=== PATIENT | female | born 1950 | race Caucasian/White ===

== ENCOUNTER → 2017-10-17 14:02 | Outpatient (CLI) | payer MEDICARE, BC, SELFPAY ==
[2017-10-17 15:58] LABS: Hemoglobin A1c 5.4 % (4.2-6.3)
[2017-10-17 16:35] LABS: ALB/GLOB Ratio 1.1 RATIO (0.9-2.4); AST(SGOT) 19 U/L (15-37); Alanine Aminotransfer ALT/SGPT 47 U/L (13-56); Alkaline Phosphatase 82 U/L (45-117); Anion Gap 12 (5-15); BUN 14 mg/dL (7-18); BUN/Creat Ratio 18.3 RATIO (10-20); Calcium,Total 9.2 mg/dL (8.5-10.1); Chloride 105 mmol/L (98-107); Cholesterol 211 mg/dL (200); Creatinine, Serum 0.76 mg/dL (0.55-1.02); EST Glomerular Filtration Rate 80 mL/min (>60); Est Glom Filt Rate - Afr Amer 97 mL/min (>60); Globulin 3.5 g/dL (2.2-4.2); Glucose 158 mg/dL (74-106); High Density Lipoprotein 39 mg/dL; Potassium 3.7 mmol/L (3.5-5.1); Protein, Total 7.5 g/dL (6.4-8.2); Sodium Level 141 mmol/L (136-145); Triglycerides 357 mg/dL; Very Low Density Lipoprotein 71 mg/dL (5-40)
[2017-10-17 17:33] LABS: Microalbumin,Random Urine 11.8 mg/L (NO RANGE EST.); Microalbumin:Creatinine Ratio 12.7 mg/g CRE (<30 mg/g CRE)
[2017-10-17 18:00] LABS: Hematocrit 38.7 % (37-47); Mean Corpuscular Volume 93.9 fL (81-99); Red Blood Count 4.12 M/mm3 (4.2-5.4); White Blood Count 6.9 K/mm3 (4.4-11.0)
[2017-10-17 18:01] LABS: Mean Corp Hgb Conc 36.2 g/gl (32-36); Mean Platelet Vol. 10.3 fl (6.2-12.0); POSITIVE COUNT YES; POSITIVE DIFFERENTIAL NO; POSITIVE MORPHOLOGY NO; Platelet Count 223 K/mm3 (150-450); RBC Distribution Width CV 13.1 % (11.6-14.6); RBC Distribution Width SD 44.5 fl (35.1-43.9)
[2017-10-17 18:02] LABS: Absolute Lymphocyte Count 2.43 X10^3/ul (0.83-4.51); Absolute Neutrophil Count 3.7 X10^3/uL (2.0-7.7); Basophil% 0.4 % (0-1); Differential Indicated SCAN CRITERIA MET; Eosinophil# 0.13 X10^3/uL; Eosinophils% 1.9 % (0-5); Lymphocyte # 2.43 X10^3/ul (4.0); Lymphocyte % 35.2 % (19-41); Monocyte# 0.59 X10^3/uL; Monocyte% 8.6 % (0-10); Neutrophil # 3.69 X10^3/uL (2.7-7.7); Neutrophil % 53.5 % (47-70)
[2017-10-17 18:03] LABS: Basophil# 0.03 X10^3/uL
[2017-10-17 18:17] LABS: Anisocytosis RARE; Macrocytosis RARE; Platelet Estimate ADEQUATE (ADEQ); Platelet Morphology LARGE
[2017-10-19 09:55] LABS: LDL, Direct 120295 139 mg/dL (0-99)
[2017-10-19 15:57] LABS: Hep C Antibodies <0.1 s/co ratio (0.0-0.9)
== END ==
PROVIDERS: Family Provider Family Medicine; PCP Family Medicine; Visit Provider Family Medicine
DX: I10 Essential (primary) hypertension (principal); E78.5 Hyperlipidemia, unspecified; R73.9 Hyperglycemia, unspecified; R53.83 Other fatigue
CPT/HCPCS: 36415; 80053; 80061; 82043; 82570; 83036; 83721; 85025; 86803

== ENCOUNTER → 2017-12-30 13:38 | Outpatient (CLI) | payer MEDICARE, BC, SELFPAY ==
--- NOTE | 2017-12-30 13:42 | RAD_ITS ---
STUDY: X-RAY - CERVICAL SPINE REASON FOR EXAM: Female, 67 years old. Neck pain x6 months TECHNIQUE: 5 view(s) of the cervical spine were obtained. COMPARISON: None FINDINGS: Normal anterior atlantoaxial articulation. Normal odontoid process. Normal cervical lordosis. Normal vertebral bodies and endplates. Mild disc space narrowing There is multi-level osseous foraminal stenosis. The soft tissue structures are unremarkable. RAD/Cerv Spine 4 or 5 Views IMPRESSION: Multilevel degenerative changes, no demonstrated fracture or aggressive osseous lesion Electronically Signed: Thony Felton MD at 14:22 EDT , Service support ,
== END ==
PROVIDERS: Family Provider Family Medicine; PCP Family Medicine; Visit Provider Anesthesiology
DX: M54.2 Cervicalgia (principal)
CPT/HCPCS: 72050

== ENCOUNTER → 2018-06-03 12:01 | Outpatient (CLI) | payer MEDICARE, BC, SELFPAY ==
--- NOTE | 2018-06-03 12:03 | BI_ITS ---
MAMMOGRAPHY - BILATERAL SCREENING REASON FOR EXAM: Female, 67 years old. Routine annual screening examination. PERTINENT HISTORY: Non-contributory. TECHNIQUE: Digital bilateral breast suha (3D mammographic acquisition) in the CC and MLO projections. 2-D mediolateral oblique (MLO) and craniocaudad (CC) views of both breasts were obtained. CAD: Full Field Digital Mammography with Computer Added Detection was performed. COMPARISON: Comparison is made with prior study dated May 21, 2017 and April 30, 2016. FINDINGS: Breast Composition: There are scattered areas of fibroglandular density. There are no dominant masses or suspicious calcifications. No other significant abnormalities are identified. There has been no significant change since the prior study. BI/SCREENING MAMM (CAD), BILAT IMPRESSION: Stable bilateral screening mammogram. Yearly follow-up mammogram recommended. (A) ASSESSMENT CATEGORY: BIRADS Category 1: Negative. A letter regarding these results will be sent to the patient by the facility within 30 days. Approximately 10% of breast cancers are not detected by mammography. A normal mammogram should not delay biopsy of a clinically suspicious abnormality. [id number] Electronically Signed: Josr Phillips MD at 14:13 EDT Tel [phone], Service support ,
== END ==
PROVIDERS: Family Provider Family Medicine; PCP Family Medicine; Referring Provider Nurse Practitioner Women's Health; Visit Provider Nurse Practitioner Women's Health
DX: Z12.31 Encounter for screening mammogram for malignant neoplasm of breast (principal)
CPT/HCPCS: 77063; 77067

== ENCOUNTER 2018-08-11 10:52 | Day surgery (SDC) | payer MEDICARE, BC, SELFPAY ==
[2018-04-30 13:26] VITALS: BMI 29.1
[2018-08-06 15:29] VITALS: BP 152/68; PULSE 84; RESP 16; TEMP 36.9; O2SAT 96; BMI 27.6
--- NOTE | 2018-08-06 15:41 | SDCEKG_ITS ---
Test Reason : Blood Pressure : / mmHG Vent. Rate : 076 BPM Atrial Rate : 076 BPM P-R Int : 188 ms QRS Dur : 082 ms QT Int : 376 ms P-R-T Axes : 059 041 038 degrees QTc Int : 423 ms Normal sinus rhythm Low voltage QRS Septal infarct , age undetermined Abnormal ECG Confirmed by ENRIKE GONZALES, EVANS ([id number]), editor news MILI CLARK ([id number]) on 08/08/2018 2:47:51 PM Referred By: Hilton Paula Confirmed By:EVANS CALVERT MD
[2018-08-06 16:25] LABS: ALB/GLOB Ratio 1.1 RATIO (0.9-2.4); AST(SGOT) 30 U/L (15-37); Alanine Aminotransfer ALT/SGPT 56 U/L (13-56); Albumin, Serum 3.9 g/dL (3.2-5.0); Alkaline Phosphatase 86 U/L (45-117); Anion Gap 11 (5-15); BUN 15 mg/dL (7-18); BUN/Creat Ratio 19.6 RATIO (10-20); Chloride 104 mmol/L (98-107); Creatinine, Serum 0.76 mg/dL (0.55-1.02); EST Glomerular Filtration Rate 80 mL/min (>60); Est Glom Filt Rate - Afr Amer 97 mL/min (>60); Estimated Creatinine Clearance 54.32 ml/min; Globulin 3.5 g/dL (2.2-4.2); Glucose 167 mg/dL (74-106); Potassium 3.8 mmol/L (3.5-5.1); Protein, Total 7.4 g/dL (6.4-8.2); Sodium Level 139 mmol/L (136-145)
--- NOTE | 2018-08-06 16:30 | RAD_ITS ---
STUDY: X-RAY CHEST REASON FOR EXAM: Female, 67 years old. Preop TECHNIQUE: PA and lateral COMPARISON: May 30, 2014 FINDINGS: The lungs are clear and expanded. Tiny calcified granulomata in the right lung. There is no demonstrated pleural abnormality. Normal size heart. Normal mediastinum and anthony. Normal visualized pulmonary arteries. Normal visualized aortic arch and descending thoracic aorta. Dorsal spine demonstrates spondylosis. Normal visualized ribs, clavicles, and shoulders. There is no demonstrated abnormality of the visualized soft tissue structures of the upper abdomen. No significant change since prior exam RAD/Chest PA and Lateral IMPRESSION: Old granulomatous disease. No acute cardiopulmonary pathology Electronically Signed: Hansel Green MD at 17:09 EST , Service support ,
[2018-08-06 16:54] LABS: Hematocrit 39.5 % (37-47); Mean Corpuscular Volume 91.4 fL (81-99); Mean Platelet Vol. 10.3 fl (6.2-12.0); Platelet Count 260 K/mm3 (150-450); RBC Distribution Width CV 12.8 % (11.6-14.6); Red Blood Count 4.32 M/mm3 (4.2-5.4); White Blood Count 7.1 K/mm3 (4.4-11.0)
[2018-08-06 16:59] LABS: Mean Corp Hgb Conc 35.4 g/gl (32-36); Mean Corpuscular Hgb 32.4 pg (27.0-32.0)
[2018-08-06 17:00] LABS: Scan Indicated on CBC? Y/N NO
[2018-08-06 17:14] LABS: Hemoglobin A1c 5.9 % (4.2-6.3)
[2018-08-06 17:23] LABS: International Normalized Ratio 1.2; Prothrombin Time (Protime)PT. 14.8 SECONDS (11.7-14.9)
[2018-08-06 17:24] LABS: Partial Thromboplast Time 29.7 Seconds (24.1-36.2)
--- NOTE | 2018-08-10 20:25 | PCM.HP.BLA ---
History and Physical Date of Admission: 08/11/18 Surgical History and Physical Mariela Dozier, a 67 year old female 2 0 0 0 2, presents for Vaginal Hysterectomy and AP Repair on August 11, 2018 at 7:30. -- Prolapse Symptoms -- Rectocele which began 2008. Mariela claims it started gradually and has been present worsened in last 6 weeks. It occurs all the time. It is located in the rectum/vaginia. Mariela characterizes the quality rubbing, pressure. Severity is moderate and very concerned; Associated signs and symptoms are Referral Dr. Marroquin; has been using intravaginal estrogen for 3-4 years; hx of heart attack with stents placed 4 years ago. Additional comments are: Had Anterior Repair a few years ago for cystocele but it failed shortly after. MEDICATIONS HISTORY: Current medications prescribed by our practice are: 1. Estrace 0.01% (0.1 mg/gram) vaginal cream, apply 1 inch ribbon to vaginal area three times weekly Patient is also takin. Chromium Picolinate KLB6 10-0.4 mg tablet, pt takes 500mcg daily 2. Miralax 17 gram Powder in Packet, PRN 3. potassium 99 mg tablet, 1 PO QD 4. Fish Oil 1,000 mg capsule 5. red yeast rice 600 mg tablet 6. Aspir-81 81 mg tablet,delayed release, 1 daily 7. Vitamin D3 1,000 unit capsule, 1 daily 8. Eye Vitamin and Minerals 7,160 unit-113 mg-100 unit tablet 9. Probiotic 15 billion cell sprinkle capsule 10. carvedilol 6.25 mg tablet, One pill by mouth twice a day ALLERGIES: Iodine, Nausea, headache, dizzy, Iodine and Headache Infections - Chicken pox Illnesses - pre-diabetic, borderline HTN Accidents - no injuries of consequence Hospitalizations - see surgery [place], 05/30/14; Review of Systems: GENERAL - Denies fever, or chills SKIN - Denies skin changes EYES - Denies visual changes EARS - Denies difficulty hearing NOSE - Denies nasal congestion or bleeding MOUTH - Denies sore throat or difficulty swallowing NECK - Denies pain or swelling RESPIRATORY - Denies shortness of breath or wheezing CARDIOVASCULAR - Denies palpitations or chest pain GASTROINTESTINAL - Denies nausea, vomiting, diarrhea, constipation GENITOURINARY - Denies dysuria, frequency of urination, incontinence of urine MUSCULOSKELETAL - Denies joint or muscle pain NEUROLOGICAL - Denies localized numbness or weakness PSYCHIATRIC - Denies depression or anxiety ENDOCRINE - Denies heat or cold intolerance, weight loss or gain HEMATO-IMMUNOLOGIC - Denies excesive bleeding with cuts SOCIAL HISTORY: Alcohol Use - drinks occasionally Smoking - denies smoking Diet - low in sweets Lifestyle - high stress lifestyle, injury and attempted suicide Exercise - active Seat Belt Use - always Employer - Retired Illicit Drug Use - denies use of street drugs Sexual Activity - Spouse-Sig Other Name - Levi Spouse-Sig Other Occupation - retired Children Name(s) - Sorin Russ() Control - Vasectomy and postmenopausal FAMILY HISTORY: Mother: Heart Disease. Father: COPD, DM II and . MENSTRUAL HISTORY: LMP Known?- Postmenopausal, Age Onset Menarche - 15 PAST PREGNANCIES: Total Pregnancies - 2; Full Term Pregnancies - 2; Premature - 0; Abortions, Induced - 0; Abortions, Spontaneous - 0; Ectopics - 0; Multiple Births - 0; Living Children - 2 SURGICAL HISTORY: 1. Stent placement 05/16 ; - 2. Appendectomy ; - 3. R arm Bypass 03/2012 ; - work injury 4. R hand tumor removed and ; - 5. Bladder repair 10/2011 ; - 6. Tumor from L hand removed ; - PHYSICAL EXAM BP- 130/72 Sitting, Left arm, large cuff Temp- 97.8 Taken Orally Height- 66 inch CONSTITUTIONAL - NAD, well nourished, and well developed SKIN - No rash, lesions, or ulcers HEENT - Normocephalic, PERRLA, EOMI NECK - No nodes, no nuchal rigidity and thyroid normal size and texture LYMPH NODES - Palpation of lymph nodes in neck and groins within normal limits LUNGS - CTA x2 without wheezes, crackles or rales CARDIAC - Regular rate and rhythm without rubs, murmurs, or gallops ABDOMEN - Without hepatosplenomegaly, distention, masses, rebound, or guarding; normal bowel sounds; no hernias EXTREMITIES - No edema or calf tenderness NEUROLOGICAL - Cranial nerves II-XII grossly intact PSYCHIATRIC - A and O to time, place, person, mood and affect External Genitial Vagina - atrophic Urethra/Urethral Meatus - non-tender Bladder - non-tender Vagina - vaginal ha are pink and moist without loss of rugae and no evidence of atropy and cystocele to introitus; rectocele to within 2 cm of introitus Cervix - without cervical motion tenderness and has normal size and features without evident lesions and cercix protruded to introitus with bearing down Uterus - multiparous size 6 cm & wt 75-125 g Adnexa - no tenderness and no masses ASSESSMENT/PLAN: 1. Uterovaginal Prolapse, Incomplete Very symptomatic and denies BRENNA problem. Discussed options for treatment and pt declines pessary use. Desires proceeding with Vag Hyst and AP Repair. Discussed RBAs and all questions answered. Has cardio clearance. Continued intravaginal estrogen.
[2018-08-11] VITALS (9 sets, daily range): BP systolic 144–163; BP diastolic 66–79; PULSE 67–90; RESP 15–18; TEMP 36.4–36.6; O2SAT 93–98; BMI 27.6
--- NOTE | 2018-08-11 | HYST_PTH ---
PATIENT: USMAN NICKERSON [place] [facility] [place][id number] AGE/SX: 67/F ROOM: RE08/11/[address]: Dr. Hilton Paula MD : [id number] BED: DIS: 08/12/2018 SPEC #: [id number] RECD: 08/12/18 13:15 STATUS: ROME DAVID #: [id number] AMY: 08/11/18 00:[address]: Hilton Paula DEPT: SURGICAL PATHOLOGY RECD BY: Kris Castillo ENTERED: 08/12/18 13:15 SP TYPE: HYSTERECT OTHR DR: Dr. Gideon Turcios DO Tissues: Uterus, NOS Procedures: Surgery Specimen Level II Surgery Specimen Level V HEADER OPERATION: Vaginal hysterectomy, anterior and posterior repair PRE-OP DIAGNOSIS: Uterovaginal prolapse TISSUE SUBMITTED: Uterus, cervix, vaginal mucosa MICROSCOPIC DIAGNOSIS Uterus, hysterectomy: Cervix - nabothian cysts and mild chronic inflammation. Endometrium - cyst atrophy. Myometrium - adenomyosis. Vaginal tissue, anterior and posterior repair: Mild chronic inflammation. No evidence of dysplasia. AM:hi 08/13/18 MICROSCOPIC DESCRIPTION Slides are reviewed. GROSS DESCRIPTION Received in fixative is one container labeled with the patient's name and designated uterus, cervix and vaginal mucosa. The specimen consists of a hysterectomy specimen consisting of uterus with cervix and detached pieces of mucosal tissue. The uterus with cervix weighs 50 gm and measures 8.5 x 4.5 x 3 cm. The serosal surface is gooden, glistening. The ectocervical mucosa is unremarkable. The external os is pinpoint. The endocervical canal measures 3 cm in length and the endocervical mucosa is gooden, glistening and unremarkable. The triangular endometrial cavity measures 4 cm in length and up to 1 cm in width. The endometrium is gooden, glistening without any mass lesion and measures <0.1 cm in thickness. Sections of the uterine wall reveal two small nodular masses measuring 0.2 to 0.3 cm in thickness. The uterine wall measures up to 1.5 cm in thickness. Also present in the container are five detached pieces of mucosal tissue measuring in aggregate 7 x 5 x 0.5 cm. No mucosal lesion is identified. Instrumentation montoya are noted. [place] Gauger sections are submitted in seven cassettes as follows: 1 - anterior cervix, 2 - posterior cervix, 3 & 4 - anterior uterine wall, 5 & 6 - posterior uterine wall. Cassettes 4 and 6 contain the nodular masses. 7 - mucosal tissue. / SJ:hi 08/12/18 TC: 5 CPT: 43933, 88824
[2018-08-11 13:15] LABS: Bedside Glucose 181 mg/dL (70-110)
--- NOTE | 2018-08-11 14:56 | OP.PCM_ITS ---
Report of Operation Date of Procedure: 08/11/18 Pre-Operative Diagnosis: Incomplete Uterovaginal Prolapse, Cystocele, Rectocele Post-Operative Diagnosis: Incomplete Uterovaginal Prolapse, Cystocele, Rectocele Surgery/Procedure Performed:: Vaginal Hysterectomy and Anterior Posterior Repair Description of Surgical Findings:: 6 cm uterus with cervix prolapsing to the introitus. Large rectocele and cystocele. decision support manager: Tip Godinez Type of Anesthesia:: General Anesthesiologist: Antonia Jenkins Specimen's removed: Uterus and vaginal mucosa Drains: Miranda to straight drain Estimated Blood Loss (mL): 100 cc Fluids Replaced: Crystalloid Description of Procedure: Surgeon: Hilton Paula MD, FACOG Indications: This is a 67-year-old patient who is been having problems with prolapse symptoms. Conservative measures have not been helpful. Given this the patient desires that we proceed the above procedure. She has been counseled regarding the risk and indications of this procedure including the possibility of bleeding, infection, and injury to surrounding structures such as bowel bladder. All questions were answered. Procedure: Patient was taken to the operating room where after induction of general anesthesia she was placed in the dorsal lithotomy position and prepped and draped in the usual sterile fashion. A Miranda catheter was placed. Anterior cervix was grasped with a tenaculum and anterior cervix circumscribed with cautery on a setting of 35 W coagulation. Anterior vaginal mucosa was undermined and anterior peritoneum was easily entered. The posterior aspect of the cervix was circumscribed with a knife and posterior peritoneum easily entered. Progressive bites were taken on either side of the uterine cervix and each pedicle ligated with 0 Vicryl suture. Superior pedicles were ligated ?2 with 0 Vicryl suture and sidewall pedicles were examined and oversewn where necessary with [id number] 0 Vicryl suture to achieve hemostasis. Posterior vaginal cuff was oversewn with running locked 0 Vicryl suture. Hemostasis was noted and peritoneum was closed in a pursestring fashion incorporating superior pedicles into the stitch. Anterior vaginal mucosa was undermined and divided and then imbricated toward the midline with interrupted 0 Vicryl sutures. Vaginal mucosa was trimmed and then closed with interrupted 2-0 chromic suture. Vaginal cuff was then closed front to back with interrupted [id number] 0 Vicryl suture. Hemostasis was noted. Attention was turned toward the posterior repair portion of the procedure. Remnants of the hymenal ring were grasped with Allises and a V-shaped incision was made in the perineum. Rectovaginal mucosa was then undermined divided and then imbricated toward the midline with interrupted 0 Vicryl suture. Vaginal mucosa was trimmed and then closed with running locked 2-0 chromic suture. Remnants of the bulbocavernosus muscles were identified and brought toward the midline with a single lawznh-[id number] 0 Vicryl suture and perineum was closed in the usual fashion with running and subcuticular, and ruwagf-ji-[id number] 2-0 chromic suture. Hemostasis was noted. Miranda catheter was opened and clear yellow urine was noted. Vagina was packed with iodoform tape. Patient tolerated the procedure well was taken to recovery room in satisfactory condition; sponge instrument and needle counts were all reportedly correct. Estimated blood loss for the case was less than 100 cc. Cefotan 2 g IV was given prior to beginning the operative procedure. There were no apparent complications of the surgery. Grafts/Implants Used: None - Complications None - Admit VTE Documentation VTE Present on Admission: Yes VTE Mechan Device Prophylaxis: SCD's VTE Pharm Prophylaxis ordered?: Yes
--- NOTE | 2018-08-11 16:44 | DCINST_ITS ---
Discharge Diet: No Restrictions Discharge Activity: Return to Normal Activity, May Not Drive - while taking narcotic pain medications., May Shower May resume sexual activity in: 6-8 weeks Call your doctor if your incision/area has: Continuous Slow Oozing, Sudden Increased Bleeding, Increased Pain/ Swelling, Increased Redness, Foul Smelling Discharge Call your doctor if you observe: Fever of 101 or Higher, Inability to urinate, Inability to have a bowel movement, Using more than one pad per hour Allergies/Adverse Reactions: Allergies Iodinated Contrast- Oral and IV Dye [Iodinated Contrast Media - IV Dye] Allergy (Verified 08/06/18 15:00) Other morphine Allergy (Verified 08/06/18 15:00) SEVER HEADACHE lisinopril Adverse Reaction (Verified 08/11/18 11:32) Other rosuvastatin [From Crestor] Adverse Reaction (Verified 08/11/18 11:32) Other LEGS HURT Medications to take at Discharge RX: Cranberry Conc/Ascorbic Acid [Cranberry 12,600 mg Softgel] 4,200 mg PO MOREL 05/27/14 RX: L.acidoph/B.long/L.plant/B.lac [Probiotic Acidophilus Beads] 1 ea PO DAILY 05/27/14 RX: [place]-3/Dha/Epa/Fish Oil [Fish Oil Dr 500 mg Softgel] 1,000 mg PO DAILY 05/27/14 RX: Potassium Gluconate 99 mg PO DAILY 05/27/14 Red Rice Yeast With [place] 600 ml PO BID 05/27/14 aspirin 81 mg tablet,delayed release 81 mg PO DAILY 04/30/18 carvedilol 6.25 mg tablet 6.25 mg PO BID 04/30/18 chromium picolinate 400 mcg tablet 500 mcg PO BID tab 04/30/18 hemp oil 0.5 ml PO BID 04/30/18 Ascorbic Acid [Vitamin C] 1,000 mg PO DAILY 08/06/18 Loratadine [Claritin] 10 mg PO PRN PRN 08/06/18 Lutein [Natural Lutein] 20 mg PO DAILY 08/06/18 Polyethylene Glycol 3350 [Clearlax] 17 gm PO DAILY 08/06/18 RX: Biotin 7,500 mcg PO MOTUWETHFR 08/06/18 RX: Estradiol See Rx Instructions VAGINAL SUWEFR 08/06/18 Docusate Sodium [Colace] 100 mg PO BID PRN PRN #60 cap 08/11/18 traMADol [Ultram (G)] 50 mg PO Q6H PRN PRN 7 Days #20 tab 08/11/18 The following prescriptions were given: traMADol [Ultram (G)] 50 mg PO Q6H PRN PRN 7 Days #20 tab PRN Reason: Mod-Severe Pain (-06/11) Docusate Sodium [Colace] 100 mg PO BID PRN PRN #60 cap PRN Reason: Constipation Primary Care Physician: Gideon Turcios DO [Primary Care Provider] - Test Results: Test results from this visit will be discussed in further detail at your follow- up appointment, if applicable. Please Follow Up With: Hilton Paula MD When: 2-3 weeks
[2018-08-11 17:19] LABS: Bedside Glucose 188 mg/dL (70-110)
[2018-08-11] MEDS: HYDROmorphone 1 MG/ML Syringe IV (18:41)
[2018-08-11] MEDS: Enoxaparin 30 MG/0.3 ML Syringe SC (18:41)
[2018-08-11] MEDS: Carvedilol 6.25 MG Tablet PO (22:22)
[2018-08-11] MEDS: Acetaminophen 500 MG Tablet 1000 MG PO (22:22)
[2018-08-11] MEDS: Ketorolac 30 MG/ML Syringe IV (23:13)
[2018-08-12] MEDS: Lactated Ringers 1,000 ML 125 ML IV (00:47)
[2018-08-12 05:00] VITALS: BP 143/66; PULSE 97; RESP 16; TEMP 36.4; O2SAT 97
[2018-08-12] MEDS: Ketorolac 30 MG/ML Syringe IV (05:04)
[2018-08-12 06:05] LABS: EST Glomerular Filtration Rate 47 mL/min (>60); Est Glom Filt Rate - Afr Amer 57 mL/min (>60); Estimated Creatinine Clearance 45.26 ml/min
[2018-08-12 06:23] LABS: Hematocrit 33.9 % (37-47); Mean Corpuscular Volume 92.4 fL (81-99); Mean Platelet Vol. 9.8 fl (6.2-12.0); Platelet Count 266 K/mm3 (150-450); RBC Distribution Width CV 13.1 % (11.6-14.6); Red Blood Count 3.67 M/mm3 (4.2-5.4)
[2018-08-12 06:45] LABS: Hemoglobin 12.6 g/dl (12.0-15.0); Mean Corp Hgb Conc 36.4 g/gl (32-36); Mean Corpuscular Hgb 33.5 pg (27.0-32.0); Scan Indicated on CBC? Y/N NO
[2018-08-12 06:51] VITALS: O2SAT 94
[2018-08-12 08:00] VITALS: BP 151/69; PULSE 89; RESP 16; TEMP 36.9; O2SAT 98
[2018-08-12] MEDS: Carvedilol 6.25 MG Tablet PO (08:15)
[2018-08-12] MEDS: traMADol 50 MG Tablet PO ×2 (08:15→14:03)
--- NOTE | 2018-08-12 09:00 | PCM.PN.OB ---
Subjective: Patient without complaints. Tolerating diet well. Positive flatus. Minimal vaginal bleeding. Miranda out but no voiding on her own yet. - Physical Exam Vital Signs Temp Pulse Resp BP Pulse Ox 98.4 F 89 16 151/69 H 98 08/12/18 08:00 08/12/18 08:00 08/12/18 08:00 08/12/18 08:00 08/12/18 08:00 Oxygen Flow Rate (L/min) 2 Oxygen Delivery Method Room Air Weight: 182 lb 1.629 oz Body Mass Index (BMI) 27.6 Finger Stick Blood Glucose 188 Intake and Output for Last 24 Hours 08/10/18 08/11/18 08/12/18 23:59 23:59 23:59 Intake Total 3600 / 3600 1120 / 1120 Output Total 440 / 440 425 / 425 Balance 3160 / 3160 695 / 695 Laboratory Tests Past 24 Hrs 08/12/18 08/12/18 05:30 05:30 WBC 14.0 H RBC 3.67 L Hgb 12.6 Hct 33.9 L MCV 92.4 MCH 33.5 H MCHC 36.4 H RDW 13.1 RDW Differential 44.0 H Plt Count 266 MPV 9.8 Creatinine 1.20 H Estim Creat Clear Calc 45.26 Est GFR (MDRD) Af Amer 57 L Est GFR (MDRD) Non-Af 47 L POC Glucose 08/11/18 08/11/18 17:13 11:23 POC Glucose 188 H 181 H Vaginal pack out and minimal vaginal bleeding. Creatinine marginally elevated so will stop NSAIDs. No CVA tenderness noted. Medical Necessity - Tobacco Use Smoking Status: Never smoker Tobacco Use: Non-smoker Assessment/Plan Doing well postoperative day #1 status post vaginal hysterectomy and anterior posterior repair. Will release to home later today when able to void on her own.
--- NOTE | 2018-08-12 13:28 | NURSING ---
substance abuse added under plan of care, not intended for this pt. unable to remove d/t documentating on it
[2018-08-12 14:00] VITALS: BP 151/56; PULSE 80; RESP 16; TEMP 36.6; O2SAT 99
== END 2018-08-12 14:45 | disposition home or self-care (01) ==
LOC: SDC 10:54 → AC 10:57 → MS2 10:59
PROVIDERS: Anesthesiology; Family Provider Family Medicine; PCP Family Medicine; Referring Provider Obstetrics & Gynecology; Visit Provider Obstetrics & Gynecology
PROC: (CPT 58260; principal; 2018-08-11 13:00)
DX: N81.2 Incomplete uterovaginal prolapse (principal); N80.0 Endometriosis of uterus; N88.8 Other specified noninflammatory disorders of cervix uteri; N72 Inflammatory disease of cervix uteri; I10 Essential (primary) hypertension; E78.00 Pure hypercholesterolemia, unspecified; R73.03 Prediabetes; I25.2 Old myocardial infarction; Z78.0 Asymptomatic menopausal state; Z79.82 Long term (current) use of aspirin; Z79.899 Other long term (current) drug therapy; Z95.5 Presence of coronary angioplasty implant and graft
CPT/HCPCS: 00940; 57260; 58260; 36415; 71046; 80053; 82565; 82962; 83036; 85027; 85610; 85730; 86850; 86870; 86900; 88302; 88307; 93005; J7120; J2405

== ENCOUNTER → 2018-09-12 14:46 | Outpatient (CLI) | payer MEDICARE, BC, SELFPAY ==
[2018-09-12 17:14] LABS: BUN 13 mg/dL (7-18); Creatinine, Serum 0.64 mg/dL (0.55-1.02); EST Glomerular Filtration Rate 98 mL/min (>60); Est Glom Filt Rate - Afr Amer 119 mL/min (>60)
== END ==
PROVIDERS: Family Provider Family Medicine; PCP Family Medicine; Visit Provider Family Medicine
DX: R79.89 Other specified abnormal findings of blood chemistry (principal)
CPT/HCPCS: 36415; 82565; 84520

== ENCOUNTER → 2018-12-18 07:35 | Outpatient (CLI) | payer MEDICARE, BC, SELFPAY ==
[2018-08-11 18:46] VITALS: BMI 27.6
[2018-12-18 09:28] LABS: Erythrocyte Sedimentation Rate 1 mm/hr (0-30)
[2018-12-18 09:58] LABS: Hemoglobin A1c 6.3 % (4.2-6.3)
[2018-12-18 10:31] LABS: Rheumatoid Factor < 10.0 IU/mL (<15); Thyroid Stim Hormone (TSH) 2.63 uIU/mL (0.358-3.74)
[2018-12-18 10:54] LABS: Vitamin B12 435 pg/mL (211-911)
[2018-12-19 14:07] LABS: RNP Ab 0.3 AI (0.0-0.9); Smith Ab <0.2 AI (0.0-0.9)
[2018-12-19 16:07] LABS: PROEL- A/G Ratio 1.2 (0.7-1.7); PROEL- Albumin 3.7 g/dL (2.9-4.4); PROEL- Alpha-1 Globulin 0.2 g/dL (0.0-0.4); PROEL- Alpha-2 Globulin 0.7 g/dL (0.4-1.0); PROEL- Beta Globulin 1.2 g/dL (0.7-1.3); PROEL- Globulin, Total 3.1 g/dL (2.2-3.9); PROEL- TOTAL PROTEIN 6.8 g/dL (6.0-8.5)
[2018-12-22 12:03] LABS: Hep C Antibodies <0.1 s/co ratio (0.0-0.9)
[2018-12-22 12:08] LABS: ANTINUCLEAR ANTIBODIES DIRECT Negative (Negative)
== END ==
PROVIDERS: Family Provider Family Medicine; PCP Family Medicine; Referring Provider Psychiatry & Neurology Neurology; Visit Provider Psychiatry & Neurology Neurology
DX: R20.2 Paresthesia of skin (principal); G62.9 Polyneuropathy, unspecified; R73.9 Hyperglycemia, unspecified
CPT/HCPCS: 36415; 82607; 82746; 83036; 84165; 84443; 85652; 86038; 86235; 86431; 86803

== ENCOUNTER 2018-12-26 13:30 | Outpatient (RCR) | payer OTHER, SELFPAY ==
--- NOTE | 2019-04-21 13:00 | DS.PCM_ITS ---
Massage Therapy Discharge Summary: Discharge Date: 04/21/2019 Mariela was seen for massotherapy for the past 6 years due to a workmans comp injury to the right shoulder neck area. She was treated with massage therapy consisting of deep pressure soft tissue techniques, myofascial release and trigger point compression to her cervical and should on the right side only. Mariela reported that she would have great results when coming weekly but would not get more appointments right away so she would back track. At this time this patient is being discharged from our care at [facility] due to no longer having workmans comp covering appointments.
== END 2018-12-26 17:00 | disposition home or self-care (01) ==
LOC: MASS 13:30
PROVIDERS: Family Provider Family Medicine; PCP Family Medicine
DX: S16.1XXD Strain of muscle, fascia and tendon at neck level, subsequent encounter (principal); S46.819D Strain of other muscles, fascia and tendons at shoulder and upper arm level, unspecified arm, subsequent encounter
CPT/HCPCS: 97124

== ENCOUNTER → 2019-06-08 13:07 | Outpatient (CLI) | payer MEDICARE, BC, SELFPAY ==
--- NOTE | 2019-06-08 13:10 | BI_ITS ---
MAMMOGRAPHY - BILATERAL SCREENING 3-D TOMOSYNTHESIS REASON FOR EXAM: Female, 68 years old. Breast survey exam PERTINENT HISTORY: No significant family history. BILATERAL DIGITAL MAMMOGRAM WITH TOMOSYNTHESIS: Mediolateraloblique and craniocaudal views demonstrate no evidence of dominant parenchymal masses. No cluster of microcalcifications or architectural distortion is seen. No evidence of skin thickening is identified There has been no significant change since 06/03/2018. Breast Density: The breast tissue is heterogeneously dense, which may obscure small masses. CAD was used to assist in final assessment. IMPRESSION: NORMAL MAMMOGRAM BILATERALLY. FINAL ASSESSMENT: BIRAD 1 (NEGATIVE) YEARLY MAMMOGRAM RECOMMENDED Approximately 10% of breast cancers are not detected by mammography. A normal mammogram should not delay biopsy of a clinically suspicious abnormality. Electronically Signed: Hilton Macdonald, at 17:27 EDT Tel , Service support , BI/SCREEN MAMM (CAD) W/SOL HARVEY
== END ==
PROVIDERS: Family Provider Family Medicine; PCP Family Medicine; Referring Provider Obstetrics & Gynecology; Visit Provider Obstetrics & Gynecology
DX: Z12.31 Encounter for screening mammogram for malignant neoplasm of breast (principal)
CPT/HCPCS: 77063; 77067

== ENCOUNTER → 2020-01-29 09:53 | Outpatient (CLI) | payer MEDICARE, BC, SELFPAY ==
[2018-08-11 18:46] VITALS: BMI 27.6
[2020-01-29 12:45] LABS: Absolute Lymphocyte Count 2.45 X10^3/uL (0.83-4.51); Absolute Neutrophil Count 3.6 X10^3/uL (2.0-7.7); Basophil# 0.06 X10^3/uL; Basophil% 0.9 % (0-1); Eosinophil# 0.07 X10^3/uL; Hematocrit 40.9 % (37-47); Hemoglobin 14.9 g/dL (12.0-15.0); Lymphocyte # 2.45 X10^3/ul (4.0); Lymphocyte % 36.1 % (19-41); Mean Corp Hgb Conc 36.4 g/dL (32-36); Mean Corpuscular Hgb 33.7 pg (27.0-32.0); Mean Corpuscular Volume 92.5 fL (81-99); Mean Platelet Vol. 10.6 fl (6.2-12.0); Monocyte# 0.56 X10^3/uL; Monocyte% 8.2 % (0-10); NRBC Flagged by Analyzer 0 % (0-5); Neutrophil # 3.61 X10^3/uL (2.7-7.7); Neutrophil % 53.2 % (47-70); Platelet Count 258 K/mm3 (150-450); RBC Distribution Width CV 12.4 % (11.6-14.6); RBC Distribution Width SD 41.9 fl (35.1-43.9); Red Blood Count 4.42 M/mm3 (4.2-5.4); White Blood Count 6.8 K/mm3 (4.4-11.0)
[2020-01-29 13:18] LABS: ALB/GLOB Ratio 1.2 RATIO (0.9-2.4); AST(SGOT) 30 U/L (15-37); Alanine Aminotransfer ALT/SGPT 58 U/L (13-56); Albumin, Serum 4.1 g/dL (3.2-5.0); Alkaline Phosphatase 90 U/L (45-117); Anion Gap 8 (5-15); BUN 16 mg/dL (7-18); Calcium,Total 9.2 mg/dL (8.5-10.1); Chloride 104 mmol/L (98-107); Cholesterol 212 mg/dL (200); EST Glomerular Filtration Rate 75 mL/min (>60); Est Glom Filt Rate - Afr Amer 91 mL/min (>60); Globulin 3.5 g/dL (2.2-4.2); Glucose 226 mg/dL (74-106); High Density Lipoprotein 37 mg/dL; Potassium 4.1 mmol/L (3.5-5.1); Protein, Total 7.6 g/dL (6.4-8.2); Sodium Level 137 mmol/L (136-145); Triglycerides 350 mg/dL; Very Low Density Lipoprotein 70 mg/dL (5-40)
[2020-01-29 13:20] LABS: Hemoglobin A1c 6.5 % (3.8-5.6)
[2020-01-29 13:34] LABS: Microalbumin,Random Urine 24.5 mg/L (NO RANGE EST.); Microalbumin:Creatinine Ratio 23.3 mg/g CRE (<30 mg/g CRE)
== END ==
PROVIDERS: Family Provider Family Medicine; PCP Family Medicine; Visit Provider Family Medicine
DX: I25.10 Atherosclerotic heart disease of native coronary artery without angina pectoris (principal); I10 Essential (primary) hypertension; E78.5 Hyperlipidemia, unspecified; R73.03 Prediabetes; Z51.81 Encounter for therapeutic drug level monitoring
CPT/HCPCS: 36415; 80053; 80061; 82043; 82570; 83036; 85025

== ENCOUNTER → 2020-06-23 15:03 | Outpatient (CLI) | payer MEDICARE, BC, SELFPAY ==
--- NOTE | 2020-06-23 15:06 | BI_ITS ---
MAMMOGRAPHY - BILATERAL SCREENING REASON FOR EXAM: Female, 69 years old. Routine annual screening examination. PERTINENT HISTORY: Non-contributory. TECHNIQUE: Digital bilateral breast sol (3D mammographic acquisition) in the CC and MLO projections. 2-D mediolateral oblique (MLO) and craniocaudad (CC) views of both breasts were obtained. CAD: Full Field Digital Mammography with Computer Added Detection was performed. COMPARISON: Comparison is made with prior examination dated 06/08/2019 and 06/03/2008. FINDINGS: Breast Composition: There are scattered areas of fibroglandular density. There are no dominant masses or suspicious calcifications. No other significant abnormalities are identified. There has been no significant change since the prior study. BI/SCREEN MAMM (CAD) W/SOL BILAT IMPRESSION: Stable bilateral screening mammogram. Yearly follow-up mammogram recommended. (A) ASSESSMENT CATEGORY: BIRADS Category 1: Negative. A letter regarding these results will be sent to the patient by the facility within 30 days. Approximately 10% of breast cancers are not detected by mammography. A normal mammogram should not delay biopsy of a clinically suspicious abnormality. [id number] Electronically Signed: Josr Phillips, at 8:08 EDT , Service support ,
== END ==
PROVIDERS: PCP Family Medicine; Referring Provider Obstetrics & Gynecology; Visit Provider Obstetrics & Gynecology
DX: Z12.31 Encounter for screening mammogram for malignant neoplasm of breast (principal)
CPT/HCPCS: 77063; 77067

== ENCOUNTER 2020-06-25 00:17 | Inpatient (IN) | payer MEDICARE, BC, SELFPAY ==
[2020-06-25] VITALS (15 sets, daily range): BP systolic 128–171; BP diastolic 51–116; PULSE 71–92; RESP 14–18; TEMP 36.6–37; O2SAT 95–98; BMI 28.2; BMI 27.6; BMI 27.7
--- NOTE | 2020-06-25 00:20 | ED.RN ---
CALLED FOR EKG PER RN REQUEST, PULLED OLD EKGS FOR
--- NOTE | 2020-06-25 00:58 | RAD_ITS ---
STUDY: X-RAY CHEST REASON FOR EXAM: Female, 69 years old. CP TECHNIQUE: Single AP portable view of the chest. COMPARISON: 08/06/2018. FINDINGS: There are no confluent pulmonary infiltrates. There is no demonstrated pleural abnormality. Normal size heart. Normal mediastinum and anthony. Normal visualized aortic arch and descending thoracic aorta. There are no demonstrated acute fractures or destructive bone lesions. There is no demonstrated abnormality of the visualized soft tissue structures of the upper abdomen. RAD/Chest 1 View (Portable) IMPRESSION: No evidence for acute cardiopulmonary pathology. Electronically Signed: Samson Bain MD at 1:55 EDT , Service support ,
--- NOTE | 2020-06-25 00:58 | EKG12_ITS ---
Test Reason : CP Blood Pressure : / mmHG Vent. Rate : 092 BPM Atrial Rate : 092 BPM P-R Int : 178 ms QRS Dur : 068 ms QT Int : 364 ms P-R-T Axes : 046 047 035 degrees QTc Int : 450 ms Normal sinus rhythm Normal ECG Confirmed by HOLLI GONZALES, ALLYSSA ([id number]), magazine editor GABRIELA IBARRA ([id number]) on 06/27/2020 11:40:58 AM Referred By: BB Confirmed By:ALLYSSA DE LA GARZA MD
--- NOTE | 2020-06-25 01:22 | ED.DCSUM_ITS ---
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 Not Worsened By: Breathing, Coughing Relieved By: Antacids, NTG, NSAIDS - ASA given by EMS Associated Symptoms: Dyspnea, Lightheadedness. Negative for: Nausea, Vomiting, Diaphoresis, Cough, Fever, Palpitations Narrative: Patient had been feeling malaised all day today, then had chest discomfort that started around 2 hours prior to arrival, it went up to her right shoulder and she thought she needed to burp. As a result she took some [place] because she usually requires that in order to burp, which she did and then she burped, and then she started feeling better but the discomfort did not resolve. It started recurring to the point of being severe and short of breath. She did not feel well. She was concerned because she got a stent placed in her heart 6 years ago, they told her she had another 60% blockage that was not able to be stented at the time, and this discomfort felt similar to the time when she needed a stent placed. Prior Similar Symptoms: Yes, With Prior [place] - Past Medical History (1) CAD (coronary artery disease) Status: Chronic (2) Hyperlipidemia Status: Chronic (3) Hypertension Status: Chronic Past Medical History - Allergies and Home Meds Allergies/Adverse Reactions: Allergies Iodinated Contrast Media [Iodinated Contrast Media - IV Dye] Allergy (Verified 06/25/20 00:26) Other lisinopril Adverse Reaction (Verified 06/25/20 00:26) Other morphine Adverse Reaction (Verified 06/25/20 00:26) SEVER HEADACHE rosuvastatin [From Crestor] Adverse Reaction (Verified 06/25/20 00:26) Other LEGS HURT Primary Care Physician: Gideon Turcios DO [Primary Care Provider] - Doctors: ana maria - cardiology Smoking Status: Former smoker - Family History Paternal Family History: Reports: - - cad Review of Systems General: Reports: Malaise. Denies: Chills, Fever, Sweats Eyes: Denies: Visual changes - bilaterally, Diplopia ENT: Denies: Rhinorrhea, Sore throat Cardiovascular: Reports: Chest pain. Denies: Palpitations Respiratory: Reports: Dyspnea. Denies: Cough, Sputum, Dyspnea on exertion, Orthopnea Gastrointestinal: Denies: Abdominal pain, Nausea, Vomiting, Diarrhea, Melena, Hematochezia Genitourinary: Denies: Dysuria, Hematuria, Frequency Musculoskeletal: Denies: Back pain, Swelling, Extremity Pain Skin: Denies: Rash, Wounds Neurological: Denies: Headache, Weakness, Numbness Physical Exam Vital Signs/Narrative: Vital Signs Temp Pulse Resp BP Pulse Ox 06/25/20 01:15 98 06/25/20 00:18 98.6 F 92 15 150/116 H 96 Inital Vital Signs reviewed: Yes General: Well nourished, Well developed, No Acute Distress Head: Normocephalic, Atraumatic Eyes: Perrl, EOMI ENT: Moist mucous membranes, No rhinorrhea Neck: Supple, Nontender, No lymphadenopathy Cardiovascular: Regular rate, Regular rhythm, No murmurs. Negative for: Tachycardia Respiratory: No distress, CTA bilaterally, Chest nontender Abdomen: Soft, Nontender, Nondistended, Normal bowel sounds Back: Nontender, Normal Inspection Extremities: Nontender, Edema - Trace pretibial bilateral lower extremity, symmetric. Negative for: Calf Tenderness Skin: Normal color, No rash, No Trauma Neurological: Alert, Oriented x3, Cranial nerves II-XII grossly intact, Normal Strength, Normal Sensation Psychological: Normal affect, Normal Mood Diagnostic/Tx/Re-eval Impressions Chest X-Ray 06/25/20 00:58 IMPRESSION: No evidence for acute cardiopulmonary pathology. Electronically Signed: Samson Bain MD at 1:55 EDT , Service support , 06/25/20 00:58 Chest 1 View (Portable) [RAD] Stat Laboratory Results 06/25/20 06/25/20 06/25/20 00:03 00:03 00:03 WBC 7.7 RBC 3.76 L Hgb 13.2 Hct 35.2 L MCV 93.6 MCH 35.1 H MCHC 37.5 H RDW Std Deviation 43.4 RDW Coeff of Annel 12.7 Plt Count 239 MPV 10.7 Immature Gran % (Auto) 0.400 Neut % (Auto) 51.7 Lymph % (Auto) 37.8 [place] % (Auto) 8.5 Eos % (Auto) 1.2 Baso % (Auto) 0.4 Absolute Neuts (auto) 4.0 Absolute Lymphs (auto) 2.92 Nucleated RBC % 0 APTT 28.1 Sodium 142 Potassium 3.8 Chloride 108 H Carbon Dioxide 22.0 Anion Gap 12 BUN 21 H Creatinine 0.92 Estim Creat Clear Calc 57.40 Est GFR (MDRD) Af Amer 77 Est GFR (MDRD) Non-Af 64 BUN/Creatinine Ratio 22.8 H Glucose 239 H Calcium 8.6 Troponin I < 0.015 - Rhythm Strip Rhythm Strip: Sinus Rhythm Rate: 92 Ectopy: None - EKG Initial EKG Interpretation: Sinus Rhythm, No Acute Injury Pattern Prior: Unchanged Treatment: Aspirin - 325 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 She had no recurrence of her chest discomfort. Her enzymes returned negative and her EKG is normal, however it was performed when her pain was almost completely gone, and about 2-3 hours after the onset of pain. This does not completely rule out acute coronary syndrome, and given her history I recommend admission for further evaluation. She is amenable to that, as is hospitalist. ED Disposition - Plan for ED Patient: Disposition: Acute Care Hospital [facility] Diagnosis: Chest pain, CAD (coronary artery disease) Referrals: Gideon Turcios DO [Primary Care Provider] -
[2020-06-25] MEDS: Nitroglycerin Oint 1 INCH PACKET TRANSDERM. (01:26)
[2020-06-25 01:30] LABS: Absolute Lymphocyte Count 2.92 X10^3/uL (0.83-4.51); Basophil# 0.03 X10^3/uL; Basophil% 0.4 % (0-1); Eosinophil# 0.09 X10^3/uL; Eosinophils% 1.2 % (0-5); Hematocrit 35.2 % (37-47); Hemoglobin 13.2 g/dL (12.0-15.0); Lymphocyte # 2.92 X10^3/ul (4.0); Lymphocyte % 37.8 % (19-41); Mean Corp Hgb Conc 37.5 g/dL (32-36); Mean Corpuscular Hgb 35.1 pg (27.0-32.0); Mean Corpuscular Volume 93.6 fL (81-99); Mean Platelet Vol. 10.7 fl (6.2-12.0); Monocyte# 0.66 X10^3/uL; Monocyte% 8.5 % (0-10); NRBC Flagged by Analyzer 0 % (0-5); Neutrophil # 3.99 X10^3/uL (2.7-7.7); Neutrophil % 51.7 % (47-70); Platelet Count 239 K/mm3 (150-450); RBC Distribution Width CV 12.7 % (11.6-14.6); RBC Distribution Width SD 43.4 fl (35.1-43.9); Red Blood Count 3.76 M/mm3 (4.2-5.4); White Blood Count 7.7 K/mm3 (4.4-11.0)
[2020-06-25 01:39] LABS: Partial Thromboplast Time 28.1 Seconds (24.1-36.2)
[2020-06-25] MEDS: 0.9% Normal Saline 1,000 ML 150 ML IV (01:45)
[2020-06-25 02:36] LABS: Anion Gap 12 (5-15); BUN 21 mg/dL (7-18); BUN/Creat Ratio 22.8 RATIO (10-20); Calcium,Total 8.6 mg/dL (8.5-10.1); Chloride 108 mmol/L (98-107); Creatinine, Serum 0.92 mg/dL (0.55-1.02); EST Glomerular Filtration Rate 64 mL/min (>60); Est Glom Filt Rate - Afr Amer 77 mL/min (>60); Glucose 239 mg/dL (74-106); Potassium 3.8 mmol/L (3.5-5.1); Sodium Level 142 mmol/L (136-145)
--- NOTE | 2020-06-25 03:35 | PCM.HP.STD ---
Problem List (1) Prediabetes Status: Chronic (2) CAD (coronary artery disease) Status: Chronic Comment: Status post PCI (3) Chest pain Status: Acute (4) Hypertension Status: Chronic (5) Hyperlipidemia Status: Chronic History of Present Illness Date of Admission: 06/25/20 Chief Complaint: Chest pain. The patient is a 69 year old F with past medical history as mentioned above presented to the emergency room because of chest pain. Her symptoms started last night around 10:30 PM, started when she was sitting, described as pressure-like pain, mild, 4-5 out of 10 in severity, extends to the right side of her chest and around the right side of her neck, radiated to the both forearms, associated with mild shortness of breath, relieved with aspirin and nitroglycerin and without aggravating or relieving factors. She denied diaphoresis, nausea or vomiting. Currently, she is chest pain-free. She mentioned that 6 years ago, she had kind of similar pain, was admitted to our hospital here and she had stress test and 2D echocardiogram and they were unremarkable and she was discharged home. 2 days later, she had STEMI for which she came to our hospital here and she was transferred to [facility] for PCI. At [facility], her conservation of resources commissioner at that time when she had the STEMI, he told her that she had one occluded visit which was stented and another visit with around 60% stenosis and no interventions performed for that artery. In the emergency department, blood pressure was slight elevated but improved, other vital signs were stable. Routine blood work was unremarkable. Chest x-ray showed no acute findings. EKG revealed normal sinus rhythm, normal MO interval, normal QRS, no acute ischemic changes. Troponin was negative. She is being admitted for chest pain for evaluation. Past Medical History Past Medical History (Chronic Problems): Chronic Problems (Last Updated 06/25/20 @ 03:[address] Javier Drake MD) Hyperlipidemia (Chronic) Hypertension (Chronic) CAD (coronary artery disease) (Chronic) Status post PCI Prediabetes (Chronic) Medical History: Medical History (Last Updated 06/25/20 @ 03:[address] 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 Neuropathy G62.9 Diabetes E11.9 Hyperlipidemia E78.5 Hypertension I10 Allergies Iodinated Contrast Media [Iodinated Contrast Media - IV Dye] Allergy (Verified 06/25/20 00:26) Other lisinopril Adverse Reaction (Verified 06/25/20 00:26) Other morphine Adverse Reaction (Verified 06/25/20 00:26) SEVER HEADACHE rosuvastatin [From Crestor] Adverse Reaction (Verified 06/25/20 00:26) Other LEGS HURT Home Medications: Ambulatory Orders Medication Instructions Recorded Cranberry Conc/Ascorbic Acid 4,200 mg PO MOREL 05/27/14 [Cranberry 12,600 mg Softgel] L.acidoph/B.long/L.plant/B.lac 1 ea PO DAILY 05/27/14 [Probiotic Acidophilus Beads] [place]-3/Dha/Epa/Fish Oil [Fish Oil 1,000 mg PO DAILY 05/27/14 Dr 500 mg Softgel] Potassium Gluconate 99 mg PO DAILY 05/27/14 Red Rice Yeast With [place] 600 ml PO BID 05/27/14 aspirin 81 mg tablet,delayed 81 mg PO DAILY 04/30/18 release carvedilol 6.25 mg tablet 6.25 mg PO BID 04/30/18 Estradiol See Rx Instructions VAGINAL SUWEFR 08/06/18 Loratadine [Claritin] 10 mg PO PRN PRN 08/06/18 Lutein [Natural Lutein] 20 mg PO DAILY 08/06/18 Polyethylene Glycol 3350 [Clearlax] 17 gm PO DAILY 08/06/18 Docusate Sodium [Colace] 100 mg PO BID PRN PRN #60 cap 08/11/18 Surgical History: Surgical History (Last Updated 06/25/20 @ 03:[address] 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 Denies: Chest Tightness, Edema, Heaviness, Light Headedness, Orthopnea, Paroxysmal Noc. Dyspnea, Syncope Respiratory: Reports: Shortness of Breath. Denies: Cough, Hemoptysis, Pleuritic Pain, Sputum production, Wheezing Gastrointestinal: Denies: Abdominal Pain, Constipation, Diarrhea, Nausea, Vomiting Genitourinary: Denies: Dysuria, Frequency, Hematuria Musculoskeletal: Denies: Arm Pain, Back Pain, Foot Pain Skin: Denies: Dryness, Rash Neurological: Denies: Balance problems, Double vision, Change in Speech, Slurred speech, Confusion, Headaches, Incoordination Psychiatric: Denies: Anxiety, Depression Endocrine: Denies: Change in Body Habitus, Polydipsia, Polyuria VTE Information - Inpt Only VTE Present on Admission: No VTE Mechan Device Prophylaxis: None VTE Pharm Prophylaxis ordered?: Yes Patient Problems: Active and Suspected Problems (Last Updated 06/25/20 @ 03:[address] Javier Drake MD) Chest pain (Acute) - Physical Exam Vitals/I&O's: Vital Signs Temp Pulse Resp BP Pulse Ox 97.8 F 78 14 128/59 H 97 06/25/20 03:20 06/25/20 03:20 06/25/20 03:20 06/25/20 03:20 06/25/20 03:20 Oxygen Delivery Method Room Air Weight: 185 lb 13.595 oz Body Mass Index (BMI) 28.2 Finger Stick Blood Glucose 188 General: Alert, Oriented x3, Cooperative, No apparent distress HEENT: Atraumatic, PERRLA, EOMI, Normocephalic Oral: Moist Mucosa, No Gingival or Mucosal Lesions/ Ulcerations Neck: Supple, No JVD, Negative Carotid Bruits, Trachea Midline, Thyroid Normal Size and Texture Lungs: Clear to auscultation, No rhonchi, No wheeze, No rales Cardiovascular: Regular rate, Regular Rhythm, Normal S1, Normal S2, PMI Normal Abdomen: Bowel Sounds Present, Soft, Non Tender, Non-Distended, No Hepato-splenomegaly Extremities: No clubbing, No cyanosis, No edema Skin: No rashes, No breakdown Lymphatic: No Cervical, Supraclavicular, or Inguinal Adenopathy Neurological: Cranial nerves II-XII grossly intact, Motor Exam 5/5 strength throughout Psych/Mental Status: Normal Affect, Appropriate, Alert and oriented to time, place, person, mood and affect Laboratory Results 06/25/20 00:03: WBC 7.7, RBC 3.76 L, Hgb 13.2, Hct 35.2 L, MCV 93.6, MCH 35.1 H, MCHC 37.5 H, RDW Std Deviation 43.4, RDW Coeff of Annel 12.7, Plt Count 239, MPV 10.7, Immature Gran % (Auto) 0.400, Neut % (Auto) 51.7, Lymph % (Auto) 37.8, [place] % (Auto) 8.5, Eos % (Auto) 1.2, Baso % (Auto) 0.4, Absolute Neuts (auto) 4.0, Absolute Lymphs (auto) 2.92, Nucleated RBC % 0 06/25/20 00:03: APTT 28.1 06/25/20 00:03: Sodium 142, Potassium 3.8, Chloride 108 H, Carbon Dioxide 22.0, Anion Gap 12, BUN 21 H, Creatinine 0.92, Estim Creat Clear Calc 57.40, Est GFR (MDRD) Af Amer 77, Est GFR (MDRD) Non-Af 64, BUN/Creatinine Ratio 22.8 H, Glucose 239 H, Calcium 8.6, Troponin I < 0.015 Clinical Impression(s) from Imaging Studies Chest X-Ray 06/25/20 00:58 IMPRESSION: No evidence for acute cardiopulmonary pathology. Electronically Signed: Samson Bain MD at 1:55 EDT , Service support , Current Medications Sodium Chloride () 1,000 mls @ 150 mls/hr IV .Q6H40M [facility] Last Admin: 06/25/20 01:45 Dose: 150 mls/hr Documented by: Assessment/Plan All Active Problems (Last Updated 06/25/20 @ 03:[address] Javier Drake MD) Chest pain (Acute) This is a 69 years old female patient presented to the emergency room because of chest pain and she is being admitted for evaluation. #1 chest pain: Seems to be atypical. EKG and troponin were unremarkable. Chest x-ray showed no acute findings. Patient stated that this pain is similar to her chest pain when she had STEMI 6 years ago. Upon review of her chart, patient was admitted on May 27, 2014 for chest pain, had 2D echocardiogram and nuclear stress test and both they were unremarkable and she was discharged home. 2 days later, she came back to the emergency department because of chest pain, found to have acute STEMI and she was transferred to [facility]. According to the patient, she was informed that she had blocked coronary artery which was stented and she had another artery with 60% stenosis. Plan: Admit to PCU for observation, cardiac monitoring, serial cardiac enzymes, repeat EKG tomorrow morning, nitroglycerin as needed for pain, Zofran as needed, Tylenol as needed, nuclear stress test this morning if cardiac enzymes are negative, cardiology consult. #2 CAD status post PCI: EKG and troponin were unremarkable as above, plan as above, continue aspirin and Coreg. Patient is allergic to statins. #3 hypertension: Blood pressure improved, continue Coreg. #4 prediabetes: Admission blood sugar was 239. Hemoglobin A1c was 6.5% on Jan, 2020. Plan: Accu-Cheks, insulin sliding scale. #5 hyperlipidemia: She is allergic to statins. #6 DVT prophylaxis: Subcu Lovenox. This note was generated with [employer] dictation software. It may contain incorrect words, spelling, and punctuation that were not noted in checking the note before signing. OBSV E&M: 07225 Initial observation care L3
--- NOTE | 2020-06-25 04:26 | EKG12_ITS ---
Test Reason : Blood Pressure : / mmHG Vent. Rate : 072 BPM Atrial Rate : 072 BPM P-R Int : 196 ms QRS Dur : 078 ms QT Int : 416 ms P-R-T Axes : 057 037 025 degrees QTc Int : 455 ms Normal sinus rhythm Septal infarct , age undetermined Abnormal ECG When compared with ECG of 27-JUN-2020 05:29, MANUAL COMPARISON REQUIRED, DATA IS UNCONFIRMED Confirmed by ENRIKE GONZALES, EVANS ([id number]), material expeditor GABRIELA IBARRA ([id number]) on 06/28/2020 10:49:35 AM Referred By: ADELITA Confirmed By:EVANS CALVERT MD
[2020-06-25] MEDS: Aspirin E.C. 81 MG Tablet PO (06:33)
[2020-06-25 06:41] LABS: Bedside Glucose 149 mg/dL (70-110)
--- NOTE | 2020-06-25 07:34 | PCM.PN.HOSP ---
Patient Problems: Active and Suspected Problems (Last Updated 06/25/20 @ 03:[address] Javier Drake MD) Chest pain (Acute) Reason for Visit: Chest pain unstable angina Objective: Patient was admitted with chest pain last night. Initially she had chest pain which got resolved on its own. After that, she had again chest pain which radiated to the right side and right sternal region, 01/05/2010 intensity, felt numbness and tingling and pain in both hand associated with mild shortness of breath. She felt relieving chest pain after baby aspirin nitroglycerin given by EMS. In the morning, she does not have chest pain, shortness of breath and feels back to her baseline. Physical exam General: Alert, Oriented x3, Cooperative HEENT: Atraumatic, PERRLA, EOMI, Normocephalic Oral: No Gingival or Mucosal Lesions/ Ulcerations Neck: Supple, No JVD, Negative Carotid Bruits Lungs: Air entry diminished in bilateral lung bases. No crepitation/rhonchi Cardiovascular: Regular rate, Regular Rhythm, Normal S1, Normal S2, ejection systolic murmur over left second ICS with radiation to carotid Abdomen: Bowel Sounds Present, Soft, Non Tender, Non-Distended : No renal angle tenderness. No suprapubic tenderness. Extremities: No edema, Capillary Refill Less than 3 Seconds Skin: No rashes, No breakdown Musculoskeletal: No Tenderness to Palpation of Joints or Extremities Neurological: Cranial nerves II-XII grossly intact, Deep Tendon Reflexes 2+/4 and Symmetrical, Neuro grossly intact Psych/Mental Status: Normal Affect, Appropriate. Vitals/I&O's: Vital Signs Temp Pulse Resp BP Pulse Ox 97.8 F 87 18 164/57 H 95 06/25/20 04:32 06/25/20 06:40 06/25/20 04:32 06/25/20 04:32 06/25/20 07:03 Oxygen Delivery Method Room Air Weight: 182 lb 1.629 oz Body Mass Index (BMI) 27.6 Finger Stick Blood Glucose 188 Intake and Output for Last 24 Hours 06/23/20 06/24/20 06/25/20 23:59 23:59 23:59 Intake Total 840 / 840 Balance 840 / 840 Laboratory Results 06/25/20 00:03: WBC 7.7, RBC 3.76 L, Hgb 13.2, Hct 35.2 L, MCV 93.6, MCH 35.1 H, MCHC 37.5 H, RDW Std Deviation 43.4, RDW Coeff of Annel 12.7, Plt Count 239, MPV 10.7, Immature Gran % (Auto) 0.400, Neut % (Auto) 51.7, Lymph % (Auto) 37.8, [place] % (Auto) 8.5, Eos % (Auto) 1.2, Baso % (Auto) 0.4, Absolute Neuts (auto) 4.0, Absolute Lymphs (auto) 2.92, Nucleated RBC % 0 06/25/20 00:03: APTT 28.1 06/25/20 00:03: Sodium 142, Potassium 3.8, Chloride 108 H, Carbon Dioxide 22.0, Anion Gap 12, BUN 21 H, Creatinine 0.92, Estim Creat Clear Calc 57.40, Est GFR (MDRD) Af Amer 77, Est GFR (MDRD) Non-Af 64, BUN/Creatinine Ratio 22.8 H, Glucose 239 H, Calcium 8.6, Troponin I < 0.015 06/25/20 04:55: Troponin I 0.028 06/25/20 06:31: POC Glucose 149 H Current Medications Acetaminophen (Acetaminophen 325 Mg Tablet) 650 mg PO Q6H PRN PRN PRN Reason: Pain Score 1-10/Temp > 100.7 F Aspirin (Aspirin E.C. 81 Mg Tablet) 81 mg PO DAILY [facility] Last Admin: 06/25/20 06:33 Dose: 81 mg Documented by: Carvedilol (Carvedilol 6.25 Mg Tablet) 6.25 mg PO BID [facility] Docusate Sodium (Docusate Sodium 100 Mg Capsule) 100 mg PO BID PRN PRN PRN Reason: Constipation Enoxaparin Sodium (Enoxaparin 40 Mg/0.4 Ml Syringe) 40 mg SC DAILY [facility] Sodium Chloride () 250 mls @ 15 mls/hr IV .[id number] PRN PRN Reason: Saline Flush Sodium Chloride () 250 mls @ 15 mls/hr IV .[id number] PRN PRN Reason: Additional IVPB Infusion Insulin Human Lispro (Insulin Lispro 100 Unit/Ml Insuln.Pen) 0 unit SC [facility]; Protocol Last Admin: 06/25/20 06:33 Dose: Not Given Documented by: Loratadine (Loratadine 10 Mg Tablet) 10 mg PO DAILY PRN PRN PRN Reason: ALLERGIES Nitroglycerin (Nitroglycerin (Inpatient Use) 0.4 Mg Tab.Subl) 0.4 mg SUBLINGUAL Q5M PRN PRN Reason: CHEST PAIN Ondansetron HCl (Ondansetron 4 Mg/2 Ml Vial) 4 mg IV Q8H PRN PRN PRN Reason: NAUSEA/VOMITING Sodium Chloride (0.9% Saline Lock 10 Ml Syringe) 10 - 40 ml IV UD PRN PRN Reason: SALINE FLUSH STROKE Vital Signs/Narrative: Vital Signs Temp Pulse Resp BP Pulse Ox 06/25/20 07:03 95 06/25/20 06:40 87 06/25/20 04:32 97.8 F 76 18 164/57 H 97 06/25/20 04:27 71 Medical Necessity - Tobacco Use Smoking Status: Never smoker Tobacco Use: Non-smoker Assessment/Plan All Active Problems (Last Updated 06/25/20 @ 03:[address] Javier Drake MD) Chest pain (Acute) This is a 69 years old female patient presented to the emergency room because of chest pain suggestive of unstable angina is being admitted in PCU on cardiac technician. #1 chest pain: Seems to be atypical. EKG and troponin were unremarkable. Twelve-lead EKG was normal sinus rhythm 69 with no significant changes on repeat EKGs. Her EKG in [address] elevation in T wave depression in V1 and V2 and AVR when she had DC most likely STEMI and had PCI done in [facility]. Chest x-ray showed no acute findings. Patient was seen by surveyor oil well directional and discussed with him. Had 2D echo as mentioned below with preserved EF and segmental wall abnormality. Nuclear stress test was done and reported a stress-induced ischemia. Plan for cardiac cath on Saturday. D echo suggestive of mild valvular heart disease Segmental dysfunction with preserved ejection fraction (see wall motion). The estimated ejection fraction is 60 %. The left atrium is mildly enlarged. Mild (1+) mitral valve insufficiency. Mild tricuspid valve insufficiency. Aortic sclerosis, no stenosis. Mild (1+) pulmonic valve insufficiency. Right ventricular systolic pressure estimated to be 33 mmHg. Diastolic function is indeterminate. #2 CAD status post PCI: continue aspirin and Coreg. Patient is allergic to statins. Fasting profile tomorrow a.m. #3 hypertension: Blood pressure improved, continue Coreg. #4 prediabetes: Admission blood sugar was 239. Hemoglobin A1c was 6.5% on Jan, 2020. Repeat A1c tomorrow a.m. Glucose is controlled. #5 hyperlipidemia: She is allergic to statins. #6 DVT prophylaxis: Subcu Lovenox. Inpatient E&M: 04101 Subs Hosp L2
--- NOTE | 2020-06-25 09:40 | ECHOCS_ITS ---
Reason For Study: CAD Procedure This was a 2D Doppler, Color Flow transthoracic echocardiogram. The study was technically difficult. Contrast injection was performed. Exam performed portable in patient room. Left Ventricle Normal LV size. Segmental dysfunction with preserved ejection fraction (see wall motion). The estimated ejection fraction is 60 %. Diastolic function is indeterminate. Infero-Basal: Hypokinetic. Mid-Lateral : Hypokinetic. Mid-Posterior: Hypokinetic. Mid-Inferior: Hypokinetic. Lateral [place] : Hypokinetic. Right Ventricle Normal RV size. Normal systolic function. Atria The left atrium is mildly enlarged. Normal right atrium. No doppler evidence for ASD. Mitral Valve There is no mitral annular calcification. Normal mitral valve. Mild (1+) mitral valve insufficiency. Tricuspid Valve Normal tricuspid valve. Mild tricuspid valve insufficiency. Right ventricular systolic pressure estimated to be 33 mmHg. Aortic Valve Trisinus/trileaflet aortic valve. Mild diffuse aortic valve thickening. Mild diffuse aortic valve calcification. Aortic sclerosis, no stenosis. Pulmonic Valve The pulmonic valve is not well visualized. Mild (1+) pulmonic valve insufficiency. Great Vessels Normal sized aortic root. Pericardium/Pleural No pericardial effusion. Medication Diluted definity 2.5ml given slow IV push to enhance endocardial definition. MMode/2D Measurements & Calculations LVIDd: 3.9 cm IVSd: 1.0 cm LVOT diam: 2.0 cm LVIDs: 2.6 cm LVPWd: 1.1 cm RVDd: 3.5 cm FS: 33.2 % LVOT area: 3.0 cm2 Ao root diam: 3.6 cm LAV(MOD-bp): 58.6 ml LA A4 area: 19.0 cm2 LAV(MOD-bp) Indexed: 29.8 ml/m2 LAV(MOD-sp2): 56.9 ml LAV(MOD-sp4): 55.8 ml LA dimension(2D): 4.2 cm RA A4 area: 15.4 cm2 Time Measurements MV dec time: 0.15 sec Doppler Measurements & Calculations MV E max edgar: 133.3 cm/sec Lat Peak E' Edgar: 8.9 cm/sec Med Peak E' Edgar: 7.2 cm/sec MV A max edgar: 125.7 cm/sec E/E' lat: 15.0 E/E' med: 18.4 MV E/A: 1.1 MV V2 max: 126.8 cm/sec LV V1 max: 183.8 cm/sec PA V2 max: 122.0 cm/sec MV max P.4 mmHg LV V1 max P.5 mmHg MV V2 mean: 84.3 cm/sec MV mean P.1 mmHg MV V2 VTI: 33.7 cm PI end-d edgar: 101.1 cm/sec TR max edgar: 274.9 cm/sec TR max P.2 mmHg Interpretation Summary The study was technically difficult. Contrast injection was performed. Segmental dysfunction with preserved ejection fraction (see wall motion). The estimated ejection fraction is 60 %. The left atrium is mildly enlarged. Mild (1+) mitral valve insufficiency. Mild tricuspid valve insufficiency. Aortic sclerosis, no stenosis. Mild (1+) pulmonic valve insufficiency. Right ventricular systolic pressure estimated to be 33 mmHg. Diastolic function is indeterminate. Ordering Physician: Lisandro Baptiste MD Referring Physician: MICHELE CHENG Performed By: Shalini Marin, VIDAL, RVT
--- NOTE | 2020-06-25 10:05 | PCM.CONS.C ---
Problem List (1) Chest pain Status: Acute (2) CAD (coronary artery disease) Status: Chronic Comment: Status post PCI (3) S/P PTCA (percutaneous transluminal coronary angioplasty) Status: Chronic (4) Hyperlipidemia Status: Chronic (5) Hypertension Status: Chronic Reason for Consult Date of Consultation: 06/25/20 History of Present Illness: The patient is a 69 year old female with a history of hyperlipidemia, hypertension, CAD, status post acute coronary syndrome, status post PCI (details unknown) who is referred for evaluation of chest discomfort. The patient states approximately 6 years ago after undergoing a noninvasive evaluation she was noted approximately 2 days later to have recurrent symptoms. She was evaluated and subsequently transferred to [facility] where she was diagnosed with CAD based on cardiac catheterization and required PCI. She states she has been following with [facility] cardiology since that time. She does not recall undergoing additional cardiovascular testing. She notes recently she has had symptoms that she thought was related to her underlying gastroesophageal reflux related issues which usually improve with [place] . However she states she has had other symptoms which have not improved and at the same time she has had bilateral forearm paresthesias and right shoulder discomfort. She states some of these findings, including the right shoulder discomfort, remind her of her symptoms prior to her acute coronary syndrome. Thus she elected to present to the hospital for further evaluation. She has denied orthopnea or PND or peripheral pitting edema. There is been no near syncope or syncope. In the hospital she has had troponin I levels which have been technically negative. Her ECG demonstrated sinus rhythm. Her previous [facility] medical records are unavailable for review. [] Past Medical History Allergies/Adverse Reactions: Allergies Iodinated Contrast Media [Iodinated Contrast Media - IV Dye] Allergy (Verified 06/25/20 00:26) Other lisinopril Adverse Reaction (Verified 06/25/20 00:26) Other morphine Adverse Reaction (Verified 06/25/20 00:26) SEVER HEADACHE rosuvastatin [From Crestor] Adverse Reaction (Verified 06/25/20 00:26) Other LEGS HURT Home Medications: Ambulatory Orders Medication Instructions Recorded Cranberry Conc/Ascorbic Acid 4,200 mg PO MOREL 05/27/14 [Cranberry 12,600 mg Softgel] L.acidoph/B.long/L.plant/B.lac 1 ea PO DAILY 05/27/14 [Probiotic Acidophilus Beads] [place]-3/Dha/Epa/Fish Oil [Fish Oil 1,000 mg PO DAILY 05/27/14 Dr 500 mg Softgel] Potassium Gluconate 99 mg PO DAILY 05/27/14 Red Rice Yeast With [place] 600 ml PO BID 05/27/14 aspirin 81 mg tablet,delayed 81 mg PO DAILY 04/30/18 release carvedilol 6.25 mg tablet 6.25 mg PO BID 04/30/18 Estradiol See Rx Instructions VAGINAL SUWEFR 08/06/18 Loratadine [Claritin] 10 mg PO PRN PRN 08/06/18 Lutein [Natural Lutein] 20 mg PO DAILY 08/06/18 Polyethylene Glycol 3350 [Clearlax] 17 gm PO DAILY 08/06/18 Past Medical History (Chronic Problems): Chronic Problems (Last Updated 06/25/20 @ 03:[address] Javier Drake MD) Hyperlipidemia (Chronic) Hypertension (Chronic) CAD (coronary artery disease) (Chronic) Status post PCI Prediabetes (Chronic) S/P PTCA (percutaneous transluminal coronary angioplasty) (Chronic) Surgical History: - Psychiatric History: No pertinent psych hx PRIMARY SUBSTANCE ABUSE COUNSELOR History: No pertinent PRIMARY SUBSTANCE ABUSE COUNSELOR history - *Family History Maternal History Items: No pertinent history Paternal History Items: No pertinent history, - Lives: Spouse/ Significant Other Smoking Status: Never smoker Tobacco Use: Non-smoker Alcohol: Rare Drugs: None Review of Systems - Review of Systems General: Denies: Fever, Night Sweats, Fatigue Cardiovascular: Reports: Chest Discomfort at Rest. Denies: Chest Discomfort, Shortness of Breath, Orthopnea, PND, Peripheral Edema, Palpitations, Lightheadedness, Dizziness, Near Syncope, Syncope Respiratory: Denies: Cough, Sputum Production, Hemoptysis Gastrointestinal: Denies: Hematemesis, Hematochezia, Melena Genitourinary: Denies: Dysuria, Hematuria Skin: Denies: Rash Subjectve: This is a 69-year old white female appears to be resting comfortably at the moment in no acute distress. Objective: Vital Signs Temp Pulse Resp BP Pulse Ox 97.9 F 72 18 146/72 H 97 06/25/20 08:30 06/25/20 08:30 06/25/20 08:30 06/25/20 08:30 06/25/20 08:30 Oxygen Delivery Method Room Air Weight: 182 lb 1.629 oz Body Mass Index (BMI) 27.6 Finger Stick Blood Glucose 188 Intake and Output for Last 24 Hours 06/23/20 06/24/20 06/25/20 23:59 23:59 23:59 Intake Total 840 / 840 Balance 840 / 840 General: Awake, Alert, Oriented x 3, Cooperative, No Acute Distress HEENT: Atraumatic, Normocephalic, PERRL, EOMI, Sclera Non Icteric Neck: Supple, Good ROM, No JVD Lungs: Clear to auscultation Cardiovascular: Regular Rhythm, Normal S1, Normal S2 Murmur Murmur: Grade 2/6, Soft, Mid Systolic, LLSB, LVOT Vascular: No Carotid Bruits Abdomen: Bowel Sounds Present, Soft, Non Tender Extremities: No edema Neurological: No Focal Motor or Sensory Deficit Psych/Mental Status: Appropriate 06/25/20 00:03: WBC 7.7, RBC 3.76 L, Hgb 13.2, Hct 35.2 L, MCV 93.6, MCH 35.1 H, MCHC 37.5 H, Plt Count 239, MPV 10.7, Immature Gran % (Auto) 0.400, Neut % (Auto) 51.7, Lymph % (Auto) 37.8, [place] % (Auto) 8.5, Eos % (Auto) 1.2, Baso % (Auto) 0.4, Absolute Neuts (auto) 4.0, Nucleated RBC % 0 06/25/20 00:03: APTT 28.1 06/25/20 00:03: Sodium 142, Potassium 3.8, Chloride 108 H, Carbon Dioxide 22.0, Anion Gap 12, BUN 21 H, Creatinine 0.92, Est GFR (MDRD) Af Amer 77, Est GFR (MDRD) Non-Af 64, BUN/Creatinine Ratio 22.8 H, Glucose 239 H, Calcium 8.6, Troponin I < 0.015 06/25/20 04:55: Troponin I 0.028 06/25/20 07:10: Troponin I 0.029 Rhythm: Sinus rhythm EKG: Sinus rhythm ECHO: 07/19/2014 Interpretation Summary The estimated ejection fraction is 65 %. Stage 1 diastolic dysfunction. Right ventricular systolic pressure estimated to be 31 mmHg. Moderate focal aortic valve thickening (non-coronary cusp.) Compared to echo report dated 05/28/2014, no appreciable changes noted. 06/25/2020 Interpretation Summary The study was technically difficult. Contrast injection was performed. Segmental dysfunction with preserved ejection fraction (see wall motion). The estimated ejection fraction is 60 %. The left atrium is mildly enlarged. Mild (1+) mitral valve insufficiency. Mild tricuspid valve insufficiency. Aortic sclerosis, no stenosis. Mild (1+) pulmonic valve insufficiency. Right ventricular systolic pressure estimated to be 33 mmHg. Diastolic function is indeterminate. Stress Test: 05/28/2014 Pharmacologic stress nuclear imaging study: Reported as probably normal Stress Test Report Date: 06-25-2020 Procedure: Pharmacologic stress nuclear imaging study Indications: Chest pain; CAD; PCI Consent: Per the patient Procedure: The patient underwent pharmacologic (Regadenoson) evaluation with a peak heart rate of 107 beats per minute (71%predicted maximal heart rate) and a peak blood pressure of 168/92 mmHg. The baseline ECG demonstrated normal sinus rhythm. The peak pharmacologic ECG demonstrated no obvious ECG changes. There were no cardiac dysrhythmias pretest, during pharmacologic infusion, or recovery. There was chest burning pretest, during pharmacologic infusion, and recovery. The examination was discontinued secondary to completion of protocol. Impression: 1. Pharmacologic (Regadenoson) evaluation 2. Peak pharmacologic ECG with with no obvious ECG changes. 3. There were no cardiac dysrhythmias pretest, during pharmacologic infusion, or recovery. 4. Nuclear images pending Myocardial perfusion imaging study: Technique: The patient was injected with 12.0 millicuries of technetium 99m Cardiolite and subsequently rest SPECT Cardiolite nuclear imaging was obtained in the horizontal long, vertical long, and short axis views. The patient underwent pharmacologic (Regadenoson) evaluation with a peak heart rate of 107 beats per minute (71% percent predicted maximal heart rate) and a peak blood pressure of 168/92 mmHg. The patient was injected with 36.0 millicuries of technetium 99m Cardiolite and subsequently stress SPECT Cardiolite nuclear imaging was obtained in the horizontal long, vertical long, and short axis views. A gated Cardiolite study at peak stress was obtained. Interpretation: Rest and stress SPECT Cardiolite nuclear imaging status post realignment, normalization, and attenuation correction demonstrate at rest the appearance of relative uniform tracer uptake and status post stress the appearance of a small area of subtle diminished tracer uptake in the mid anterior segments. There is end systolic thickening and brightening. The gated Cardiolite study demonstrates myocardial thickening and inward wall motion. The reported LVEF is 72%. Note: The preattenuation correction images suggest at rest the appearance of relative uniform tracer uptake status post stress the appearance of diminished myocardial perfusion/tracer uptake in portions of the mid to distal inferior segments as well as following stress a small area of subtle diminished tracer uptake in the mid anterior segments. Impression: 1. Rest and stress SPECT current nuclear imaging preattenuation correction demonstrates the appearance of diminished myocardial perfusion/tracer uptake in portions of the mid to distal inferior segments and a small area of subtle diminished tracer uptake in the mid anterior segments status post stress raising concern of stress-induced myocardial ischemia. However, status post attenuation correction these findings do not appear to be present, with respect to the mid to distal inferior findings, however, there does appear to be a small area of subtle diminished tracer uptake in the mid anterior segments following stress again raising concern of the possibility of stress-induced myocardial ischemia 2. The gated Cardiolite study reports an LVEF of 72%. CXR: Luminary evaluation: No acute cardiopulmonary disease process appreciated Assessment/Plan 1. Chest pain The patient experienced chest pain. She states that she has some symptoms that are similar to what she had prior to her previous acute coronary syndrome. She has other symptoms that are somewhat different. However she is concerned based upon her previous experience as to whether or not she is having progression of her underlying CAD. Her cardiac enzymes have been technically indeterminate. Her ECG has demonstrated no acute ECG changes. An echocardiogram is pending at this time to further evaluate her cardiac murmur. She has undergone a pharmacologic stress nuclear imaging study. Stress images are as noted. At the present time there is concerned about the patient's symptoms being somewhat mixed and her objective findings. Also would be reasonable to continue to monitor the patient, continue medical management as deemed appropriate, and consider further evaluation in the cardiac catheterization laboratory. In the interim will be reasonable to obtain her previous cardiovascular records for continuity of care. 2. CAD status post PCI The patient has a history of CAD/PCI. At the present time the details are unknown. However she has had concerning symptoms and findings as noted above. Thus it is reasonable to continue to follow the patient, continue medical management, and consider reevaluation in the cardiac catheterization laboratory. 3. Hyperlipidemia The patient will continue risk factor evaluation care. 4. Hypertension The patient's blood pressure should be followed with adjustment of her medications as needed. This note was generated using a voice recognition system and there may be incorrect words, spelling or punctuation that were not noted when reviewing the office note prior to saving.
[2020-06-25] MEDS: Carvedilol 6.25 MG Tablet PO (10:15)
--- NOTE | 2020-06-25 10:31 | STRESSREP_ITS ---
Stress Test Report Date: 06-25-2020 Procedure: Pharmacologic stress nuclear imaging study Indications: Chest pain; CAD; PCI Consent: Per the patient Procedure: The patient underwent pharmacologic (Regadenoson) evaluation with a peak heart rate of 107 beats per minute (71%predicted maximal heart rate) and a peak blood pressure of 168/92 mmHg. The baseline ECG demonstrated normal sinus rhythm. The peak pharmacologic ECG demonstrated no obvious ECG changes. There were no cardiac dysrhythmias pretest, during pharmacologic infusion, or recovery. There was chest burning pretest, during pharmacologic infusion, and recovery. The examination was discontinued secondary to completion of protocol. Impression: 1. Pharmacologic (Regadenoson) evaluation 2. Peak pharmacologic ECG with with no obvious ECG changes. 3. There were no cardiac dysrhythmias pretest, during pharmacologic infusion, or recovery. 4. Nuclear images pending Myocardial perfusion imaging study: Technique: The patient was injected with 12.0 millicuries of technetium 99m Cardiolite and subsequently rest SPECT Cardiolite nuclear imaging was obtained in the horizontal long, vertical long, and short axis views. The patient underwent pharmacologic (Regadenoson) evaluation with a peak heart rate of 107 beats per minute (71% percent predicted maximal heart rate) and a peak blood pressure of 168/92 mmHg. The patient was injected with 36.0 millicuries of technetium 99m Cardiolite and subsequently stress SPECT Cardiolite nuclear imaging was obtained in the horizontal long, vertical long, and short axis views. A gated Cardiolite study at peak stress was obtained. Interpretation: Rest and stress SPECT Cardiolite nuclear imaging status post realignment, normalization, and attenuation correction demonstrate at rest the appearance of relative uniform tracer uptake and status post stress the appearance of a small area of subtle diminished tracer uptake in the mid anterior segments. There is end systolic thickening and brightening. The gated Cardiolite study demonstrates myocardial thickening and inward wall motion. The reported LVEF is 72%. Note: The preattenuation correction images suggest at rest the appearance of relative uniform tracer uptake status post stress the appearance of diminished myocardial perfusion/tracer uptake in portions of the mid to distal inferior segments as well as following stress a small area of subtle diminished tracer uptake in the mid anterior segments. Impression: 1. Rest and stress SPECT current nuclear imaging preattenuation correction demonstrates the appearance of diminished myocardial perfusion/tracer uptake in portions of the mid to distal inferior segments and a small area of subtle diminished tracer uptake in the mid anterior segments status post stress raising concern of stress-induced myocardial ischemia. However, status post attenuation correction these findings do not appear to be present, with respect to the mid to distal inferior findings, however, there does appear to be a small area of subtle diminished tracer uptake in the mid anterior segments following stress again raising concern of the possibility of stress-induced myocardial ischemia 2. The gated Cardiolite study reports an LVEF of 72%. This note was generated with [employer] software. It may contain incorrect words, spelling, and punctuation that were not noted in checking the note before signing.
[2020-06-25 11:10] LABS: Bedside Glucose 221 mg/dL (70-110)
[2020-06-25] MEDS: Clopidogrel Bisulfate 300 MG Tablet PO (13:53)
[2020-06-25 17:15] LABS: Bedside Glucose 137 mg/dL (70-110)
[2020-06-25] MEDS: Carvedilol 12.5 MG Tablet PO (22:17)
[2020-06-25 22:41] LABS: Bedside Glucose 188 mg/dL (70-110)
[2020-06-26] VITALS (8 sets, daily range): BP systolic 137–151; BP diastolic 64–67; PULSE 69–81; RESP 18; TEMP 36.5–37; O2SAT 95–98
[2020-06-26 07:42] LABS: Cholesterol 243 mg/dL (200); High Density Lipoprotein 41 mg/dL; Magnesium 1.9 mg/dL (1.6-2.6); Triglycerides 361 mg/dL; Very Low Density Lipoprotein 72 mg/dL (5-40)
[2020-06-26 08:50] LABS: Bedside Glucose 108 mg/dL (70-110)
[2020-06-26] MEDS: Carvedilol 12.5 MG Tablet PO ×2 (09:14→21:48)
[2020-06-26] MEDS: Enoxaparin 40 MG/0.4 ML Syringe SC (09:14)
[2020-06-26] MEDS: Clopidogrel Bisulfate 75 MG Tablet PO (09:14)
[2020-06-26] MEDS: Aspirin E.C. 81 MG Tablet PO (09:14)
[2020-06-26 09:36] LABS: Hemoglobin A1c 6.7 % (3.8-5.6)
--- NOTE | 2020-06-26 10:09 | PN.CARD_ITS ---
Subjectve: The patient is awake and alert. She denies ongoing chest discomfort at this time/chest burning at this time. Objective: Vital Signs Temp Pulse Resp BP Pulse Ox 98.0 F 81 18 137/67 H 96 06/26/20 09:10 06/26/20 09:10 06/26/20 09:10 06/26/20 09:10 06/26/20 09:10 Oxygen Delivery Method Room Air Weight: 182 lb 1.629 oz Body Mass Index (BMI) 27.6 Finger Stick Blood Glucose 188 Intake and Output for Last 24 Hours 06/24/20 06/25/20 06/26/20 23:59 23:59 23:59 Intake Total 1040 / 1040 Balance 1040 / 1040 General: Awake, Alert, Oriented x 3, Cooperative, No Acute Distress HEENT: Atraumatic, Normocephalic, PERRL, EOMI, Sclera Non Icteric Neck: Supple, Good ROM, No JVD Lungs: Clear to auscultation Cardiovascular: Regular Rhythm, Normal S1, Normal S2 Abdomen: Bowel Sounds Present, Soft Extremities: No edema Neurological: No Focal Motor or Sensory Deficit Psych/Mental Status: Appropriate 06/26/20 06:30: Magnesium 1.9, Triglycerides 361 H, Cholesterol 243 H, LDL C holesterol 130, VLDL Cholesterol 72 H, HDL Cholesterol 41 06/26/20 06:30: Hemoglobin A1c 6.7 H Rhythm: Sinus rhythm EKG: This rhythm; septal FL of indeterminate age cannot be excluded Echocardiogram: Interpretation Summary The study was technically difficult. Contrast injection was performed. Segmental dysfunction with preserved ejection fraction (see wall motion). The estimated ejection fraction is 60 %. The left atrium is mildly enlarged. Mild (1+) mitral valve insufficiency. Mild tricuspid valve insufficiency. Aortic sclerosis, no stenosis. Mild (1+) pulmonic valve insufficiency. Right ventricular systolic pressure estimated to be 33 mmHg. Diastolic function is indeterminate. Medical Necessity - Tobacco Use Smoking Status: Never smoker Tobacco Use: Non-smoker Assessment/Plan 1. Chest pain/angina pectoris The patient experienced chest pain. She states that she has some symptoms that are similar to what she had prior to her previous acute coronary syndrome. She has other symptoms that are somewhat different. However she is concerned based upon her previous experience as to whether or not she is having progression of her underlying CAD. Her cardiac enzymes have been technically indeterminate. Her ECG has demonstrated no acute ECG changes. She has undergone a pharmacologic stress nuclear imaging study. At the present time there is concerned about the patient's symptoms being somewhat mixed and her objective findings. Also would be reasonable to continue to monitor the patient, continue medical management as deemed appropriate, and consider further evaluation in the cardiac catheterization laboratory. Cardiac catheterization procedure with respect to risk and benefits were discussed with the patient. She was agreeable to this approach. In the interim will be reasonable to obtain her previous cardiovascular records for continuity of care. 2. CAD status post PCI The patient has a history of CAD/PCI. At the present time the details are unknown. However she has had concerning symptoms and findings as noted above. Thus it is reasonable to continue to follow the patient, continue medical management, and consider reevaluation in the cardiac catheterization laboratory. 3. Hyperlipidemia The patient will continue risk factor evaluation care. 4. Hypertension The patient's blood pressure should be followed with adjustment of her medications as needed. This note was generated using a voice recognition system and there may be incorrect words, spelling or punctuation that were not noted when reviewing the office note prior to saving. Procedure Criteria Procedure Type: Elective COVID Risk Discussion: The surgeon/proceduralist and patient have discussed in detail the risk of exposure to and/or potential harm posed by the COVID-19 virus with having a surgery/procedure at this time versus the risk of delaying the surgery/procedure. It is not possible to know either the risk of delaying the surgery or procedure or chance of getting an infection with perfect accuracy, but a joint decision was made between the patient and the surgeon/proceduralist to proceed at this time with the scheduled surgery/procedure as indicated on the consent form.
[2020-06-26 11:21] LABS: Bedside Glucose 233 mg/dL (70-110)
--- NOTE | 2020-06-26 14:27 | PCM.PN.HOSP ---
Patient Problems: Active and Suspected Problems (Last Updated 06/25/20 @ 03:[address] Javier Drake MD) Chest pain (Acute) Reason for Visit: Follow-up for unstable angina. Objective: Heart rate and blood pressure normal. No tachypnea or hypoxia. Physical exam General: Alert, Oriented x3, Cooperative HEENT: Atraumatic, PERRLA, EOMI, Normocephalic Oral: No Gingival or Mucosal Lesions/ Ulcerations Neck: Supple, No JVD, Negative Carotid Bruits Lungs: Air entry diminished in bilateral lung bases. No crepitation/rhonchi Cardiovascular: Regular rate, Regular Rhythm, Normal S1, Normal S2, ejection systolic murmur over left second ICS with radiation to carotid Abdomen: Bowel Sounds Present, Soft, Non Tender, Non-Distended : No renal angle tenderness. No suprapubic tenderness. Extremities: No edema, Capillary Refill Less than 3 Seconds Skin: No rashes, No breakdown Musculoskeletal: No Tenderness to Palpation of Joints or Extremities Neurological: Cranial nerves II-XII grossly intact, Deep Tendon Reflexes 2+/4 and Symmetrical, Neuro grossly intact Psych/Mental Status: Normal Affect, Appropriate. Vitals/I&O's: Vital Signs Temp Pulse Resp BP Pulse Ox 98.0 F 81 18 137/67 H 96 06/26/20 09:10 06/26/20 09:10 06/26/20 09:10 06/26/20 09:10 06/26/20 09:10 Oxygen Delivery Method Room Air Weight: 182 lb 1.629 oz Body Mass Index (BMI) 27.6 Finger Stick Blood Glucose 188 Intake and Output for Last 24 Hours 06/24/20 06/25/20 06/26/20 23:59 23:59 23:59 Intake Total 1040 / 1040 400 / 400 Balance 1040 / 1040 400 / 400 Laboratory Results 06/25/20 17:01: POC Glucose 137 H 06/25/20 21:55: POC Glucose 188 H 06/26/20 06:30: Magnesium 1.9, Triglycerides 361 H, Cholesterol 243 H, LDL Cholesterol 130, VLDL Cholesterol 72 H, HDL Cholesterol 41 06/26/20 06:30: Hemoglobin A1c 6.7 H 06/26/20 07:07: POC Glucose 108 06/26/20 11:11: POC Glucose 233 H Current Medications Acetaminophen (Acetaminophen 325 Mg Tablet) 650 mg PO Q6H PRN PRN PRN Reason: Pain Score 1-10/Temp > 100.7 F Aspirin (Aspirin E.C. 81 Mg Tablet) 81 mg PO DAILY [facility] Last Admin: 06/26/20 09:14 Dose: 81 mg Documented by: Carvedilol (Carvedilol 12.5 Mg Tablet) 12.5 mg PO BID [facility] Last Admin: 06/26/20 09:14 Dose: 12.5 mg Documented by: Clopidogrel Bisulfate (Clopidogrel Bisulfate 75 Mg Tablet) 75 mg PO DAILY [facility] Last Admin: 06/26/20 09:14 Dose: 75 mg Documented by: Diphenhydramine HCl (Diphenhydramine 25 Mg Capsule) 50 mg PO BID@0800,2200 [facility] Stop: 06/27/20 08:01 Docusate Sodium (Docusate Sodium 100 Mg Capsule) 100 mg PO BID PRN PRN PRN Reason: Constipation Enoxaparin Sodium (Enoxaparin 40 Mg/0.4 Ml Syringe) 40 mg SC DAILY [facility] Last Admin: 06/26/20 09:14 Dose: 40 mg Documented by: Famotidine (Famotidine 20 Mg Tablet) 20 mg PO BID@0800,2200 [facility] Stop: 06/27/20 08:01 Sodium Chloride () 250 mls @ 15 mls/hr IV .[id number] PRN PRN Reason: Saline Flush Sodium Chloride () 250 mls @ 15 mls/hr IV .[id number] PRN PRN Reason: Additional IVPB Infusion Sodium Chloride () 1,000 mls @ 0 mls/hr IV .Q0M [facility] Insulin Human Lispro (Insulin Lispro 100 Unit/Ml Insuln.Pen) 0 unit SC ACHS [facility]; Protocol Last Admin: 06/26/20 11:19 Dose: Not Given Documented by: Loratadine (Loratadine 10 Mg Tablet) 10 mg PO DAILY PRN PRN PRN Reason: ALLERGIES Methylprednisolone (Methylprednisolone 125 Mg/2 Ml Vial) 125 mg IV X1 ONE Stop: 06/27/20 08:01 Nitroglycerin (Nitroglycerin (Inpatient Use) 0.4 Mg Tab.Subl) 0.4 mg SUBLINGUAL Q5M PRN PRN Reason: CHEST PAIN Ondansetron HCl (Ondansetron 4 Mg/2 Ml Vial) 4 mg IV Q8H PRN PRN PRN Reason: NAUSEA/VOMITING Prednisone (Prednisone 20 Mg Tablet) 60 mg PO BID@0800,2200 [facility] Stop: 06/27/20 08:01 Sodium Chloride (0.9% Saline Lock 10 Ml Syringe) 10 - 40 ml IV UD PRN PRN Reason: SALINE FLUSH Medical Necessity - Tobacco Use Smoking Status: Never smoker Tobacco Use: Non-smoker Assessment/Plan All Active Problems (Last Updated 06/25/20 @ 03:[address] Javier Drake MD) Chest pain (Acute) This is a 69 years old female patient presented to the emergency room because of chest pain suggestive of unstable angina is being admitted in PCU on media monitor. #1 chest pain: Seems to be atypical. EKG and troponin were unremarkable. Twelve-lead EKG was normal sinus rhythm 69 with no significant changes on repeat EKGs. Her EKG in [address] elevation in T wave depression in V1 and V2 and AVR when she had NE most likely STEMI and had PCI done in [facility]. Chest x-ray showed no acute findings. Patient was seen by slasher operator and discussed with him. Had 2D echo as mentioned below with preserved EF and segmental wall abnormality. Nuclear stress test was done and reported a stress-induced ischemia. Plan for cardiac cath on Saturday. D echo suggestive of mild valvular heart disease Segmental dysfunction with preserved ejection fraction (see wall motion). The estimated ejection fraction is 60 %. The left atrium is mildly enlarged. Mild (1+) mitral valve insufficiency. Mild tricuspid valve insufficiency. Aortic sclerosis, no stenosis. Mild (1+) pulmonic valve insufficiency. Right ventricular systolic pressure estimated to be 33 mmHg. Diastolic function is indeterminate. 06/26: Patient is on double antiplatelet agent. Continue with present therapy. #2 CAD status post PCI: continue aspirin and Coreg. #3 hypertension: Blood pressure improved, continue Coreg. #4 prediabetes: Admission blood sugar was 239. Hemoglobin A1c was 6.5% on Jan, 2020. Repeat A1c tomorrow a.m. Glucose is controlled. #5 hyperlipidemia: She is allergic to statins. Patient is allergic to statins. Fasting profile triglyceride 361, total cholesterol 243, LDL 130. We will try TriCor low-dose 48 daily and if she tolerates will increase to 145 p.o. daily. #6 DVT prophylaxis: Subcu Lovenox. Inpatient E&M: 92620 Subs Hosp L2
[2020-06-26 16:51] LABS: Bedside Glucose 165 mg/dL (70-110)
[2020-06-26] MEDS: DiphenhydrAMINE 25 MG Capsule 50 MG PO (21:48)
[2020-06-26] MEDS: 0.9% Saline Lock 10 ML Syringe IV (21:48)
[2020-06-26] MEDS: predniSONE 20 MG Tablet 60 MG PO (21:48)
[2020-06-26] MEDS: Famotidine 20 MG Tablet PO (21:48)
[2020-06-26 22:00] LABS: Bedside Glucose 166 mg/dL (70-110)
[2020-06-27] VITALS (21 sets, daily range): BP systolic 135–186; BP diastolic 53–78; PULSE 67–109; RESP 14–20; TEMP 35.7–36.7; O2SAT 93–98
--- NOTE | 2020-06-27 05:00 | EKG12_ITS ---
Test Reason : AM EKG Blood Pressure : / mmHG Vent. Rate : 074 BPM Atrial Rate : 074 BPM P-R Int : 192 ms QRS Dur : 076 ms QT Int : 398 ms P-R-T Axes : 054 026 015 degrees QTc Int : 441 ms Normal sinus rhythm Septal infarct , age undetermined Abnormal ECG When compared with ECG of 25-JUN-2020 05:04, MANUAL COMPARISON REQUIRED, DATA IS UNCONFIRMED Confirmed by ENRIKE GONZALES, EVANS ([id number]), editor dictionary GABRIELA IBARRA ([id number]) on 06/28/2020 10:49:49 AM Referred By: KATE Confirmed By:EVANS CALVERT MD
[2020-06-27] MEDS: Clopidogrel Bisulfate 75 MG Tablet PO (05:03)
[2020-06-27] MEDS: Carvedilol 12.5 MG Tablet PO ×2 (05:03→21:46)
[2020-06-27] MEDS: Aspirin E.C. 81 MG Tablet PO (05:04)
[2020-06-27] MEDS: 0.9% Saline Lock 10 ML Syringe IV (06:06)
[2020-06-27] MEDS: 0.9% Normal Saline 1,000 ML 15 ML IV (06:07)
[2020-06-27 06:35] LABS: Bedside Glucose 275 mg/dL (70-110)
[2020-06-27] MEDS: predniSONE 20 MG Tablet 60 MG PO (06:54)
[2020-06-27] MEDS: Famotidine 20 MG Tablet PO (06:54)
[2020-06-27] MEDS: MethylPREDNISolone 125 MG/2 ML Vial IV (09:56)
--- NOTE | 2020-06-27 10:00 | EKG12_ITS ---
Test Reason : AM EKG Blood Pressure : / mmHG Vent. Rate : 069 BPM Atrial Rate : 069 BPM P-R Int : 190 ms QRS Dur : 082 ms QT Int : 396 ms P-R-T Axes : 028 032 019 degrees QTc Int : 424 ms Normal sinus rhythm Low voltage QRS Septal infarct (cited on or before 30-MAY-2014) Abnormal ECG When compared with ECG of 06-AUG-2018 15:38, No significant change was found Confirmed by ENRIKE GONZALES, EVANS ([id number]), research editor GABRIELA IBARRA ([id number]) on 06/28/2020 10:54:56 AM Referred By: DR LOVE Confirmed By:EVANS CALVERT MD
--- NOTE | 2020-06-27 10:28 | CL.D_ITS ---
Patient Name: USMAN NICKERSON Study Date: 06/27/2020 Performing: Lisandro Baptiste MD Ht: 68.11 inches 173 cm : 1950 Wt: 182.98 lbs 83 kg Age: 69 Gender: female BSA: 1.97 PROCEDURE(S) PERFORMED [id number]/LV [id number] W OR WO PTCA, SINGLE CORONARY ARTERY CLINICAL PROFILE AND INDICATIONS Indications: Worsening Angina, Suspected CAD Heart Failure: None Stress/Imaging Date: 06/25/2020Stress Test with SPECT MPI: Positive Angina Classification Anginal Classification w/in 2 Weeks: CCS III CAD Presentations: Unstable angina. CONCLUSIONS Elevated Left Ventricular End Diastolic Pressure Segmented LV systolic dysfunction- Mild LVEF: by LV gram 65 % [place] Multivessel CAD RECOMMENDATIONS Risk factor modification Medical therapy Referred for immediate PCI DESCRIPTION OF PROCEDURE The patient arrived to the procedure lab. The risks and benefits of the procedure as well as a full d escription of our services here and current unavailability of surgical backup were fully explained to the patient and/or their significant other prior to the catheterization. The Timeout was completed, verifying the correct patient and procedure. The patient's procedural site was prepped and draped in the usual fashion. Local anesthetic was given subcutaneously to right groin region with Lidocaine 2%. Using a modified Seldinger technique, arterial access was obtained via the right femoral artery, a 4 Fr sheath was inserted Left Coronary Artery selective angiography was performed in multiple views us ing a 4 Fr. JL5 catheter. Right Coronary Artery selective angiography was then performed in multiple views using a 4 Fr. 3DRC catheter. Left Ventriculography was performed in AMARO projection using a 4 Fr . Pigtail catheter. LV to AO pullback pressures were then recorded.Contrast was injected through the sheath and the Right Iliac and Femoral artery were assessed for possible closure device.T he arterial sheath was pulled and a Perclose closure device was deployed for hemostasis CORONARY ANGIOGRAPHY DOMINANCE: Right Dominant LEFT HEART ASSESSMENT Left Ventricular Ejection Fraction: by LV Gram 65 % Inferior Basal Hypokinesis Elevated Left Ventricular End Diastolic Pressure LVEDP: 24 mmHg LEFT MAIN: Angiographically normal LEFT ANTERIOR DESCENDING ARTERY: PROX LAD: Mild luminal irregularities, Previously placed stent has an instent eccentric: 10 - 25 % re stenosis DIAGONAL 1: Proximal - Mild luminal irregularities CIRCUMFLEX ARTERY: Mild luminal irregularities OM 1: Proximal - eccentric: 25 % Stenosis RIGHT CORONARY ARTERY: Mild luminal irregularities MID RCA: 90 % Stenosis AORTIC ROOT: Angiographically normal COMPLICATIONS No Complications PROCEDURE MEDICATIONS Oxygen: 2 L/min via nasal cannula Heparin 6000 unit(s) IV 06/27/2020 08:45:28 Solu-medrol 125 mg IV 06/27/2020 07:15:53 SUMMARY OF HEMODYNAMIC DATA Time AIR REST ECG 07:16:21 AO 187/85 (130) SA 07:49:20 LV 201/-16, 24 07:59:22 LV 202/7, 45 08:00:03 LV 195/-6, 32 08:00:09 LVp 197/-9, 31 08:00:13 AOp 192/76 (127) 08:00:18 AO 218/86 (143) 08:58:39 Signed By Lisandro Baptiste MD On 06/27/2020 10:27:32 AM Lisandro Baptiste MD
--- NOTE | 2020-06-27 10:28 | PN.CARD_ITS ---
Subjectve: The patient is now status post a diagnostic cardiac catheterization with findings of an RCA mid high-grade lesion. She underwent RCA PTCA/stent. She appears to be resting comfortably at this time. Objective: Vital Signs Temp Pulse Resp BP Pulse Ox 98 F 75 15 168/63 H 96 06/27/20 10:16 06/27/20 10:16 06/27/20 10:16 06/27/20 10:16 06/27/20 10:16 Oxygen Delivery Method Room Air Weight: 182 lb 1.629 oz Body Mass Index (BMI) 27.6 Finger Stick Blood Glucose 188 Intake and Output for Last 24 Hours 06/25/20 06/26/20 06/27/20 23:59 23:59 23:59 Intake Total 1040 / 1040 800 / 1140 390 / 390 Balance 1040 / 1040 800 / 1140 390 / 390 General: Awake, Alert, Oriented x 3, Cooperative, No Acute Distress HEENT: Atraumatic, Normocephalic, PERRL, EOMI, Sclera Non Icteric Neck: Supple, Good ROM, No JVD Lungs: Clear to auscultation Cardiovascular: Regular Rhythm, Normal S1, Normal S2 Vascular: Normal Femoral Pulses Abdomen: Bowel Sounds Present, Soft Extremities: No edema Neurological: No Focal Motor or Sensory Deficit Psych/Mental Status: Appropriate Rhythm: This rhythm Cardiac Cath: CONCLUSIONS Elevated Left Ventricular End Diastolic Pressure Segmented LV systolic dysfunction- Mild LVEF: by LV gram 65 % [place] Multivessel CAD RECOMMENDATIONS Risk factor modification Medical therapy Referred for immediate PCI DESCRIPTION OF PROCEDURE The patient arrived to the procedure lab. The risks and benefits of the procedure as well as a full description of our services here and current unavailability of surgical backup were fully explained to the patient and/or their significant other prior to the catheterization. The Timeout was completed, verifying the correct patient and procedure. The patient's procedural site was prepped and draped in the usual fashion. Local anesthetic was given subcutaneously to right groin region with Lidocaine 2%. Using a modified Seldinger technique, arterial access was obtained via the right femoral artery, a 4Fr sheath was inserted Left Coronary Artery selective angiography was performed in multiple views using a 4 Fr. JL5 catheter. Right Coronary Artery selective angiography was then performed in multiple views using a 4 Fr. 3DRC catheter. Left Ventriculography was performed in AMARO projection using a 4 Fr. Pigtail catheter. LV to AO pullback pressures were then recorded.Contrast was injected through the sheath and the Right Iliac and Femoral artery were assessed for possible closure device.The arterial sheath was pulled and a Perclose closure device was deployed for hemostasis CORONARY ANGIOGRAPHY DOMINANCE: Right Dominant LEFT HEART ASSESSMENT Left Ventricular Ejection Fraction: by LV Gram 65 % Inferior Basal Hypokinesis Elevated Left Ventricular End Diastolic Pressure LVEDP: 24 mmHg LEFT MAIN: Angiographically normal LEFT ANTERIOR DESCENDING ARTERY: PROX LAD: Mild luminal irregularities, Previously placed stent has an instent eccentric: 10 - 25 % restenosis DIAGONAL 1: Proximal - Mild luminal irregularities CIRCUMFLEX ARTERY: Mild luminal irregularities OM 1: Proximal - eccentric: 25 % Stenosis RIGHT CORONARY ARTERY: Mild luminal irregularities MID RCA: 90 % Stenosis AORTIC ROOT: Angiographically normal Medical Necessity - Tobacco Use Smoking Status: Never smoker Tobacco Use: Non-smoker Assessment/Plan 1. Chest pain/angina pectoris The patient experienced chest pain. She states that she has some symptoms that are similar to what she had prior to her previous acute coronary syndrome. She has other symptoms that are somewhat different. Her cardiac enzymes have been technically indeterminate. Her ECG has demonstrated no acute ECG changes. She has undergone a pharmacologic stress nuclear imaging study. She has now undergone further evaluation with diagnostic cardiac catheterization. She was found to have RCA mid high-grade lesion which required subsequent PCI. 2. CAD status post PCI The patient has a history of CAD/PCI. At the present time the details are unknown. However she has had concerning symptoms and findings as noted above. Again she has undergone diagnostic cardiac catheterization. She was found to have an RCA mid high-grade lesion that required PCI. She will continue medical therapy. 3. Hyperlipidemia The patient will continue risk factor evaluation care. He states she has been intolerant to statins. 4. Hypertension The patient's blood pressure should be followed with adjustment of her medications as needed. This note was generated using a voice recognition system and there may be incorrect words, spelling or punctuation that were not noted when reviewing the office note prior to saving.
[2020-06-27] MEDS: amLODIPine 5 MG Tablet PO (11:17)
[2020-06-27 11:30] LABS: Bedside Glucose 249 mg/dL (70-110)
--- NOTE | 2020-06-27 11:45 | CASEMGMT ---
CHERELLE ROSARIO assessment: Face to Face with patient for initial transition planning/care coordination assessment. CHERELLE ROSARIO introduced self and role at [facility], pt voices understanding and consents to assessment at this time. Pt is lying in bed in no distress at this time. Pt is A/Ox4 at this time and answers all questions appropriately at this tme. Care providers, pharmacy, and demographics verified at this time. Presentation: Pt c/o chest pain, c/o left arm pain and into back-pt states hx of heart problems Admitting dx: Chest pain PCP: Tam Specialists: Pt states was seeing a senior category manager elsewhere but plans to f/u with [facility] from now on. Preferred Pharmacy: [facility] Insurance: [facility] A/B, [place] Prescription Benefit: Yes Living Will/HPOA: Pt states has LW/HPOA and is aware that they are not on file at [facility] at this time. Pt states her , Tip Dozier, is HPOA. LNOK: iTp Dozier, Living Arrangements: Pt states lives with in 1 story home with basement and states no concerns at home at this time. Pt states is independent with ADL's. Transportation: Pt states drives self and states no transportation concerns at this time. DME/HHC: Pt states has a glucometer and bp cuff at home and states no need for any further DME at this time. Pt states no hx of HHC or SNF in the past. Pt states no concerns with going home at time of discharge. Pt states is retired. Pt states does not smoke cigarettes but does occasionally drink ETOH. Pt states no further concerns/needs at this time. CM to follow for any further discharge planning/needs. Advised pt to ask for CM if any further questions/concerns/needs arise, voices understanding. Pt Goal: Home Plan[place] CHERELLE ROSARIO
[2020-06-27] MEDS: Insulin Lispro 100 UNIT/ML INSULN.PEN SC ×3 (11:51→21:47)
--- NOTE | 2020-06-27 14:46 | CRPHASE1_ITS ---
Patient Communication Former Patient:: Phase I PHII Cardiac Rehab Discussed with Patient:: Yes Guide to Cardiac Rehab Given to Patient:: Yes Cardiac Rehab Facility Choice List Given to Patient:: Yes Choice Program [facility] CR PHII:: Communication Given to CR Choice Program Other:: Communication Given to CR Physical Therapy Aides Teacher:: Lorraine Nunez Phase II Cardiac Rehab:: Yes Sessions:: 36 sessions - 3 days/wk, 12 weeks Risk Factors/Lifestyle Smoking Status: Never smoker Second-Hand Smoke:: No Hx Hypertension: Yes Hx Diabetes Mellitus Type 1: No Hx Diabetes Mellitus Type 2: Yes Hx Metabolic Disorders: No Hx Dyslipidemia: Yes Hx Obesity: No Post-Menopausal: Yes Stress: Long-standing ETOH: No Caffeine: No Substance Abuse: No Risk Factor for Sedentary Lifestyle: Moderate Risk Past Cardiac Illness: Coronary Artery Disease, Previous PCI w/Stent Laboratory Values: Cardiac Rehab Phase I Labs Hemoglobin A1c 6.7 % (3.8-5.6) H 06/26/20 06:30 Triglycerides 361 mg/dL (-199) H 06/26/20 06:30 Cholesterol 243 mg/dL (200) H 06/26/20 06:30 LDL Cholesterol 130 mg/dL (0-130) 06/26/20 06:30 HDL Cholesterol 41 mg/dL (40-) 06/26/20 06:30 Phase I Education Given On:: [place], Nutrition, Antiplatelet medication Issues Affecting Care:: None Knowledge of Condition:: Yes Cardiac Rehabilitation Info Cardiac Rehabilitation Program Information: Cardiac Rehabilitation is important for patients like you who are recovering from a heart problem. Cardiac rehabilitation programs are recognized as integral to the continued care of the patient with coronary heart disease. The cardiac rehabilitation program is designed to optimize a patient's physical, psychological, and social functioning. Health neonatal intensive care unit nurse work in cardiac rehabilitation programs and assist you with getting the treatments you need to get stronger and healthier - like exercise, healthy eating habits, and medications. Cardiac rehabilitation has been show to help people with heart problems live longer and have better life enjoyment than people who do not go to cardiac rehabilitation. Please contact the Cardiac Rehabilitation Program at [facility] at in two weeks if you have not heard from them.
--- NOTE | 2020-06-27 14:48 | CRPH1.INSTRU ---
General Education CAD and cardiac anatomy and function:: Patient communicates acknowledgment Explanation of diagnoses and procedures:: Patient communicates acknowledgment Sign/Symptoms of [place]:: Patient communicates acknowledgment Antiplatelet therapy: Patient communicates acknowledgment Proper use of NTG-SL: Patient communicates acknowledgment Emergency procedures and activation of EMS: Patient communicates acknowledgment Compliance of all prescribed medications: Patient communicates acknowledgment Dyslipidemia Patient Dyslipidemia Risk Factors Are:: Total Cholesterol, Triglycerides, HDL, LDL Recommendations Include:: Lipid profile provided, Therapeutic Lifestyle Change dietary guidelines Dyslipidemia Response Code:: Patient communicates acknowledgment Overweight/Obesity Patient Overweight/Obesity Risk Factors Are:: BMI Normal [24-29 & > 65 years old] Recommendations Include:: Weight loss of 5-10%, Reduced calorie diet, Exercise 5-7 times/week Overweight/Obesity:: Patient communicates acknowledgment Hypertension Patient Hypertension Risk Factors Are:: No documented hx of HTN Recommendations Include:: Maintain BP <130/85, DASH dietary guidelines, Decrease/maintain normal body weight, Moderation of ETOH Hypertension:: Patient communicates acknowledgment Diabetes Patient Diabetes Risk Factors Are:: Elevated blood sugars Recommendations Include:: Maintain fasting blood sugars 70-110 md/dL, Maintain HgbA1c of 6% or less, Monitor blood sugar as prescribed, Diabetic dietary guidelines, Decrease/maintain body weight Diabetes:: Patient communicates acknowledgment Sedentary Patient Sedentary Risk Factors Are:: Lack of regular exercise Recommendations Include:: Aerobic exercise 5-7 times/week for 20-30 minutes continuously, Benefits of regular exercise, Discussed home walking program, Monitored Outpatient Cardiac Rehab Sedentary Response Code:: Patient communicates acknowledgment Stress Patient Stress Risk Factors Are:: Patient denies stress as a risk factor Recommendations Include:: Stress management techniques Stress Response Code:: Patient communicates acknowledgment
--- NOTE | 2020-06-27 16:19 | PN_ITS ---
Patient Problems: Active and Suspected Problems (Last Updated 06/25/20 @ 03:[address] Javier Drake MD) Chest pain (Acute) Reason for Visit: chest pain Subjective: Feels better. Vitals/I&O's: Vital Signs Temp Pulse Resp BP Pulse Ox 36.2 C L 91 18 140/56 H 95 06/27/20 15:30 06/27/20 15:30 06/27/20 15:30 06/27/20 15:30 06/27/20 15:30 Oxygen Delivery Method Room Air Weight: 82.6 kg Body Mass Index (BMI) 27.6 Finger Stick Blood Glucose 188 Intake and Output for Last 24 Hours 06/25/20 06/26/20 06/27/20 23:59 23:59 23:59 Intake Total 1040 / 1040 800 / 1140 510 / 510 Output Total 500 / 500 Balance 1040 / 1040 800 / 1140 General: Alert, No apparent distress HEENT: Atraumatic, Normocephalic Oral: Moist Mucosa, No Gingival or Mucosal Lesions/ Ulcerations Neck: No Nodes, Thyroid Normal Size and Texture Lungs: Clear to auscultation, Normal air movement, No rhonchi, No wheeze, No ral es Cardiovascular: Regular rate, Regular Rhythm, Normal S1, Normal S2 Abdomen: Bowel Sounds Present, Soft, Non Tender, Non-Distended, No Hepato-spleno megaly Extremities: No edema, No Calf Tenderness Laboratory Results 06/26/20 16:38: POC Glucose 165 H 06/26/20 21:47: POC Glucose 166 H 06/27/20 06:08: POC Glucose 275 H 06/27/20 11:22: POC Glucose 249 H Current Medications Acetaminophen (Acetaminophen 325 Mg Tablet) 650 mg PO Q6H PRN PRN PRN Reason: Pain Score 1-10/Temp > 100.7 F Aspirin (Aspirin E.C. 81 Mg Tablet) 81 mg PO DAILY [facility] Last Admin: 06/27/20 05:04 Dose: 81 mg Documented by: Atropine Sulfate (Atropine Sulfate 1 Mg/10 Ml Syringe) 0.5 mg IV UD PRN PRN Reason: HR <50 bpm Carvedilol (Carvedilol 12.5 Mg Tablet) 12.5 mg PO BID [facility] Last Admin: 06/27/20 05:03 Dose: 12.5 mg Documented by: Clopidogrel Bisulfate (Clopidogrel Bisulfate 75 Mg Tablet) 75 mg PO DAILY [facility] Last Admin: 06/27/20 05:03 Dose: 75 mg Documented by: Docusate Sodium (Docusate Sodium 100 Mg Capsule) 100 mg PO BID PRN PRN PRN Reason: Constipation Enoxaparin Sodium (Enoxaparin 40 Mg/0.4 Ml Syringe) 40 mg SC DAILY [facility] Last Admin: 06/27/20 05:56 Dose: Not Given Documented by: Heparin Sodium (Beef Lung) (Heparin Lock 500 Unit/5 Ml In 10 Ml Syringe) 500 unit IV UD PRN PRN Reason: HEPARIN FLUSH Sodium Chloride () 250 mls @ 15 mls/hr IV .[id number] PRN PRN Reason: Saline Flush Sodium Chloride () 250 mls @ 15 mls/hr IV .[id number] PRN PRN Reason: Additional IVPB Infusion Sodium Chloride () 1,000 mls @ 0 mls/hr IV .Q0M [facility] Last Infusion: 06/27/20 06:07 Dose: 0 mls/hr Documented by: Insulin Human Lispro (Insulin Lispro 100 Unit/Ml Insuln.Pen) 0 unit SC ACHS [facility]; Protocol Last Admin: 06/27/20 11:51 Dose: 3 units Documented by: Labetalol HCl (Labetalol (Prefilled) 20 Mg/4 Ml) 5 mg IV X1 PRN PRN Reason: SBP >160 when pulling sheath Stop: 06/29/20 09:50 Loratadine (Loratadine 10 Mg Tablet) 10 mg PO DAILY PRN PRN PRN Reason: ALLERGIES Nitroglycerin (Nitroglycerin (Inpatient Use) 0.4 Mg Tab.Subl) 0.4 mg SUBLINGUAL Q5M PRN PRN Reason: CHEST PAIN Ondansetron HCl (Ondansetron 4 Mg/2 Ml Vial) 4 mg IV Q8H PRN PRN PRN Reason: NAUSEA/VOMITING Sodium Chloride (0.9% Saline Lock 10 Ml Syringe) 10 - 40 ml IV UD PRN PRN Reason: SALINE FLUSH Last Admin: 06/27/20 06:06 Dose: 10 ml Documented by: Sodium Chloride (0.9% Normal Saline 500 Ml Iv.Soln.) 500 ml IV BOLUS PRN PRN Reason: VASO-VAGAL PROTOCOL STROKE Vital Signs/Narrative: Vital Signs Temp Pulse Resp BP Pulse Ox 06/27/20 15:30 36.2 C L 91 18 140/56 H 95 06/27/20 13:25 78 14 143/55 H 95 06/27/20 12:30 36.6 C 76 15 143/56 H 94 Medical Necessity - Tobacco Use Smoking Status: Never smoker Tobacco Use: Non-smoker Assessment/Plan All Active Problems (Last Updated 06/25/20 @ 03:[address] Javier Drake MD) Chest pain (Acute) 1. Chest pain: * abnormal stress test * PCI to RCA * ASA, clopidogrel, carvedilol * allergy to statins 2. DM2 * a1c 6.7 * uncontrolled * on SSI * monitor for now 3. VTE prophylaxis: LMWH Inpatient E&M: 43289 Subs Hosp L2
[2020-06-27 21:50] LABS: Bedside Glucose 311 mg/dL (70-110)
[2020-06-28 02:58] VITALS: PULSE 101
[2020-06-28 03:40] VITALS: BP 126/55; PULSE 90; RESP 17; TEMP 36.6; O2SAT 97
--- NOTE | 2020-06-28 05:55 | EKG12_ITS ---
Test Reason : AM EKG Blood Pressure : / mmHG Vent. Rate : 085 BPM Atrial Rate : 085 BPM P-R Int : 182 ms QRS Dur : 088 ms QT Int : 392 ms P-R-T Axes : 068 036 032 degrees QTc Int : 466 ms Normal sinus rhythm Septal infarct , age undetermined Abnormal ECG When compared with ECG of 27-JUN-2020 10:28, MANUAL COMPARISON REQUIRED, DATA IS UNCONFIRMED Confirmed by ENRIKE GONZALES, EVANS ([id number]), city editor GABRIELA IBARRA ([id number]) on 06/29/2020 1:59:17 PM Referred By: ROBERTO Confirmed By:EVANS CALVERT MD
[2020-06-28] MEDS: Insulin Lispro 100 UNIT/ML INSULN.PEN SC (06:18)
[2020-06-28 06:19] LABS: Absolute Lymphocyte Count 2.63 X10^3/uL (0.83-4.51); Absolute Neutrophil Count 10.6 X10^3/uL (2.0-7.7); Basophil# 0.02 X10^3/uL; Basophil% 0.1 % (0-1); Hematocrit 38.7 % (37-47); Lymphocyte # 2.63 X10^3/ul (4.0); Lymphocyte % 17.9 % (19-41); Mean Corp Hgb Conc 36.2 g/dL (32-36); Mean Corpuscular Volume 93.9 fL (81-99); Mean Platelet Vol. 10.4 fl (6.2-12.0); Monocyte% 8.8 % (0-10); NRBC Flagged by Analyzer 0 % (0-5); Neutrophil # 10.61 X10^3/uL (2.7-7.7); Neutrophil % 72.3 % (47-70); Platelet Count 312 K/mm3 (150-450); RBC Distribution Width CV 12.7 % (11.6-14.6); RBC Distribution Width SD 43.3 fl (35.1-43.9); Red Blood Count 4.12 M/mm3 (4.2-5.4); White Blood Count 14.7 K/mm3 (4.4-11.0)
[2020-06-28 06:51] LABS: ALB/GLOB Ratio 1.1 RATIO (0.9-2.4); AST(SGOT) 19 U/L (15-37); Alanine Aminotransfer ALT/SGPT 39 U/L (13-56); Albumin, Serum 3.9 g/dL (3.2-5.0); Alkaline Phosphatase 84 U/L (45-117); Anion Gap 9 (5-15); BUN 25 mg/dL (7-18); BUN/Creat Ratio 25.6 RATIO (10-20); Calcium,Total 9.2 mg/dL (8.5-10.1); Chloride 101 mmol/L (98-107); Creatinine, Serum 0.98 mg/dL (0.55-1.02); EST Glomerular Filtration Rate 60 mL/min (>60); Est Glom Filt Rate - Afr Amer 72 mL/min (>60); Estimated Creatinine Clearance 53.88 ml/min; Globulin 3.7 g/dL (2.2-4.2); Glucose 208 mg/dL (74-106); Potassium 3.9 mmol/L (3.5-5.1); Protein, Total 7.6 g/dL (6.4-8.2); Sodium Level 136 mmol/L (136-145)
[2020-06-28 06:55] LABS: Bedside Glucose 212 mg/dL (70-110)
[2020-06-28 07:15] VITALS: PULSE 75
[2020-06-28 07:40] VITALS: O2SAT 93
--- NOTE | 2020-06-28 09:32 | PCM.DC ---
- Discharge Diagnoses Current Active Problems: Current Active and Chronic Problems (Last Updated 06/25/20 @ 03:[address] Javier Drake MD) Hyperlipidemia (Chronic) Hypertension (Chronic) CAD (coronary artery disease) (Chronic) Status post PCI Chest pain (Acute) Prediabetes (Chronic) S/P PTCA (percutaneous transluminal coronary angioplasty) (Chronic) You will use the following diet at home:: Cardiac Your food should be the consistency of: Regular Call your doctor if you observe: Shortness of breath, Chest pain Allergies/Adverse Reactions: Allergies Iodinated Contrast Media [Iodinated Contrast Media - IV Dye] Allergy (Verified 06/25/20 00:26) Other lisinopril Adverse Reaction (Verified 06/25/20 00:26) Other morphine Adverse Reaction (Verified 06/25/20 00:26) SEVER HEADACHE rosuvastatin [From Crestor] Adverse Reaction (Verified 06/25/20 00:26) Other LEGS HURT Medications to take at Discharge L.acidoph/B.long/L.plant/B.lac [Probiotic Acidophilus Beads] 1 ea PO DAILY 05/27/14 [place]-3/Dha/Epa/Fish Oil [Fish Oil Dr 500 mg Softgel] 1,000 mg PO DAILY 05/27/14 aspirin 81 mg tablet,delayed release 81 mg PO DAILY 04/30/18 Loratadine [Claritin] 10 mg PO PRN PRN 08/06/18 Lutein [Natural Lutein] 20 mg PO DAILY 08/06/18 Polyethylene Glycol 3350 [Clearlax] 17 gm PO DAILY 08/06/18 Amlodipine [Norvasc] 2.5 mg PO DAILY #30 tab 06/28/20 Carvedilol [Coreg (Beta Natalia)] 12.5 mg PO BID #60 tab 06/28/20 Clopidogrel Bisulfate [Plavix] 75 mg PO DAILY #30 tab 06/28/20 The following prescriptions were given: Carvedilol [Coreg (Beta Natalia)] 12.5 mg PO BID #60 tab Transmission Status: Pending to [facility] Amlodipine [Norvasc] 2.5 mg PO DAILY #30 tab Transmission Status: Pending to [facility] Clopidogrel Bisulfate [Plavix] 75 mg PO DAILY #30 tab Transmission Status: Pending to [facility] Primary Care Physician: Gideon Turcios DO [Primary Care Provider] - Within 2 Weeks Test Results: Test results from this visit will be discussed in further detail at your follow-up appointment, if applicable. Proposed Discharge Date: 06/28/20
--- NOTE | 2020-06-28 09:34 | DS.PCM_ITS ---
Discharge Date and Diagnosis - Problem List Patient Problems: Active and Suspected Problems (Last Updated 06/25/20 @ 03:[address] Javier Drake MD) Chest pain (Acute) Date of Admission: 06/25/20 Date of Discharge: 06/28/20 - Primary Discharge Diagnosis Acute Problems: Active Problems (Last Updated 06/25/20 @ 03:[address] Javier Drake MD) Chest pain (Acute) - Secondary Discharge Diagnosis Chronic Problems: Chronic Problems (Last Updated 06/25/20 @ 03:[address] Javier Drake MD) Hyperlipidemia (Chronic) Hypertension (Chronic) CAD (coronary artery disease) (Chronic) Status post PCI Prediabetes (Chronic) S/P PTCA (percutaneous transluminal coronary angioplasty) (Chronic) Hospital Course and Treatment Imaging Results: Clinical Impression(s) from Imaging Studies Chest X-Ray 06/25/20 00:58 IMPRESSION: No evidence for acute cardiopulmonary pathology. Electronically Signed: Samson Bain MD at 1:55 EDT , Service support , [facility], cardiology Operations: None Procedures: Cardiac catheterization - RCA stent LEFT HEART ASSESSMENT Left Ventricular Ejection Fraction: by LV Gram 65 % Inferior Basal Hypokinesis Elevated Left Ventricular End Diastolic Pressure LVEDP: 24 mmHg LEFT MAIN: Angiographically normal LEFT ANTERIOR DESCENDING ARTERY: PROX LAD: Mild luminal irregularities, Previ Summary of Care Provided: The patient is a 69 year old F presents with chest pain. She underwent a stress test that was abnormal. She underwent a left heart catheterization on the and was noted to have an RCA stenosis. Patient had PCI. Patient to continue with aspirin, clopidogrel and carvedilol. Patient has a noted allergy to statins so those were not initiated. Patient also has an allergy to lisinopril so that was not initiated as well. Patient has done well overnight. Patient will be discharged home in stable condition. [] Patient Problems: Active and Suspected Problems (Last Updated 06/25/20 @ 03:[address] Javier Drake MD) Chest pain (Acute) - Physical Exam Vitals/I&O's: Vital Signs Temp Pulse Resp BP Pulse Ox 36.6 C 90 17 126/55 H 93 06/28/20 03:40 06/28/20 03:40 06/28/20 03:40 06/28/20 03:40 06/28/20 07:40 Oxygen Delivery Method Room Air Weight: 82.6 kg Body Mass Index (BMI) 27.6 Finger Stick Blood Glucose 188 Intake and Output for Last 24 Hours 06/26/20 06/27/20 06/28/20 23:59 23:59 23:59 Intake Total 800 / 1140 1460 / 1460 250 / 250 Output Total 500 / 500 Balance 800 / 1140 960 / 960 250 / 250 General: Alert, Cooperative, No apparent distress HEENT: Atraumatic, Normocephalic Oral: Moist Mucosa, No Gingival or Mucosal Lesions/ Ulcerations Lungs: Clear to auscultation, Normal air movement, No rhonchi, No wheeze Cardiovascular: Regular rate, Regular Rhythm, Normal S1, Normal S2 Abdomen: Bowel Sounds Present, Soft, Non Tender, Non-Distended Laboratory Results 06/27/20 11:22: POC Glucose 249 H 06/27/20 21:45: POC Glucose 311 H 06/28/20 05:30: WBC 14.7 H, RBC 4.12 L, Hgb 14.0, Hct 38.7, MCV 93.9, MCH 34.0 H , MCHC 36.2 H, RDW Std Deviation 43.3, RDW Coeff of Annel 12.7, Plt Count 312, MPV 10.4, Immature Gran % (Auto) 0.900, Neut % (Auto) 72.3 H, Lymph % (Auto) 17.9 L , Hanson % (Auto) 8.8, Eos % (Auto) 0.0, Baso % (Auto) 0.1, Absolute Neuts (auto) 10.6 H, Absolute Lymphs (auto) 2.63, Nucleated RBC % 0 06/28/20 05:30: Sodium 136, Potassium 3.9, Chloride 101, Carbon Dioxide 26.0, Anion Gap 9, BUN 25 H, Creatinine 0.98, Estim Creat Clear Calc 53.88, Est GFR (MDRD) Af Amer 72, Est GFR (MDRD) Non-Af 60, BUN/Creatinine Ratio 25.6 H, Glucose 208 H, Calcium 9.2, Total Bilirubin 0.80, AST 19, ALT 39, Alkaline Phosphatase 84, Total Protein 7.6, Albumin 3.9, Globulin 3.7, Albumin/Globulin Ratio 1.1 06/28/20 06:16: POC Glucose 212 H Current Medications Acetaminophen (Acetaminophen 325 Mg Tablet) 650 mg PO Q6H PRN PRN PRN Reason: Pain Score 1-10/Temp > 100.7 F Amlodipine Besylate (Amlodipine 2.5 Mg Tablet) 2.5 mg PO DAILY [facility] Aspirin (Aspirin E.C. 81 Mg Tablet) 81 mg PO DAILY [facility] Last Admin: 06/27/20 05:04 Dose: 81 mg Documented by: Atropine Sulfate (Atropine Sulfate 1 Mg/10 Ml Syringe) 0.5 mg IV UD PRN PRN Reason: HR <50 bpm Carvedilol (Carvedilol 12.5 Mg Tablet) 12.5 mg PO BID [facility] Last Admin: 06/27/20 21:46 Dose: 12.5 mg Documented by: Clopidogrel Bisulfate (Clopidogrel Bisulfate 75 Mg Tablet) 75 mg PO DAILY [facility] Last Admin: 06/27/20 05:03 Dose: 75 mg Documented by: Docusate Sodium (Docusate Sodium 100 Mg Capsule) 100 mg PO BID PRN PRN PRN Reason: Constipation Enoxaparin Sodium (Enoxaparin 40 Mg/0.4 Ml Syringe) 40 mg SC DAILY [facility] Last Admin: 06/27/20 05:56 Dose: Not Given Documented by: Heparin Sodium (Beef Lung) (Heparin Lock 500 Unit/5 Ml In 10 Ml Syringe) 500 unit IV UD PRN PRN Reason: HEPARIN FLUSH Sodium Chloride () 250 mls @ 15 mls/hr IV .[id number] PRN PRN Reason: Saline Flush Sodium Chloride () 250 mls @ 15 mls/hr IV .[id number] PRN PRN Reason: Additional IVPB Infusion Sodium Chloride () 1,000 mls @ 0 mls/hr IV .Q0M [facility] Last Infusion: 06/27/20 06:07 Dose: 0 mls/hr Documented by: Insulin Human Lispro (Insulin Lispro 100 Unit/Ml Insuln.Pen) 0 unit SC [facility]; Protocol Last Admin: 06/28/20 06:18 Dose: 2 units Documented by: Labetalol HCl (Labetalol (Prefilled) 20 Mg/4 Ml) 5 mg IV X1 PRN PRN Reason: SBP >160 when pulling sheath Stop: 06/29/20 09:50 Loratadine (Loratadine 10 Mg Tablet) 10 mg PO DAILY PRN PRN PRN Reason: ALLERGIES Nitroglycerin (Nitroglycerin (Inpatient Use) 0.4 Mg Tab.Subl) 0.4 mg SUBLINGUAL Q5M PRN PRN Reason: CHEST PAIN Ondansetron HCl (Ondansetron 4 Mg/2 Ml Vial) 4 mg IV Q8H PRN PRN PRN Reason: NAUSEA/VOMITING Sodium Chloride (0.9% Saline Lock 10 Ml Syringe) 10 - 40 ml IV UD PRN PRN Reason: SALINE FLUSH Last Admin: 06/27/20 06:06 Dose: 10 ml Documented by: Sodium Chloride (0.9% Normal Saline 500 Ml Iv.Soln.) 500 ml IV BOLUS PRN PRN Reason: VASO-VAGAL PROTOCOL Discharge Diet: Low fat/ Low Cholesterol Call your doctor if you observe: Shortness of breath, Chest pain Home Medications: Medications to take at Discharge L.acidoph/B.long/L.plant/B.lac [Probiotic Acidophilus Beads] 1 ea PO DAILY 05/27/14 [place]-3/Dha/Epa/Fish Oil [Fish Oil Dr 500 mg Softgel] 1,000 mg PO DAILY 05/27/14 aspirin 81 mg tablet,delayed release 81 mg PO DAILY 04/30/18 Loratadine [Claritin] 10 mg PO PRN PRN 08/06/18 Lutein [Natural Lutein] 20 mg PO DAILY 08/06/18 Polyethylene Glycol 3350 [Clearlax] 17 gm PO DAILY 08/06/18 Amlodipine [Norvasc] 2.5 mg PO DAILY #30 tab 06/28/20 Carvedilol [Coreg (Beta Natalia)] 12.5 mg PO BID #60 tab 06/28/20 Clopidogrel Bisulfate [Plavix] 75 mg PO DAILY #30 tab 06/28/20 Following Prescriptions Were Given to Patient: Carvedilol [Coreg (Beta Natalia)] 12.5 mg PO BID #60 tab Transmission Status: Pending to [facility] Amlodipine [Norvasc] 2.5 mg PO DAILY #30 tab Transmission Status: Pending to [facility] Clopidogrel Bisulfate [Plavix] 75 mg PO DAILY #30 tab Transmission Status: Pending to [facility] Primary Care Physician: Gideon Turcios DO [Primary Care Provider] - Within 2 Weeks Disposition: Home Minutes spent on discharge:: 32 Patient Condition:: Good Medical Necessity - Tobacco Use Smoking Status: Never smoker Tobacco Use: Non-smoker Meaningful Use Info Meaningful Use Diagnoses (Choose all that apply): None applicable Inpatient E&M: 91493 Disch Hosp
--- NOTE | 2020-06-28 10:00 | EKG12_ITS ---
Test Reason : Blood Pressure : / mmHG Vent. Rate : 077 BPM Atrial Rate : 077 BPM P-R Int : 180 ms QRS Dur : 078 ms QT Int : 390 ms P-R-T Axes : 035 035 015 degrees QTc Int : 441 ms Normal sinus rhythm Septal infarct , age undetermined Abnormal ECG When compared with ECG of 28-JUN-2020 04:20, MANUAL COMPARISON REQUIRED, DATA IS UNCONFIRMED Confirmed by LIGIA GONZALES, ALEXANDRA ([id number]), editor managing newspaper GABRIELA IBARRA ([id number]) on 07/01/2020 9:44:35 A M Referred By: ROBERTO Confirmed By:STEPHANIE STRONG MD
[2020-06-28 10:39] VITALS: BP 138/63; PULSE 75; RESP 15; TEMP 36.8; O2SAT 97
[2020-06-28] MEDS: Clopidogrel Bisulfate 75 MG Tablet PO (10:43)
[2020-06-28] MEDS: Carvedilol 12.5 MG Tablet PO (10:43)
[2020-06-28] MEDS: Aspirin E.C. 81 MG Tablet PO (10:43)
[2020-06-28] MEDS: amLODIPine 2.5 MG Tablet PO (10:46)
--- NOTE | 2020-06-28 13:38 | PN.CARD_ITS ---
Subjectve: The patient has been up and active and ambulating. She denies any ongoing chest discomfort. Objective: Vital Signs Temp Pulse Resp BP Pulse Ox 98.2 F 75 15 138/63 H 97 06/28/20 10:39 06/28/20 10:39 06/28/20 10:39 06/28/20 10:39 06/28/20 10:39 Oxygen Delivery Method Room Air Weight: 182 lb 1.629 oz Body Mass Index (BMI) 27.6 Finger Stick Blood Glucose 188 Intake and Output for Last 24 Hours 06/26/20 06/27/20 06/28/20 23:59 23:59 23:59 Intake Total 800 / 1140 1460 / 1460 250 / 250 Output Total 500 / 500 Balance 800 / 1140 960 / 960 250 / 250 General: Awake, Alert, Oriented x 3, Cooperative, No Acute Distress HEENT: Atraumatic, Normocephalic, PERRL, EOMI, Sclera Non Icteric Neck: Supple, Good ROM, No JVD Lungs: Clear to auscultation Cardiovascular: Regular Rhythm, Normal S1, Normal S2 Vascular: Normal Radial Pulses Abdomen: Bowel Sounds Present, Soft Extremities: No edema Neurological: No Focal Motor or Sensory Deficit Psych/Mental Status: Appropriate 06/28/20 05:30: WBC 14.7 H, RBC 4.12 L, Hgb 14.0, Hct 38.7, MCV 93.9, MCH 34.0 H , MCHC 36.2 H, Plt Count 312, MPV 10.4, Immature Gran % (Auto) 0.900, Neut % (Auto) 72.3 H, Lymph % (Auto) 17.9 L, [place] % (Auto) 8.8, Eos % (Auto) 0.0, Baso % (Auto) 0.1, Absolute Neuts (auto) 10.6 H, Nucleated RBC % 0 06/28/20 05:30: Sodium 136, Potassium 3.9, Chloride 101, Carbon Dioxide 26.0, Anion Gap 9, BUN 25 H, Creatinine 0.98, Est GFR (MDRD) Af Amer 72, Est GFR (MDRD) Non-Af 60, BUN/Creatinine Ratio 25.6 H, Glucose 208 H, Calcium 9.2, Total Bilirubin 0.80 Rhythm: Sinus rhythm EKG: Sinus rhythm; no acute ECG changes ECHO: Interpretation Summary The study was technically difficult. Contrast injection was performed. Segmental dysfunction with preserved ejection fraction (see wall motion). The estimated ejection fraction is 60 %. The left atrium is mildly enlarged. Mild (1+) mitral valve insufficiency. Mild tricuspid valve insufficiency. Aortic sclerosis, no stenosis. Mild (1+) pulmonic valve insufficiency. Right ventricular systolic pressure estimated to be 33 mmHg. Diastolic function is indeterminate. Stress Test: Stress Test Report Date: 06-25-2020 Procedure: Pharmacologic stress nuclear imaging study Indications: Chest pain; CAD; PCI Consent: Per the patient Procedure: The patient underwent pharmacologic (Regadenoson) evaluation with a peak heart rate of 107 beats per minute (71%predicted maximal heart rate) and a peak blood pressure of 168/92 mmHg. The baseline ECG demonstrated normal sinus rhythm. The peak pharmacologic ECG demonstrated no obvious ECG changes. There were no cardiac dysrhythmias pretest, during pharmacologic infusion, or recovery. There was chest burning pretest, during pharmacologic infusion, and recovery. The examination was discontinued secondary to completion of protocol. Impression: 1. Pharmacologic (Regadenoson) evaluation 2. Peak pharmacologic ECG with with no obvious ECG changes. 3. There were no cardiac dysrhythmias pretest, during pharmacologic infusion, or recovery. 4. Nuclear images pending Myocardial perfusion imaging study: Technique: The patient was injected with 12.0 millicuries of technetium 99m Cardiolite and subsequently rest SPECT Cardiolite nuclear imaging was obtained in the horizontal long, vertical long, and short axis views. The patient underwent pharmacologic (Regadenoson) evaluation with a peak heart rate of 107 beats per minute (71% percent predicted maximal heart rate) and a peak blood pressure of 168/92 mmHg. The patient was injected with 36.0 millicuries of technetium 99m Cardiolite and subsequently stress SPECT Cardiolite nuclear imaging was obtained in the horizontal long, vertical long, and short axis views. A gated Cardiolite study at peak stress was obtained. Interpretation: Rest and stress SPECT Cardiolite nuclear imaging status post realignment, normalization, and attenuation correction demonstrate at rest the appearance of relative uniform tracer uptake and status post stress the appearance of a small area of subtle diminished tracer uptake in the mid anterior segments. There is end systolic thickening and brightening. The gated Cardiolite study demonstrates myocardial thickening and inward wall motion. The reported LVEF is 72%. Note: The preattenuation correction images suggest at rest the appearance of relative uniform tracer uptake status post stress the appearance of diminished myocardial perfusion/tracer uptake in portions of the mid to distal inferior segments as well as following stress a small area of subtle diminished tracer uptake in the mid anterior segments. Impression: 1. Rest and stress SPECT current nuclear imaging preattenuation correction demonstrates the appearance of diminished myocardial perfusion/tracer uptake in portions of the mid to distal inferior segments and a small area of subtle diminished tracer uptake in the mid anterior segments status post stress raising concern of stress-induced myocardial ischemia. However, status post attenuation correction these findings do not appear to be present, with respect to the mid to distal inferior findings, however, there does appear to be a small area of subtle diminished tracer uptake in the mid anterior segments following stress again raising concern of the possibility of stress-induced myocardial ischemia 2. The gated Cardiolite study reports an LVEF of 72%. Cardiac Cath: CONCLUSIONS Elevated Left Ventricular End Diastolic Pressure Segmented LV systolic dysfunction- Mild LVEF: by LV gram 65 % [place] Multivessel CAD RECOMMENDATIONS Risk factor modification Medical therapy Referred for immediate PCI DESCRIPTION OF PROCEDURE The patient arrived to the procedure lab. The risks and benefits of the procedure as well as a full description of our services here and current unavailability of surgical backup were fully explained to the patient and/or their significant other prior to the catheterization. The Timeout was completed, verifying the correct patient and procedure. The patient's procedural site was prepped and draped in the usual fashion. Local anesthetic was given subcutaneously to right groin region with Lidocaine 2%. Using a modified Seldinger technique, arterial access was obtained via the right femoral artery, a 4Fr sheath was inserted Left Coronary Artery selective angiography was performed in multiple views using a 4 Fr. JL5 catheter. Right Coronary Artery selective angiography was then performed in multiple views using a 4 Fr. 3DRC c atheter. Left Ventriculography was performed in AMARO projection using a 4 Fr. Pigtail catheter. LV to AO pullback pressures were then recorded.Contrast was injected through the sheath and the Right Iliac and Femoral artery were assessed for possible closure device.The arterial sheath was pulled and a Perclose closure device was deployed for hemostasis CORONARY ANGIOGRAPHY DOMINANCE: Right Dominant LEFT HEART ASSESSMENT Left Ventricular Ejection Fraction: by LV Gram 65 % Inferior Basal Hypokinesis Elevated Left Ventricular End Diastolic Pressure LVEDP: 24 mmHg LEFT MAIN: Angiographically normal LEFT ANTERIOR DESCENDING ARTERY: PROX LAD: Mild luminal irregularities, Previously placed stent has an instent eccentric: 10 - 25 % restenosis DIAGONAL 1: Proximal - Mild luminal irregularities CIRCUMFLEX ARTERY: Mild luminal irregularities OM 1: Proximal - eccentric: 25 % Stenosis RIGHT CORONARY ARTERY: Mild luminal irregularities MID RCA: 90 % Stenosis AORTIC ROOT: Angiographically normal Medical Necessity - Tobacco Use Smoking Status: Never smoker Tobacco Use: Non-smoker Assessment/Plan 1. Chest pain/angina pectoris The patient experienced chest pain. She states that she has some symptoms that are similar to what she had prior to her previous acute coronary syndrome. She has other symptoms that are somewhat different. Her cardiac enzymes have been technically indeterminate. Her ECG has demonstrated no acute ECG changes. She has undergone a pharmacologic stress nuclear imaging study. She has now undergone further evaluation with diagnostic cardiac catheterization. She was found to have RCA mid high-grade lesion which required subsequent PCI. She is continuing medical management at this time. 2. CAD status post PCI The patient has a history of CAD/PCI. At the present time the details are unknown. However she has had concerning symptoms and findings as noted above. Again she has undergone diagnostic cardiac catheterization. She was found to have an RCA mid high-grade lesion that required PCI. She will continue medical therapy. She will continue with outpatient follow-up. She has been offered cardiac rehabilitation but she states she may not be able to participate based upon her need to care for her ill . 3. Hyperlipidemia The patient will continue risk factor evaluation care. He states she has been intolerant to statins. 4. Hypertension The patient's blood pressure should be followed with adjustment of her medications as needed. This note was generated using a voice recognition system and there may be incorrect words, spelling or punctuation that were not noted when reviewing the office note prior to saving.
--- NOTE | 2020-06-30 11:36 | CL.I_ITS ---
Patient Name: USMAN NICKERSON Study Date: 06/27/2020 Performing: Dinesh Nunez MD Ht: 68 inches 173 cm : 1950 Wt: 183.2 lbs 83 kg Age: 69 Gender: female BSA: 1.97 PROCEDURE(S) PERFORMED [id number] W OR WO PTCA, SINGLE CORONARY ARTERY CLINICAL PROFILE AND CO-MORBIDITIES Indications: Worsening Angina, Suspected CAD Heart Failure: None Stress/Imaging Date: 06/25/2020 Stress Test with SPECT MPI: Positive Angina Classification Anginal Classification w/in 2 Weeks: CCS III CAD Presentations: Unstable angina. CONCLUSIONS Successful PCI with JOSÉ LUIS to the mRCA RECOMMENDATIONS ASA Indefinitely, DAPT for 1 year DESCRIPTION OF PROCEDURE The patient arrived to the procedure lab. The risks and benefits of the procedure as well as a full d escription of our services here and current unavailability of surgical backup were fully explained to the patient and/or their significant other prior to the catheterization. The Timeout was completed, verifying the correct patient and procedure. The patient's procedural site was prepped and draped in the usual fashion. Local anesthetic was given subcutaneously to right groin region with Lidocaine 2% Using a modified Seldinger technique,arterial access was obtained via the right femoral artery, a 4Fr sheath was inserted Left Coronary Artery selective angiography was performed in multiple views using a 4 Fr. JL5 catheter. Right Coronary Artery selective angiography was then performed in multiple vie ws using a 4 Fr. 3DRC catheter. Left Ventriculography was performed in AMARO projection using a 4 Fr. P igtail catheter. LV to AO pullback pressures were then recorded.The images were reviewed and options discussed. A decision was then made to proceed with an Intervention, IVUS or other adjunc t procedure. Arterial sheath was exchanged for a 6 Fr Sheath. JR 4.0 Guide catheter was inserted and engaged i nto the RCA. BMW Guide wire was advanced to the RCA. Angiogram performed pre balloon dilatation. 2.5 x 12 Emerge Balloon catheter was advanced across lesion in the right coronary, mid. PTCA balloon infl ated at 8 atms for 14 secs. PTCA balloon inflated at 8 atms for 10 secs. 3.5 x 38 Synergy Drug Elutin g stent was advanced across the lesion in the right coronary, mid. Angiogram performed post stent dep loyment. Contrast was injected through the sheath and the Right Iliac and Femoral artery were assesse d for possible closure device. The arterial sheath was pulled and a Perclose closure device was depl oyed for hemostasis INTERVENTION INFORMATION LESION SITE: RCA (Mid) Lesion Complexity: High/C, chronic total occlusion: No, lesion at bifurcation: No, thrombus present: No, lesion length: 30 mm, culprit lesion: Yes, Previously treated lesion: No Pre Stenosis: 95 % Pre intervention RYANN flow: 3 PROCEDURE: Drug Eluting Stent with pre dilatation. Post Stenosis: 0 % Post intervention RYANN flow: 3 Lesion Devices: Medtronic 6 Fr JR4.0 100cm Guide Catheter [place] .014 BMW [place] Straight 190cm Jesu Sci EMERGE MR 2.50x12 BALLOON COMPLICATIONS No Complications PROCEDURE MEDICATIONS Oxygen: 2 L/min via nasal cannula Heparin 6000 unit(s) IV 06/27/2020 08:45:28 Solu-medrol 125 mg IV 06/27/2020 07:15:53 SUMMARY OF HEMODYNAMIC DATA Time AIR REST ECG 07:16:21 AO 187/85 (130) SA 07:49:20 LV 201/-16, 24 07:59:22 LV 202/7, 45 08:00:03 LV 195/-6, 32 08:00:09 LVp 197/-9, 31 08:00:13 AOp 192/76 (127) 08:00:18 AO 218/86 (143) 08:58:39 Signed By Dinesh Nunez MD On 06/30/2020 11:35:24 AM Dinesh Nunez MD
--- NOTE | 2020-06-30 13:21 | CASEMGMT ---
Addendum entered by Rosina Cespedes 06/30/20 14:57: Call back from pt at this time and pt states she has been 'tired but good' since discharge. Pt states she did f/u with her PCP today. Pt does c/o of headache but states was just placed on Carvedilol and amlodipine. She states PCP is aware and that her BP was 122/70 at the office. Pt states she is awaiting a call from cardiology office for f/u appt and will discuss with them if headache does not go away. Pt voices no further questions/concerns/needs at this time. Melia VILLARREAL CM Original Note: CHERELLE ROSARIO Discharge F/U Phone Call LACE: 11 Strata: 3 Discharge date: 06/28/2020 Call date: 06/30/2020 Call time: 1321 Attempted to reach pt without success at this time, message left for pt to call this CHERELLE ROSARIO back if/when able. Melia VILLARREAL CM Admission dx: Chest Pain
== END 2020-06-28 13:10 | disposition home or self-care (01) | DRG 247 ==
LOC: ED 03:18 → PCU 03:35
PROVIDERS: Internal Medicine; Internal Medicine Cardiovascular Disease; Admitting Provider Hospitalist; Emergency Provider Emergency Medicine; PCP Family Medicine
DX: I25.110 Atherosclerotic heart disease of native coronary artery with unstable angina pectoris (principal); I10 Essential (primary) hypertension; I25.2 Old myocardial infarction; E11.65 Type 2 diabetes mellitus with hyperglycemia; E78.5 Hyperlipidemia, unspecified; Z98.61 Coronary angioplasty status; Z88.8 Allergy status to other drugs, medicaments and biological substances; Z79.82 Long term (current) use of aspirin; Z79.02 Long term (current) use of antithrombotics/antiplatelets; Z79.899 Other long term (current) drug therapy
CPT/HCPCS: 36415; 71045; 77063; 77067; 78452; 80048; 80053; 80061; 82962; 83036; 83735; 84484; 85025; 85730; 92928; 93005; 93017; 93306; 93458; 99285; A9500; J7030; Q9957; A4216; C1760; C1769; C1894; C8929; C9600; J2785; Q9967

== ENCOUNTER → 2020-07-27 09:11 | Outpatient (CLI) | payer MEDICARE, BC, SELFPAY ==
[2018-08-11 18:46] VITALS: BMI 27.6
[2020-06-25 04:28] VITALS: BMI 27.6
[2020-07-27 12:50] LABS: ALB/GLOB Ratio 1.3 RATIO (0.9-2.4); AST(SGOT) 21 U/L (15-37); Alanine Aminotransfer ALT/SGPT 51 U/L (13-56); Albumin, Serum 4.3 g/dL (3.2-5.0); Alkaline Phosphatase 90 U/L (45-117); Anion Gap 8 (5-15); BUN 17 mg/dL (7-18); Calcium,Total 9.2 mg/dL (8.5-10.1); Chloride 103 mmol/L (98-107); EST Glomerular Filtration Rate 66 mL/min (>60); Est Glom Filt Rate - Afr Amer 80 mL/min (>60); Globulin 3.4 g/dL (2.2-4.2); Glucose 193 mg/dL (74-106); Potassium 4.2 mmol/L (3.5-5.1); Protein, Total 7.7 g/dL (6.4-8.2); Sodium Level 137 mmol/L (136-145)
[2020-07-27 14:40] LABS: Hemoglobin A1c 6.1 % (3.8-5.6)
== END ==
PROVIDERS: PCP Family Medicine; Visit Provider Family Medicine
DX: I10 Essential (primary) hypertension (principal); E11.9 Type 2 diabetes mellitus without complications
CPT/HCPCS: 36415; 80053; 83036

== ENCOUNTER 2021-02-19 01:44 | Inpatient (IN) | payer MEDICARE, BC, SELFPAY ==
[2020-11-11 12:53] VITALS: BMI 26.9
[2021-02-19] VITALS (15 sets, daily range): BP systolic 132–178; BP diastolic 60–94; PULSE 74–91; RESP 14–18; TEMP 36.2–36.9; O2SAT 97–99; BMI 28.3; BMI 26.0
--- NOTE | 2021-02-19 01:50 | ED.RN ---
CALLED FOR EKG PER RN REQUEST, PULLED OLD EKGS FOR
--- NOTE | 2021-02-19 01:58 | EKG12_ITS ---
Test Reason : CHEST PAIN Blood Pressure : / mmHG Vent. Rate : 074 BPM Atrial Rate : 074 BPM P-R Int : 182 ms QRS Dur : 088 ms QT Int : 386 ms P-R-T Axes : 036 044 043 degrees QTc Int : 428 ms Normal sinus rhythm Septal infarct , age undetermined Abnormal ECG Confirmed by LIGIA GONZALES, ALEXANDRA ([id number]), social media editor GABRIELA IBARRA ([id number]) on 02/20/2021 10:48:05 A M Referred By: HAYLIE Confirmed By:STEHPANIE STRONG MD
--- NOTE | 2021-02-19 01:58 | RAD_ITS ---
STUDY: X-RAY CHEST REASON FOR EXAM: Female, 70 years old. chest pain TECHNIQUE: Single AP portable view of the chest. COMPARISON: 06/25/2020. FINDINGS: The lungs are clear and expanded. There is no demonstrated pleural abnormality. Normal size heart. Normal mediastinum and anthony. Normal visualized pulmonary arteries. Normal visualized aortic arch and descending thoracic aorta. Normal visualized thoracic spine. Normal visualized ribs, clavicles, and shoulders. There is no demonstrated abnormality of the visualized soft tissue structures of the upper abdomen. RAD/Chest 1 View (Portable) IMPRESSION: Normal x-ray examination of the chest. Electronically Signed: Sherri Fox MD at 2:35 EDT , Service support ,
--- NOTE | 2021-02-19 02:00 | ED.VIS.CHEST ---
HPI History of Present Illness Chief Complaint: Chest Pain Narrative Narrative: 70-year-old female presenting with chest pain. She describes it as pressure and radiating to her left arm and her right back and into her jaw. She states this lasted until EMS arrived and gave her nitroglycerin and aspirin. She currently states she has a 1 out of 10 chest pain. She thought she was having indigestion prior to this and was taking Tums and [place]. She states she was a little bit short of breath when this was happening. 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 Diabetes Essential hypertension Hyperlipidemia Hypertension Hypertension Neuropathy Prediabetes Presence of stent in coronary artery (~06/27/20) Home Medications L.acidoph-B.long-L.plant-B.lac 1 ea PO DAILY 05/27/14 [History Last Taken 06/24/20] omega 1-eil-for-fish oil 1,000 mg PO DAILY 05/27/14 [History Last Taken 06/24/20] aspirin 81 mg tablet,delayed release 81 mg PO DAILY 04/30/18 [History Last Taken 06/24/20] loratadine 10 mg PO PRN PRN 08/06/18 [History Last Taken 06/24/20] lutein 20 mg PO DAILY 08/06/18 [History Last Taken 06/24/20] polyethylene glycol 3350 17 gm PO DAILY 08/06/18 [History Last Taken 06/24/20] cholecalciferol (vitamin D3) 50 mcg (2,000 unit) capsule 50 mcg PO DAILY 08/03/20 [History Last Taken Unknown] carvedilol 12.5 mg tablet 12.5 mg PO BID #180 tab 10/11/20 [Rx Last Taken Unknown] clopidogrel 75 mg tablet 75 mg PO DAILY #90 tab 11/11/20 [Rx Last Taken Unknown] metformin 500 mg tablet 500 mg PO BID 11/11/20 [History Last Taken Unknown] potassium gluconate 600 mg (99 mg) tablet 600 mg PO DAILY 11/11/20 [History Last Taken Unknown] cranberry 4,200 mg PO QWEEK 02/19/21 [History Last Taken Unknown] estradiol [Estrace] 1 appful VAGINAL SUWEFR 02/19/21 [History Last Taken Unknown] phytosterol combination no.1 1,000 mg PO DAILY 02/19/21 [History Last Taken Unknown] red yeast rice 600 mg PO BID 02/19/21 [History Last Taken Unknown] vitamin B complex 1 cap PO DAILY 02/19/21 [History Last Taken Unknown] vitamin E 400 unit PO MOWEFR 02/19/21 [History Last Taken Unknown] zinc 50 mg PO TUTHSA 02/19/21 [History Last Taken Unknown] Allergy/AdvReac Type Severity Reaction Status Date / Time Iodinated Contrast Media Allergy Other Verified 11/11/20 12:52 [Iodinated Contrast Media - IV Dye] amlodipine AdvReac Headache, Verified 11/11/20 12:52 nausea, dizziness, fatigue, flushing, GERD lisinopril AdvReac fatigue, Verified 11/11/20 12:52 difficulty walking morphine AdvReac SEVER Verified 11/11/20 12:52 HEADACHE rosuvastatin [From Crestor] AdvReac Other Verified 11/11/20 12:52 Surgical History History of bladder suspension procedure History of heart artery stent Presence of coronary angioplasty implant and graft (~06/27/20) S/P appendectomy S/P bladder repair S/P PTCA (percutaneous transluminal coronary angioplasty) S/P tonsillectomy Social History Smoking Status: Never smoker ROS ROS ED Constitutional Constitutional ED: Denies chills, fever(s) or subjective Eyes Eyes: Denies none or change in vision ENT ENT ED: Denies ear pain or rhinorrhea Cardiovascular Cardiovascular: Reports chest pain and racing heartbeat Respiratory/Chest Respiratory/Chest: Reports dyspnea; Denies cough or sputum Gastrointestinal Gastrointestinal: Denies abdominal pain, nausea or vomiting Genitourinary Genitourinary ED: Denies dysuria, hematuria or urinary frequency Musculoskeletal Musculoskeletal: Denies arthralgias or myalgias Integumentary Denies abscess or rash Neurologic Neurologic: Denies headache(s), paresthesias or weakness EXAM Physical Exam Const Vital Signs: 02/19/21 01:45 02/19/21 01:48 02/19/21 02:08 Temperature 98.4 F Temperature Source Temporal Pulse Rate 87 Respiratory Rate 18 Respiratory Effort Normal Blood Pressure Blood Pressure Mean Pulse Ox 99 98 Oxygen Delivery Method Room Air Room Air 02/19/21 03:53 Temperature Temperature Source Pulse Rate 74 Respiratory Rate 16 Respiratory Effort Blood Pressure 148/63 H Blood Pressure Mean 91 Pulse Ox 98 Oxygen Delivery Method Room Air Positive well developed General Appearance ED: well developed and NAD HEENT normocephalic and atraumatic Eyes PERRL and EOMs intact bilaterally Neck no lymphadenopathy and supple Chest Wall inspection of chest normal and palpation of chest normal Resp normal respiratory effort Effort and Inspection: respiratory distress Cardio regular rate and regular rhythm GI normal to inspection, nondistended, normoactive bowel sounds Extremity normal to inspection Neuro oriented x3 Sensorium / Orientation: awake and alert Psych mental status grossly normal Mood & Affect: Negative for depressed Skin no rashes or lesions noted and no wounds Heart Score History: Highly Suspicious ECG: Normal Age: >/= 65 years Risk Factors: >/= 3 Risk Factors or History of CAD Troponin: </= Normal Limit Score: 6 MDM MDM MDM Narrative Medical decision making narrative: 70-year-old female presenting with chest pain which she states feels like pressure and is retrosternal radiating to the right side of her back, her left shoulder and down her left arm. This lasted several minutes and she stated she was a little short of breath when this occurred. On EMS arrival they gave her nitroglycerin and aspirin in her chest pain had subsided to a 1 when she arrived at the emergency room. EKG performed on arrival shows a sinus rhythm at 74 bpm without any acute changes from previous EKG June 282019 as interpreted by myself as interpreted by myself. This is around the time when she had her last cardiac stent. Heart Score is 6. Chest x-ray one-view portable interpreted by myself shows no acute process. The radiologist does agree. Troponin is negative. D-dimer is negative. Other lab work is unremarkable. Discussed with patient that she needed to be admitted given her story. She is completely pain-free at this time. Patient discussed with hospitalist and admitted in stable condition. Impression: 1. Chest pain Lab Data Attestation: I reviewed the patient's lab results. Labs: Laboratory Results - last 24 hr 02/19/21 02/19/21 02/19/21 02:07 02:07 03:22 WBC 7.8 RBC 3.73 L Hgb 12.9 Hct 34.5 L MCV 92.5 MCH 34.6 H MCHC 37.4 H RDW Std Deviation 44.0 H RDW Coeff of [place] 13.0 Plt Count 204 MPV 9.9 Immature Gran % (Auto) 0.600 Neut % (Auto) 51.7 Lymph % (Auto) 35.7 [place] % (Auto) 9.7 Eos % (Auto) 1.8 Baso % (Auto) 0.5 Absolute Neuts (auto) 4.0 Absolute Lymphs (auto) 2.77 Nucleated RBC % 0 D-Dimer Quant (PE/DVT) <= 0.27 Sodium 139 Potassium 3.7 Chloride 105 Carbon Dioxide 25.0 Anion Gap 9 BUN 15 Creatinine 0.69 Estim Creat Clear Calc 52.05 Est GFR (MDRD) Af Amer 108 Est GFR (MDRD) Non-Af 89 BUN/Creatinine Ratio 21.7 H Glucose 155 H Calcium 8.7 Troponin I < 0.015 Radiography Diagnostic Testing: Radiology Impression Chest X-Ray 02/19/21 01:58 IMPRESSION: Normal x-ray examination of the chest. Electronically Signed: Sherri Fox MD at 2:35 EDT , Service support , Discharge Plan Triage Chief Complaint: Chest Pain ED Provider: Mark Payton Dx/Rx/DC Orders Prescriptions: No Action aspirin [Adult Low Dose Aspirin] 81 mg tablet,delayed release (DR/EC) 81 mg PO DAILY RF: 0 cholecalciferol (vitamin D3) 50 mcg (2,000 unit) capsule 50 mcg PO DAILY RF: 0 potassium gluconate 600 mg (99 mg) tablet 600 mg (99 mg) tablet 600 mg PO DAILY RF: 0 metformin 500 mg tablet 500 mg PO BID RF: 0 clopidogrel 75 mg tablet 75 mg PO DAILY Qty: 90 RF: 3 omega 3-vwq-uzn-fish oil 500 MG capsule,delayed release(DR/EC) 1,000 mg PO DAILY RF: 0 L.acidoph-B.long-L.plant-B.lac 1 EACH capsule 1 ea PO DAILY RF: 0 polyethylene glycol 3350 17 GM powder in packet 17 gm PO DAILY RF: 0 loratadine 10 MG tablet 10 mg PO PRN PRN (Reason: Allergies) RF: 0 lutein 20 MG capsule 20 mg PO DAILY RF: 0 vitamin E 400 unit Tablet 400 unit PO MOWEFR RF: 0 estradiol [Estrace] 0.01 % (0.1 mg/gram) Cream 1 appful VAGINAL SUWEFR RF: 0 vitamin B complex Capsule 1 cap PO DAILY RF: 0 cranberry 1,000 mg Capsule 4,200 mg PO QWEEK RF: 0 zinc 50 mg Capsule 50 mg PO TUTHSA RF: 0 phytosterol combination no.1 500 mg Capsule 1,000 mg PO DAILY RF: 0 red yeast rice 600 mg Tablet 600 mg PO BID RF: 0 carvedilol 12.5 mg tablet 12.5 mg PO BID Qty: 180 RF: 3 Primary Care Provider: Gideon Turcios
[2021-02-19 02:12] LABS: Absolute Lymphocyte Count 2.77 X10^3/uL (0.83-4.51); Basophil# 0.04 X10^3/uL; Basophil% 0.5 % (0-1); Eosinophil# 0.14 X10^3/uL; Eosinophils% 1.8 % (0-5); Hematocrit 34.5 % (37-47); Hemoglobin 12.9 g/dL (12.0-15.0); Lymphocyte # 2.77 X10^3/ul (0.83-4.51); Lymphocyte % 35.7 % (19-41); Mean Corp Hgb Conc 37.4 g/dL (32-36); Mean Corpuscular Hgb 34.6 pg (27.0-32.0); Mean Corpuscular Volume 92.5 fL (81-99); Mean Platelet Vol. 9.9 fl (6.2-12.0); Monocyte# 0.75 X10^3/uL; Monocyte% 9.7 % (0-10); NRBC Flagged by Analyzer 0 % (0-5); Neutrophil % 51.7 % (47-70); Platelet Count 204 K/mm3 (150-450); Red Blood Count 3.73 M/mm3 (4.2-5.4); White Blood Count 7.8 K/mm3 (4.4-11.0)
[2021-02-19 02:30] LABS: Anion Gap 9 (5-15); BUN 15 mg/dL (7-18); BUN/Creat Ratio 21.7 RATIO (10-20); Calcium,Total 8.7 mg/dL (8.5-10.1); Chloride 105 mmol/L (98-107); Creatinine, Serum 0.69 mg/dL (0.55-1.02); EST Glomerular Filtration Rate 89 mL/min (>60); Est Glom Filt Rate - Afr Amer 108 mL/min (>60); Estimated Creatinine Clearance 52.05 ml/min; Glucose 155 mg/dL (74-106); Potassium 3.7 mmol/L (3.5-5.1); Sodium Level 139 mmol/L (136-145)
[2021-02-19 03:47] LABS: D-Dimer Quantitative (DVT/PE) <= 0.27 FEU/ug/m (0.27-0.49)
--- NOTE | 2021-02-19 04:33 | PCM.HP.STD ---
HPI - General HPI Narrative USMAN NICKERSON, is a 70 F who with a significant history of CAD status post stent in 2013;and another stent June 2020; prediabetes; and hypertension of who presents to emergency department with substernal chest pain that started about 2 hours before presentation. Initially she was burping. She took Vandana-[place] and Tagamet which did not help. She then felt some heaviness and then a different feelings that she described as just hurts. She denies any nausea and vomiting. She reports shortness of breath. She reported that her home blood pressure was 162/90. However when paramedics checked her blood pressure later her systolic blood pressure was 190. [facility]LY [facility] Medical History (Updated 02/19/21 @ 04:[address] 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 Diabetes Essential hypertension Hyperlipidemia Hypertension Hypertension Neuropathy Prediabetes Presence of stent in coronary artery (~06/27/20) Home Medications Grisel-Ryleeplant-B.lac 1 ea PO DAILY 05/27/14 [History Last Taken 06/24/20] omega 7-fxl-yjg-fish oil 1,000 mg PO DAILY 05/27/14 [History Last Taken 06/24/20] aspirin 81 mg tablet,delayed release 81 mg PO DAILY 04/30/18 [History Last Taken 06/24/20] loratadine 10 mg PO PRN PRN 08/06/18 [History Last Taken 06/24/20] lutein 20 mg PO DAILY 08/06/18 [History Last Taken 06/24/20] polyethylene glycol 3350 17 gm PO DAILY 08/06/18 [History Last Taken 06/24/20] cholecalciferol (vitamin D3) 50 mcg (2,000 unit) capsule 50 mcg PO DAILY 08/03/20 [History Last Taken Unknown] carvedilol 12.5 mg tablet 12.5 mg PO BID #180 tab 10/11/20 [Rx Last Taken Unknown] clopidogrel 75 mg tablet 75 mg PO DAILY #90 tab 11/11/20 [Rx Last Taken Unknown] metformin 500 mg tablet 500 mg PO BID 11/11/20 [History Last Taken Unknown] potassium gluconate 600 mg (99 mg) tablet 600 mg PO DAILY 11/11/20 [History Last Taken Unknown] cranberry 4,200 mg PO QWEEK 02/19/21 [History Last Taken Unknown] estradiol [Estrace] 1 appful VAGINAL SUWEFR 02/19/21 [History Last Taken Unknown] phytosterol combination no.1 1,000 mg PO DAILY 02/19/21 [History Last Taken Unknown] red yeast rice 600 mg PO BID 02/19/21 [History Last Taken Unknown] vitamin B complex 1 cap PO DAILY 02/19/21 [History Last Taken Unknown] vitamin E 400 unit PO MOWEFR 02/19/21 [History Last Taken Unknown] zinc 50 mg PO TUTHSA 02/19/21 [History Last Taken Unknown] Allergy/AdvReac Type Severity Reaction Status Date / Time Iodinated Contrast Media Allergy Other Verified 11/11/20 12:52 [Iodinated Contrast Media - IV Dye] amlodipine AdvReac Headache, Verified 11/11/20 12:52 nausea, dizziness, fatigue, flushing, GERD lisinopril AdvReac fatigue, Verified 11/11/20 12:52 difficulty walking morphine AdvReac SEVER Verified 11/11/20 12:52 HEADACHE rosuvastatin [From Crestor] AdvReac Other Verified 11/11/20 12:52 Family History (Updated 02/19/21 @ 04:[address] Maximo Chow MD) Other COPD (chronic obstructive pulmonary disease) Diabetes Embolism Hyperlipidemia Peripheral artery disease Surgical History History of bladder suspension procedure History of heart artery stent Presence of coronary angioplasty implant and graft (~06/27/20) S/P appendectomy S/P bladder repair S/P PTCA (percutaneous transluminal coronary angioplasty) S/P tonsillectomy Social History Smoking Status: Never smoker ROS ROS Narrative 12 point review of system is negative except as stated in HPI. Vital Signs Vital Signs Vital Signs: 02/19/21 01:45 02/19/21 01:48 02/19/21 02:08 Temperature 98.4 F Temperature Source Temporal Pulse Rate 87 Respiratory Rate 18 Respiratory Effort Normal Blood Pressure Blood Pressure Mean Pulse Ox 99 98 Oxygen Delivery Method Room Air Room Air 02/19/21 03:53 Temperature Temperature Source Pulse Rate 74 Respiratory Rate 16 Respiratory Effort Blood Pressure 148/63 H Blood Pressure Mean 91 Pulse Ox 98 Oxygen Delivery Method Room Air Weight Weight: 84.7 kg Body Mass Index (BMI) 28.3 Physical Exam Narrative Physical exam: General: Well-nourished, well-developed, no acute distress Head: Normocephalic, atraumatic, no tenderness Eyes: PERRLA, EOMI ENT, no trauma, moist mucous membranes, no rhinorrhea Neck: Nontender, full range of motion, no spinal tenderness, deformities, step-off CVS: Regular rate and rhythm Respiratory no acute distress, clear to auscultation bilaterally, chest wall nontender, no wheezing Abdomen: Soft, nontender, nondistended, normal bowel sounds, no masses : Deferred Back: Nontender, no CVA tenderness, no midline spinal tenderness, deformities, step-offs Extremities: Nontender full range of motion, no trauma Skin: Normal color, no trauma, abrasions Neuro: Alert, oriented, cranial nerves II through XII grossly intact. Results Lab / Micro Data Result Diagrams: 02/19/21 02:07 02/19/21 02:07 Labs: Laboratory Results - last 24 hr 02/19/21 02/19/21 02/19/21 02:07 02:07 03:22 WBC 7.8 RBC 3.73 L Hgb 12.9 Hct 34.5 L MCV 92.5 MCH 34.6 H MCHC 37.4 H RDW Std Deviation 44.0 H RDW Coeff of Annel 13.0 Plt Count 204 MPV 9.9 Immature Gran % (Auto) 0.600 Neut % (Auto) 51.7 Lymph % (Auto) 35.7 [place] % (Auto) 9.7 Eos % (Auto) 1.8 Baso % (Auto) 0.5 Absolute Neuts (auto) 4.0 Absolute Lymphs (auto) 2.77 Nucleated RBC % 0 D-Dimer Quant (PE/DVT) <= 0.27 Sodium 139 Potassium 3.7 Chloride 105 Carbon Dioxide 25.0 Anion Gap 9 BUN 15 Creatinine 0.69 Estim Creat Clear Calc 52.05 Est GFR (MDRD) Af Amer 108 Est GFR (MDRD) Non-Af 89 BUN/Creatinine Ratio 21.7 H Glucose 155 H Calcium 8.7 Troponin I < 0.015 Radiology Impression Chest X-Ray 02/19/21 01:58 IMPRESSION: Normal x-ray examination of the chest. Electronically Signed: Sherri Fox MD at 2:35 EDT , Service support , Assessment & Plan Assessment/Plan (1) Essential hypertension: (2) Presence of stent in coronary artery: (3) Chest pain: QUALIFIERS: Chest pain type: unspecified Qualified Code(s): R07.9 - Chest pain, unspecified PLAN: Chest pain Place on a monitored bed at PCU. Impression of chest x-ray by radiology: Normal x-ray examination of the chest Actual CXR image was independently visualized. No acute cardiopulmonary process was noted. Actual EKG tracing was independently visualized. EKG tracing showed Q waves in lead V1 to V3. EKG in June 2020 was reviewed. EKG at a time showed T wave inversion in leads V1 to V2. Old records reviewed showed the patient had drug-eluting stent placed in mid RCA in June 2020. ASA 81 mg p.o. daily continued. Plavix daily continued. SL NTG 0.4 mg prn as needed for chest pain ordered Morphine as needed for pain ordered We will check lipid panel. Statin: Intolerance to statin Initial troponin was negative Serial cardiac enzymes ordered Stat EKG as needed for chest pain Stress test if the cardiac enzymes are negative. Reports history of knee pain and unable to do treadmill stress test. Prediabetes Hold Metformin. We will get A1c. Accu-Chek with correction scale insulin ordered. Hypertension Blood pressure is not within goal Carvedilol continued. As needed hydralazine ordered. Trend blood pressure and adjust blood pressure medications. DVT prophylaxis Subcutaneous Lovenox ordered. Charges/Coding Visit Charges OBSV E&M: 41690 Initial observation care L3
--- NOTE | 2021-02-19 05:12 | ED.RN ---
Waiting on verificaton of the apresoline from pharm to give to patient as prn med
--- NOTE | 2021-02-19 05:35 | EKG12_ITS ---
Test Reason : AM EKG Blood Pressure : / mmHG Vent. Rate : 073 BPM Atrial Rate : 073 BPM P-R Int : 186 ms QRS Dur : 086 ms QT Int : 424 ms P-R-T Axes : 027 043 078 degrees QTc Int : 467 ms Normal sinus rhythm Low voltage QRS Septal infarct , age undetermined Abnormal ECG When compared with ECG of 19-FEB-2021 05:41, MANUAL COMPARISON REQUIRED, DATA IS UNCONFIRMED Confirmed by ENRIKE GONZALES, EVANS ([id number]), offline editor GABRIELA IBARRA ([id number]) on 02/21/2021 9:36:44 AM Referred By: JOCELYNE Confirmed By:EVANS CALVERT MD
[2021-02-19] MEDS: Clopidogrel Bisulfate 75 MG Tablet PO (09:20)
[2021-02-19] MEDS: Carvedilol 12.5 MG Tablet PO ×2 (09:21→22:09)
[2021-02-19] MEDS: Polyethylene Glycol 3350 17 GM PACKET PO (09:24)
[2021-02-19] MEDS: Potassium Chloride Oral Tablet 20 MEQ 40 MEQ PO (09:24)
--- NOTE | 2021-02-19 10:12 | PCM.PN.BLA ---
Progress Note Patient is a 70-year-old lady with history of coronary artery disease status post previous PCI with last 1 in June 2020 who presented with chest pain admitted to monitored bed serial cardiac enzymes ordered came back elevated consult subsequently placed cardiology Patient seen and examined her initial assessment including history and physical diagnostic data and management orders reviewed.
[2021-02-19 11:25] LABS: Bedside Glucose 248 mg/dL (70-110)
--- NOTE | 2021-02-19 12:25 | CON.PCM.CA_ITS ---
Assessment & Plan Assessment/Plan (1) Chest pain: QUALIFIERS: Chest pain type: unspecified Qualified Code(s): R07.9 - Chest pain, unspecified PLAN: Concerning for unstable angina/non-STEMI. Continue dual antiplatelet therapy. It will be reasonable to start the patient on weight- based heparin. We will proceed with coronary angiography tomorrow. (2) Atherosclerotic heart disease of [place] coronary artery without angina pectoris: QUALIFIERS: [place] vs. transplanted heart: [place] heart Qualified Code(s): I25.10 - Atherosclerotic heart disease of [place] coronary artery without angina pectoris (3) Presence of stent in coronary artery: HPI Consult Data Date of Consult: 02/19/21 HPI Narrative HPI Narrative: USMAN NICKERSON, is a 70 F with history of coronary artery disease status post previous PCI at [facility] in May 2014 with stenting to her proximal LAD and stenting at [facility] with a drug-eluting stent to mid RCA on 06/27/2020, hypertension, hyperlipidemia, and prediabetes coming to [facility] because of chest discomfort. Chest discomfort was pressure- like retrosternal with tingling in her left arm. Her troponin went up to 0.2. She does not have any chest pain at this time. Review of systems: All systems reviewed. All else is negative except that in the HPI. 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 Diabetes Diabetes Essential hypertension GERD (gastroesophageal reflux disease) Hyperlipidemia Hypertension Hypertension Myocardial infarct Neuropathy Prediabetes Presence of stent in coronary artery (~06/27/20) Home Medications LKassiacidoph-Oskar-Shantplant-B.lac 1 ea PO DAILY 05/27/14 [History Last Taken 02/18/21] omega 1-wtk-kzh-fish oil 1,000 mg PO DAILY 05/27/14 [History Last Taken 06/24/20] aspirin 81 mg tablet,delayed release 81 mg PO DAILY 04/30/18 [History Last Taken 02/18/21] loratadine 10 mg PO PRN PRN 08/06/18 [History Last Taken 06/24/20] lutein 20 mg PO DAILY 08/06/18 [History Last Taken 06/24/20] polyethylene glycol 3350 17 gm PO DAILY 08/06/18 [History Last Taken 06/24/20] cholecalciferol (vitamin D3) 50 mcg (2,000 unit) capsule 50 mcg PO DAILY 08/03/20 [History Last Taken 02/18/21] carvedilol 12.5 mg tablet 12.5 mg PO BID #180 tab 10/11/20 [Rx Last Taken 02/18/21] clopidogrel 75 mg tablet 75 mg PO DAILY #90 tab 11/11/20 [Rx Last Taken 02/18/21] metformin 500 mg tablet 500 mg PO BID 11/11/20 [History Last Taken Unknown] potassium gluconate 600 mg (99 mg) tablet 600 mg PO DAILY 11/11/20 [History Last Taken Unknown] cranberry 4,200 mg PO QWEEK 02/19/21 [History Last Taken Unknown] estradiol [Estrace] 1 appful VAGINAL SUWEFR 02/19/21 [History Last Taken 02/18/21] phytosterol combination no.1 1,000 mg PO DAILY 02/19/21 [History Last Taken Unknown] red yeast rice 600 mg PO BID 02/19/21 [History Last Taken Unknown] vitamin B complex 1 cap PO DAILY 02/19/21 [History Last Taken Unknown] vitamin E 400 unit PO MOWEFR 02/19/21 [History Last Taken Unknown] zinc 50 mg PO TUTHSA 02/19/21 [History Last Taken Unknown] Allergy/AdvReac Type Severity Reaction Status Date / Time Iodinated Contrast Media Allergy Other Verified 11/11/20 12:52 [Iodinated Contrast Media - IV Dye] amlodipine AdvReac Headache, Verified 11/11/20 12:52 nausea, dizziness, fatigue, flushing, GERD lisinopril AdvReac fatigue, Verified 11/11/20 12:52 difficulty walking morphine AdvReac SEVER Verified 11/11/20 12:52 HEADACHE rosuvastatin [From Crestor] AdvReac Other Verified 11/11/20 12:52 Family History Other COPD (chronic obstructive pulmonary disease) Diabetes Embolism Hyperlipidemia Peripheral artery disease Surgical History (Updated 02/19/21 @ 05:56 by Janneth Quiroz) History of appendectomy History of bladder suspension procedure History of heart artery stent Presence of coronary angioplasty implant and graft (~06/27/20) S/P appendectomy S/P bladder repair S/P PTCA (percutaneous transluminal coronary angioplasty) S/P tonsillectomy Social History (Updated 02/19/21 @ 05:57 by Janneth Quiroz) household members: spouse housing: house Smoking Status: Never smoker Physical Exam Const alert and oriented x3 Orientation / Consciousness: awake HEENT normocephalic Eyes no scleral icterus Neck supple Chest inspection of chest normal Resp normal respiratory effort Cardio regular rate Extremity no pedal edema Skin no rashes or lesions noted Neuro oriented x3 Psych mental status grossly normal Objective Data Vital Signs: Vital Signs Temp Pulse Resp BP Pulse Ox 98.2 F 75 18 178/67 H 98 02/19/21 05:30 02/19/21 07:30 02/19/21 05:30 02/19/21 05:30 02/19/21 05:50 Oxygen Delivery Method Room Air Weight: 171 lb 4.787 oz Body Mass Index (BMI) 26.0 Intake & Output: Intake and Output for Last 24 Hours 02/17/21 02/18/21 02/19/21 23:59 23:59 23:59 Intake Total 120 / 120 Balance 120 / 120 Lab / Micro Data Result Diagrams: 02/19/21 02:07 02/19/21 02:07 Labs: Laboratory Results - last 24 hr 02/19/21 02/19/21 02/19/21 02:07 02:07 03:22 WBC 7.8 RBC 3.73 L Hgb 12.9 Hct 34.5 L MCV 92.5 MCH 34.6 H MCHC 37.4 H RDW Std Deviation 44.0 H RDW Coeff of Annel 13.0 Plt Count 204 MPV 9.9 Immature Gran % (Auto) 0.600 Neut % (Auto) 51.7 Lymph % (Auto) 35.7 [place] % (Auto) 9.7 Eos % (Auto) 1.8 Baso % (Auto) 0.5 Absolute Neuts (auto) 4.0 Absolute Lymphs (auto) 2.77 Nucleated RBC % 0 D-Dimer Quant (PE/DVT) <= 0.27 Sodium 139 Potassium 3.7 Chloride 105 Carbon Dioxide 25.0 Anion Gap 9 BUN 15 Creatinine 0.69 Estim Creat Clear Calc 52.05 Est GFR (MDRD) Af Amer 108 Est GFR (MDRD) Non-Af 89 BUN/Creatinine Ratio 21.7 H Glucose 155 H Calcium 8.7 Troponin I < 0.015 POC Glucose 02/19/21 02/19/21 02/19/21 05:37 08:15 11:13 WBC RBC Hgb Hct MCV MCH MCHC RDW Std Deviation RDW Coeff of Annel Plt Count MPV Immature Gran % (Auto) Neut % (Auto) Lymph % (Auto) [place] % (Auto) Eos % (Auto) Baso % (Auto) Absolute Neuts (auto) Absolute Lymphs (auto) Nucleated RBC % D-Dimer Quant (PE/DVT) Sodium Potassium Chloride Carbon Dioxide Anion Gap BUN Creatinine Estim Creat Clear Calc Est GFR (MDRD) Af Amer Est GFR (MDRD) Non-Af BUN/Creatinine Ratio Glucose Calcium Troponin I 0.213 H 0.244 H POC Glucose 248 H Cardiology Labs/Tests 02/19/21 02:07: WBC 7.8, RBC 3.73 L, Hgb 12.9, Hct 34.5 L, MCV 92.5, MCH 34.6 H, MCHC 37.4 H, Plt Count 204, MPV 9.9, Immature Gran % (Auto) 0.600, Neut % (Auto) 51.7, Lymph % (Auto) 35.7, [place] % (Auto) 9.7, Eos % (Auto) 1.8, Baso % (Auto) 0.5, Absolute Neuts (auto) 4.0, Nucleated RBC % 0 02/19/21 02:07: Sodium 139, Potassium 3.7, Chloride 105, Carbon Dioxide 25.0, Anion Gap 9, BUN 15, Creatinine 0.69, Est GFR (MDRD) Af Amer 108, Est GFR (MDRD) Non-Af 89, BUN/Creatinine Ratio 21.7 H, Glucose 155 H, Calcium 8.7, Troponin I < 0.015 02/19/21 03:22: D-Dimer Quant (PE/DVT) <= 0.27 02/19/21 05:37: Troponin I 0.213 H 02/19/21 08:15: Troponin I 0.244 H Rhythm: EKG: ECHO: Stress Test: Cardiac Cath: PCI: CT Surgery: Holter monitor: EPS: PPM: CXR: Chest CT Scan: Radiography Diagnostic Testing: Radiology Impression Chest X-Ray 02/19/21 01:58 IMPRESSION: Normal x-ray examination of the chest. Electronically Signed: Sherri Fox MD at 2:35 EDT , Service support ,
[2021-02-19 14:30] LABS: International Normalized Ratio 1.1; Partial Thromboplast Time 28.1 Seconds (24.1-36.2); Prothrombin Time (Protime)PT. 13.3 SECONDS (11.7-14.9)
[2021-02-19] MEDS: HEPARIN/D5w 25,000 UNITS 25,000 UNITS/250 ML IV.SOLN. 11 UNITS IV (15:05)
[2021-02-19] MEDS: Heparin Injection (Vial) 5,000 UNIT/ML VIAL 5000 UNIT IV (15:06)
[2021-02-19] MEDS: 0.9% Saline Lock 10 ML Syringe IV (15:06)
[2021-02-19 18:21] LABS: Bedside Glucose 131 mg/dL (70-110)
[2021-02-19] MEDS: Aspirin E.C. 81 MG Tablet PO (22:09)
[2021-02-19 22:21] LABS: Bedside Glucose 176 mg/dL (70-110)
[2021-02-20] VITALS (22 sets, daily range): BP systolic 109–144; BP diastolic 46–73; PULSE 65–96; RESP 13–20; TEMP 35.8–36.4; O2SAT 90–97
[2021-02-20 04:52] LABS: Absolute Lymphocyte Count 3.17 X10^3/uL (0.83-4.51); Absolute Neutrophil Count 3.3 X10^3/uL (2.0-7.7); Basophil# 0.05 X10^3/uL; Basophil% 0.7 % (0-1); Eosinophil# 0.18 X10^3/uL; Eosinophils% 2.4 % (0-5); Hematocrit 36.3 % (37-47); Hemoglobin 13.4 g/dL (12.0-15.0); Lymphocyte # 3.17 X10^3/ul (0.83-4.51); Lymphocyte % 42.4 % (19-41); Mean Corp Hgb Conc 36.9 g/dL (32-36); Mean Corpuscular Hgb 34.4 pg (27.0-32.0); Mean Corpuscular Volume 93.1 fL (81-99); Mean Platelet Vol. 10.3 fl (6.2-12.0); Monocyte# 0.74 X10^3/uL; Monocyte% 9.9 % (0-10); NRBC Flagged by Analyzer 0 % (0-5); Neutrophil % 44.1 % (47-70); Platelet Count 206 K/mm3 (150-450); RBC Distribution Width CV 13.2 % (11.6-14.6); RBC Distribution Width SD 44.7 fl (35.1-43.9); White Blood Count 7.5 K/mm3 (4.4-11.0)
--- NOTE | 2021-02-20 05:00 | EKG12_ITS ---
Test Reason : CP ADMISSION Blood Pressure : / mmHG Vent. Rate : 076 BPM Atrial Rate : 076 BPM P-R Int : 194 ms QRS Dur : 082 ms QT Int : 388 ms P-R-T Axes : 030 046 050 degrees QTc Int : 436 ms Normal sinus rhythm Septal infarct (cited on or before 25-JUN-2020) Abnormal ECG When compared with ECG of 28-JUN-2020 12:00, T wave inversion no longer evident in Inferior leads Confirmed by ENRIKE GONZALES, EVANS ([id number]), editor news GABRIELA IBARRA ([id number]) on 02/21/2021 9:37:58 AM Referred By: JOCELYNE Confirmed By:EVANS CALVERT MD
[2021-02-20 05:03] LABS: Partial Thromboplast Time 62.2 Seconds (24.1-36.2)
[2021-02-20 05:09] LABS: Anion Gap 8 (5-15); BUN 12 mg/dL (7-18); BUN/Creat Ratio 15.9 RATIO (10-20); Calcium,Total 8.7 mg/dL (8.5-10.1); Chloride 105 mmol/L (98-107); Creatinine, Serum 0.76 mg/dL (0.55-1.02); EST Glomerular Filtration Rate 80 mL/min (>60); Est Glom Filt Rate - Afr Amer 97 mL/min (>60); Estimated Creatinine Clearance 52.05 ml/min; Glucose 176 mg/dL (74-106); Magnesium 2.1 mg/dL (1.6-2.6); Potassium 3.8 mmol/L (3.5-5.1); Sodium Level 139 mmol/L (136-145)
[2021-02-20] MEDS: 0.9% Saline Lock 10 ML Syringe IV (05:58)
[2021-02-20] MEDS: Clopidogrel Bisulfate 75 MG Tablet PO (05:58)
[2021-02-20] MEDS: Carvedilol 12.5 MG Tablet PO ×2 (05:58→21:07)
[2021-02-20 06:45] LABS: Bedside Glucose 190 mg/dL (70-110)
[2021-02-20] MEDS: Acetaminophen 325 MG Tablet 650 MG PO (10:10)
--- NOTE | 2021-02-20 11:15 | EKG12_ITS ---
Test Reason : Blood Pressure : / mmHG Vent. Rate : 070 BPM Atrial Rate : 070 BPM P-R Int : 192 ms QRS Dur : 088 ms QT Int : 466 ms P-R-T Axes : 027 043 090 degrees QTc Int : 503 ms Normal sinus rhythm Septal infarct , age undetermined T wave abnormality, consider anterolateral ischemia Abnormal ECG Confirmed by HOLLI GONZALES, ALLYSSA ([id number]), newspaper photo editor GABRIELA IBARRA ([id number]) on 02/22/2021 9:34:28 AM Referred By: HOLLI Confirmed By:ALLYSSA DE LA GARZA MD
--- NOTE | 2021-02-20 11:24 | PCIREPORT_ITS ---
PCI Cardiac Cath Report PCI Report: Procedure performed; Successful percutaneous coronary intervention/PCI of focal high-grade proximal LAD in-stent restenosis of 90% With predilatation followed by placement of a drug-eluting stent 3 x 22 mm Orsiro followed by postdilatation using 3 x 20 NC emerge MR balloon and reduction of stenosis to 0% Maintenance of RYANN-3 flow in the LAD. Preprocedure diagnosis 70-year-old female who presented with the heaviness and discomfort in the chest, retrosternal with tingling sensation in the left arm Patient had known coronary artery disease with PCI to proximal LAD Done at the [facility] in May 2014 subsequently she had a PCI of the mid RCA done here at [facility] in June 27, 2020. Based on her clinical presentation and a cardiac work-up with negative series of troponin she underwent cardiac catheterization today by Dr. Baptiste Angiographic findings reviewed mid RCA stent is patent however she had high- grade stenosis of the proximal LAD stent 90%, LV systolic function is preserved. Consent; Risk and benefits of the procedure explained in detail to the patient she elected to proceed informed consent obtained. Interventional equipment used; 1. 6 Italian JL4 guide catheter 2. 0.14 run-through extra floppy 180 cm straight wire Emerge 2 x 12 mm balloon 3. Drug-eluting stent/Orsiro 3 x 22 mm 4. Emerge NC balloon 3 x 20 mm. Anticoagulation using the Wastewater Design Engineer is heparin with accepted ACT level and patient given additional 300 mg of Plavix already been taken Plavix and aspirin this morning she was given additional 300 mg of Plavix. 6 Italian sheath placed in the right common femoral artery We will proceed with the guide catheter advanced ascending aorta and cannulated the left main without difficulty, angiographic views were obtained into spider, JAPANESE cranial and AMARO cranial Then will proceed with the 0.14 run-through extra floppy wire crossed the lesion of the proximal LAD, followed by predilatation using 2 x 12 mm balloon, followed by placement of drug-eluting stent 3 x 22 mm/Orsiro Followed by postdilatation using 3 x 20 mm NC Emerge balloon and achievement of excellent result with reduction of stenosis from 90% to 0% Patient had no symptoms of chest pain There were no change in the electrocardiogram. Following the selective right common femoral artery angiography obtain and a Perclose used to close arteriotomy site with no complication in the Wastewater Design Engineer. Conclusion; Successful percutaneous core intervention of high-grade proximal LAD in-stent restenosis with placement of drug-eluting stent as specified Recommendation; Patient to continue on DAPT Plavix/aspirin for 1 year and will be followed by the primary survival specialist for continuation of cardiac care plan. Pili Caldwell MD,FACC,[facility]
[2021-02-20 11:49] LABS: Partial Thromboplast Time 165.2 Seconds (24.1-36.2)
[2021-02-20 11:56] LABS: Bedside Glucose 248 mg/dL (70-110)
[2021-02-20] MEDS: 0.9% Normal Saline 1,000 ML 75 ML IV (11:57)
[2021-02-20] MEDS: Insulin Lispro 100 UNIT/ML INSULN.PEN SC ×3 (11:57→21:07)
--- NOTE | 2021-02-20 12:00 | CASEMGMT ---
CHERELLE ROSARIO assessment: Face to Face with patient for initial transition planning/care coordination assessment. CHERELLE ROSARIO introduced self and role at [facility], pt voices understanding and consents to assessment. Pt is sitting up in bed in no distress on room air. Pt is A/Ox4 and answers questions appropriately. Care providers, pharmacy, and demographics verified. Presentation: Pt c/o chest pain Admitting dx: Chest pain PCP: Tam Specialists: Nisa, product marketing intern; Emile, cardio Preferred Pharmacy: [facility] Insurance: [facility] A/B, [place] Prescription Benefit: MCR D Living Will/HPOA: Pt states has LW/HPOA and is aware that they are not on file at [facility]. Pt states her , Tip Dozier, is HPOA. LNOK: Tip Dozier, Living Arrangements: Pt lives with in 1 story home with basement and states no concerns at home. Pt is independent with ADL's Transportation: Pt drives self and states no transportation concerns. DME/HHC: Pt states has the following DME: glucometer and bp cuff. Pt states no need for any further DME. Pt states no hx of HHC or SNF. Pt states no concerns with going home at discharge. Pt is retired. Pt does not smoke cigarettes but does drink ETOH occaionally. Pt voices no further concerns/needs. CM to follow for any further discharge planning/needs. Advised pt to ask for CM if any further questions/concerns/needs arise, voices understanding. Pt Goal: Home Plan[place] CHERELLE ROSARIO
--- NOTE | 2021-02-20 14:44 | CRPHASE1 ---
Patient Communication PHII Cardiac Rehab Discussed with Patient:: Yes Guide to Cardiac Rehab Given to Patient:: Yes Cardiac Rehab Facility Choice List Given to Patient:: Yes Choice Program [facility] CR PHII:: Communication Given to CR, Refer to [facility] Butcher Supervisor:: Pili Caldwell Phase II Cardiac Rehab:: Yes Sessions:: 36 sessions - 3 days/wk, 12 weeks Cardiac Rehabilitation Info Cardiac Rehabilitation Program Information: Cardiac Rehabilitation is important for patients like you who are recovering from a heart problem. Cardiac rehabilitation programs are recognized as integral to the continued care of the patient with coronary heart disease. The cardiac rehabilitation program is designed to optimize a patient's physical, psychological, and social functioning. Health gericare aide teacher work in cardiac rehabilitation programs and assist you with getting the treatments you need to get stronger and healthier - like exercise, healthy eating habits, and medications. Cardiac rehabilitation has been show to help people with heart problems live longer and have better life enjoyment than people who do not go to cardiac rehabilitation. Please contact the Cardiac Rehabilitation Program at [facility] at in two weeks if you have not heard from them.
--- NOTE | 2021-02-20 14:45 | CRPH1.INSTRU ---
General Education CAD and cardiac anatomy and function:: Patient communicates acknowledgment Explanation of diagnoses and procedures:: Patient communicates acknowledgment Sign/Symptoms of [place]:: Patient communicates acknowledgment Antiplatelet therapy: Patient communicates acknowledgment Proper use of NTG-SL: Patient communicates acknowledgment Emergency procedures and activation of EMS: Patient communicates acknowledgment Compliance of all prescribed medications: Patient communicates acknowledgment
--- NOTE | 2021-02-20 15:12 | PCM.PN.HOSP ---
Documented by User: Berta Ritter NP, MAGICIAN HELPER-C 02/20/21 15:21 Subjective Subjective Patient seen and examined. Underwent drug-eluting stent for high-grade in-stent restenosis of the proximal LAD. Patient denies further symptoms. Objective Data Objective Data Vital Signs: Vital Signs Temp Pulse Resp BP Pulse Ox 97.3 F L 88 20 H 133/63 H 95 02/20/21 15:10 02/20/21 15:10 02/20/21 15:10 02/20/21 15:10 02/20/21 15:10 Oxygen Delivery Method Room Air Weight: 171 lb 4.787 oz Body Mass Index (BMI) 26.0 Intake & Output: Intake and Output for Last 24 Hours 02/18/21 02/19/21 02/20/21 23:59 23:59 23:59 Intake Total 1276.08 / 1276.08 377 / 377 Output Total 600 / 600 Balance 1276.08 / 1276.08 -223 / -223 Lab / Micro Data Result Diagrams: 02/20/21 04:36 02/20/21 04:36 Labs: Laboratory Results - last 24 hr 02/19/21 02/19/21 02/19/21 16:02 21:15 21:24 WBC RBC Hgb Hct MCV MCH MCHC RDW Std Deviation RDW Coeff of Annel Plt Count MPV Immature Gran % (Auto) Neut % (Auto) Lymph % (Auto) [place] % (Auto) Eos % (Auto) Baso % (Auto) Absolute Neuts (auto) Absolute Lymphs (auto) Nucleated RBC % APTT 59.0 H Sodium Potassium Chloride Carbon Dioxide Anion Gap BUN Creatinine Estim Creat Clear Calc Est GFR (MDRD) Af Amer Est GFR (MDRD) Non-Af BUN/Creatinine Ratio Glucose Calcium Magnesium POC Glucose 131 H 176 H 02/20/21 02/20/21 02/20/21 04:36 04:36 04:36 WBC 7.5 RBC 3.90 L Hgb 13.4 Hct 36.3 L MCV 93.1 MCH 34.4 H MCHC 36.9 H RDW Std Deviation 44.7 H RDW Coeff of Annel 13.2 Plt Count 206 MPV 10.3 Immature Gran % (Auto) 0.500 Neut % (Auto) 44.1 L Lymph % (Auto) 42.4 H [place] % (Auto) 9.9 Eos % (Auto) 2.4 Baso % (Auto) 0.7 Absolute Neuts (auto) 3.3 Absolute Lymphs (auto) 3.17 Nucleated RBC % 0 APTT 62.2 H Sodium 139 Potassium 3.8 Chloride 105 Carbon Dioxide 26.0 Anion Gap 8 BUN 12 Creatinine 0.76 Estim Creat Clear Calc 52.05 Est GFR (MDRD) Af Amer 97 Est GFR (MDRD) Non-Af 80 BUN/Creatinine Ratio 15.9 Glucose 176 H Calcium 8.7 Magnesium 2.1 POC Glucose 02/20/21 02/20/21 02/20/21 06:34 11:14 11:51 WBC RBC Hgb Hct MCV MCH MCHC RDW Std Deviation RDW Coeff of Annel Plt Count MPV Immature Gran % (Auto) Neut % (Auto) Lymph % (Auto) [place] % (Auto) Eos % (Auto) Baso % (Auto) Absolute Neuts (auto) Absolute Lymphs (auto) Nucleated RBC % APTT 165.2 H* Sodium Potassium Chloride Carbon Dioxide Anion Gap BUN Creatinine Estim Creat Clear Calc Est GFR (MDRD) Af Amer Est GFR (MDRD) Non-Af BUN/Creatinine Ratio Glucose Calcium Magnesium POC Glucose 190 H 248 H Physical Exam Const alert, oriented x3 and no apparent distress Orientation / Consciousness: awake, oriented to person, oriented to place and oriented to time HEENT normocephalic and moist oral mucous membranes Eyes PERRL, EOMs intact bilaterally and conjunctivae normal Neck no lymphadenopathy Resp normal respiratory effort and clear to auscultation bilaterally Cardio regular rate, regular rhythm and no murmurs Peripheral Pulses: pulses 2+ throughout GI normal to inspection, nondistended, normoactive bowel sounds, non-tender and non-distended Extremity normal to inspection Skin no rashes or lesions noted Lesions: no lesions Rashes: no rashes Trauma: no lacerations or abrasions Neuro CN's II-XII intact bilaterally, no focal motor deficits, no sensory deficits noted and deep tendon reflexes 2+ bilaterally Psych mental status grossly normal and affect normal Assessment & Plan Assessment/Plan (1) Chest pain: QUALIFIERS: Chest pain type: unspecified Qualified Code(s): R07.9 - Chest pain, unspecified PLAN: 1. Chest pain, CAD with history of stent-Underwent drug-eluting stent for high-grade in-stent restenosis of the proximal LAD. Cardiology following. Continue medical management including aspirin, Plavix, carvedilol. Allergy to statin. 2. Hypertension-stable, continue carvedilol. 3. Prediabetes-metformin on hold. Hemoglobin A1c previously 6.1%. 4. Hyperlipidemia-allergy to statin. DVT prophylaxis-Heparin gtt discontinued This patient was seen by NIMESH De Leon under the supervision of Dr. Cunha. Documented by User: Dr. Antelmo Cunha MD 02/20/21 15:46 Objective Data Lab / Micro Data Result Diagrams: 02/20/21 04:36 02/20/21 04:36 Charges/Coding Addendum Addendum: Dr. Cunha: I personally reviewed the chart and examined the patient, and agree with the above findings. 70-year-old female presented to the hospital with chest pain. She was found to have a rising troponin consistent with a non-STEMI. She was taken to the cardiac [facility] today and had a stent placed secondary to a 90% stenosis in the proximal LAD consistent with in-stent restenosis. We will continue with aspirin and Plavix. Unfortunately she is allergic to statins and is hesitant to try any. Visit Charges Inpatient E&M: 89981 Subs Hosp L2
--- NOTE | 2021-02-20 15:57 | PCM.PN.CARD ---
Subjective Subjective The patient underwent evaluation earlier this day with diagnostic cardiac catheterization. She was found to have LAD in-stent restenosis. She underwent subsequent PCI. She appeared to tolerate her procedures well with no acute adverse events. Objective Data Vital Signs: Vital Signs Temp Pulse Resp BP Pulse Ox 97.3 F L 88 20 H 133/63 H 95 02/20/21 15:10 02/20/21 15:10 02/20/21 15:10 02/20/21 15:10 02/20/21 15:10 Oxygen Delivery Method Room Air Weight: 171 lb 4.787 oz Body Mass Index (BMI) 26.0 Intake & Output: Intake and Output for Last 24 Hours 02/18/21 02/19/21 02/20/21 23:59 23:59 23:59 Intake Total 1276.08 / 1276.08 377 / 377 Output Total 600 / 600 Balance 1276.08 / 1276.08 -223 / -223 Lab / Micro Data Result Diagrams: 02/21/21 06:45 02/21/21 06:45 Labs: Laboratory Results - last 24 hr 02/19/21 02/19/21 02/19/21 16:02 21:15 21:24 WBC RBC Hgb Hct MCV MCH MCHC RDW Std Deviation RDW Coeff of Annel Plt Count MPV Immature Gran % (Auto) Neut % (Auto) Lymph % (Auto) [place] % (Auto) Eos % (Auto) Baso % (Auto) Absolute Neuts (auto) Absolute Lymphs (auto) Nucleated RBC % APTT 59.0 H Sodium Potassium Chloride Carbon Dioxide Anion Gap BUN Creatinine Estim Creat Clear Calc Est GFR (MDRD) Af Amer Est GFR (MDRD) Non-Af BUN/Creatinine Ratio Glucose Calcium Magnesium POC Glucose 131 H 176 H 02/20/21 02/20/21 02/20/21 04:36 04:36 04:36 WBC 7.5 RBC 3.90 L Hgb 13.4 Hct 36.3 L MCV 93.1 MCH 34.4 H MCHC 36.9 H RDW Std Deviation 44.7 H RDW Coeff of Annel 13.2 Plt Count 206 MPV 10.3 Immature Gran % (Auto) 0.500 Neut % (Auto) 44.1 L Lymph % (Auto) 42.4 H [place] % (Auto) 9.9 Eos % (Auto) 2.4 Baso % (Auto) 0.7 Absolute Neuts (auto) 3.3 Absolute Lymphs (auto) 3.17 Nucleated RBC % 0 APTT 62.2 H Sodium 139 Potassium 3.8 Chloride 105 Carbon Dioxide 26.0 Anion Gap 8 BUN 12 Creatinine 0.76 Estim Creat Clear Calc 52.05 Est GFR (MDRD) Af Amer 97 Est GFR (MDRD) Non-Af 80 BUN/Creatinine Ratio 15.9 Glucose 176 H Calcium 8.7 Magnesium 2.1 POC Glucose 02/20/21 02/20/21 02/20/21 06:34 11:14 11:51 WBC RBC Hgb Hct MCV MCH MCHC RDW Std Deviation RDW Coeff of Annel Plt Count MPV Immature Gran % (Auto) Neut % (Auto) Lymph % (Auto) [place] % (Auto) Eos % (Auto) Baso % (Auto) Absolute Neuts (auto) Absolute Lymphs (auto) Nucleated RBC % APTT 165.2 H* Sodium Potassium Chloride Carbon Dioxide Anion Gap BUN Creatinine Estim Creat Clear Calc Est GFR (MDRD) Af Amer Est GFR (MDRD) Non-Af BUN/Creatinine Ratio Glucose Calcium Magnesium POC Glucose 190 H 248 H Cardiology Labs/Tests 02/19/21 21:24: APTT 59.0 H 02/20/21 04:36: Sodium 139, Potassium 3.8, Chloride 105, Carbon Dioxide 26.0, Anion Gap 8, BUN 12, Creatinine 0.76, Est GFR (MDRD) Af Amer 97, Est GFR (MDRD) Non-Af 80, BUN/Creatinine Ratio 15.9, Glucose 176 H, Calcium 8.7, Magnesium 2.1 02/20/21 04:36: WBC 7.5, RBC 3.90 L, Hgb 13.4, Hct 36.3 L, MCV 93.1, MCH 34.4 H, MCHC 36.9 H, Plt Count 206, MPV 10.3, Immature Gran % (Auto) 0.500, Neut % (Auto) 44.1 L, Lymph % (Auto) 42.4 H, [place] % (Auto) 9.9, Eos % (Auto) 2.4, Baso % (Auto) 0.7, Absolute Neuts (auto) 3.3, Nucleated RBC % 0 02/20/21 04:36: APTT 62.2 H 02/20/21 11:14: APTT 165.2 H* Rhythm: Sinus rhythm Cardiac Cath: Please see official report PCI: PCI Cardiac Cath Report PCI Report: Procedure performed; Successful percutaneous coronary intervention/PCI of focal high-grade proximal LAD in-stent restenosis of 90% With predilatation followed by placement of a drug-eluting stent 3 x 22 mm Orsiro followed by postdilatation using 3 x 20 NC emerge MR balloon and reduction of stenosis to 0% Maintenance of RYANN-3 flow in the LAD. Preprocedure diagnosis 70-year-old female who presented with the heaviness and discomfort in the chest, retrosternal with tingling sensation in the left arm Patient had known coronary artery disease with PCI to proximal LAD Done at the [facility] in May 2014 subsequently she had a PCI of the mid RCA done here at [facility] in June 27, 2020. Based on her clinical presentation and a cardiac work-up with negative series of troponin she underwent cardiac catheterization today by Dr. Baptiste Angiographic findings reviewed mid RCA stent is patent however she had high-grade stenosis of the proximal LAD stent 90%, LV systolic function is preserved. Consent; Risk and benefits of the procedure explained in detail to the patient she elected to proceed informed consent obtained. Interventional equipment used; 1. 6 Afghan JL4 guide catheter 2. 0.14 run-through extra floppy 180 cm straight wire Emerge 2 x 12 mm balloon 3. Drug-eluting stent/Orsiro 3 x 22 mm 4. Emerge NC balloon 3 x 20 mm. Anticoagulation using the [employer] Booth is heparin with accepted ACT level and patient given additional 300 mg of Plavix already been taken Plavix and aspirin this morning she was given additional 300 mg of Plavix. 6 Afghan sheath placed in the right common femoral artery We will proceed with the guide catheter advanced ascending aorta and cannulated the left main without difficulty, angiographic views were obtained into spider, INDONESIAN cranial and AMARO cranial Then will proceed with the 0.14 run-through extra floppy wire crossed the lesion of the proximal LAD, followed by predilatation using 2 x 12 mm balloon, followed by placement of drug-eluting stent 3 x 22 mm/Orsiro Followed by postdilatation using 3 x 20 mm NC Emerge balloon and achievement of excellent result with reduction of stenosis from 90% to 0% Patient had no symptoms of chest pain There were no change in the electrocardiogram. Following the selective right common femoral artery angiography obtain and a Perclose used to close arteriotomy site with no complication in the [employer] Booth. Conclusion; Successful percutaneous core intervention of high-grade proximal LAD in-stent restenosis with placement of drug-eluting stent as specified Recommendation; Patient to continue on DAPT Plavix/aspirin for 1 year and will be followed by the primary channel machine operator for continuation of cardiac care plan. Pili Caldwell MD,FAC,[facility] [place] Physical Exam Const alert and oriented x3 Orientation / Consciousness: awake HEENT normocephalic, head/scalp atraumatic and hearing grossly normal bilaterally Eyes PERRL and EOMs intact bilaterally Neck full ROM and supple Chest inspection of chest normal Resp normal respiratory effort and clear to auscultation bilaterally Cardio regular rate, regular rhythm, S1 normal heart sound and S2 normal heart sound GI normal to inspection, nondistended, normoactive bowel sounds Extremity Peripheral Pulses: Yes femoral pulses present right 2+ Skin no rashes or lesions noted Psych mental status grossly normal Assessment & Plan Assessment/Plan (1) Atherosclerotic heart disease of [place] coronary artery without angina pectoris: QUALIFIERS: [place] vs. transplanted heart: [place] heart Qualified Code(s): I25.10 - Atherosclerotic heart disease of [place] coronary artery without angina pectoris PLAN: The patient has underlying CAD. She presented with concerning symptoms. She had abnormal troponin enzymes compatible with a non-ST segment elevation [place]. She underwent diagnostic cardiac catheterization which demonstrated LAD in-stent restenosis. She subsequently underwent LAD PTCA/stent. She will continue medical therapy and follow-up. (2) Presence of stent in coronary artery: PLAN: The patient's coronary anatomy was revisited as noted. She did have LAD in-stent restenosis. She underwent subsequent LAD PTCA/stent. She will continue medical therapy and follow-up. (3) Non-ST elevation (NSTEMI) myocardial infarction: PLAN: The patient had a clinical scenario and abnormal cardiac enzymes compatible with a non-ST segment elevation. She will continue medical management and follow-up. (4) HLD (hyperlipidemia): QUALIFIERS: Hyperlipidemia type: unspecified Qualified Code(s): E78.5 - Hyperlipidemia, unspecified PLAN: The patient will continue lipid-lowering therapy (5) Essential hypertension: PLAN: The patient's blood pressure will be followed and her medications can be adjusted accordingly. Addt'l Comments The above was discussed reviewed with the patient and per her request a message regarding the above was left for her on telephone answering machine. This note was generated using a voice recognition system and there may be incorrect words, spelling or punctuation that were not noted when reviewing the office note prior to saving.
[2021-02-20] MEDS: Aspirin E.C. 81 MG Tablet PO (21:07)
[2021-02-21 03:00] VITALS: BP 125/56; PULSE 85; PULSE 87; RESP 16; TEMP 36.6; O2SAT 96
[2021-02-21] MEDS: Insulin Lispro 100 UNIT/ML INSULN.PEN SC ×2 (06:38→12:17)
[2021-02-21 07:00] VITALS: PULSE 71
[2021-02-21 07:12] LABS: Hematocrit 35.4 % (37-47); Hemoglobin 13.2 g/dL (12.0-15.0); Mean Corp Hgb Conc 37.3 g/dL (32-36); Mean Corpuscular Hgb 34.2 pg (27.0-32.0); Mean Corpuscular Volume 91.7 fL (81-99); Mean Platelet Vol. 10.1 fl (6.2-12.0); Platelet Count 233 K/mm3 (150-450); Red Blood Count 3.86 M/mm3 (4.2-5.4)
[2021-02-21 07:45] LABS: ALB/GLOB Ratio 1.1 RATIO (0.9-2.4); AST(SGOT) 17 U/L (15-37); Alanine Aminotransfer ALT/SGPT 43 U/L (13-56); Albumin, Serum 3.5 g/dL (3.2-5.0); Alkaline Phosphatase 72 U/L (45-117); Anion Gap 9 (5-15); BUN 12 mg/dL (7-18); BUN/Creat Ratio 15.5 RATIO (10-20); Calcium,Total 8.8 mg/dL (8.5-10.1); Chloride 107 mmol/L (98-107); Creatinine, Serum 0.77 mg/dL (0.55-1.02); EST Glomerular Filtration Rate 78 mL/min (>60); Est Glom Filt Rate - Afr Amer 95 mL/min (>60); Estimated Creatinine Clearance 52.05 ml/min; Globulin 3.1 g/dL (2.2-4.2); Glucose 162 mg/dL (74-106); Potassium 3.9 mmol/L (3.5-5.1); Protein, Total 6.6 g/dL (6.4-8.2); Sodium Level 138 mmol/L (136-145)
[2021-02-21 08:30] VITALS: O2SAT 96
--- NOTE | 2021-02-21 08:32 | PN.CARD_ITS ---
Subjective Subjective The patient is awake and alert. She denies any ongoing chest discomfort or difficulty breathing. She has been up and ambulating without difficulty. Objective Data Vital Signs: Vital Signs Temp Pulse Resp BP Pulse Ox 97.8 F 71 16 125/56 H 96 02/21/21 03:00 02/21/21 07:00 02/21/21 03:00 02/21/21 03:00 02/21/21 03:00 Oxygen Delivery Method Room Air Weight: 171 lb 4.787 oz Body Mass Index (BMI) 26.0 Intake & Output: Intake and Output for Last 24 Hours 02/19/21 02/20/21 02/21/21 23:59 23:59 23:59 Intake Total 1276.08 / 1276.08 617 / 857 1360 / 1360 Output Total 600 / 600 Balance 1276.08 / 1276.08 17 / 257 1360 / 1360 Lab / Micro Data Result Diagrams: 02/21/21 06:45 02/21/21 06:45 Labs: Laboratory Results - last 24 hr 02/20/21 02/20/21 02/21/21 11:14 11:51 06:45 WBC 12.0 H RBC 3.86 L Hgb 13.2 Hct 35.4 L MCV 91.7 MCH 34.2 H MCHC 37.3 H RDW Std Deviation 43.0 RDW Coeff of Annel 13.0 Plt Count 233 MPV 10.1 APTT 165.2 H* Sodium Potassium Chloride Carbon Dioxide Anion Gap BUN Creatinine Estim Creat Clear Calc Est GFR (MDRD) Af Amer Est GFR (MDRD) Non-Af BUN/Creatinine Ratio Glucose Calcium Total Bilirubin AST ALT Alkaline Phosphatase Total Protein Albumin Globulin Albumin/Globulin Ratio POC Glucose 248 H 02/21/21 06:45 WBC RBC Hgb Hct MCV MCH MCHC RDW Std Deviation RDW Coeff of Annel Plt Count MPV APTT Sodium 138 Potassium 3.9 Chloride 107 Carbon Dioxide 22.0 Anion Gap 9 BUN 12 Creatinine 0.77 Estim Creat Clear Calc 52.05 Est GFR (MDRD) Af Amer 95 Est GFR (MDRD) Non-Af 78 BUN/Creatinine Ratio 15.5 Glucose 162 H Calcium 8.8 Total Bilirubin 0.60 AST 17 ALT 43 Alkaline Phosphatase 72 Total Protein 6.6 Albumin 3.5 Globulin 3.1 Albumin/Globulin Ratio 1.1 POC Glucose Cardiology Labs/Tests 02/20/21 11:14: APTT 165.2 H* 02/21/21 06:45: WBC 12.0 H, RBC 3.86 L, Hgb 13.2, Hct 35.4 L, MCV 91.7, MCH 34.2 H, MCHC 37.3 H, Plt Count 233, MPV 10.1 02/21/21 06:45: Sodium 138, Potassium 3.9, Chloride 107, Carbon Dioxide 22.0, Anion Gap 9, BUN 12, Creatinine 0.77, Est GFR (MDRD) Af Amer 95, Est GFR (MDRD) Non-Af 78, BUN/Creatinine Ratio 15.5, Glucose 162 H, Calcium 8.8, Total Bilirubin 0.60 Rhythm: Sinus rhythm EKG: Sinus rhythm; septal PR of indeterminate age cannot be excluded Physical Exam Const alert and oriented x3 Orientation / Consciousness: awake HEENT normocephalic, head/scalp atraumatic and hearing grossly normal bilaterally Eyes PERRL, EOMs intact bilaterally and no scleral icterus Neck full ROM and supple Chest inspection of chest normal Resp normal respiratory effort and clear to auscultation bilaterally Cardio regular rate, regular rhythm, S1 normal heart sound and S2 normal heart sound GI normal to inspection, nondistended, normoactive bowel sounds Extremity no pedal edema Extremity Narrative: Right inguinal area: No obvious ecchymoses, hematoma, or bruit Peripheral Pulses: Yes femoral pulses present right 2+ Skin no rashes or lesions noted Neuro oriented x3 Psych mental status grossly normal Assessment & Plan Assessment/Plan (1) Atherosclerotic heart disease of [place] coronary artery without angina pectoris: QUALIFIERS: [place] vs. transplanted heart: [place] heart Qualified Code(s): I25.10 - Atherosclerotic heart disease of [place] coronary artery without angina pectoris PLAN: The patient has underlying CAD. She presented with concerning symptoms. She had abnormal troponin enzymes compatible with a non-ST segment elevation [place]. She underwent diagnostic cardiac catheterization which demonstrated LAD in-stent restenosis. She subsequently underwent LAD PTCA/stent. She will continue medical therapy and follow-up. (2) Presence of stent in coronary artery: PLAN: The patient's coronary anatomy was revisited as noted. She did have LAD in-stent restenosis. She underwent subsequent LAD PTCA/stent. She will continue medical therapy and follow-up. (3) Non-ST elevation (NSTEMI) myocardial infarction: PLAN: The patient had a clinical scenario and abnormal cardiac enzymes compatible with a non-ST segment elevation. She will continue medical management and follow-up. (4) HLD (hyperlipidemia): QUALIFIERS: Hyperlipidemia type: unspecified Qualified Code(s): E78.5 - Hyperlipidemia, unspecified PLAN: The patient will continue lipid-lowering therapy. Unfortunately she states she has been intolerant to statin and other prescription lipid-lowering medications. Though she is continuing nonprescription lipid-lowering therapy with red yeast rice. (5) Essential hypertension: PLAN: The patient's blood pressure appears to have improved. She will continue medical therapy. If she notes elevated blood pressures then she may need further adjustment of her medications taking into consideration she states she is had intolerances to agents such as MIRANDA inhibitors and dihydropyridine inhibitors. Addt'l Comments Overall, the patient will continue medical therapy. She will continue with outpatient cardiovascular follow-up. She has been offered further evaluation and care with outpatient cardiac rehabilitation. Thank you for allowing me to participate in the care of your patient. This note was generated using a voice recognition system and there may be incorrect words, spelling or punctuation that were not noted when reviewing the office note prior to saving.
[2021-02-21 08:38] LABS: Bedside Glucose 332 mg/dL (70-110)
[2021-02-21 08:38] LABS: Bedside Glucose 318 mg/dL (70-110)
[2021-02-21 09:00] VITALS: BP 134/54; PULSE 86; RESP 18; TEMP 36.7; O2SAT 97
--- NOTE | 2021-02-21 10:00 | EKG12_ITS ---
Test Reason : AM EKG Blood Pressure : / mmHG Vent. Rate : 084 BPM Atrial Rate : 084 BPM P-R Int : 214 ms QRS Dur : 086 ms QT Int : 386 ms P-R-T Axes : 066 059 087 degrees QTc Int : 456 ms Sinus rhythm with 1st degree A-V block Septal infarct , age undetermined Abnormal ECG When compared with ECG of 20-FEB-2021 12:26, MANUAL COMPARISON REQUIRED, DATA IS UNCONFIRMED Confirmed by ENRIKE GONZALES, EVANS ([id number]), editorial manager GABRIELA IBARRA ([id number]) on 02/24/2021 11:32:31 AM Referred By: MIRELA Confirmed By:EVANS CALVERT MD
[2021-02-21] MEDS: Carvedilol 12.5 MG Tablet PO (10:12)
[2021-02-21] MEDS: Clopidogrel Bisulfate 75 MG Tablet PO (10:12)
[2021-02-21] MEDS: Aspirin E.C. 81 MG Tablet PO (10:13)
--- NOTE | 2021-02-21 11:08 | DCINST_ITS ---
Discharge Instructions Diet Discharge Diet: Low fat / Low cholesterol Activity Discharge Activity: Return to Normal Activity Additional Activity Instructions:: Follow post op cath instructions Dressing / Incision Call your doctor if your incision/area has: Continuous Slow Oozing, Sudden Increased Bleeding, Increased Pain/ Swelling, Increased Redness, Foul Smelling Discharge and Swelling at the incision site Follow Up Care Test Results: Test results from this visit will be discussed in further detail at your follow-up appointment, if applicable. Discharge Plan Admission Admit Date/Time: 02/20/21 10:09 Primary Reason for Your Visit: Chest pain, cardiac stent placement Attending Provider: Antelmo Cunha Primary Care Provider: Gideon Turcios Consulting Providers: Lorraine Nunez Discharge Orders/Prescriptions Prescriptions: Continued aspirin [Adult Low Dose Aspirin] 81 mg tablet,delayed release (DR/EC) 81 mg PO DAILY RF: 0 cholecalciferol (vitamin D3) 50 mcg (2,000 unit) capsule 50 mcg PO DAILY RF: 0 potassium gluconate 600 mg (99 mg) tablet 600 mg (99 mg) tablet 600 mg PO DAILY RF: 0 metformin 500 mg tablet 500 mg PO BID RF: 0 clopidogrel 75 mg tablet 75 mg PO DAILY Qty: 90 RF: 3 omega 2-abm-lpo-fish oil 500 MG capsule,delayed release(DR/EC) 1,000 mg PO DAILY RF: 0 L.acidoph-B.long-L.plant-B.lac 1 EACH capsule 1 ea PO DAILY RF: 0 polyethylene glycol 3350 17 GM powder in packet 17 gm PO DAILY RF: 0 loratadine 10 MG tablet 10 mg PO PRN PRN (Reason: Allergies) RF: 0 lutein 20 MG capsule 20 mg PO DAILY RF: 0 vitamin E 400 unit Tablet 400 unit PO MOWEFR RF: 0 estradiol [Estrace] 0.01 % (0.1 mg/gram) Cream 1 appful VAGINAL SUWEFR RF: 0 vitamin B complex Capsule 1 cap PO DAILY RF: 0 cranberry 1,000 mg Capsule 4,200 mg PO QWEEK RF: 0 zinc 50 mg Capsule 50 mg PO TUTHSA RF: 0 phytosterol combination no.1 500 mg Capsule 1,000 mg PO DAILY RF: 0 red yeast rice 600 mg Tablet 600 mg PO BID RF: 0 carvedilol 12.5 mg tablet 12.5 mg PO BID Qty: 180 RF: 3 Referrals / Follow Up: Gideon Turcios DO [Primary Care Provider] - In 1 Week Hilton Kennedy LIQUEFACTION SUPERVISOR, LIQUEFACTION SUPERVISOR-C [Nurse Practitioner] - Within 2 Weeks Disposition Disposition (needs filled in before D/C Order can be placed): Home, Self Care
[2021-02-21 11:11] LABS: Bedside Glucose 172 mg/dL (70-110)
--- NOTE | 2021-02-21 11:17 | PCM.DC.SUM ---
Documented by User: Berta Ritter NP, W[employer] INSTRUCTOR-C 02/21/21 11:23 Providers Date of Admission: 02/20/21 Date of Discharge: 02/21/21 Primary Care Physician: Dr. Gideon Turcios, Consultations 02/19/21 09:22 Consult: Cardiology Routine Consulting Provider: Lorraine Nunez Reason for Consult: Chest Pain EMERGENT Consult: No MD Notified: Yes Date Notified: 02/19/21 Time Notified: : Method of Notification: Text Method of Consult:: In-Person Reason For Visit: CHEST PAIN Diagnosis Discharge Diagnosis (1) Atherosclerotic heart disease of [place] coronary artery without angina pectoris: Status: Chronic Code(s): I25.10 - Atherosclerotic heart disease of [place] coronary artery without angina pectoris Qualifiers: [place] vs. transplanted heart: [place] heart Qualified Code(s): I25.10 - Atherosclerotic heart disease of [place] coronary artery without angina pectoris (2) Presence of stent in coronary artery: Status: Chronic Code(s): Z95.5 - Presence of coronary angioplasty implant and graft (3) Non-ST elevation (NSTEMI) myocardial infarction: Status: Acute Code(s): I21.4 - Non-ST elevation (NSTEMI) myocardial infarction (4) HLD (hyperlipidemia): Status: Acute Code(s): E78.5 - Hyperlipidemia, unspecified Qualifiers: Hyperlipidemia type: unspecified Qualified Code(s): E78.5 - Hyperlipidemia, unspecified (5) Essential hypertension: Status: Chronic Code(s): I10 - Essential (primary) hypertension Medications at Discharge Home Medications Lsantoshoph-Oskar-Shantplant-B.lac 1 ea PO DAILY 05/27/14 omega 0-vvp-rdc-fish oil 1,000 mg PO DAILY 05/27/14 aspirin 81 mg tablet,delayed release 81 mg PO DAILY 04/30/18 loratadine 10 mg PO PRN PRN 08/06/18 lutein 20 mg PO DAILY 08/06/18 polyethylene glycol 3350 17 gm PO DAILY 08/06/18 cholecalciferol (vitamin D3) 50 mcg (2,000 unit) capsule 50 mcg PO DAILY 08/03/20 carvedilol 12.5 mg tablet 12.5 mg PO BID #180 tab 10/11/20 clopidogrel 75 mg tablet 75 mg PO DAILY #90 tab 11/11/20 metformin 500 mg tablet 500 mg PO BID 11/11/20 potassium gluconate 600 mg (99 mg) tablet 600 mg PO DAILY 11/11/20 cranberry 4,200 mg PO QWEEK 02/19/21 estradiol [Estrace] 1 appful VAGINAL SUWEFR 02/19/21 phytosterol combination no.1 1,000 mg PO DAILY 02/19/21 red yeast rice 600 mg PO BID 02/19/21 vitamin B complex 1 cap PO DAILY 02/19/21 vitamin E 400 unit PO MOWEFR 02/19/21 zinc 50 mg PO TUTHSA 02/19/21 Hospital Course Operations None Procedures Cardiac catheterization Summary of Care Provided Minutes Spent on Discharge: 35 Hospital Course: Patient is a 70-year-old female admitted 02/19/2021 due to chest heaviness and jaw pain. 1. Chest pain, CAD with history of stent-Underwent drug-eluting stent for high-grade in-stent restenosis of the proximal LAD. Continue medical management including aspirin, Plavix, carvedilol. Allergy to statin. Follow-up with cardiology in 2 weeks. 2. Hypertension-stable, continue carvedilol. 3. Prediabetes-continue Metformin. Hemoglobin A1c previously 6.1%. 4. Hyperlipidemia-allergy to statin. Physical Exam Const alert, oriented x3 and no apparent distress Orientation / Consciousness: awake, oriented to person, oriented to place and oriented to time HEENT normocephalic and moist oral mucous membranes Eyes PERRL, EOMs intact bilaterally and conjunctivae normal Neck no lymphadenopathy Resp normal respiratory effort and clear to auscultation bilaterally Cardio regular rate, regular rhythm and no murmurs Peripheral Pulses: pulses 2+ throughout GI normal to inspection, nondistended, normoactive bowel sounds, non-tender and non-distended Extremity normal to inspection Skin no rashes or lesions noted Lesions: no lesions Rashes: no rashes Trauma: no lacerations or abrasions Neuro CN's II-XII intact bilaterally, no focal motor deficits, no sensory deficits noted and deep tendon reflexes 2+ bilaterally Psych mental status grossly normal and affect normal Patient seen and examined prior to discharge. Physical assessment as noted above. Patient is stable for discharge with follow up recommendations as noted above. This patient was seen by NIMESH De Leon under the supervision of Dr. Cunha. Weight / BMI Weight Weight: 171 lb 4.787 oz Body Mass Index (BMI) 26.0 ABG / Lab / Microbiology Data Result Diagrams: 02/21/21 06:45 02/21/21 06:45 Laboratory: Laboratory Results - last 24 hr 02/20/21 02/20/21 02/20/21 11:14 11:51 17:20 WBC RBC Hgb Hct MCV MCH MCHC RDW Std Deviation RDW Coeff of Annel Plt Count MPV APTT 165.2 H* Sodium Potassium Chloride Carbon Dioxide Anion Gap BUN Creatinine Estim Creat Clear Calc Est GFR (MDRD) Af Amer Est GFR (MDRD) Non-Af BUN/Creatinine Ratio Glucose Calcium Total Bilirubin AST ALT Alkaline Phosphatase Total Protein Albumin Globulin Albumin/Globulin Ratio POC Glucose 248 H 332 H 02/20/21 02/21/21 02/21/21 21:06 06:37 06:45 WBC 12.0 H RBC 3.86 L Hgb 13.2 Hct 35.4 L MCV 91.7 MCH 34.2 H MCHC 37.3 H RDW Std Deviation 43.0 RDW Coeff of Annel 13.0 Plt Count 233 MPV 10.1 APTT Sodium Potassium Chloride Carbon Dioxide Anion Gap BUN Creatinine Estim Creat Clear Calc Est GFR (MDRD) Af Amer Est GFR (MDRD) Non-Af BUN/Creatinine Ratio Glucose Calcium Total Bilirubin AST ALT Alkaline Phosphatase Total Protein Albumin Globulin Albumin/Globulin Ratio POC Glucose 318 H 172 H 02/21/21 06:45 WBC RBC Hgb Hct MCV MCH MCHC RDW Std Deviation RDW Coeff of Annel Plt Count MPV APTT Sodium 138 Potassium 3.9 Chloride 107 Carbon Dioxide 22.0 Anion Gap 9 BUN 12 Creatinine 0.77 Estim Creat Clear Calc 52.05 Est GFR (MDRD) Af Amer 95 Est GFR (MDRD) Non-Af 78 BUN/Creatinine Ratio 15.5 Glucose 162 H Calcium 8.8 Total Bilirubin 0.60 AST 17 ALT 43 Alkaline Phosphatase 72 Total Protein 6.6 Albumin 3.5 Globulin 3.1 Albumin/Globulin Ratio 1.1 POC Glucose D/C Instructions Discharge Diet: Low fat / Low cholesterol Additional Activity Instructions: Follow post op cath instructions Call your doctor if your incision/area has: Continuous Slow Oozing, Sudden Increased Bleeding, Increased Pain/ Swelling, Increased Redness, Foul Smelling Discharge and Swelling at the incision site Meaningful Use Info Meaningful Use Diagnoses (Choose all that apply): None applicable Discharge Plan Admission Admit Date/Time: 02/20/21 10:09 Primary Reason for Your Visit: Chest pain, cardiac stent placement Attending Provider: Antelmo Cunha Primary Care Provider: Gideon Turcios Consulting Providers: Lorraine Nunez Instructions Additional Instructions / Restrictions: Patient Problems: Altered Health Status related to Hospitalization Patient Goals: *Optimal Level of Health *Keep Appointments *Medication Compliance *Remain Safe Discharge Orders/Prescriptions Prescriptions: Continued aspirin [Adult Low Dose Aspirin] 81 mg tablet,delayed release (DR/EC) 81 mg PO DAILY RF: 0 cholecalciferol (vitamin D3) 50 mcg (2,000 unit) capsule 50 mcg PO DAILY RF: 0 potassium gluconate 600 mg (99 mg) tablet 600 mg (99 mg) tablet 600 mg PO DAILY RF: 0 metformin 500 mg tablet 500 mg PO BID RF: 0 clopidogrel 75 mg tablet 75 mg PO DAILY Qty: 90 RF: 3 omega 0-rcu-gdi-fish oil 500 MG capsule,delayed release(DR/EC) 1,000 mg PO DAILY RF: 0 L.acidoph-B.long-L.plant-B.lac 1 EACH capsule 1 ea PO DAILY RF: 0 polyethylene glycol 3350 17 GM powder in packet 17 gm PO DAILY RF: 0 loratadine 10 MG tablet 10 mg PO PRN PRN (Reason: Allergies) RF: 0 lutein 20 MG capsule 20 mg PO DAILY RF: 0 vitamin E 400 unit Tablet 400 unit PO MOWEFR RF: 0 estradiol [Estrace] 0.01 % (0.1 mg/gram) Cream 1 appful VAGINAL SUWEFR RF: 0 vitamin B complex Capsule 1 cap PO DAILY RF: 0 cranberry 1,000 mg Capsule 4,200 mg PO QWEEK RF: 0 zinc 50 mg Capsule 50 mg PO TUTHSA RF: 0 phytosterol combination no.1 500 mg Capsule 1,000 mg PO DAILY RF: 0 red yeast rice 600 mg Tablet 600 mg PO BID RF: 0 carvedilol 12.5 mg tablet 12.5 mg PO BID Qty: 180 RF: 3 Referrals / Follow Up: Gideon Turcios DO [Primary Care Provider] - In 1 Week Hilton Kennedy NP, [employer] INSTRUCTOR-C [Nurse Practitioner] - Within 2 Weeks Disposition Disposition (needs filled in before D/C Order can be placed): Home, Self Care Documented by User: Dr. Antelmo Cunha MD 02/21/21 14:19 Providers Date of Admission: 02/20/21 Reason For Visit: CHEST PAIN Medications at Discharge Home Medications L.acidoph-B.long-L.plant-B.lac 1 ea PO DAILY 05/27/14 omega 3-fux-lyu-fish oil 1,000 mg PO DAILY 05/27/14 aspirin 81 mg tablet,delayed release 81 mg PO DAILY 04/30/18 loratadine 10 mg PO PRN PRN 08/06/18 lutein 20 mg PO DAILY 08/06/18 polyethylene glycol 3350 17 gm PO DAILY 08/06/18 cholecalciferol (vitamin D3) 50 mcg (2,000 unit) capsule 50 mcg PO DAILY 08/03/20 carvedilol 12.5 mg tablet 12.5 mg PO BID #180 tab 10/11/20 clopidogrel 75 mg tablet 75 mg PO DAILY #90 tab 11/11/20 metformin 500 mg tablet 500 mg PO BID 11/11/20 potassium gluconate 600 mg (99 mg) tablet 600 mg PO DAILY 11/11/20 cranberry 4,200 mg PO QWEEK 02/19/21 estradiol [Estrace] 1 appful VAGINAL SUWEFR 02/19/21 phytosterol combination no.1 1,000 mg PO DAILY 02/19/21 red yeast rice 600 mg PO BID 02/19/21 vitamin B complex 1 cap PO DAILY 02/19/21 vitamin E 400 unit PO MOWEFR 02/19/21 zinc 50 mg PO TUTHSA 02/19/21 ABG / Lab / Microbiology Data Result Diagrams: 02/21/21 06:45 02/21/21 06:45 Discharge Plan Admission Admit Date/Time: 02/20/21 10:09 Primary Reason for Your Visit: Chest pain, cardiac stent placement Attending Provider: Antelmo Cunha Primary Care Provider: Gideon Turcios Consulting Providers: Lorraine Nunez Instructions Additional Instructions / Restrictions: Patient Problems: Altered Health Status related to Hospitalization Patient Goals: *Optimal Level of Health *Keep Appointments *Medication Compliance *Remain Safe Discharge Orders/Prescriptions Prescriptions: Continued aspirin [Adult Low Dose Aspirin] 81 mg tablet,delayed release (DR/EC) 81 mg PO DAILY RF: 0 cholecalciferol (vitamin D3) 50 mcg (2,000 unit) capsule 50 mcg PO DAILY RF: 0 potassium gluconate 600 mg (99 mg) tablet 600 mg (99 mg) tablet 600 mg PO DAILY RF: 0 metformin 500 mg tablet 500 mg PO BID RF: 0 clopidogrel 75 mg tablet 75 mg PO DAILY Qty: 90 RF: 3 omega 5-ose-ctn-fish oil 500 MG capsule,delayed release(DR/EC) 1,000 mg PO DAILY RF: 0 L.acidoph-B.long-L.plant-B.lac 1 EACH capsule 1 ea PO DAILY RF: 0 polyethylene glycol 3350 17 GM powder in packet 17 gm PO DAILY RF: 0 loratadine 10 MG tablet 10 mg PO PRN PRN (Reason: Allergies) RF: 0 lutein 20 MG capsule 20 mg PO DAILY RF: 0 vitamin E 400 unit Tablet 400 unit PO MOWEFR RF: 0 estradiol [Estrace] 0.01 % (0.1 mg/gram) Cream 1 appful VAGINAL SUWEFR RF: 0 vitamin B complex Capsule 1 cap PO DAILY RF: 0 cranberry 1,000 mg Capsule 4,200 mg PO QWEEK RF: 0 zinc 50 mg Capsule 50 mg PO TUTHSA RF: 0 phytosterol combination no.1 500 mg Capsule 1,000 mg PO DAILY RF: 0 red yeast rice 600 mg Tablet 600 mg PO BID RF: 0 carvedilol 12.5 mg tablet 12.5 mg PO BID Qty: 180 RF: 3 Referrals / Follow Up: Gideon Turcios DO [Primary Care Provider] - In 1 Week Hilton Kennedy NP, W[employer] INSTRUCTOR-C [Nurse Practitioner] - Within 2 Weeks Disposition Disposition (needs filled in before D/C Order can be placed): Home, Self Care Charges/Coding Addendum Addendum: Dr. Cunha: I personally reviewed the chart and examined the patient, and agree with the above findings. 70-year-old female presented to the hospital with chest pain. She was found to have a rising troponin consistent with a non-STEMI. She was taken to the cardiac Sample Card Maker today and had a stent placed secondary to a 90% stenosis in the proximal LAD consistent with in-stent restenosis. We will continue with aspirin and Plavix. Unfortunately she is allergic to statins and is hesitant to try any. 02/21/2021: Doing well, no issues overnight. No further chest pain. He was evaluated by cardiology today and they felt that she was stable for discharge home and outpatient follow-up with her PCP as well as follow-up with cardiology. She is to continue medical management unfortunately she does not tolerate statins. I discussed with her the plan for discharge today and she expressed understanding of the risk and benefits of going home and would like to go home today. Visit Charges Inpatient E&M: 87016 Disch Hosp
[2021-02-21 12:21] LABS: Bedside Glucose 228 mg/dL (70-110)
--- NOTE | 2021-02-23 12:31 | CL.D_ITS ---
Patient Name: USMAN NICKERSON Study Date: 02/20/2021 Performing: Lisandro Baptiste MD Ht: 68.11 inches 173 cm : 1950 Wt: 171.96 lbs 78 kg Age: 70 Gender: female BSA: 1.92 PROCEDURE(S) PERFORMED KH29-EFD/COR/LV LB63-AQF W OR WO PTCA, SINGLE CORONARY ARTERY CLINICAL PROFILE AND INDICATIONS Indications: Worsening Angina Heart Failure: None Stress/Imaging Stress/Image Study Performed: No Angina Classification Anginal Classification w/in 2 Weeks: CCS III CAD Presentations: Non-STEMI. CONCLUSIONS Elevated Left Ventricular End Diastolic Pressure Segmented LV systolic dysfunction- Mild LVEF: by LV gram 55 % Eagle Multivessel CAD LAD: stent: instent restenosis: 90% RCA: stent: patent RECOMMENDATIONS Risk factor modification Medical therapy Referred for immediate PCI DESCRIPTION OF PROCEDURE The patient arrived to the procedure lab. The risks and benefits of the procedure as well as a full d escription of our services here and current unavailability of surgical backup were fully explained to the patient and/or their significant other prior to the catheterization. The Timeout was completed, verifying the correct patient and procedure. The patient's procedural site was prepped and draped in the usual fashion. Local anesthetic was given subcutaneously to right groin region with Lidocaine 2%. Using a modified Seldinger technique, arterial access was obtained via the right femoral artery, a 4 Fr sheath was inserted Left Coronary Artery selective angiography was performed in multiple views us ing a 4 Fr. JL5 catheter. Right Coronary Artery selective angiography was then performed in multiple views using a 4 Fr. 3DRC catheter. Left Ventriculography was performed in AMARO projection using a 4 Fr . Pigtail catheter. LV to AO pullback pressures were then recorded.Contrast was injected through the sheath and the Right Iliac and Femoral artery were assessed for possible closure device.T he arterial sheath was pulled and a Perclose closure device was deployed for hemostasis CORONARY ANGIOGRAPHY DOMINANCE: Right Dominant LEFT HEART ASSESSMENT Left Ventricular Ejection Fraction: by LV Gram 55 % Anterior Hypokinesis. Apical Hypokinesis Elevated Left Ventricular End Diastolic Pressure LVEDP: 34 mmHg LEFT ANTERIOR DESCENDING ARTERY: Previously placed stent has an instent 90 % restenosis CIRCUMFLEX ARTERY: OM 1: Proximal - s/p bifurcation: 25 % Stenosis RIGHT CORONARY ARTERY: MID RCA: Previously placed stent is patent AORTIC ROOT: Angiographically normal COMPLICATIONS No Complications PROCEDURE MEDICATIONS Oxygen: 2 L/min via nasal cannula Benadryl 50 mg IV 02/20/2021 07:55:41 Baby Aspirin (81mg) 1 Tabs PO @ 02/20/2021 08:04:19 Heparin 7000 unit(s) IV 02/20/2021 09:02:47 Heparin 2000 unit(s) IV 02/20/2021 09:41:12 Nitro 300 mcg IC 02/20/2021 09:23:52 Nitro 300 mcg IC 02/20/2021 09:23:52 Pepcid 20 mg IV 02/20/2021 07:55:48 Plavix 300 mg PO 02/20/2021 09:01:57 Solu-medrol 125 mg IV 02/20/2021 07:55:34 IV Bolus: .9 NaCl 200 ml total 02/20/2021 09:45:54 SUMMARY OF HEMODYNAMIC DATA Time AIR REST ECG 08:02:01 AO 183/102 (135) SA 08:15:40 LV 186/4, 32 08:21:35 LV 190/-1, 34 08:21:42 LV 182/20, 40 08:22:26 LV 181/6, 33 08:22:32 LVp 185/12, 35 08:23:00 AOp 190/83 (130) 08:23:05 AO 182/80 (126) 09:05:55 Signed By Lisandro Baptiste MD On 02/21/2021 9:16:34 AM Lisandro Baptiste MD
== END 2021-02-21 12:44 | disposition home or self-care (01) | DRG 246 ==
LOC: ED 03:04 → PCU 05:17
PROVIDERS: Internal Medicine; Internal Medicine Interventional Cardiology; Specialist; Admitting Provider Hospitalist; Emergency Provider Student in an Organized Health Care Education/Training Program; PCP Family Medicine; Visit Provider Family Medicine
DX: R07.89 Other chest pain (principal); I21.4 Non-ST elevation (NSTEMI) myocardial infarction; T82.855A Stenosis of coronary artery stent, initial encounter; Y83.1 Surgical operation with implant of artificial internal device as the cause of abnormal reaction of the patient, or of later complication, without mention of misadventure at the time of the procedure; I25.10 Atherosclerotic heart disease of native coronary artery without angina pectoris; I10 Essential (primary) hypertension; E78.5 Hyperlipidemia, unspecified; R73.03 Prediabetes; Z88.8 Allergy status to other drugs, medicaments and biological substances; K21.9 Gastro-esophageal reflux disease without esophagitis; Z95.5 Presence of coronary angioplasty implant and graft; Z79.82 Long term (current) use of aspirin; Z79.84 Long term (current) use of oral hypoglycemic drugs; Z82.5 Family history of asthma and other chronic lower respiratory diseases; Z90.49 Acquired absence of other specified parts of digestive tract; Z91.041 Radiographic dye allergy status
CPT/HCPCS: 36415; 71045; 80048; 80053; 82962; 83735; 84484; 85025; 85027; 85379; 85610; 85730; 92928; 93005; 93458; 99285; J7030; A4216; C1725; C1760; C1769; C1874; C1887; C1894; C9600; J3490; Q9967

== ENCOUNTER 2021-03-03 14:55 | Emergency (ER) | payer MEDICARE, BC, SELFPAY ==
[2021-02-19 05:28] VITALS: BMI 26.0
[2021-03-03 14:56] VITALS: BP 164/85; PULSE 82; RESP 16; TEMP 36.2; O2SAT 98; BMI 25.6
[2021-03-03 15:15] VITALS: PULSE 80; RESP 19; O2SAT 96
--- NOTE | 2021-03-03 15:26 | EKG12_ITS ---
Test Reason : Blood Pressure : / mmHG Vent. Rate : 081 BPM Atrial Rate : 081 BPM P-R Int : 178 ms QRS Dur : 094 ms QT Int : 406 ms P-R-T Axes : 060 041 080 degrees QTc Int : 471 ms Normal sinus rhythm T wave abnormality, consider anterior ischemia Prolonged QT Abnormal ECG Confirmed by HOLLI GONZALES, ALLYSSA ([id number]), continuity editor JUAN HOUSE ([id number]) on 03/08/2021 1:32:31 PM Referred By: EDPHYS Confirmed By:ALLYSSA DE LA GARZA MD
[2021-03-03 16:00] LABS: Bacteria 0 SEEN /hpf (None Seen); Mucous, Urine 0 SEEN /hpf (<or=2+); White Blood Cells 0 SEEN /hpf (0-5)
[2021-03-03 16:02] VITALS: PULSE 78; RESP 18; O2SAT 97
[2021-03-03 16:04] LABS: Color, Urine Yellow (Yellow); Glucose, Dipstick Normal (Normal); Ketone-Dipstick Negative (Negative); Leukocyte Esterase-Dipstick Negative /ul (Negative); Nitrite-Dipstick Negative (Negative); Occult Blood-Urine 150 /ul (Negative); Protein-Dipstick Negative (Negative); Urine Bilirubin Dipstick Negative (Negative); Urine Clarity Clear (Clear); Urine Urobilinogen Normal (Normal)
--- NOTE | 2021-03-03 16:10 | RAD_ITS ---
STUDY: X-RAY CHEST REASON FOR EXAM: Female, 70 years old. cough TECHNIQUE: PA and lateral views of the chest. COMPARISON: 02/19/2021 FINDINGS: The lungs are clear and expanded. There is no demonstrated pleural abnormality. Normal size heart. Normal mediastinum and anthony. Normal visualized pulmonary arteries. Normal visualized aortic arch and descending thoracic aorta. Normal visualized thoracic spine. Normal visualized ribs, clavicles, and shoulders. There is no demonstrated abnormality of the visualized soft tissue structures of the upper abdomen. RAD/Chest PA and Lateral IMPRESSION: Normal x-ray examination of the chest. Electronically Signed: Edy Crystal MD at 16:51 EDT Tel , Service support ,
[2021-03-03 16:12] LABS: Anion Gap 9 (5-15); BUN 12 mg/dL (7-18); BUN/Creat Ratio 15.1 RATIO (10-20); Calcium,Total 8.6 mg/dL (8.5-10.1); Chloride 104 mmol/L (98-107); EST Glomerular Filtration Rate 75 mL/min (>60); Est Glom Filt Rate - Afr Amer 91 mL/min (>60); Estimated Creatinine Clearance 65.06 ml/min; Glucose 161 mg/dL (74-106); Potassium 3.7 mmol/L (3.5-5.1); Sodium Level 140 mmol/L (136-145); Troponin-I HS 9.7 pg/mL (3.0-53.7)
--- NOTE | 2021-03-03 16:13 | NURSING ---
[facility] CALLED. CBC WILL BE LATER
[2021-03-03 16:23] LABS: Red Blood Cells-Urine 5-10 SEEN /hpf (0-5); Squamous Epithelial Cells - UA 0-5 SEEN /hpf (5-10); Transitional Epithelial - Ur 0 SEEN /hpf (0-5)
--- NOTE | 2021-03-03 16:27 | EX.ED.DYSGE1 ---
HPI History of Present Illness Chief Complaint: General Illness Informant: patient Narrative Narrative: Patient here seeking other evaluation of generalized illness. She is status post stent placement [address] Baptiste. She denies chest pains. Mild cough secondary to allergies. No urinary symptoms. No vomiting or diarrhea. She states she had initial stent placed in 2013. She states she had a another stent in June of last year. She states she had chest pains on her last admission leading to the cath and stent placement. She is on aspirin and Plavix with no missed doses. She follow-up with her PCP 3 days ago was told she appeared normal. She is concerned therefore came for evaluation here. She has an upcoming follow-up with her investment representative. Review of records noted cath February [address] Baptiste. She had a patent mid RCA. She had initial stent in LAD however recent cath known in-stent stenosis of 90% of the LAD with intervention. EF of 55%. 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 Diabetes Diabetes Essential hypertension GERD (gastroesophageal reflux disease) HLD (hyperlipidemia) Hyperlipidemia Hypertension Hypertension Myocardial infarct Neuropathy Non-ST elevation (NSTEMI) myocardial infarction Prediabetes Presence of stent in coronary artery (~02/20/21) Home Medications L.acidoph-Brose-Dimitris.plant-B.lac 1 ea PO DAILY 05/27/14 [History Last Taken 02/18/21] omega 9-nim-ctr-fish oil 1,000 mg PO DAILY 05/27/14 [History Last Taken 06/24/20] aspirin 81 mg tablet,delayed release 81 mg PO DAILY 04/30/18 [History Last Taken 02/18/21] loratadine 10 mg PO PRN PRN 08/06/18 [History Last Taken 06/24/20] lutein 20 mg PO DAILY 08/06/18 [History Last Taken 06/24/20] polyethylene glycol 3350 17 gm PO DAILY 08/06/18 [History Last Taken 06/24/20] cholecalciferol (vitamin D3) 50 mcg (2,000 unit) capsule 50 mcg PO DAILY 12/02/20 [History Last Taken 02/18/21] carvedilol 12.5 mg tablet 12.5 mg PO BID #180 tab 10/11/20 [Rx Last Taken 02/18/21] clopidogrel 75 mg tablet 75 mg PO DAILY #90 tab 11/11/20 [Rx Last Taken 02/18/21] metformin 500 mg tablet 500 mg PO BID 11/11/20 [History Last Taken Unknown] potassium gluconate 600 mg (99 mg) tablet 600 mg PO DAILY 11/11/20 [History Last Taken Unknown] cranberry 4,200 mg PO QWEEK 02/19/21 [History Last Taken Unknown] estradiol [Estrace] 1 appful VAGINAL SUWEFR 02/19/21 [History Last Taken 02/18/21] phytosterol combination no.1 1,000 mg PO DAILY 02/19/21 [History Last Taken Unknown] red yeast rice 600 mg PO BID 02/19/21 [History Last Taken Unknown] vitamin B complex 1 cap PO DAILY 02/19/21 [History Last Taken Unknown] vitamin E 400 unit PO MOWEFR 02/19/21 [History Last Taken Unknown] zinc 50 mg PO TUTHSA 02/19/21 [History Last Taken Unknown] Allergy/AdvReac Type Severity Reaction Status Date / Time Iodinated Contrast Media Allergy Other Verified 03/03/21 14:56 [Iodinated Contrast Media - IV Dye] amlodipine AdvReac Headache, Verified 03/03/21 14:56 nausea, dizziness, fatigue, flushing, GERD lisinopril AdvReac fatigue, Verified 03/03/21 14:56 difficulty walking morphine AdvReac SEVER Verified 03/03/21 14:56 HEADACHE rosuvastatin [From Crestor] AdvReac Other Verified 03/03/21 14:56 Family History Other COPD (chronic obstructive pulmonary disease) Diabetes Embolism Hyperlipidemia Peripheral artery disease Surgical History History of appendectomy History of bladder suspension procedure History of heart artery stent Presence of coronary angioplasty implant and graft (~02/20/21) S/P appendectomy S/P bladder repair S/P PTCA (percutaneous transluminal coronary angioplasty) S/P tonsillectomy Social History household members: spouse housing: house Smoking Status: Never smoker ROS ROS ED Constitutional Constitutional ED: Denies chills, fever(s) or sweats Eyes Eyes: Denies change in vision ENT ENT ED: Denies dysphagia or sore throat Cardiovascular Cardiovascular: Denies chest pain, leg edema, palpitations or racing heartbeat Respiratory/Chest Respiratory/Chest: Denies cough, dyspnea or dyspnea on exertion Gastrointestinal Gastrointestinal: Denies abdominal pain, diarrhea, nausea or vomiting Genitourinary Genitourinary ED: Denies dysuria, hematuria or urinary frequency Musculoskeletal Musculoskeletal: Denies back pain, extremity pain or neck pain Integumentary Denies rash or wounds Neurologic Neurologic: Denies headache(s), paresthesias or weakness EXAM Physical Exam Const Vital Signs: 03/03/21 14:56 03/03/21 15:15 03/03/21 16:02 Temperature 97.2 F L Temperature Source Temporal Pulse Rate 82 80 78 Respiratory Rate 16 19 H 18 Respiratory Effort Normal Non-Labored Respiratory Pattern Normal Blood Pressure 164/85 H Blood Pressure Mean 111 Pulse Ox 98 96 97 Oxygen Delivery Method Room Air Room Air Room Air Positive well nourished and well developed General Appearance ED: well developed and NAD HEENT Reports moist mucous membranes normocephalic and atraumatic Eyes PERRL, EOMs intact bilaterally and conjunctivae normal General Eye ED: Yes normal appearance of both eyes Neck no lymphadenopathy and supple General: Negative for tenderness Chest Wall Chest: Negative for tenderness Resp normal respiratory effort and normal air movement Effort and Inspection: symmetric chest movement; Negative for respiratory distress Cardio regular rate, regular rhythm and no murmurs Peripheral Pulses: pulses 2+ throughout GI normal to inspection, nondistended, normoactive bowel sounds and non-tender Palpation: Negative for guarding or rebound tenderness present Back/Spine no CVA tenderness and no thoracic nor lumbar tenderness Extremity normal to inspection General Extremety ED: Negative for edema or tenderness General Extremity: Negative for edema Neuro oriented x3 and no sensory deficits noted Sensorium / Orientation: awake and alert Skin no rashes or lesions noted and no wounds MDM MDM MDM Narrative Medical decision making narrative: Patient with generalized illness no specific complaints. Recent stenting. Cardiac work-up negative. Chronic changes on EKG. Chest x-ray and urine negative. She is reassured. Her vitals are stable. She will keep follow-up with her investment representative as an outpatient. Return precautions. All questions answered. Lab Data Attestation: I reviewed the patient's lab results. Labs: Laboratory Results - last 24 hr 03/03/21 03/03/21 03/03/21 15:40 15:40 15:50 WBC 8.0 RBC 3.95 L Hgb 13.5 Hct 36.4 L MCV 92.2 MCH 34.2 H MCHC 37.1 H RDW Std Deviation 43.8 RDW Coeff of Annel 13.0 Plt Count 259 MPV 10.0 Immature Gran % (Auto) 0.800 Neut % (Auto) 59.6 Lymph % (Auto) 28.7 [place]calfe % (Auto) 8.6 Eos % (Auto) 1.8 Baso % (Auto) 0.5 Absolute Neuts (auto) 4.8 Absolute Lymphs (auto) 2.29 Nucleated RBC % 0 Sodium 140 Potassium 3.7 Chloride 104 Carbon Dioxide 27.0 Anion Gap 9 BUN 12 Creatinine 0.80 Estim Creat Clear Calc 65.06 Est GFR (MDRD) Af Amer 91 Est GFR (MDRD) Non-Af 75 BUN/Creatinine Ratio 15.1 Glucose 161 H Calcium 8.6 Troponin I High Sens 9.7 Urine Color Yellow Urine Clarity Clear Urine pH 6.0 Ur Specific Galt 1.010 Urine Protein Negative Urine Glucose (UA) Normal Urine Ketones Negative Urine Occult Blood 150 H Urine Nitrite Negative Urine Bilirubin Negative Urine Urobilinogen Normal Ur Leukocyte Esterase Negative Urine RBC 5-10 SEEN Urine WBC 0 SEEN Ur Squamous Epith Cells 0-5 SEEN Ur Transition Epith Cell 0 SEEN Urine Bacteria 0 SEEN Urine Mucus 0 SEEN Radiography Chest X-Ray - ED: 2 View, Read by ED Physician and No Acute Disease Diagnostic Testing: Radiology Impression Chest X-Ray 03/03/21 16:10 IMPRESSION: Normal x-ray examination of the chest. Electronically Signed: Edy Crystal MD at 16:51 EDT Tel , Service support , EKG Initial EKG: Attestation: I personally reviewed and interpreted this EKG as follows: Comments: Sinus rate of 81, no ST changes. T wave inversions in the anterior leads, similar to February 21, 2021. Discharge Plan Triage Chief Complaint: General Illness ED Provider: Nickolas Marquez Dx/Rx/DC Orders Clinical Impression: Atherosclerotic heart disease of [place] coronary artery without angina pectoris, Presence of stent in coronary artery Instructions: CAD Prescriptions: No Action aspirin [Adult Low Dose Aspirin] 81 mg tablet,delayed release (DR/EC) 81 mg PO DAILY RF: 0 cholecalciferol (vitamin D3) 50 mcg (2,000 unit) capsule 50 mcg PO DAILY RF: 0 potassium gluconate 600 mg (99 mg) tablet 600 mg (99 mg) tablet 600 mg PO DAILY RF: 0 metformin 500 mg tablet 500 mg PO BID RF: 0 clopidogrel 75 mg tablet 75 mg PO DAILY Qty: 90 RF: 3 omega 1-pyg-srf-fish oil 500 MG capsule,delayed release(DR/EC) 1,000 mg PO DAILY RF: 0 L.acidoph-B.long-L.plant-B.lac 1 EACH capsule 1 ea PO DAILY RF: 0 polyethylene glycol 3350 17 GM powder in packet 17 gm PO DAILY RF: 0 loratadine 10 MG tablet 10 mg PO PRN PRN (Reason: Allergies) RF: 0 lutein 20 MG capsule 20 mg PO DAILY RF: 0 vitamin E 400 unit Tablet 400 unit PO MOWEFR RF: 0 estradiol [Estrace] 0.01 % (0.1 mg/gram) Cream 1 appful VAGINAL SUWEFR RF: 0 vitamin B complex Capsule 1 cap PO DAILY RF: 0 cranberry 1,000 mg Capsule 4,200 mg PO QWEEK RF: 0 zinc 50 mg Capsule 50 mg PO TUTHSA RF: 0 phytosterol combination no.1 500 mg Capsule 1,000 mg PO DAILY RF: 0 red yeast rice 600 mg Tablet 600 mg PO BID RF: 0 carvedilol 12.5 mg tablet 12.5 mg PO BID Qty: 180 RF: 3 Primary Care Provider: Gideon Turcios Referrals: Gideon Turcios DO [Primary Care Provider] - Lisandro Baptiste MD [STAFF PHYSICIAN] - [facility] appointment Disposition Disposition: Home, Self Care
[2021-03-03 16:35] LABS: Absolute Lymphocyte Count 2.29 X10^3/uL (0.83-4.51); Absolute Neutrophil Count 4.8 X10^3/uL (2.0-7.7); Basophil# 0.04 X10^3/uL; Basophil% 0.5 % (0-1); Eosinophil# 0.14 X10^3/uL; Eosinophils% 1.8 % (0-5); Hematocrit 36.4 % (37-47); Hemoglobin 13.5 g/dL (12.0-15.0); Lymphocyte # 2.29 X10^3/ul (0.83-4.51); Lymphocyte % 28.7 % (19-41); Mean Corp Hgb Conc 37.1 g/dL (32-36); Mean Corpuscular Hgb 34.2 pg (27.0-32.0); Mean Corpuscular Volume 92.2 fL (81-99); Monocyte# 0.69 X10^3/uL; Monocyte% 8.6 % (0-10); NRBC Flagged by Analyzer 0 % (0-5); Neutrophil # 4.76 X10^3/uL (2.7-7.7); Neutrophil % 59.6 % (47-70); Platelet Count 259 K/mm3 (150-450); RBC Distribution Width SD 43.8 fl (35.1-43.9); Red Blood Count 3.95 M/mm3 (4.2-5.4)
[2021-03-03 17:36] VITALS: BP 138/64; PULSE 76; RESP 18; O2SAT 99
== END 2021-03-03 17:47 | disposition home or self-care (01) ==
PROVIDERS: Emergency Provider Emergency Medicine; PCP Family Medicine
DX: I25.10 Atherosclerotic heart disease of native coronary artery without angina pectoris (principal); Z95.5 Presence of coronary angioplasty implant and graft; E11.40 Type 2 diabetes mellitus with diabetic neuropathy, unspecified; I10 Essential (primary) hypertension; Z79.82 Long term (current) use of aspirin; Z79.84 Long term (current) use of oral hypoglycemic drugs; Z79.899 Other long term (current) drug therapy
CPT/HCPCS: 71046; 80048; 81001; 84484; 85025; 93005; 99284; A4216

== ENCOUNTER 2021-05-19 15:06 | Inpatient (IN) | payer MEDICARE, BC, SELFPAY ==
[2021-05-19] VITALS (9 sets, daily range): BP systolic 122–186; BP diastolic 47–90; PULSE 71–84; RESP 14–25; TEMP 36.3–36.9; O2SAT 95–99; BMI 28.1; BMI 25.5
--- NOTE | 2021-05-19 15:27 | EKG12_ITS ---
Test Reason : Blood Pressure : / mmHG Vent. Rate : 086 BPM Atrial Rate : 086 BPM P-R Int : 170 ms QRS Dur : 078 ms QT Int : 360 ms P-R-T Axes : 025 030 036 degrees QTc Int : 430 ms Normal sinus rhythm Low voltage QRS Septal infarct , age undetermined Abnormal ECG Confirmed by ENRIKE GONZALES, EVANS ([id number]), legal editor GABRIELA IBARRA ([id number]) on 05/22/2021 11:33:58 AM Referred By: ROBERT Confirmed By:EVANS CALVERT MD
--- NOTE | 2021-05-19 15:28 | ED.VIS.CHEST ---
HPI History of Present Illness Chief Complaint: Chest Pain Narrative Narrative: Patient presents with chest pain similar to her previous MIs that required stenting. She has past medical history of hypertension, hyper cholesterolemia, and coronary artery disease. She states she is unable to take anything for her elevated cholesterol. She initially had a stent placed in one of her coronary arteries in 2013. Last year and around December she had another stent placed because she was having chest pain, then she was admitted for chest pain and restenting of her stent from 2013 and January to March of this year, approximately 2 to 3 months ago. She states she began having chest pressure at 12 30-12 40 5 in the morning, over 12 hours ago. It lasted 45 minutes. She took a Tagamet and ate a piece of cheese which resolved her pain. However, her pain returned this afternoon approximately 45 minutes ago. She has taken her baby aspirin. While she states the pressure is improving, she called her customer orders clerk office, Dr. Lantigua, who told her to come to the emergency department as this is very similar to when she required stenting. She denies any nausea or vomiting. No shortness of breath. No diaphoresis, but states that she is always sweaty. No exacerbating or alleviating factors. 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 Diabetes Diabetes Essential hypertension GERD (gastroesophageal reflux disease) HLD (hyperlipidemia) Hyperlipidemia Hypertension Hypertension Myocardial infarct Neuropathy Non-ST elevation (NSTEMI) myocardial infarction Prediabetes Presence of stent in coronary artery (~02/20/21) Home Medications Grisel-Oskar-Shantplant-B.lac 1 ea PO DAILY 05/27/14 [History Last Taken 02/18/21] omega 6-pef-ybo-fish oil 1,000 mg PO DAILY 05/27/14 [History Last Taken 06/24/20] aspirin 81 mg tablet,delayed release 81 mg PO DAILY 04/30/18 [History Last Taken 02/18/21] loratadine 10 mg PO PRN PRN 08/06/18 [History Last Taken 06/24/20] lutein 20 mg PO DAILY 08/06/18 [History Last Taken 06/24/20] polyethylene glycol 3350 17 gm PO DAILY 08/06/18 [History Last Taken 06/24/20] cholecalciferol (vitamin D3) 50 mcg (2,000 unit) capsule 50 mcg PO DAILY 08/03/20 [History Last Taken 02/18/21] carvedilol 12.5 mg tablet 12.5 mg PO BID #180 tab 10/11/20 [Rx Last Taken 02/18/21] clopidogrel 75 mg tablet 75 mg PO DAILY #90 tab 11/11/20 [Rx Last Taken 02/18/21] metformin 500 mg tablet 500 mg PO BID 11/11/20 [History Last Taken Unknown] potassium gluconate 600 mg (99 mg) tablet 600 mg PO DAILY 11/11/20 [History Last Taken Unknown] cranberry 4,200 mg PO QWEEK 02/19/21 [History Last Taken Unknown] estradiol [Estrace] 1 appful VAGINAL SUWEFR 02/19/21 [History Last Taken 02/18/21] phytosterol combination no.1 1,000 mg PO DAILY 02/19/21 [History Last Taken Unknown] red yeast rice 600 mg PO BID 02/19/21 [History Last Taken Unknown] vitamin B complex 1 cap PO DAILY 02/19/21 [History Last Taken Unknown] vitamin E 400 unit PO MOWEFR 02/19/21 [History Last Taken Unknown] zinc 50 mg PO TUTHSA 02/19/21 [History Last Taken Unknown] Allergy/AdvReac Type Severity Reaction Status Date / Time Iodinated Contrast Media Allergy Other Verified 05/19/21 15:10 [Iodinated Contrast Media - IV Dye] amlodipine AdvReac Headache, Verified 05/19/21 15:10 nausea, dizziness, fatigue, flushing, GERD lisinopril AdvReac fatigue, Verified 05/19/21 15:10 difficulty walking morphine AdvReac SEVER Verified 05/19/21 15:10 HEADACHE rosuvastatin [From Crestor] AdvReac Other Verified 05/19/21 15:10 FLU SHOT AdvReac Other Uncoded 05/19/21 15:10 Family History Other COPD (chronic obstructive pulmonary disease) Diabetes Embolism Hyperlipidemia Peripheral artery disease Surgical History History of appendectomy History of bladder suspension procedure History of heart artery stent Presence of coronary angioplasty implant and graft (~02/20/21) S/P appendectomy S/P bladder repair S/P PTCA (percutaneous transluminal coronary angioplasty) S/P tonsillectomy Social History household members: spouse housing: house Smoking Status: Never smoker ROS ROS ED ROS Narrative Constitutional: No fever, no chills. HEENT: No sore throat. No neck pain. No loss of vision. No rhinorrhea. Cardiovascular: Positive chest pain. No palpitations. No pedal edema. Respiratory: No cough, no shortness of breath. Abdominal: No abdominal pain. No nausea. No vomiting. Genitourinary: No dysuria. No hematuria. Musculoskeletal: No myalgias. No arthralgias. Neurologic: No headaches. No dizziness. No lightheadedness. Skin: No rash. No change in color. Psychiatric: No depression. No anxiety. EXAM Physical Exam Narrative Exam Narrative: Afebrile. Vital signs noted. HEENT: Normocephalic. Atraumatic. PERRL, EOMI. Neck soft and supple. No point tenderness or step off. Cardiovascular: Regular rate and rhythm. No murmurs, rubs, or gallops appreciated. Respiratory: No tachypnea. Lungs clear to auscultation bilaterally. Gastrointestinal: Abdomen soft, nontender, with normoactive bowel sounds. No rebound or guarding. Neurological: Awake. Alert. Nonfocal, nonlateralizing. Skin: No rash. Normal color. No pallor. Musculoskeletal: No pedal edema. Full range of motion extremities. Const Vital Signs: 05/19/21 15:07 05/19/21 15:43 05/19/21 16:06 Temperature 98 F Temperature Source Temporal Pulse Rate 82 78 Respiratory Rate 25 H 14 Blood Pressure 186/90 H 124/48 H Blood Pressure Mean 122 73 Pulse Ox 98 98 Oxygen Delivery Method Room Air 05/19/21 17:00 05/19/21 18:00 05/19/21 19:14 Temperature 97.4 F L Temperature Source Temporal Pulse Rate 78 84 71 Respiratory Rate 16 14 18 Blood Pressure 122/47 H 141/59 H 167/71 H Blood Pressure Mean 72 86 103 Pulse Ox 96 99 99 Oxygen Delivery Method MDM MDM MDM Narrative Medical decision making narrative: Her baby aspirin was supplemented. Her EKG demonstrates normal sinus rhythm at 86 bpm without ectopy or acute ST changes. CBC is normal with a normal white count of 7.4, but hemoglobin slightly elevated 15.8, platelet count normal at 266. Electrolyte panel is grossly unremarkable except for glucose elevated at 172. Initial high-sensitivity troponin is 30. Coagulation studies are negative. Chest x-ray shows no acute process. Upon repeat examination, patient is pain-free. Her second high-sensitivity troponin is elevated at 57. As this is a delta troponin greater than 20, she has ruled in for acute coronary syndrome. I discussed patient with Dr. Munson with cardiology. He agrees with starting the patient on heparin, and admitting her to the hospitalist to the PCU with consultation to his group. I then discussed the patient with the hospitalist for admission. Patient is in stable condition. Lab Data Attestation: I reviewed the patient's lab results. Labs: Laboratory Results - last 24 hr 05/19/21 05/19/21 05/19/21 15:10 15:10 17:30 WBC 7.4 RBC 4.59 Hgb 15.8 H Hct 42.9 MCV 93.5 MCH 34.4 H MCHC 36.8 H RDW Std Deviation 43.4 RDW Coeff of Annel 12.6 Plt Count 266 MPV 10.2 Immature Gran % (Auto) 0.900 Neut % (Auto) 58.6 Lymph % (Auto) 29.5 [place] % (Auto) 9.2 Eos % (Auto) 1.1 Baso % (Auto) 0.7 Absolute Neuts (auto) 4.3 Absolute Lymphs (auto) 2.18 Nucleated RBC % 0 PT INR APTT Sodium 139 Potassium 4.1 Chloride 104 Carbon Dioxide 28.0 Anion Gap 7 BUN 15 Creatinine 0.80 Estim Creat Clear Calc 65.06 Est GFR (MDRD) Af Amer 90 Est GFR (MDRD) Non-Af 75 BUN/Creatinine Ratio 18.7 Glucose 172 H Calcium 9.8 Troponin I High Sens 30 57 H 05/19/21 19:20 WBC RBC Hgb Hct MCV MCH MCHC RDW Std Deviation RDW Coeff of Annel Plt Count MPV Immature Gran % (Auto) Neut % (Auto) Lymph % (Auto) [place] % (Auto) Eos % (Auto) Baso % (Auto) Absolute Neuts (auto) Absolute Lymphs (auto) Nucleated RBC % PT 13.0 INR 1.0 APTT 28.2 Sodium Potassium Chloride Carbon Dioxide Anion Gap BUN Creatinine Estim Creat Clear Calc Est GFR (MDRD) Af Amer Est GFR (MDRD) Non-Af BUN/Creatinine Ratio Glucose Calcium Troponin I High Sens Radiography Chest X-Ray - ED: 1 View, Read by ED Physician, Read by Radiologist and Normal Diagnostic Testing: Radiology Impression Chest X-Ray 05/19/21 15:40 IMPRESSION: No acute process Electronically Signed: Melquiades Busch MD at 16:32 EDT , Service support , Discharge Plan Dx/Rx/DC Orders Clinical Impression: Chest pain, Acute coronary syndrome, Essential hypertension Disposition Disposition: Acute Care [facility]
--- NOTE | 2021-05-19 15:40 | RAD_ITS ---
STUDY: X-RAY CHEST REASON FOR EXAM: Female, 70 years old. SOB X [address] RICKETTS OFFICE WOULD NOT LET HER IN THE DOOR D/T SX, TOLD HER TO GO TO URGENT CARE. SENT TO ED. TECHNIQUE: Single AP portable view of the chest. COMPARISON: March 03, 2021 FINDINGS: The lungs are clear and expanded. There is no demonstrated pleural abnormality. Normal size heart. Normal mediastinum and anthony. Normal visualized pulmonary arteries. There is atherosclerotic calcification of the aortic arch with tortuosity. There are diffuse degenerative changes of the visualized thoracic spine. Normal visualized ribs, clavicles, and shoulders. Surgical clips are seen in the right upper arm. There is no demonstrated abnormality of the visualized soft tissue structures of the upper abdomen. RAD/Chest 1 View (Portable) IMPRESSION: No acute process Electronically Signed: Melquiades Busch MD at 16:32 EDT , Service support ,
[2021-05-19] MEDS: Aspirin 81 MG TAB.CHEW 324 MG PO (15:51)
[2021-05-19] MEDS: hydrALAZINE 20 MG/ML Vial 10 MG IV (15:51)
[2021-05-19 16:31] LABS: Anion Gap 7 (5-15); BUN 15 mg/dL (7-18); BUN/Creat Ratio 18.7 RATIO (10-20); Calcium,Total 9.8 mg/dL (8.5-10.1); Chloride 104 mmol/L (98-107); EST Glomerular Filtration Rate 75 mL/min (>60); Est Glom Filt Rate - Afr Amer 90 mL/min (>60); Estimated Creatinine Clearance 65.06 ml/min; Glucose 172 mg/dL (74-106); Potassium 4.1 mmol/L (3.5-5.1); Sodium Level 139 mmol/L (136-145); Troponin-I HS 30 pg/mL (3.0-54.0)
[2021-05-19 17:08] LABS: Absolute Lymphocyte Count 2.18 X10^3/uL (0.83-4.51); Absolute Neutrophil Count 4.3 X10^3/uL (2.0-7.7); Basophil# 0.05 X10^3/uL; Basophil% 0.7 % (0-1); Eosinophil# 0.08 X10^3/uL; Eosinophils% 1.1 % (0-5); Hematocrit 42.9 % (37-47); Hemoglobin 15.8 g/dL (12.0-15.0); Lymphocyte # 2.18 X10^3/ul (0.83-4.51); Lymphocyte % 29.5 % (19-41); Mean Corp Hgb Conc 36.8 g/dL (32-36); Mean Corpuscular Hgb 34.4 pg (27.0-32.0); Mean Corpuscular Volume 93.5 fL (81-99); Mean Platelet Vol. 10.2 fl (6.2-12.0); Monocyte# 0.68 X10^3/uL; Monocyte% 9.2 % (0-10); NRBC Flagged by Analyzer 0 % (0-5); Neutrophil # 4.32 X10^3/uL (2.7-7.7); Neutrophil % 58.6 % (47-70); Platelet Count 266 K/mm3 (150-450); RBC Distribution Width CV 12.6 % (11.6-14.6); RBC Distribution Width SD 43.4 fl (35.1-43.9); Red Blood Count 4.59 M/mm3 (4.2-5.4); White Blood Count 7.4 K/mm3 (4.4-11.0)
[2021-05-19 18:16] LABS: Troponin-I HS 57 pg/mL (3.0-54.0)
[2021-05-19] MEDS: Heparin Injection (Vial) 5,000 UNIT/ML VIAL 6000 UNIT IV (19:25)
[2021-05-19] MEDS: HEPARIN/D5w 25,000 UNITS 25,000 UNITS/250 ML IV.SOLN. 12 UNITS IV (19:27)
--- NOTE | 2021-05-19 19:45 | HP.PCM.HOS_ITS ---
HPI - General General Date of Admission: 05/19/21 Date of Service: 05/19/21 Chief Complaint: chest pain HPI Narrative USMAN NICKERSON, is a 70 F w ith a significant history of CAD status post stent who presents at the emergency department with excruciating substernal chest pain that started several hours before presentation. Patient had a 2 times episode of this chest pain. Initially she thought it was indigestion and soshe took some Tagamet. The pain went away and then reoccurred. The pain radiates to her back and into a small part of her left forearm. She denies any nausea; vomiting or diaphoresis. The pain worsens with exertion and improves with rest. 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 Diabetes Diabetes Essential hypertension GERD (gastroesophageal reflux disease) HLD (hyperlipidemia) Hyperlipidemia Hypertension Hypertension Myocardial infarct Neuropathy Non-ST elevation (NSTEMI) myocardial infarction Prediabetes Presence of stent in coronary artery (~02/20/21) Home Medications L.acidoph-B.long-L.plant-B.lac 1 ea PO DAILY 05/27/14 [History Last Taken 02/18/21] omega 7-ykd-fxd-fish oil 1,000 mg PO DAILY 05/27/14 [History Last Taken 06/24/20] aspirin 81 mg tablet,delayed release 81 mg PO DAILY 04/30/18 [History Last Taken 02/18/21] loratadine 10 mg PO PRN PRN 08/06/18 [History Last Taken 06/24/20] lutein 20 mg PO DAILY 08/06/18 [History Last Taken 06/24/20] polyethylene glycol 3350 17 gm PO DAILY 08/06/18 [History Last Taken 06/24/20] cholecalciferol (vitamin D3) 50 mcg (2,000 unit) capsule 50 mcg PO DAILY 08/03/20 [History Last Taken 02/18/21] carvedilol 12.5 mg tablet 12.5 mg PO BID #180 tab 10/11/20 [Rx Last Taken 02/18/21] clopidogrel 75 mg tablet 75 mg PO DAILY #90 tab 11/11/20 [Rx Last Taken 02/18/21] metformin 500 mg tablet 500 mg PO BID 11/11/20 [History Last Taken Unknown] potassium gluconate 600 mg (99 mg) tablet 600 mg PO DAILY 11/11/20 [History Last Taken Unknown] cranberry 4,200 mg PO QWEEK 02/19/21 [History Last Taken Unknown] estradiol [Estrace] 1 appful VAGINAL SUWEFR 02/19/21 [History Last Taken 02/18/21] phytosterol combination no.1 1,000 mg PO DAILY 02/19/21 [History Last Taken Unknown] red yeast rice 600 mg PO BID 02/19/21 [History Last Taken Unknown] vitamin B complex 1 cap PO DAILY 02/19/21 [History Last Taken Unknown] vitamin E 400 unit PO MOWEFR 02/19/21 [History Last Taken Unknown] zinc 50 mg PO TUTHSA 02/19/21 [History Last Taken Unknown] Allergy/AdvReac Type Severity Reaction Status Date / Time Iodinated Contrast Media Allergy Other Verified 05/19/21 15:10 [Iodinated Contrast Media - IV Dye] amlodipine AdvReac Headache, Verified 05/19/21 15:10 nausea, dizziness, fatigue, flushing, GERD lisinopril AdvReac fatigue, Verified 05/19/21 15:10 difficulty walking morphine AdvReac SEVER Verified 05/19/21 15:10 HEADACHE rosuvastatin [From Crestor] AdvReac Other Verified 05/19/21 15:10 FLU SHOT AdvReac Other Uncoded 05/19/21 15:10 Family History Other COPD (chronic obstructive pulmonary disease) Diabetes Embolism Hyperlipidemia Peripheral artery disease Surgical History History of appendectomy History of bladder suspension procedure History of heart artery stent Presence of coronary angioplasty implant and graft (~02/20/21) S/P appendectomy S/P bladder repair S/P PTCA (percutaneous transluminal coronary angioplasty) S/P tonsillectomy Social History household members: spouse housing: house Smoking Status: Never smoker ROS ROS Narrative Constitutional: Denies anorexia and change in weight Eyes: Denies blurry vision, change in eye color, change in vision, discharge from eye(s), double vision, erythema, eye pain, loss of vision or other HEENT: Denies abnormal hearing, dysphagia, ear pain, epistaxis, headache(s), hearing loss, nasal congestion, nasal discharge, post nasal drip, sinus pressure, sore throat or other Cardiovascular: Reports chest pain. Denies dyspnea on exertion, orthopnea and paroxysmal nocturnal dyspnea Respiratory/Chest: Denies cough, excessive phlegm production, shortness of breath with exertion and wheezing Gastrointestinal: Denies abdominal pain, coffee ground emesis, constipation, diarrhea, dyspepsia, hematemesis, hematochezia, loose stools, melena, nausea, vomiting or other Genitourinary: Denies burning urination, difficulty urinating, dysuria, hematuria, nocturia, urinary frequency, urinary hesitancy, urinary incontinence, urinary urgency or other Musculoskeletal: Denies arthralgias, back pain, joint pain, joint stiffness, joint swelling, myalgias, neck pain or other Neurologic: Denies abnormal gait, abnormal speech, confusion, disequilibrium, dizziness, focal weakness, headache(s), numbness, paresthesias, seizure-like activity, seizures, syncope, tingling, tremor(s) or other Psychiatric: Denies anxiety, depression, homicidal ideation, suicidal ideation or other Endocrinology: Denies change in body appearance, cold intolerance, excessive sweating, heat intolerance, polydipsia, polyuria or other Hematologic/Lymphatic: Denies anemia, easy bleeding, easy bruising, lymphadenopathy or other Integumentary: Denies rashes Allergic/Immunologic: Denies rhinitis, hives, eczema, asthma or other Vital Signs Vital Signs Vital Signs: 05/19/21 15:07 05/19/21 15:43 05/19/21 16:06 Temperature 98 F Temperature Source Temporal Pulse Rate 82 78 Respiratory Rate 25 H 14 Blood Pressure 186/90 H 124/48 H Blood Pressure Mean 122 73 Pulse Ox 98 98 Oxygen Delivery Method Room Air 05/19/21 17:00 05/19/21 18:00 05/19/21 19:14 Temperature 97.4 F L Temperature Source Temporal Pulse Rate 78 84 71 Respiratory Rate 16 14 18 Blood Pressure 122/47 H 141/59 H 167/71 H Blood Pressure Mean 72 86 103 Pulse Ox 96 99 99 Oxygen Delivery Method Weight Weight: 83.9 kg Body Mass Index (BMI) 28.1 Physical Exam Narrative Physical exam: General: Well-nourished, well-developed. Head: Normocephalic, atraumatic, no tenderness Eyes: PERRLA, EOMI ENT, no trauma, moist mucous membranes, no rhinorrhea Neck: Nontender, full range of motion, no spinal tenderness, deformities, step- off CVS: Regular rate and rhythm. S1-S2 present. No murmur, gallop or rub. Respiratory : clear to auscultation bilaterally, chest wall nontender, no whe ezing Abdomen: Soft, nontender, nondistended, normal bowel sounds, no masses : Deferred Back: Nontender, no CVA tenderness, no midline spinal tenderness, deformities, step-offs Extremities: Nontender full range of motion, no trauma Skin: Normal color, no trauma, abrasions Neuro: Alert, oriented, cranial nerves II through XII grossly intact. Psychiatry: Normal mood. Normal affect. Not depressed. Not anxious. Results Lab / Micro Data Result Diagrams: 05/19/21 15:10 05/19/21 15:10 Labs: Laboratory Results - last 24 hr 05/19/21 15:10: WBC 7.4, RBC 4.59, Hgb 15.8 H, Hct 42.9, MCV 93.5, MCH 34.4 H, MCHC 36.8 H, RDW Std Deviation 43.4, RDW Coeff of [place]el 12.6, Plt Count 266, MPV 10.2, Immature Gran % (Auto) 0.900, Neut % (Auto) 58.6, Lymph % (Auto) 29.5, [place] % (Auto) 9.2, Eos % (Auto) 1.1, Baso % (Auto) 0.7, Absolute Neuts (auto) 4.3, Absolute Lymphs (auto) 2.18, Nucleated RBC % 0 05/19/21 15:10: Sodium 139, Potassium 4.1, Chloride 104, Carbon Dioxide 28.0, Anion Gap 7, BUN 15, Creatinine 0.80, Estim Creat Clear Calc 65.06, Est GFR (MDRD) Af Amer 90, Est GFR (MDRD) Non-Af 75, BUN/Creatinine Ratio 18.7, Glucose 172 H, Calcium 9.8, Troponin I High Sens 30 05/19/21 17:30: Troponin I High Sens 57 H Micro: Microbiology 05/19/21 19:00 Nasal Secretion SARS-CoV-2 Antigen (Rapid) - Final Radiology Impression Chest X-Ray 05/19/21 15:40 IMPRESSION: No acute process Electronically Signed: Melquiades Busch MD at 16:32 EDT , Service support , Assessment & Plan Assessment/Plan (1) Acute coronary syndrome: (2) Non-ST elevation (NSTEMI) myocardial infarction: PLAN: Non-ST elevation MS Place on a monitored bed at progressive care unit Impression of chest x-ray by radiology: No acute process. Actual CXR image was independently visualized. No acute cardiopulmonary process was noted. Actual EKG tracing was independently visualized. EKG tracing showed sinus rhythm with Q waves in septal leads. Received aspirin 324 mg at emergency department. ASA 81 mg p.o. daily and daily Plavix continued SL NTG 0.4 mg prn as needed for chest pain ordered Review of old labs showed LDL of 130; VLDL of 72; cholesterol 243 and triglycerides of 361 on labs drawn on 06/26/2020. We will check lipid panel. Statin: patient is allergic to Crestor Anticoagulation: Given heparin IV bolus and started on a heparin drip at emergency department and continued.-His high initial troponin was 30 but it increased to 57. Serial cardiac enzymes ordered Stat EKG as needed for chest pain []Stress test in the AM if the cardiac enzymes are negative DVT prophylaxis ordered. Hypertension Blood pressure is not within goal necessitating hydralazine IV Carvedilol continued. As needed labetalol ordered. Trend blood pressure and adjust blood pressure medications. Diabetes mellitus Patient with hyperglycemia on presentation Metformin held Accu-Chek QA [facility] with correction scale insulin ordered. DVT prophylaxis Not indicated since patient reported on heparin drip. Charges/Coding Visit Charges Inpatient E&M: 34051 Init Hosp L3
[2021-05-19 19:46] LABS: Partial Thromboplast Time 28.2 Seconds (24.1-36.2)
--- NOTE | 2021-05-19 20:29 | EKG12_ITS ---
Test Reason : Blood Pressure : / mmHG Vent. Rate : 073 BPM Atrial Rate : 073 BPM P-R Int : 202 ms QRS Dur : 090 ms QT Int : 404 ms P-R-T Axes : 066 061 060 degrees QTc Int : 445 ms Normal sinus rhythm Normal ECG When compared with ECG of 22-MAY-2021 05:47, MANUAL COMPARISON REQUIRED, DATA IS UNCONFIRMED Confirmed by ENRIKE GONZALES, EVANS ([id number]), managing editor JUAN HOUSE ([id number]) on 05/23/2021 2:11:42 PM Referred By: ENRIKE Confirmed By:EVANS CALVERT MD
--- NOTE | 2021-05-19 20:45 | PCS.PANDOC ---
PANDEMIC DOCUMENTATION INITIATED: Date: 04/17/2021 Time: 190
[2021-05-19 21:47] LABS: Troponin-I HS 103 pg/mL (3.0-54.0)
[2021-05-19] MEDS: Carvedilol 12.5 MG Tablet PO (21:57)
[2021-05-19] MEDS: 0.9% Saline Lock 10 ML Syringe IV (22:01)
[2021-05-19 22:11] LABS: Bedside Glucose 159 mg/dL (70-110)
[2021-05-20] VITALS (10 sets, daily range): BP systolic 115–151; BP diastolic 63–75; PULSE 70–84; RESP 16–18; TEMP 36.6–37.2; O2SAT 94–97
[2021-05-20 02:04] LABS: Partial Thromboplast Time 85.5 Seconds (24.1-36.2)
[2021-05-20 05:18] LABS: Absolute Lymphocyte Count 2.83 X10^3/uL (0.83-4.51); Absolute Neutrophil Count 3.6 X10^3/uL (2.0-7.7); Basophil# 0.04 X10^3/uL; Basophil% 0.5 % (0-1); Eosinophil# 0.11 X10^3/uL; Eosinophils% 1.5 % (0-5); Hematocrit 39.1 % (37-47); Hemoglobin 14.3 g/dL (12.0-15.0); Lymphocyte # 2.83 X10^3/ul (0.83-4.51); Lymphocyte % 38.8 % (19-41); Mean Corp Hgb Conc 36.6 g/dL (32-36); Mean Corpuscular Hgb 34.1 pg (27.0-32.0); Mean Corpuscular Volume 93.3 fL (81-99); Mean Platelet Vol. 9.7 fl (6.2-12.0); Monocyte# 0.68 X10^3/uL; Monocyte% 9.3 % (0-10); NRBC Flagged by Analyzer 0 % (0-5); Neutrophil # 3.59 X10^3/uL (2.7-7.7); Neutrophil % 49.2 % (47-70); Platelet Count 219 K/mm3 (150-450); RBC Distribution Width CV 12.8 % (11.6-14.6); RBC Distribution Width SD 43.8 fl (35.1-43.9); Red Blood Count 4.19 M/mm3 (4.2-5.4); White Blood Count 7.3 K/mm3 (4.4-11.0)
[2021-05-20 05:39] LABS: Troponin-I HS 324 pg/mL (3.0-54.0)
[2021-05-20 05:47] LABS: Anion Gap 8 (5-15); BUN 13 mg/dL (7-18); Calcium,Total 8.8 mg/dL (8.5-10.1); Chloride 104 mmol/L (98-107); Cholesterol 243 mg/dL (200); Creatinine, Serum 0.72 mg/dL (0.55-1.02); EST Glomerular Filtration Rate 85 mL/min (>60); Est Glom Filt Rate - Afr Amer 102 mL/min (>60); Estimated Creatinine Clearance 52.05 ml/min; Glucose 150 mg/dL (74-106); High Density Lipoprotein 40 mg/dL; Sodium Level 137 mmol/L (136-145); Triglycerides 387 mg/dL; Very Low Density Lipoprotein 77 mg/dL (5-40)
[2021-05-20 07:06] LABS: Bedside Glucose 155 mg/dL (70-110)
[2021-05-20] MEDS: Aspirin E.C. 81 MG Tablet PO (08:27)
[2021-05-20] MEDS: Cholecalciferol (VIT D3) 25 MCG TABLET (1,000 UNITS) 50 MCG PO (08:27)
[2021-05-20 08:40] LABS: Partial Thromboplast Time 76.8 Seconds (24.1-36.2)
--- NOTE | 2021-05-20 10:55 | CASEMGMT ---
RN CM Face to Face with patient for initial transition planning/care coordination assessment. RN CM introduced self and role at [facility]. Patient lying in bed, alert and oriented. Patient willing to participate in assessment and is able to answer all questions appropriately. Care providers, pharmacy, and demographics verified. Patient wishes to discharge home, denies need for home health at this time. Patient states he has no further needs or concerns at this time. CM to follow for discharge planning needs that may arise. PCP: Tam Specialists: Nisa, JEWELRY DESIGNER; Emile, plastic straightening roll operator Preferred Pharmacy: [facility] Insurance: [employer] Prescription Benefit: yes Living Will/HPOA: yes, Tip Dozier LNOK: Living Arrangements: Patient lives with in a single story home with 1 step to enter the home. Patient states she is independent at home. Transportation: self DME/HHC: Patient denies DME or previous HHC. Disposition Plan: Patient to discharge home with famiy support and follow-up plans in place. Rosina GUAN, RN, CM
[2021-05-20] MEDS: Clopidogrel Bisulfate 75 MG Tablet PO (11:13)
[2021-05-20] MEDS: Carvedilol 12.5 MG Tablet PO ×2 (11:13→21:58)
[2021-05-20] MEDS: Polyethylene Glycol 3350 17 GM PACKET PO (11:14)
[2021-05-20 11:20] LABS: Bedside Glucose 145 mg/dL (70-110)
[2021-05-20 12:48] LABS: Troponin-I HS 315 pg/mL (3.0-54.0)
[2021-05-20 14:53] LABS: Partial Thromboplast Time 64.2 Seconds (24.1-36.2)
[2021-05-20] MEDS: HEPARIN/D5w 25,000 UNITS 25,000 UNITS/250 ML IV.SOLN. 12 UNITS IV (15:15)
--- NOTE | 2021-05-20 16:04 | PN.HOSP_ITS ---
Subjective Subjective Patient was seen and examined. Denied any dizziness. Complains of a dull left- sided chest pain. Her total cholesterol and triglycerides are uncontrolled she has allergy to statin with myalgias. She was given reading materials on Zetia. Patient refused to take it. Objective Data Objective Data Vital Signs: Vital Signs Temp Pulse Resp BP Pulse Ox 97.8 F 77 18 137/63 H 94 05/20/21 14:30 05/20/21 15:00 05/20/21 14:30 05/20/21 14:30 05/20/21 14:30 Oxygen Delivery Method Room Air Weight: 76.2 kg Body Mass Index (BMI) 25.5 Intake & Output: Intake and Output for Last 24 Hours 05/18/21 05/19/21 05/20/21 23:59 23:59 23:59 Intake Total 237.5 / 237.5 Balance 237.5 / 237.5 Lab / Micro Data Result Diagrams: 05/20/21 05:12 05/20/21 05:12 Labs: Laboratory Results - last 24 hr 05/19/21 15:10: WBC 7.4, RBC 4.59, Hgb 15.8 H, Hct 42.9, MCV 93.5, MCH 34.4 H, MCHC 36.8 H, RDW Std Deviation 43.4, RDW Coeff of Ann[place] 12.6, Plt Count 266, MPV 10.2, Immature Gran % (Auto) 0.900, Neut % (Auto) 58.6, Lymph % (Auto) 29.5, [place] % (Auto) 9.2, Eos % (Auto) 1.1, Baso % (Auto) 0.7, Absolute Neuts (auto) 4.3, Absolute Lymphs (auto) 2.18, Nucleated RBC % 0 05/19/21 15:10: Sodium 139, Potassium 4.1, Chloride 104, Carbon Dioxide 28.0, Anion Gap 7, BUN 15, Creatinine 0.80, Estim Creat Clear Calc 65.06, Est GFR (MDRD) Af Amer 90, Est GFR (MDRD) Non-Af 75, BUN/Creatinine Ratio 18.7, Glucose 172 H, Calcium 9.8, Troponin I High Sens 30 05/19/21 17:30: Troponin I High Sens 57 H 05/19/21 19:20: PT 13.0, INR 1.0, APTT 28.2 05/19/21 21:20: Troponin I High Sens 103 H 05/19/21 22:00: POC Glucose 159 H 05/20/21 01:42: APTT 85.5 H 05/20/21 05:12: WBC 7.3, RBC 4.19 L, Hgb 14.3, Hct 39.1, MCV 93.3, MCH 34.1 H, MCHC 36.6 H, RDW Std Deviation 43.8, RDW Coeff of [place] 12.8, Plt Count 219, MPV 9.7, Immature Gran % (Auto) 0.700, Neut % (Auto) 49.2, Lymph % (Auto) 38.8, [place] % (Auto) 9.3, Eos % (Auto) 1.5, Baso % (Auto) 0.5, Absolute Neuts (auto) 3.6, Absolute Lymphs (auto) 2.83, Nucleated RBC % 0 05/20/21 05:12: Sodium 137, Potassium 4.0, Chloride 104, Carbon Dioxide 25.0, Anion Gap 8, BUN 13, Creatinine 0.72, Estim Creat Clear Calc 52.05, Est GFR (MDRD) Af Amer 102, Est GFR (MDRD) Non-Af 85, BUN/Creatinine Ratio 18.0, Glucose 150 H, Calcium 8.8, Triglycerides 387 H, Cholesterol 243 H, LDL Cholesterol 126, VLDL Cholesterol 77 H, HDL Cholesterol 40 05/20/21 05:12: Troponin I High Sens 324 H* 05/20/21 06:38: POC Glucose 155 H 05/20/21 07:56: APTT 76.8 H 05/20/21 11:12: POC Glucose 145 H 05/20/21 11:48: Troponin I High Sens 315 H* 05/20/21 14:10: APTT 64.2 H Micro: Microbiology 05/19/21 19:00 Nasal Secretion SARS-CoV-2 Antigen (Rapid) - Final Radiography Diagnostic Testing: Radiology Impression Chest X-Ray 05/19/21 15:40 IMPRESSION: No acute process Electronically Signed: Melquiades Busch MD at 16:32 EDT , Service support , Physical Exam Narrative Physical exam: General: Alert, Oriented x3, Cooperative, No apparent distress, Well developed HEENT: Atraumatic Oral: Moist Mucosa Neck: Supple Lungs: Clear to auscultation Cardiovascular: HS I+II, regular, no murmurs Abdomen: Bowel Sounds Present, Soft, Non Tender Extremities: No edema Assessment & Plan Assessment/Plan (1) Non-ST elevation (NSTEMI) myocardial infarction: (2) Essential hypertension: (3) Atherosclerotic heart disease of [place] coronary artery without angina pectoris: QUALIFIERS: [place] vs. transplanted heart: [place] heart Qualified Code(s): I25.10 - Atherosclerotic heart disease of [place] coronary artery without angina pectoris (4) HLD (hyperlipidemia): QUALIFIERS: Hyperlipidemia type: unspecified Qualified Code(s): E78.5 - Hyperlipidemia, unspecified PLAN: 1. Acute non-STEMI new patient history of CAD status post stent Patient with mild left-sided chest discomfort Stable vitals. EKG shows no acute ST changes. Troponins elevated up to 324, plateaued off Lipid profile shows uncontrolled total cholesterol, triglyceride and LDL Continue on aspirin, carvedilol, Cannot give statin on account of allergy, patient refused Zetia Cardiology consulted 2. Rest of chronic medical conditions -hypertension, prediabetes remained stable Charges/Coding Visit Charges Inpatient E&M: 44237 Subs Hosp L2
[2021-05-20 16:45] LABS: Bedside Glucose 160 mg/dL (70-110)
[2021-05-20 21:04] LABS: Partial Thromboplast Time 67.6 Seconds (24.1-36.2)
[2021-05-20 22:05] LABS: Bedside Glucose 131 mg/dL (70-110)
[2021-05-21] VITALS (23 sets, daily range): BP systolic 101–151; BP diastolic 56–72; PULSE 70–91; RESP 10–23; TEMP 36.2–36.9; O2SAT 91–100
[2021-05-21 06:51] LABS: Bedside Glucose 146 mg/dL (70-110)
[2021-05-21] MEDS: Carvedilol 12.5 MG Tablet PO ×2 (08:32→22:11)
[2021-05-21] MEDS: Cholecalciferol (VIT D3) 25 MCG TABLET (1,000 UNITS) 50 MCG PO (08:32)
[2021-05-21] MEDS: Aspirin E.C. 81 MG Tablet PO (08:33)
[2021-05-21] MEDS: Clopidogrel Bisulfate 75 MG Tablet PO (08:33)
[2021-05-21] MEDS: Polyethylene Glycol 3350 17 GM PACKET PO (08:33)
[2021-05-21 08:52] LABS: Partial Thromboplast Time 64.4 Seconds (24.1-36.2)
--- NOTE | 2021-05-21 09:59 | EKG12_ITS ---
Test Reason : CP Blood Pressure : / mmHG Vent. Rate : 082 BPM Atrial Rate : 082 BPM P-R Int : 182 ms QRS Dur : 080 ms QT Int : 380 ms P-R-T Axes : 028 041 056 degrees QTc Int : 443 ms Normal sinus rhythm Low voltage QRS Borderline ECG When compared with ECG of 19-MAY-2021 21:25, MANUAL COMPARISON REQUIRED, DATA IS UNCONFIRMED Confirmed by ENRIKE GONZALES, EVANS ([id number]), movie editor JUAN HOUSE ([id number]) on 05/23/2021 2:12:54 PM Referred By: Confirmed By:EVANS CALVERT MD
[2021-05-21] MEDS: Nitroglycerin (INPATIENT USE) 0.4 MG TAB.SUBL SL (10:02)
[2021-05-21] MEDS: Nitroglycerin Infusion 250 ML 3 MG CONT INF (10:43)
[2021-05-21] MEDS: 0.9% Saline Lock 10 ML Syringe IV (10:43)
[2021-05-21] MEDS: Insulin Lispro 100 UNIT/ML INSULN.PEN SC (11:24)
[2021-05-21 11:30] LABS: Bedside Glucose 208 mg/dL (70-110)
--- NOTE | 2021-05-21 12:02 | PCM.CONS.C ---
Assessment & Plan Assessment/Plan (1) Atherosclerotic heart disease of [place] coronary artery without angina pectoris: QUALIFIERS: [place] vs. transplanted heart: [place] heart Qualified Code(s): I25.10 - Atherosclerotic heart disease of [place] coronary artery without angina pectoris (2) HLD (hyperlipidemia): QUALIFIERS: Hyperlipidemia type: unspecified Qualified Code(s): E78.5 - Hyperlipidemia, unspecified (3) Essential hypertension: (4) Non-ST elevation (NSTEMI) myocardial infarction: PLAN: This patient presented with symptoms of chest pain Had known history of CAD with a PCI and stent of the mid RCA in June 27, 2020 prior to that she had a PCI and stent in [facility] to the LAD in May 22, 2014 subsequently had in-stent restenosis and had a PCI of the proximal LAD in February 20, 2021 using drug-eluting stent. Now presenting with clinical diagnosis of non-ST elevation [place] Patient has history of hyperlipidemia hypertension and evidently she having symptoms of chest pain at time of examination today and stat EKG showed normal sinus rhythm symptoms of chest pain relieved with 1 sublingual nitroglycerin Cardiac recommendation and plan; 1. Patient is being treated as non-STEMI with heparin drip, continue current treatment with aspirin Plavix, beta-julia she could not tolerate a statin 2. We will proceed with cardiac catheterization to assess for patency of her coronary stents and also to evaluate for progression of CAD 3. We started the patient on nitroglycerin drip in addition to heparin and her current medication. 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 Diabetes Diabetes Essential hypertension GERD (gastroesophageal reflux disease) HLD (hyperlipidemia) Hyperlipidemia Hypertension Hypertension Myocardial infarct Neuropathy Non-ST elevation (NSTEMI) myocardial infarction Prediabetes Presence of stent in coronary artery (~02/20/21) Home Medications L.acidoph-B.long-L.plant-B.lac 1 ea PO DAILY 05/27/14 [History Last Taken 05/18/21] omega 9-hjo-dfi-fish oil 1,000 mg PO DAILY 05/27/14 [History Last Taken 05/19/21] aspirin 81 mg tablet,delayed release 81 mg PO DAILY 04/30/18 [History Last Taken 05/18/21] loratadine 10 mg PO DAILY 08/06/18 [History Last Taken 05/19/21] lutein 20 mg PO DAILY 08/06/18 [History Last Taken 05/19/21] polyethylene glycol 3350 17 gm PO DAILY 08/06/18 [History Last Taken 05/19/21] cholecalciferol (vitamin D3) 50 mcg (2,000 unit) capsule 50 mcg PO DAILY 08/03/20 [History Last Taken 05/19/21] carvedilol 12.5 mg tablet 12.5 mg PO BID #180 tab 10/11/20 [Rx Last Taken 05/19/21 09:00] clopidogrel 75 mg tablet 75 mg PO DAILY #90 tab 11/11/20 [Rx Last Taken 05/19/21] metformin 500 mg tablet 500 mg PO BID 11/11/20 [History Last Taken 05/19/21 08:00] potassium gluconate 600 mg (99 mg) tablet 600 mg PO DAILY 11/11/20 [History Last Taken 05/18/21] cranberry 4,200 mg PO QWEEK 02/19/21 [History Last Taken 05/14/21] estradiol [Estrace] 1 appful VAGINAL SUWEFR 02/19/21 [History Last Taken 05/17/21] phytosterol combination no.1 1,000 mg PO DAILY 02/19/21 [History Last Taken 05/18/21] red yeast rice 1,200 mg PO DAILY 02/19/21 [History Last Taken 05/19/21] vitamin B complex 1 cap PO DAILY 02/19/21 [History Last Taken 05/18/21] vitamin E 400 unit PO MOWEFR 02/19/21 [History Last Taken 05/19/21] zinc 50 mg PO TUTHSA 02/19/21 [History Last Taken 05/18/21] Allergy/AdvReac Type Severity Reaction Status Date / Time Iodinated Contrast Media Allergy Other Verified 05/19/21 15:10 [Iodinated Contrast Media - IV Dye] amlodipine AdvReac Headache, Verified 05/19/21 15:10 nausea, dizziness, fatigue, flushing, GERD lisinopril AdvReac fatigue, Verified 05/19/21 15:10 difficulty walking morphine AdvReac SEVER Verified 05/19/21 15:10 HEADACHE rosuvastatin [From Crestor] AdvReac Other Verified 05/19/21 15:10 FLU SHOT AdvReac Other Uncoded 05/19/21 15:10 Family History Other COPD (chronic obstructive pulmonary disease) Diabetes Embolism Hyperlipidemia Peripheral artery disease Surgical History (Updated 05/19/21 @ 21:31 by Grisel Haji) H/O: hysterectomy History of appendectomy History of bladder suspension procedure History of heart artery stent Presence of coronary angioplasty implant and graft (~02/20/21) S/P appendectomy S/P bladder repair S/P PTCA (percutaneous transluminal coronary angioplasty) S/P tonsillectomy Social History household members: spouse housing: house Smoking Status: Never smoker Physical Exam Narrative Patient seen and evaluated at bedside along with the nursing staff She was having active symptoms of chest pain, on minimal exertion walking to the bathroom This is relieved with nitroglycerin sublingual monitoring specialist showed underlying normal sinus Cardiac examination; S1-S2 normal, no murmur no systolic or diastolic murmur Chest examination clear to auscultation bilateral Examination of the lower extremity no clubbing no cyanosis no lower extremity edema Central nervous system exam no focal neurological deficit. Objective Data Vital Signs: Vital Signs Temp Pulse Resp BP Pulse Ox 98.0 F 74 10 L 101/56 L 93 05/21/21 10:02 05/21/21 11:00 05/21/21 11:00 05/21/21 11:00 05/21/21 11:00 Oxygen Delivery Method Room Air Weight: 167 lb 15.876 oz Body Mass Index (BMI) 25.5 Intake & Output: Intake and Output for Last 24 Hours 05/19/21 05/20/21 05/21/21 23:59 23:59 23:59 Intake Total 548.5 / 548.5 376.85 / 376.85 Balance 548.5 / 548.5 376.85 / 376.85 Lab / Micro Data Result Diagrams: 05/20/21 05:12 05/20/21 05:12 Labs: Laboratory Results - last 24 hr 05/20/21 11:48: Troponin I High Sens 315 H* 05/20/21 14:10: APTT 64.2 H 05/20/21 16:38: POC Glucose 160 H 05/20/21 20:34: APTT 67.6 H 05/20/21 21:57: POC Glucose 131 H 05/21/21 06:42: POC Glucose 146 H 05/21/21 08:21: APTT 64.4 H 05/21/21 11:21: POC Glucose 208 H Cardiology Labs/Tests 05/20/21 14:10: APTT 64.2 H 05/20/21 20:34: APTT 67.6 H 05/21/21 08:21: APTT 64.4 H Rhythm: EKG: ECHO: Stress Test: Cardiac Cath: PCI: CT Surgery: Holter monitor: EPS: PPM: CXR: Chest CT Scan:
[2021-05-21] MEDS: HEPARIN/D5w 25,000 UNITS 25,000 UNITS/250 ML IV.SOLN. 12 UNITS IV (12:10)
--- NOTE | 2021-05-21 14:20 | PCM.PN.HOSP ---
Objective Data Objective Data Vital Signs: Vital Signs Temp Pulse Resp BP Pulse Ox 98.0 F 74 10 L 101/56 L 93 05/21/21 10:02 05/21/21 11:00 05/21/21 11:00 05/21/21 11:00 05/21/21 11:00 Oxygen Delivery Method Room Air Weight: 76.2 kg Body Mass Index (BMI) 25.5 Intake & Output: Intake and Output for Last 24 Hours 05/19/21 05/20/21 05/21/21 23:59 23:59 23:59 Intake Total 548.5 / 548.5 419.85 / 419.85 Balance 548.5 / 548.5 419.85 / 419.85 Lab / Micro Data Result Diagrams: 05/20/21 05:12 05/20/21 05:12 Labs: Laboratory Results - last 24 hr 05/20/21 14:10: APTT 64.2 H 05/20/21 16:38: POC Glucose 160 H 05/20/21 20:34: APTT 67.6 H 05/20/21 21:57: POC Glucose 131 H 05/21/21 06:42: POC Glucose 146 H 05/21/21 08:21: APTT 64.4 H 05/21/21 11:21: POC Glucose 208 H Micro: Microbiology 05/19/21 19:00 Nasal Secretion SARS-CoV-2 Antigen (Rapid) - Final
--- NOTE | 2021-05-21 14:22 | PCM.PROGNOTE ---
Documented by User: NIMESH Beach 05/21/21 15:34 Subjective Subjective Patient seen and examined. Patient states that she is still having intermittent chest pain however she is not having chest pain at this moment. Patient states that she overall is feeling tired but has no other complaints at this time. Objective Data Objective Data Vital Signs: Vital Signs Temp Pulse Resp BP Pulse Ox 98.0 F 74 10 L 101/56 L 93 05/21/21 10:02 05/21/21 11:00 05/21/21 11:00 05/21/21 11:00 05/21/21 11:00 Oxygen Delivery Method Room Air Weight: 167 lb 15.876 oz Body Mass Index (BMI) 25.5 Intake & Output: Intake and Output for Last 24 Hours 05/19/21 05/20/21 05/21/21 23:59 23:59 23:59 Intake Total 548.5 / 548.5 419.85 / 419.85 Balance 548.5 / 548.5 419.85 / 419.85 Lab / Micro Data Result Diagrams: 05/20/21 05:12 05/20/21 05:12 Labs: Laboratory Results - last 24 hr 05/20/21 14:10: APTT 64.2 H 05/20/21 16:38: POC Glucose 160 H 05/20/21 20:34: APTT 67.6 H 05/20/21 21:57: POC Glucose 131 H 05/21/21 06:42: POC Glucose 146 H 05/21/21 08:21: APTT 64.4 H 05/21/21 11:21: POC Glucose 208 H Micro: Microbiology 05/19/21 19:00 Nasal Secretion SARS-CoV-2 Antigen (Rapid) - Final Physical Exam Const alert, oriented x3 and no apparent distress General Appearance: cooperative HEENT normocephalic and head/scalp atraumatic Eyes conjunctivae normal and no scleral icterus Neck supple and no JVD General: trachea midline Resp normal respiratory effort, normal air movement and clear to auscultation bilaterally Cardio regular rate, regular rhythm, S1 normal heart sound and S2 normal heart sound Peripheral Pulses: pulses 2+ throughout GI normal to inspection, nondistended, normoactive bowel sounds, soft to palpation and non-tender Extremity normal capillary refill and no clubbing, cyanosis or edema General Extremity: no tenderness to palpation of joints or extremities Skin General Skin Exam: no breakdown and turgor normal Lesions: no lesions Rashes: no rashes Neuro no focal motor deficits and no sensory deficits noted Speech: speech normal Psych thought process normal, cooperative and affect normal Appearance: appropriate Assessment & Plan Assessment/Plan (1) Non-ST elevation (NSTEMI) myocardial infarction: PLAN: 1. Acute non-STEMI -Due to patient continued intermittent chest pain patient was initiated on a nitroglycerin drip by Dr. Caldwell with a plan to take patient for cardiac catheterization tomorrow -Continue heparin drip currently at 1200units/h -Echo ordered for a.m. -NPO at midnight -Troponin peaked at 324 -Chest pain controlled with nitroglycerin 5 mcg/min -Telemetry continues to demonstrate normal sinus rhythm, heart rate 74 We will continue patient home medications for all other chronic diseases including hypertension, CAD, prediabetes DVT prophylaxis-not indicated, patient currently on heparin drip This patient was seen by NIMESH Beach under the supervision of Dr. Cisneros. Documented by User: Dr. Jaleesa Cisneros MD 05/21/21 18:59 Objective Data Lab / Micro Data Result Diagrams: 05/20/21 05:12 05/20/21 05:12 Charges/Coding Addendum Addendum: This patient was seen in conjunction with Berta Ritter. I have independently interviewed and examined the patient and reviewed pertinent historical, laboratory, and other data. I have reviewed her note and concur with her documentation Patient was seen and examined. She has chest pain along the morning. Transition to a nitro drip. She denied any more chest pain. Physical exam: General: Alert, Oriented x3, Cooperative, No apparent distress, Well developed HEENT: Atraumatic Oral: Moist Mucosa Neck: Supple Lungs: Clear to auscultation Cardiovascular: HS I+II, regular, no murmurs Abdomen: Bowel Sounds Present, Soft, Non Tender Extremities: No edema ASSESSMENT: 1. Acute non-STEMI 2. Hypertension 3. CAD status post stent 4. Hyperlipidemia Plan: Continue on nitro and heparin drip Continue aspirin, carvedilol, Plavix Continue to monitor blood sugars Visit Charges Inpatient E&M: 00534 Subs Hosp L2
[2021-05-21 16:16] LABS: Bedside Glucose 123 mg/dL (70-110)
[2021-05-21 22:50] LABS: Bedside Glucose 135 mg/dL (70-110)
[2021-05-22] VITALS (22 sets, daily range): BP systolic 99–149; BP diastolic 52–88; PULSE 67–93; RESP 11–22; TEMP 36.5–36.7; O2SAT 90–100
--- NOTE | 2021-05-22 05:55 | ECHOD_ITS ---
Reason For Study: CAD/ASHD Procedure This was a 2D Doppler, Color Flow transthoracic echocardiogram. Exam performed portable in patient room. Left Ventricle Normal LV size. Left ventricular systolic function is normal. The estimated ejection fraction is 60 %. Stage 1 diastolic dysfunction. No regional wall motion abnormalities noted. Right Ventricle Normal RV size. Normal systolic function. Atria Normal left atrium. Normal right atrium. Mitral Valve Normal mitral valve. Tricuspid Valve Normal tricuspid valve. Aortic Valve Trisinus/trileaflet aortic valve. Mild focal aortic valve calcification. Pulmonic Valve Normal pulmonic valve. Great Vessels Normal aortic root. The pulmonary artery is normal size. Normal inferior vena cava. Pericardium/Pleural No pericardial effusion. MMode/2D Measurements & Calculations LVIDd: 4.8 cm IVSd: 0.82 cm Ao root diam: 2.6 cm LVIDs: 2.8 cm LVPWd: 0.94 cm RVDd: 3.0 cm FS: 40.3 % LAV(MOD-bp): 35.8 ml LA A4 area: 13.2 cm2 LA dimension(2D): 3.2 cm LAV(MOD-bp) Indexed: 18.9 ml/m2 LAV(MOD-sp2): 37.3 ml LAV(MOD-sp4): 33.9 ml Time Measurements MV dec time: 0.16 sec Doppler Measurements & Calculations MV E max edgar: 94.3 cm/sec Lat Peak E' Edgar: 8.7 cm/sec Med Peak E' Edgar: 8.8 cm/sec MV A max edgar: 110.3 cm/sec E/E' lat: 10.8 E/E' med: 10.7 MV E/A: 0.85 Ao V2 max: 131.5 cm/sec LV V1 max: 110.1 cm/sec PA V2 max: 106.1 cm/sec Ao max P.9 mmHg LV V1 max P.9 mmHg ECHO/Echo Complete Interpretation Summary Normal LV size. Left ventricular systolic function is normal. The estimated ejection fraction is 60 %. Stage 1 diastolic dysfunction. Structurally normal valves. Ordering Physician: Pili Caldwell Referring Physician: Gideon Turcios Performed By: Sylvia Benedict, VIDAL, RVT
--- NOTE | 2021-05-22 05:55 | EKG12_ITS ---
Test Reason : AM EKG Blood Pressure : / mmHG Vent. Rate : 076 BPM Atrial Rate : 076 BPM P-R Int : 186 ms QRS Dur : 080 ms QT Int : 386 ms P-R-T Axes : 020 028 051 degrees QTc Int : 434 ms Normal sinus rhythm Normal ECG When compared with ECG of 21-MAY-2021 10:04, MANUAL COMPARISON REQUIRED, DATA IS UNCONFIRMED Confirmed by ENRIKE GONZALES, EVANS ([id number]), newspaper or periodical editor JUAN HOUSE ([id number]) on 05/23/2021 2:09:36 PM Referred By: ELISA Confirmed By:EVANS CALVERT MD
[2021-05-22 05:56] LABS: Absolute Lymphocyte Count 3.43 X10^3/uL (0.83-4.51); Absolute Neutrophil Count 4.1 X10^3/uL (2.0-7.7); Basophil# 0.05 X10^3/uL; Basophil% 0.6 % (0-1); Eosinophil# 0.19 X10^3/uL; Eosinophils% 2.2 % (0-5); Lymphocyte # 3.43 X10^3/ul (0.83-4.51); Lymphocyte % 39.9 % (19-41); Mean Corp Hgb Conc 36.6 g/dL (32-36); Monocyte# 0.77 X10^3/uL; NRBC Flagged by Analyzer 0 % (0-5); Neutrophil # 4.12 X10^3/uL (2.7-7.7); Neutrophil % 47.8 % (47-70); Platelet Count 255 K/mm3 (150-450); RBC Distribution Width CV 12.8 % (11.6-14.6); RBC Distribution Width SD 44.3 fl (35.1-43.9); Red Blood Count 4.41 M/mm3 (4.2-5.4); White Blood Count 8.6 K/mm3 (4.4-11.0)
[2021-05-22 06:25] LABS: ALB/GLOB Ratio 1.1 RATIO (0.9-2.4); AST(SGOT) 29 U/L (15-37); Alanine Aminotransfer ALT/SGPT 56 U/L (13-56); Albumin, Serum 3.9 g/dL (3.2-5.0); Alkaline Phosphatase 71 U/L (45-117); Anion Gap 10 (5-15); BUN 16 mg/dL (7-18); BUN/Creat Ratio 23.5 RATIO (10-20); Calcium,Total 9.1 mg/dL (8.5-10.1); Chloride 102 mmol/L (98-107); Creatinine, Serum 0.68 mg/dL (0.55-1.02); EST Glomerular Filtration Rate 91 mL/min (>60); Est Glom Filt Rate - Afr Amer 110 mL/min (>60); Estimated Creatinine Clearance 52.05 ml/min; Globulin 3.4 g/dL (2.2-4.2); Glucose 168 mg/dL (74-106); Potassium 4.2 mmol/L (3.5-5.1); Protein, Total 7.3 g/dL (6.4-8.2); Sodium Level 134 mmol/L (136-145)
[2021-05-22 06:51] LABS: International Normalized Ratio 1.2; Prothrombin Time (Protime)PT. 14.2 SECONDS (11.7-14.9)
[2021-05-22 07:00] LABS: Bedside Glucose 169 mg/dL (70-110)
[2021-05-22] MEDS: Aspirin E.C. 81 MG Tablet PO (07:56)
[2021-05-22] MEDS: Carvedilol 12.5 MG Tablet PO ×2 (07:56→22:45)
[2021-05-22] MEDS: Clopidogrel Bisulfate 75 MG Tablet PO (07:56)
--- NOTE | 2021-05-22 08:53 | PCM.PN.CARD ---
Subjective Subjective Patient seen and evaluated. Appears to be doing well. Under going cardiac catheterization this morning. Objective Data Vital Signs: Vital Signs Temp Pulse Resp BP Pulse Ox 97.9 F 73 12 148/72 H 99 05/22/21 05:00 05/22/21 07:00 05/22/21 07:00 05/22/21 07:00 05/22/21 07:19 Oxygen Delivery Method Room Air Weight: 167 lb 15.876 oz Body Mass Index (BMI) 25.5 Intake & Output: Intake and Output for Last 24 Hours 05/20/21 05/21/21 05/22/21 23:59 23:59 23:59 Intake Total 548.5 / 548.5 642.85 / 642.85 190.8 / 190.8 Output Total 800 / 800 675 / 675 Balance 548.5 / 548.5 -157.15 / -157.15 -484.2 / -484.2 Lab / Micro Data Result Diagrams: 05/22/21 04:56 05/22/21 04:56 Labs: Laboratory Results - last 24 hr 05/21/21 08:21: APTT 64.4 H 05/21/21 11:21: POC Glucose 208 H 05/21/21 16:09: POC Glucose 123 H 05/21/21 22:14: POC Glucose 135 H 05/22/21 04:56: WBC 8.6, RBC 4.41, Hgb 15.0, Hct 41.0, MCV 93.0, MCH 34.0 H, MCHC 36.6 H, RDW Std Deviation 44.3 H, RDW Coeff of Annel 12.8, Plt Count 255, MPV 10.0, Immature Gran % (Auto) 0.500, Neut % (Auto) 47.8, Lymph % (Auto) 39.9, [place] % (Auto) 9.0, Eos % (Auto) 2.2, Baso % (Auto) 0.6, Absolute Neuts (auto) 4.1, Absolute Lymphs (auto) 3.43, Nucleated RBC % 0 05/22/21 04:56: Sodium 134 L, Potassium 4.2, Chloride 102, Carbon Dioxide 22.0, Anion Gap 10, BUN 16, Creatinine 0.68, Estim Creat Clear Calc 52.05, Est GFR (MDRD) Af Amer 110, Est GFR (MDRD) Non-Af 91, BUN/Creatinine Ratio 23.5 H, Glucose 168 H, Calcium 9.1, Total Bilirubin 0.80, AST 29, ALT 56, Alkaline Phosphatase 71, Total Protein 7.3, Albumin 3.9, Globulin 3.4, Albumin/Globulin Ratio 1.1 05/22/21 04:56: APTT 61.0 H 05/22/21 04:56: PT 14.2, INR 1.2 05/22/21 06:55: POC Glucose 169 H Cardiology Labs/Tests 05/21/21 08:21: APTT 64.4 H 05/22/21 04:56: WBC 8.6, RBC 4.41, Hgb 15.0, Hct 41.0, MCV 93.0, MCH 34.0 H, MCHC 36.6 H, Plt Count 255, MPV 10.0, Immature Gran % (Auto) 0.500, Neut % (Auto) 47.8, Lymph % (Auto) 39.9, [place] % (Auto) 9.0, Eos % (Auto) 2.2, Baso % (Auto) 0.6, Absolute Neuts (auto) 4.1, Nucleated RBC % 0 05/22/21 04:56: Sodium 134 L, Potassium 4.2, Chloride 102, Carbon Dioxide 22.0, Anion Gap 10, BUN 16, Creatinine 0.68, Est GFR (MDRD) Af Amer 110, Est GFR (MDRD) Non-Af 91, BUN/Creatinine Ratio 23.5 H, Glucose 168 H, Calcium 9.1, Total Bilirubin 0.80 05/22/21 04:56: APTT 61.0 H 05/22/21 04:56: PT 14.2, INR 1.2 Rhythm: EKG: Normal sinus rhythm with no acute changes ECHO: Stress Test: Cardiac Cath: PCI: CT Surgery: Holter monitor: EPS: PPM: CXR: Chest CT Scan: Physical Exam Narrative Patient seen and evaluated at bedside along with the nursing staff She was having active symptoms of chest pain, on minimal exertion walking to the bathroom This is relieved with nitroglycerin 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 Const alert, oriented x3 and no apparent distress General Appearance: cooperative HEENT hearing grossly normal bilaterally Head and Scalp: atraumatic Eyes EOMs intact bilaterally Neck General: normal visual inspection Chest inspection of chest normal and palpation of chest normal Resp normal respiratory effort Auscultation: clear to auscultation bilaterally Cardio regular rate, regular rhythm, S1 normal heart sound and S2 normal heart sound Jugular Venous Distention: JVD GI normal to inspection, nondistended, normoactive bowel sounds Extremity normal capillary refill and no pedal edema Peripheral Pulses: Yes pulses 2+ throughout and femoral pulses present Skin no rashes or lesions noted Neuro oriented x3 and CN's II-XII intact bilaterally Psych Appearance: grossly normal and appropriate Assessment & Plan Assessment/Plan (1) Atherosclerotic heart disease of [place] coronary artery without angina pectoris: QUALIFIERS: [facility] [place] vs. transplanted heart: [place] heart Qualified Code(s): I25.10 - Atherosclerotic heart disease of [place] coronary artery without angina pectoris PLAN: Patient has known atherosclerotic cardiovascular disease. She underwent cardiac catheterization which demonstrated the following: Normal left main coronary artery Left anterior descending artery with previously placed stent patent and mild to moderate mid segment disease Left circumflex artery with second obtuse marginal branch with 80 to 90% stenosis Right coronary artery which is dominant with previously placed stent which is patent Preserved left ventricular systolic function. Based on the above angiographic findings the patient will be recommended to undergo angioplasty and stenting of the circumflex artery. Would recommend continuation of medical therapy. (2) HLD (hyperlipidemia): QUALIFIERS: Hyperlipidemia type: unspecified Qualified Code(s): E78.5 - Hyperlipidemia, unspecified PLAN: Patient has not been able to tolerate statins in the past. Would recommend that the patient be considered for Repatha as an outpatient (3) Essential hypertension: PLAN: Blood pressure under suboptimal control at this time we'll try and see whether 1 can optimize blood pressure medications. (4) Non-ST elevation (NSTEMI) myocardial infarction: PLAN: This patient presented with symptoms of chest pain Had known history of CAD with a PCI and stent of the mid RCA in June 27, 2020 prior to that she had a PCI and stent in [facility] to the LAD in May 22, 2014 subsequently had in-stent restenosis and had a PCI of the proximal LAD in February 20, 2021 using drug-eluting stent. As noted above a new circumflex lesion has developed. Thank you for allowing me to participate in the care of your patient. Please don't hesitate to call if any issues arise.
--- NOTE | 2021-05-22 09:04 | CL.D_ITS ---
Patient Name: USMAN NICKERSON Study Date: 05/22/2021 Performing: Beltran Dominguez MD Ht: 68.11 inches 173 cm : 1950 Wt: 167.55 lbs 76 kg Age: 70 Gender: female BSA: 1.9 PROCEDURE(S) PERFORMED [id number]/LV CLINICAL PROFILE AND INDICATIONS Indications: Worsening Angina Heart Failure: None Stress/Imaging Stress/Image Study Performed: No CAD Presentations: Unstable angina. CONCLUSIONS Patent previously placed stent in the proximal LAD and mid right coronary artery. New lesion noted i n the left circumflex artery RECOMMENDATIONS Referred for immediate PCI DESCRIPTION OF PROCEDURE The patient arrived to the procedure lab. The risks and benefits of the procedure as well as a full d escription of our services here and current unavailability of surgical backup were fully explained to the patient and/or their significant other prior to the catheterization. The Timeout was completed, verifying the correct patient and procedure. The patient's procedural site was prepped and draped in the usual fashion. Local anesthetic was given subcutaneously to right groin region with Lidocaine 2%. Using a modified Seldinger technique, arterial access was obtained via the right femoral artery, a 5 Fr sheath was inserted. Left Coronary Artery selective angiography was performed in multiple views u sing a 5 Fr. JL4 catheter. Right Coronary Artery selective angiography was then performed in multiple views using a 5 Fr. 3DRC (Steve) catheter. Left Ventriculography was performed in AMARO projection using a 5 Fr. Pigtail catheter. LV to AO pullback pressures were then recorded. CORONARY ANGIOGRAPHY DOMINANCE: Right Dominant LEFT HEART ASSESSMENT Left Ventricular Ejection Fraction: by LV Gram 60 % Normal LV wall motion Normal Left Ventricular systolic function LEFT MAIN: Angiographically normal LEFT ANTERIOR DESCENDING ARTERY: Previously placed stent in the proximal left anterior descending art clif is patent with the mid LAD demonstrating 40% stenosis in the first diagonal vessel with 30% mid s tenosis. CIRCUMFLEX ARTERY: Proximal circumflex artery with minimal disease and a bifurcating second obtuse ma rginal branch with a 90% proximal stenosis noted. RIGHT CORONARY ARTERY: Large dominant right coronary artery with previously placed stent which is pat ent COMPLICATIONS PROCEDURE MEDICATIONS Oxygen: 2 L/min via nasal cannula Benadryl 25 mg IV @ 05/22/2021 08:28:37 Solu-medrol 125 mg IV 05/22/2021 08:28:44 SUMMARY OF HEMODYNAMIC DATA Time AIR REST ECG 08:23:20 AO 182/88 (127) SA 08:42:17 LV 177/14, 23 08:49:09 LV 179/15, 20 08:49:15 LV 170/18, 24 08:49:51 LV 176/13, 39 08:49:57 LVp 166/18, 22 08:50:02 AOp 172/86 (124) 08:50:07 Signed By Beltran Dominguez MD On 05/22/2021 9:03:42 AM Beltran Dominguez MD
[2021-05-22] MEDS: 0.9% Normal Saline 1,000 ML 100 ML IV (09:40)
--- NOTE | 2021-05-22 09:45 | EKG12_ITS ---
Test Reason : CP ADMIT Blood Pressure : / mmHG Vent. Rate : 075 BPM Atrial Rate : 075 BPM P-R Int : 176 ms QRS Dur : 080 ms QT Int : 388 ms P-R-T Axes : 022 042 050 degrees QTc Int : 433 ms Normal sinus rhythm Normal ECG When compared with ECG of 19-MAY-2021 15:13, MANUAL COMPARISON REQUIRED, DATA IS UNCONFIRMED Confirmed by ENRIKE GONZALES, EVANS ([id number]), acquisition editor JUAN HOUSE ([id number]) on 05/23/2021 2:14:29 PM Referred By: DR HUSTON Confirmed By:EVANS CALVERT MD
--- NOTE | 2021-05-22 09:57 | CL.I_ITS ---
Patient Name: USMAN NICKERSON Study Date: 05/22/2021 Performing: Dinesh Nunez MD Ht: 68 inches 173 cm : 1950 Wt: 167.8 lbs 76 kg Age: 70 Gender: female BSA: 1.9 PROCEDURE(S) PERFORMED [id number] W OR WO PTCA, SINGLE CORONARY ARTERY CLINICAL PROFILE AND CO-MORBIDITIES Indications: Worsening Angina Heart Failure: None Stress/Imaging Stress/Image Study Performed: No CAD Presentations: Unstable angina. CONCLUSIONS Successful PCI with JOSÉ LUIS to pOM1 RECOMMENDATIONS DESCRIPTION OF PROCEDURE The patient arrived to the procedure lab. The risks and benefits of the procedure as well as a full d escription of our services here and current unavailability of surgical backup were fully explained to the patient and/or their significant other prior to the catheterization. The Timeout was completed, verifying the correct patient and procedure. The patient's procedural site was prepped and draped in the usual fashion. Local anesthetic was given subcutaneously to right groin region with Lidocaine 2% Using a modified Seldinger technique,arterial access was obtained via the right femoral artery, a 5Fr sheath was inserted. Left Coronary Artery selective angiography was performed in multiple views usin g a 5 Fr. JL4 catheter. Right Coronary Artery selective angiography was then performed in multiple vi ews using a 5 Fr. 3DRC (Steve) catheter. Left Ventriculography was performed in AMARO projection usi ng a 5 Fr. Pigtail catheter. LV to AO pullback pressures were then recorded.The images were reviewed and options discussed. A decision was then made to proceed with an Intervention, IVUS o r other adjunct procedure. XB 3.0 Guide catheter was inserted and engaged into the LCA. BMW Hinkley Guide wire was advance d to the 1st OM. Emerge 2.0 x 15 Balloon catheter was inserted. Balloon catheter was advanced across lesion in the first obtuse marginal, proximal. PTCA balloon inflated at 8 atms for 10 secs. Orsiro 2. 5 x 26 Drug Eluting stent was inserted. Drug Eluting stent was advanced across the lesion in the firs t obtuse marginal, proximal. Angiogram performed post stent deployment. Angiogram performed post sten t deployment. Contrast was injected through the sheath and the Right Iliac and Femoral artery were as sessed for possible closure device. The arterial sheath was pulled and a Perclose closure device was deployed for hemostasis INTERVENTION INFORMATION LESION SITE: 1st OM (Proximal) Lesion Complexity: High/C, chronic total occlusion: No, lesion at bifurcation: Yes, thrombus present: No, lesion length: 25 mm, culprit lesion: Yes, Previously treated lesion: No Pre Stenosis: 95 % Pre intervention RYANN flow: 3 PROCEDURE: Drug Eluting Stent with pre dilatation. Post Stenosis: 0 % Post intervention RYANN flow: 3 Lesion Devices: Cardinal 6 Fr XB3.0 100cm Guide Catheter Snowden .014 BMW Hinkley Straight 190cm Biotronik Patriciairo MR JOSÉ LUIS 2.5x26 COMPLICATIONS No Complications PROCEDURE MEDICATIONS Oxygen: 2 L/min via nasal cannula Benadryl 25 mg IV @ 05/22/2021 08:28:37 Heparin 5000 unit(s) IV 05/22/2021 09:07:42 Nitro glycerin 25mg / 250ml D5W @ 5 mcg/min IV started prior to coming to the laborer 05/22/2021 08:2 6:53 Nitro glycerin 25mg / 250ml D5W 5 @ mcg/min discontinued 05/22/2021 09:18:24 Solu-medrol 125 mg IV 05/22/2021 08:28:44 SUMMARY OF HEMODYNAMIC DATA Time AIR REST ECG 08:23:20 AO 182/88 (127) SA 08:42:17 LV 177/14, 23 08:49:09 LV 179/15, 20 08:49:15 LV 170/18, 24 08:49:51 LV 176/13, 39 08:49:57 LVp 166/18, 22 08:50:02 AOp 172/86 (124) 08:50:07 Signed By Dinesh Nunez MD On 05/22/2021 9:56:46 AM Dinesh Nunez MD
[2021-05-22] MEDS: Polyethylene Glycol 3350 17 GM PACKET PO (11:39)
[2021-05-22] MEDS: Cholecalciferol (VIT D3) 25 MCG TABLET (1,000 UNITS) 50 MCG PO (11:39)
--- NOTE | 2021-05-22 11:44 | NURSING ---
heart cath bedrest complete @ 1130. Ambulated patient, no complaints of discomfort. Site remains soft, dsg C/D/I.
--- NOTE | 2021-05-22 13:16 | PN_ITS ---
Documented by User: NIMESH Beach 05/22/21 13:26 Subjective Subjective Patient seen and examined. Patient denies complaints following cardiac catheterization. Patient in bed no distress noted. Objective Data Objective Data Vital Signs: Vital Signs Temp Pulse Resp BP Pulse Ox 97.7 F L 79 16 111/73 95 05/22/21 11:00 05/22/21 11:00 05/22/21 11:00 05/22/21 11:00 05/22/21 11:00 Oxygen Delivery Method Room Air Weight: 167 lb 15.876 oz Body Mass Index (BMI) 25.5 Intake & Output: Intake and Output for Last 24 Hours 05/20/21 05/21/21 05/22/21 23:59 23:59 23:59 Intake Total 548.5 / 548.5 642.85 / 642.85 199.45 / 199.45 Output Total 800 / 800 675 / 675 Balance 548.5 / 548.5 -157.15 / -157.15 -475.55 / -475.55 Lab / Micro Data Result Diagrams: 05/22/21 04:56 05/22/21 04:56 Labs: Laboratory Results - last 24 hr 05/21/21 16:09: POC Glucose 123 H 05/21/21 22:14: POC Glucose 135 H 05/22/21 04:56: WBC 8.6, RBC 4.41, Hgb 15.0, Hct 41.0, MCV 93.0, MCH 34.0 H, MCHC 36.6 H, RDW Std Deviation 44.3 H, RDW Coeff of Annel 12.8, Plt Count 255, MPV 10.0, Immature Gran % (Auto) 0.500, Neut % (Auto) 47.8, Lymph % (Auto) 39.9, Monona % (Auto) 9.0, Eos % (Auto) 2.2, Baso % (Auto) 0.6, Absolute Neuts (auto) 4.1, Absolute Lymphs (auto) 3.43, Nucleated RBC % 0 05/22/21 04:56: Sodium 134 L, Potassium 4.2, Chloride 102, Carbon Dioxide 22.0, Anion Gap 10, BUN 16, Creatinine 0.68, Estim Creat Clear Calc 52.05, Est GFR ( MDRD) Af Amer 110, Est GFR (MDRD) Non-Af 91, BUN/Creatinine Ratio 23.5 H, Glucose 168 H, Calcium 9.1, Total Bilirubin 0.80, AST 29, ALT 56, Alkaline Phosp hatase 71, Total Protein 7.3, Albumin 3.9, Globulin 3.4, Albumin/Globulin Ratio 1.1 05/22/21 04:56: APTT 61.0 H 05/22/21 04:56: PT 14.2, INR 1.2 05/22/21 06:55: POC Glucose 169 H Micro: Microbiology 05/19/21 19:00 Nasal Secretion SARS-CoV-2 Antigen (Rapid) - Final Physical Exam Const alert, oriented x3 and no apparent distress General Appearance: cooperative HEENT normocephalic and head/scalp atraumatic Eyes conjunctivae normal and no scleral icterus Neck supple and no JVD General: trachea midline Resp normal respiratory effort, normal air movement and clear to auscultation bilaterally Cardio regular rate, regular rhythm, S1 normal heart sound and S2 normal heart sound Peripheral Pulses: pulses 2+ throughout GI normal to inspection, nondistended, normoactive bowel sounds, soft to palpation and non-tender Extremity normal capillary refill and no clubbing, cyanosis or edema General Extremity: no tenderness to palpation of joints or extremities Skin General Skin Exam: no breakdown and turgor normal Lesions: no lesions Rashes: no rashes Neuro no focal motor deficits and no sensory deficits noted Speech: speech normal Psych thought process normal, cooperative and affect normal Appearance: appropriate Assessment & Plan Assessment/Plan (1) Non-ST elevation (NSTEMI) myocardial infarction: PLAN: 1. Acute non-STEMI -Patient underwent cardiac catheterization this a.m. with Dr. Dominguez and Dr. Nunez, patient noted to have new circumflex lesion with subsequent stent placement per cardiology note. -Heparin and nitroglycerin drip discontinued -Echo ordered -Cardiac diet reordered -Troponin peaked at 324 -Patient denies further chest pain -Telemetry continues to demonstrate normal sinus rhythm, heart rate 79 -CBC and CMP ordered for a.m. We will continue patient home medications for all other chronic diseases including hypertension, CAD, prediabetes DVT prophylaxis-not indicated, patient currently on heparin drip This patient was seen by NIMESH Beach under the supervision of Dr. Cisneros. Documented by User: Dr. Carolyne Tyson DO 05/22/21 18:54 Subjective Subjective This patient was seen in conjunction with Diana Santillan NP. The following represents my independent history and physical examination. Please see below for addendum to the above. Patient states she is feeling fine. She has no chest pain since her cardiac catheterization and PCI was performed. She is hungry and eating breakfast. Objective Data Lab / Micro Data Result Diagrams: 05/22/21 04:56 05/22/21 04:56 Physical Exam Const alert, oriented x3 and no apparent distress General Appearance: cooperative and well developed HEENT normocephalic and head/scalp atraumatic Resp normal respiratory effort, normal air movement and clear to auscultation bilaterally Auscultation: Negative for rales, rhonchi or wheezes Cardio regular rate, regular rhythm, S1 normal heart sound, S2 normal heart sound, no murmurs, no rub and no gallops Peripheral Pulses: pulses 2+ throughout GI normal to inspection, nondistended, normoactive bowel sounds, soft to palpation, non-tender and non-distended Palpation: no hepatosplenomegaly Extremity no clubbing, cyanosis or edema Extremity Narrative: Postop catheterization compressive band on right wrist General Extremity: no tenderness to palpation of joints or extremities Neuro no focal motor deficits Speech: speech normal Psych affect normal Assessment & Plan Assessment/Plan (1) Non-ST elevation (NSTEMI) myocardial infarction: PLAN: Assessment: NSTEMI Hypertension Hyperlipidemia DM-2 Vitamin D deficiency Plan: -Patient underwent left heart cath today and PCI placed in new circumflex lesion -Continue current medication regimen -Echocardiogram is pending -Check hemoglobin A1c--> last done 07/27/2020 and was 6.1 -Patient currently only on low-dose Metformin -Probable discharge tomorrow if stable Charges/Coding Visit Charges Inpatient E&M: 65486 Subs Hosp L2
--- NOTE | 2021-05-22 13:27 | CRPHASE1_ITS ---
Patient Communication Former Patient:: Phase I - 06/25/2020, Phase II - 06/2020 PHII Cardiac Rehab Discussed with Patient:: Yes Guide to Cardiac Rehab Given to Patient:: Yes Cardiac Rehab Facility Choice List Given to Patient:: Yes Choice Program [facility] PHII:: Communication Given to CR, Refer to [facility] Gang Supervisor Pipe Lines:: Dinesh Nunez Refer Phase II Cardiac Rehab:: Yes Sessions:: 36 sessions - 3 days/wk, 12 weeks Cardiac Rehabilitation Info Cardiac Rehabilitation Program Information: Cardiac Rehabilitation is important for patients like you who are recovering from a heart problem. Cardiac rehabilitation programs are recognized as integral to the continued care of the patient with coronary heart disease. The cardiac rehabilitation program is designed to optimize a patient's physical, psychological, and social functioning. Health health care / medical job titles work in cardiac rehabilitation programs and assist you with getting the treatments you need to get stronger and healthier - like exercise, healthy eating habits, and medications. Cardiac rehabilitation has been show to help people with heart problems live longer and have better life enjoyment than people who do not go to cardiac rehabilitation. Please contact the Cardiac Rehabilitation Program at [facility] at in two weeks if you have not heard from them.
--- NOTE | 2021-05-22 13:29 | CRPH1.INSTRU ---
General Education CAD and cardiac anatomy and function:: Patient communicates acknowledgment Explanation of diagnoses and procedures:: Patient communicates acknowledgment Sign/Symptoms of MD:: Patient communicates acknowledgment Antiplatelet therapy: Patient communicates acknowledgment Proper use of NTG-SL: Patient communicates acknowledgment Emergency procedures and activation of EMS: Patient communicates acknowledgment Compliance of all prescribed medications: Patient communicates acknowledgment - Patient was a former Phase I PCI case on 06/25/2020 and participated in Phase II Outpatient Cardiac Rehab
[2021-05-22 13:52] LABS: Bedside Glucose 334 mg/dL (70-110)
[2021-05-22] MEDS: Insulin Lispro 100 UNIT/ML INSULN.PEN SC ×3 (13:52→22:45)
--- NOTE | 2021-05-22 14:51 | CHAPLAIN ---
Type of Pastoral Visit _x__ Initial Visit ___ Follow-up Visit ___ On-call Visit ___ General Patient Visit ___ Spiritual Assessment ___ Family Conference ___ Bereavement ___ Rapid Response ___ Code Blue ___ Other (describe below) Pastoral Care Referral From _x__ Patient ___ Family ___ Nurse ___ Physician ___ Wire Hanger ___ Elevator Troubleshooter ___ Other (describe below) Sacrament/Intervention _x__ Active listening ___ Anointing ___ Scientology ___ Bereavement ___ Communion _x__ Karolina exploration ___ _x__ Life review _x__ Prayer ___ Reconciliation ___ Sacrament of Sick _x__ Supportive presence ___ Wedding ___ Other (describe below) Pastoral Comments patient talked non stop for about 30 minutes giving much life review and explanation for what she called her stressors; pt has had significant losses and disappointments in life; pt describes very little support from family or friends and 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
--- NOTE | 2021-05-22 16:34 | NURSING ---
This RN reviewed SN charting
[2021-05-22 17:26] LABS: Bedside Glucose 350 mg/dL (70-110)
[2021-05-22] MEDS: 0.9% Saline Lock 10 ML Syringe IV (22:45)
[2021-05-22 22:50] LABS: Bedside Glucose 268 mg/dL (70-110)
--- NOTE | 2021-05-23 | NURSING ---
Assumed care of pt at this time.
[2021-05-23 03:00] VITALS: PULSE 73
[2021-05-23 03:20] VITALS: BP 135/67; PULSE 80; RESP 18; TEMP 36.7; O2SAT 94
[2021-05-23] MEDS: Insulin Lispro 100 UNIT/ML INSULN.PEN SC (06:36)
[2021-05-23 06:46] LABS: Bedside Glucose 189 mg/dL (70-110)
[2021-05-23 06:52] VITALS: PULSE 66
[2021-05-23 07:19] LABS: Hemoglobin 14.5 g/dL (12.0-15.0); Mean Corp Hgb Conc 37.2 g/dL (32-36); Mean Corpuscular Hgb 34.6 pg (27.0-32.0); Mean Corpuscular Volume 93.1 fL (81-99); Mean Platelet Vol. 9.9 fl (6.2-12.0); Platelet Count 260 K/mm3 (150-450); RBC Distribution Width CV 12.6 % (11.6-14.6); Red Blood Count 4.19 M/mm3 (4.2-5.4); White Blood Count 14.6 K/mm3 (4.4-11.0)
[2021-05-23 07:53] LABS: ALB/GLOB Ratio 1.1 RATIO (0.9-2.4); AST(SGOT) 26 U/L (15-37); Alanine Aminotransfer ALT/SGPT 57 U/L (13-56); Albumin, Serum 3.7 g/dL (3.2-5.0); Alkaline Phosphatase 71 U/L (45-117); Anion Gap 10 (5-15); BUN 17 mg/dL (7-18); BUN/Creat Ratio 20.9 RATIO (10-20); Calcium,Total 9.4 mg/dL (8.5-10.1); Chloride 103 mmol/L (98-107); Creatinine, Serum 0.81 mg/dL (0.55-1.02); EST Glomerular Filtration Rate 74 mL/min (>60); Est Glom Filt Rate - Afr Amer 89 mL/min (>60); Estimated Creatinine Clearance 64.26 ml/min; Globulin 3.5 g/dL (2.2-4.2); Glucose 178 mg/dL (74-106); Potassium 4.2 mmol/L (3.5-5.1); Protein, Total 7.2 g/dL (6.4-8.2); Sodium Level 135 mmol/L (136-145)
--- NOTE | 2021-05-23 08:33 | PN.CARD_ITS ---
Subjective Subjective Patient seen and evaluated. Appears to be doing well. Status post angioplasty. Objective Data Vital Signs: Vital Signs Temp Pulse Resp BP Pulse Ox 98.1 F 66 18 135/67 H 94 05/23/21 03:20 05/23/21 06:52 05/23/21 03:20 05/23/21 03:20 05/23/21 03:20 Oxygen Delivery Method Room Air Weight: 167 lb 15.876 oz Body Mass Index (BMI) 25.5 Intake & Output: Intake and Output for Last 24 Hours 05/21/21 05/22/21 05/23/21 23:59 23:59 23:59 Intake Total 642.85 / 642.85 1082.78 / 1082.78 Output Total 800 / 800 675 / 675 Balance -157.15 / -157.15 407.78 / 407.78 Lab / Micro Data Result Diagrams: 05/23/21 06:55 05/23/21 06:55 Labs: Laboratory Results - last 24 hr 05/22/21 13:50: POC Glucose 334 H 05/22/21 17:20: POC Glucose 350 H 05/22/21 22:46: POC Glucose 268 H 05/23/21 06:36: POC Glucose 189 H 05/23/21 06:55: WBC 14.6 H, RBC 4.19 L, Hgb 14.5, Hct 39.0, MCV 93.1, MCH 34.6 H , MCHC 37.2 H, RDW Std Deviation 43.0, RDW Coeff of Annel 12.6, Plt Count 260, MPV 9.9 05/23/21 06:55: Sodium 135 L, Potassium 4.2, Chloride 103, Carbon Dioxide 22.0, Anion Gap 10, BUN 17, Creatinine 0.81, Estim Creat Clear Calc 64.26, Est GFR (MDRD) Af Amer 89, Est GFR (MDRD) Non-Af 74, BUN/Creatinine Ratio 20.9 H, Gluc ose 178 H, Calcium 9.4, Total Bilirubin 0.80, AST 26, ALT 57 H, Alkaline Phosphatase 71, Total Protein 7.2, Albumin 3.7, Globulin 3.5, Albumin/Globulin Ratio 1.1 Cardiology Labs/Tests 05/23/21 06:55: WBC 14.6 H, RBC 4.19 L, Hgb 14.5, Hct 39.0, MCV 93.1, MCH 34.6 H , MCHC 37.2 H, Plt Count 260, MPV 9.9 05/23/21 06:55: Sodium 135 L, Potassium 4.2, Chloride 103, Carbon Dioxide 22.0, Anion Gap 10, BUN 17, Creatinine 0.81, Est GFR (MDRD) Af Amer 89, Est GFR (MDRD) Non-Af 74, BUN/Creatinine Ratio 20.9 H, Glucose 178 H, Calcium 9.4, Total Bilirubin 0.80 Rhythm: EKG: ECHO: Stress Test: Cardiac Cath: PCI: CT Surgery: Holter monitor: EPS: PPM: CXR: Chest CT Scan: Physical Exam Const alert, oriented x3 and no apparent distress General Appearance: cooperative HEENT hearing grossly normal bilaterally Head and Scalp: atraumatic Eyes EOMs intact bilaterally Neck General: normal visual inspection Chest inspection of chest normal and palpation of chest normal Resp normal respiratory effort Auscultation: clear to auscultation bilaterally Cardio regular rate, regular rhythm, S1 normal heart sound and S2 normal heart sound Jugular Venous Distention: JVD GI normal to inspection, nondistended, normoactive bowel sounds Extremity normal capillary refill and no pedal edema Peripheral Pulses: Yes pulses 2+ throughout and femoral pulses present Skin no rashes or lesions noted Neuro oriented x3 and CN's II-XII intact bilaterally Psych Appearance: grossly normal and appropriate Assessment & Plan Assessment/Plan (1) Atherosclerotic heart disease of [place] coronary artery without angina pectoris: QUALIFIERS: [place] vs. transplanted heart: [place] heart Qualified Code(s): I25.10 - Atherosclerotic heart disease of [place] coronary artery without angina pectoris PLAN: Patient has known atherosclerotic cardiovascular disease. She underwent cardiac catheterization which demonstrated the following: Normal left main coronary artery Left anterior descending artery with previously placed stent patent and mild to moderate mid segment disease Left circumflex artery with second obtuse marginal branch with 80 to 90% stenosis Right coronary artery which is dominant with previously placed stent which is patent Preserved left ventricular systolic function. The patient underwent angioplasty and stenting of the circumflex artery successfully. Will be discharged home for outpatient follow-up. (2) HLD (hyperlipidemia): QUALIFIERS: Hyperlipidemia type: unspecified Qualified Code(s): E 78.5 - Hyperlipidemia, unspecified PLAN: Patient has not been able to tolerate statins in the past. Would recommend that the patient be considered for Repatha as an outpatient (3) Essential hypertension: PLAN: Blood pressure under suboptimal control at this time we'll try and see whether 1 can optimize blood pressure medications. (4) Non-ST elevation (NSTEMI) myocardial infarction: PLAN: This patient presented with symptoms of chest pain Had known history of CAD with a PCI and stent of the mid RCA in June 27, 2020 prior to that she had a PCI and stent in [facility] to the LAD in May 22, 2014 subsequently had in-stent restenosis and had a PCI of the proximal LAD in February 20, 2021 using drug-eluting stent. * As noted above a new circumflex lesion has developed. * * Thank you for allowing me to participate in the care of your patient. Please don't hesitate to call if any issues arise.
[2021-05-23 08:34] LABS: Hemoglobin A1c 5.7 % (3.8-5.6)
[2021-05-23] MEDS: Aspirin E.C. 81 MG Tablet PO (08:53)
[2021-05-23] MEDS: Clopidogrel Bisulfate 75 MG Tablet PO (08:53)
[2021-05-23] MEDS: Cholecalciferol (VIT D3) 25 MCG TABLET (1,000 UNITS) 50 MCG PO (08:53)
[2021-05-23] MEDS: Polyethylene Glycol 3350 17 GM PACKET PO (08:54)
[2021-05-23] MEDS: Carvedilol 12.5 MG Tablet PO (08:54)
[2021-05-23 08:55] VITALS: BP 144/60; PULSE 80; RESP 16; TEMP 36.7; O2SAT 97
--- NOTE | 2021-05-23 10:00 | EKG12_ITS ---
Test Reason : AM EKG Blood Pressure : / mmHG Vent. Rate : 079 BPM Atrial Rate : 079 BPM P-R Int : 202 ms QRS Dur : 078 ms QT Int : 380 ms P-R-T Axes : 061 031 050 degrees QTc Int : 435 ms Normal sinus rhythm Normal ECG When compared with ECG of 22-MAY-2021 10:16, MANUAL COMPARISON REQUIRED, DATA IS UNCONFIRMED Confirmed by ENRIKE GONZALES, EVANS ([id number]), script editor JUAN HOUSE ([id number]) on 05/25/2021 1:50:38 PM Referred By: JOCELYNE Confirmed By:EVANS CALVERT MD
--- NOTE | 2021-05-23 11:26 | PCM.DC ---
Discharge Instructions Diet Discharge Diet: Low fat / Low cholesterol Activity Discharge Activity: May Shower (05/24/2021) Dressing / Incision Call your doctor if your incision/area has: Continuous Slow Oozing, Sudden Increased Bleeding and Swelling at the incision site Call your doctor if you observe: Chest pain Cleanse incision/area with: Keep Dressing Clean & Dry Follow Up Care Please Follow Up With: Beltran Dominguez MD When: 06/07/21 0835 Test Results: Test results from this visit will be discussed in further detail at your follow-up appointment, if applicable. Discharge Plan Admission Admit Date/Time: 05/19/21 20:29 Primary Reason for Your Visit: Chest Pain Attending Provider: Cody Collins Primary Care Provider: Gideon Turcios Consulting Providers: Pili Caldwell Instructions Patient Instructions: CAD, Heart Attack: Leaving the Hospital, ED Chest Pain, Noncardiac Discharge Orders/Prescriptions Prescriptions: Continued aspirin [Adult Low Dose Aspirin] 81 mg tablet,delayed release (DR/EC) 81 mg PO DAILY RF: 0 cholecalciferol (vitamin D3) 50 mcg (2,000 unit) capsule 50 mcg PO DAILY RF: 0 potassium gluconate 600 mg (99 mg) tablet 600 mg (99 mg) tablet 600 mg PO DAILY RF: 0 metformin 500 mg tablet 500 mg PO BID RF: 0 clopidogrel 75 mg tablet 75 mg PO DAILY Qty: 90 RF: 3 omega 4-sid-veq-fish oil 500 MG capsule,delayed release(DR/EC) 1,000 mg PO DAILY RF: 0 L.acidoph-B.long-L.plant-B.lac 1 EACH capsule 1 ea PO DAILY RF: 0 polyethylene glycol 3350 17 GM powder in packet 17 gm PO DAILY RF: 0 loratadine 10 MG tablet 10 mg PO DAILY RF: 0 lutein 20 MG capsule 20 mg PO DAILY RF: 0 vitamin E 400 unit Tablet 400 unit PO MOWEFR RF: 0 estradiol [Estrace] 0.01 % (0.1 mg/gram) Cream 1 appful VAGINAL SUWEFR RF: 0 vitamin B complex Capsule 1 cap PO DAILY RF: 0 cranberry 1,000 mg Capsule 4,200 mg PO QWEEK RF: 0 zinc 50 mg Capsule 50 mg PO TUTHSA RF: 0 phytosterol combination no.1 500 mg Capsule 1,000 mg PO DAILY RF: 0 red yeast rice 600 mg Tablet 1,200 mg PO DAILY RF: 0 carvedilol 12.5 mg tablet 12.5 mg PO BID Qty: 180 RF: 3 Referrals / Follow Up: Gideon Turcios DO [Primary Care Provider] - 05/31/21 9:40 am Lisandro Baptiste MD [STAFF PHYSICIAN] - 06/07/21 1:45 pm Disposition Disposition (needs filled in before D/C Order can be placed): Home, Self Care
--- NOTE | 2021-05-23 11:37 | DS.PCM_ITS ---
Documented by User: NIMESH Beach 05/23/21 11:44 Providers Date of Admission: 05/19/21 Primary Care Physician: Dr. Gideon Turcios, Consultations 05/19/21 20:29 Consult: Cardiology Routine Consulting Provider: Pili Caldwell Reason for Consult: CHEST PAIN EMERGENT Consult: No MD Notified: Yes Date Notified: 05/20/21 Time Notified: 07:37 Method of Notification: Text Reason For Visit: NSTEMI Diagnosis Discharge Diagnosis (1) Atherosclerotic heart disease of [place] coronary artery without angina pectoris: Status: Chronic Code(s): I25.10 - Atherosclerotic heart disease of [place] coronary artery without angina pectoris Qualifiers: [place] vs. transplanted heart: [place] heart Qualified Code(s): I25.10 - Atherosclerotic heart disease of [place] coronary artery without angina pectoris (2) HLD (hyperlipidemia): Status: Acute Code(s): E78.5 - Hyperlipidemia, unspecified Qualifiers: Hyperlipidemia type: unspecified Qualified Code(s): E78.5 - Hyperlipidemia, unspecified (3) Essential hypertension: Status: Chronic Code(s): I10 - Essential (primary) hypertension (4) Non-ST elevation (NSTEMI) myocardial infarction: Status: Acute Code(s): I21.4 - Non-ST elevation (NSTEMI) myocardial infarction Medications at Discharge Home Medications Grisel-Oskar-Shantplant-BKassilac 1 ea PO DAILY 05/27/14 omega 5-mzo-sdc-fish oil 1,000 mg PO DAILY 05/27/14 aspirin 81 mg tablet,delayed release 81 mg PO DAILY 04/30/18 loratadine 10 mg PO DAILY 08/06/18 lutein 20 mg PO DAILY 08/06/18 polyethylene glycol 3350 17 gm PO DAILY 08/06/18 cholecalciferol (vitamin D3) 50 mcg (2,000 unit) capsule 50 mcg PO DAILY 08/03/20 carvedilol 12.5 mg tablet 12.5 mg PO BID #180 tab 10/11/20 clopidogrel 75 mg tablet 75 mg PO DAILY #90 tab 11/11/20 metformin 500 mg tablet 500 mg PO BID 11/11/20 potassium gluconate 600 mg (99 mg) tablet 600 mg PO DAILY 11/11/20 cranberry 4,200 mg PO QWEEK 02/19/21 estradiol [Estrace] 1 appful VAGINAL SUWEFR 02/19/21 phytosterol combination no.1 1,000 mg PO DAILY 02/19/21 red yeast rice 1,200 mg PO DAILY 02/19/21 vitamin B complex 1 cap PO DAILY 02/19/21 vitamin E 400 unit PO MOWEFR 02/19/21 zinc 50 mg PO TUTHSA 02/19/21 Hospital Course Operations None Procedures 2-D Echocardiogram, Cardiac catheterization and EKG Summary of Care Provided Minutes Spent on Discharge: 35 Hospital Course: Is a 70-year-old female who presented to the ER with chest pain. Patient has a history of atherosclerotic heart disease with stent placement. On 05/22/21 patient Physical Exam Const alert, oriented x3 and no apparent distress General Appearance: cooperative and well developed HEENT normocephalic and head/scalp atraumatic Eyes conjunctivae normal and no scleral icterus Neck supple and no JVD General: trachea midline Resp normal respiratory effort, normal air movement and clear to auscultation bilaterally Auscultation: Negative for rales, rhonchi or wheezes Cardio regular rate, regular rhythm, S1 normal heart sound, S2 normal heart sound, no murmurs, no rub and no gallops Peripheral Pulses: pulses 2+ throughout GI normal to inspection, nondistended, normoactive bowel sounds, soft to palpation, non-tender and non-distended Palpation: no hepatosplenomegaly Extremity normal capillary refill and no clubbing, cyanosis or edema Extremity Narrative: Postop catheterization compressive band on right wrist General Extremity: no tenderness to palpation of joints or extremities Skin General Skin Exam: no breakdown and turgor normal Lesions: no lesions Rashes: no rashes Neuro no focal motor deficits and no sensory deficits noted Speech: speech normal Psych thought process normal, cooperative and affect normal Appearance: appropriate Weight / BMI Weight Weight: 167 lb 15.876 oz Body Mass Index (BMI) 25.5 ABG / Lab / Microbiology Data Result Diagrams: 05/23/21 06:55 05/23/21 06:55 Laboratory: Laboratory Results - last 24 hr 05/22/21 13:50: POC Glucose 334 H 05/22/21 17:20: POC Glucose 350 H 05/22/21 22:46: POC Glucose 268 H 05/23/21 06:36: POC Glucose 189 H 05/23/21 06:55: WBC 14.6 H, RBC 4.19 L, Hgb 14.5, Hct 39.0, MCV 93.1, MCH 34.6 H , MCHC 37.2 H, RDW Std Deviation 43.0, RDW Coeff of Annel 12.6, Plt Count 260, MPV 9.9 05/23/21 06:55: Sodium 135 L, Potassium 4.2, Chloride 103, Carbon Dioxide 22.0, Anion Gap 10, BUN 17, Creatinine 0.81, Estim Creat Clear Calc 64.26, Est GFR (MDRD) Af Amer 89, Est GFR (MDRD) Non-Af 74, BUN/Creatinine Ratio 20.9 H, Glucose 178 H, Calcium 9.4, Total Bilirubin 0.80, AST 26, ALT 57 H, Alkaline Phosphatase 71, Total Protein 7.2, Albumin 3.7, Globulin 3.5, Albumin/Globulin Ratio 1.1 05/23/21 06:55: Hemoglobin A1c 5.7 H Microbiology: Microbiology 05/19/21 19:00 Nasal Secretion SARS-CoV-2 Antigen (Rapid) - Final Radiography Diagnostic Testing: Radiology Impression Echocardiogram 05/22/21 05:55 Interpretation Summary Normal LV size. Left ventricular systolic function is normal. The estimated ejection fraction is 60 %. Stage 1 diastolic dysfunction. Structurally normal valves. ___ Ordering Physician: Pili Caldwell Referring Physician: Gideon Turcios Performed By: Sylvia Benedict, VIDAL, RVT D/C Instructions Discharge Diet: Low fat / Low cholesterol Call your doctor if your incision/area has: Continuous Slow Oozing, Sudden Increased Bleeding and Swelling at the incision site Call your doctor if you observe: Chest pain Cleanse incision/area with: Keep Dressing Clean & Dry Please Follow Up With: Lisandro Baptiste MD When: 06/07/21 8415 Meaningful Use Info Meaningful Use Diagnoses (Choose all that apply): AMI AMI/Post PCI/Angioplasty Aspirin given w/in 24hrs of arrival?: Yes ASA at discharge?: Yes Antiplatelet Therapy at Discharge:: Yes Statins at discharge?: No Reason statins not ordered:: Allergy Bryce/ARB at discharge?: No Reason Bryce/ARB not ordered:: Not indicated Beta Natalia at discharge?: Yes Done w/ Acute MO measure.: Yes Documented LVEF (%): 60 Discharge Plan Admission Admit Date/Time: 05/19/21 20:29 Primary Reason for Your Visit: Chest Pain Attending Provider: Cody Collins Primary Care Provider: Gideon Turcios Consulting Providers: Pili Caldwell Instructions Patient Instructions: CAD, Heart Attack: Leaving the Hospital, ED Chest Pain, Noncardiac Discharge Orders/Prescriptions Prescriptions: Continued aspirin [Adult Low Dose Aspirin] 81 mg tablet,delayed release (DR/EC) 81 mg PO DAILY RF: 0 cholecalciferol (vitamin D3) 50 mcg (2,000 unit) capsule 50 mcg PO DAILY RF: 0 potassium gluconate 600 mg (99 mg) tablet 600 mg (99 mg) tablet 600 mg PO DAILY RF: 0 metformin 500 mg tablet 500 mg PO BID RF: 0 clopidogrel 75 mg tablet 75 mg PO DAILY Qty: 90 RF: 3 omega 7-kuo-qqn-fish oil 500 MG capsule,delayed release(DR/EC) 1,000 mg PO DAILY RF: 0 L.acidoph-B.long-L.plant-B.lac 1 EACH capsule 1 ea PO DAILY RF: 0 polyethylene glycol 3350 17 GM powder in packet 17 gm PO DAILY RF: 0 loratadine 10 MG tablet 10 mg PO DAILY RF: 0 lutein 20 MG capsule 20 mg PO DAILY RF: 0 vitamin E 400 unit Tablet 400 unit PO MOWEFR RF: 0 estradiol [Estrace] 0.01 % (0.1 mg/gram) Cream 1 appful VAGINAL SUWEFR RF: 0 vitamin B complex Capsule 1 cap PO DAILY RF: 0 cranberry 1,000 mg Capsule 4,200 mg PO QWEEK RF: 0 zinc 50 mg Capsule 50 mg PO TUTHSA RF: 0 phytosterol combination no.1 500 mg Capsule 1,000 mg PO DAILY RF: 0 red yeast rice 600 mg Tablet 1,200 mg PO DAILY RF: 0 carvedilol 12.5 mg tablet 12.5 mg PO BID Qty: 180 RF: 3 Referrals / Follow Up: Gideon Turcios DO [Primary Care Provider] - 05/31/21 9:40 am Lisandro Baptiste MD [STAFF PHYSICIAN] - 06/07/21 1:45 pm Disposition Disposition (needs filled in before D/C Order can be placed): Home, Self Care Documented by User: Dr. Cody Collins MD 05/23/21 15:30 Providers Date of Admission: 05/19/21 Reason For Visit: NSTEMI Medications at Discharge Home Medications Grisel-Ryleeplant-B.lac 1 ea PO DAILY 05/27/14 omega 6-zut-yax-fish oil 1,000 mg PO DAILY 05/27/14 aspirin 81 mg tablet,delayed release 81 mg PO DAILY 04/30/18 loratadine 10 mg PO DAILY 08/06/18 lutein 20 mg PO DAILY 08/06/18 polyethylene glycol 3350 17 gm PO DAILY 08/06/18 cholecalciferol (vitamin D3) 50 mcg (2,000 unit) capsule 50 mcg PO DAILY 08/03/20 carvedilol 12.5 mg tablet 12.5 mg PO BID #180 tab 10/11/20 clopidogrel 75 mg tablet 75 mg PO DAILY #90 tab 11/11/20 metformin 500 mg tablet 500 mg PO BID 11/11/20 potassium gluconate 600 mg (99 mg) tablet 600 mg PO DAILY 11/11/20 cranberry 4,200 mg PO QWEEK 02/19/21 estradiol [Estrace] 1 appful VAGINAL SUWEFR 02/19/21 phytosterol combination no.1 1,000 mg PO DAILY 02/19/21 red yeast rice 1,200 mg PO DAILY 02/19/21 vitamin B complex 1 cap PO DAILY 02/19/21 vitamin E 400 unit PO MOWEFR 02/19/21 zinc 50 mg PO TUTHSA 02/19/21 Hospital Course Operations None Summary of Care Provided Minutes Spent on Discharge: 35 Hospital Course: Patient is a 70-year-old lady with known coronary artery disease who presented with chest pain. An assessment of acute non-STEMI made admitted to monitored bed treated initiated per protocol ?Cardiology was consulted patient underwent left heart catheterization which demonstrated Normal left main coronary artery Left anterior descending artery with previously placed stent patent and mild to moderate mid segment disease Left circumflex artery with second obtuse marginal branch with 80 to 90% stenosis Right coronary artery which is dominant with previously placed stent which is patent Preserved left ventricular systolic function. The patient underwent angioplasty and stenting of the circumflex artery. Patient was discharged home on recommended medications. She was not sent home on statins due to previous intolerance. Plan is for patient to be considered for Repatha as outpatient ABG / Lab / Microbiology Data Result Diagrams: 05/23/21 06:55 05/23/21 06:55 Discharge Plan Admission Admit Date/Time: 05/19/21 20:29 Primary Reason for Your Visit: Chest Pain Attending Provider: Cody Collins Primary Care Provider: Gideon Turcios Consulting Providers: Pili Caldwell Instructions Patient Instructions: CAD, Heart Attack: Leaving the Hospital, ED Chest Pain, Noncardiac Discharge Orders/Prescriptions Prescriptions: Continued aspirin [Adult Low Dose Aspirin] 81 mg tablet,delayed release (DR/EC) 81 mg PO DAILY RF: 0 cholecalciferol (vitamin D3) 50 mcg (2,000 unit) capsule 50 mcg PO DAILY RF: 0 potassium gluconate 600 mg (99 mg) tablet 600 mg (99 mg) tablet 600 mg PO DAILY RF: 0 metformin 500 mg tablet 500 mg PO BID RF: 0 clopidogrel 75 mg tablet 75 mg PO DAILY Qty: 90 RF: 3 omega 0-ase-ujx-fish oil 500 MG capsule,delayed release(DR/EC) 1,000 mg PO DAILY RF: 0 L.acidoph-B.long-L.plant-B.lac 1 EACH capsule 1 ea PO DAILY RF: 0 polyethylene glycol 3350 17 GM powder in packet 17 gm PO DAILY RF: 0 loratadine 10 MG tablet 10 mg PO DAILY RF: 0 lutein 20 MG capsule 20 mg PO DAILY RF: 0 vitamin E 400 unit Tablet 400 unit PO MOWEFR RF: 0 estradiol [Estrace] 0.01 % (0.1 mg/gram) Cream 1 appful VAGINAL SUWEFR RF: 0 vitamin B complex Capsule 1 cap PO DAILY RF: 0 cranberry 1,000 mg Capsule 4,200 mg PO QWEEK RF: 0 zinc 50 mg Capsule 50 mg PO TUTHSA RF: 0 phytosterol combination no.1 500 mg Capsule 1,000 mg PO DAILY RF: 0 red yeast rice 600 mg Tablet 1,200 mg PO DAILY RF: 0 carvedilol 12.5 mg tablet 12.5 mg PO BID Qty: 180 RF: 3 Referrals / Follow Up: Gideon Turcios DO [Primary Care Provider] - 05/31/21 9:40 am Lisandro Baptiste MD [STAFF PHYSICIAN] - 06/07/21 1:45 pm Disposition Disposition (needs filled in before D/C Order can be placed): Home, Self Care Charges/Coding Visit Charges Inpatient E&M: 70055 Disch Hosp Hospital Course Consultations Consultations: Consultations 05/19/21 20:29 Consult: Cardiology Routine Consulting Provider: Pili Caldwell Reason for Consult: CHEST PAIN EMERGENT Consult: No MD Notified: Yes Date Notified: 05/20/21 Time Notified: 07:37 Method of Notification: Text Operations None
--- NOTE | 2021-05-23 11:45 | PHA.DC.MR ---
Pharmacy Service has performed discharge medication reconciliation for this patient. The patient's discharge medication list was reviewed for discrepancies and discrepancies were resolved. Home Medications L.acidnafisa-Oskar-Dimitris.plant-B.lac 1 ea PO DAILY 05/27/14 omega 7-rfj-tal-fish oil 1,000 mg PO DAILY 05/27/14 aspirin 81 mg tablet,delayed release 81 mg PO DAILY 04/30/18 loratadine 10 mg PO DAILY 08/06/18 lutein 20 mg PO DAILY 08/06/18 polyethylene glycol 3350 17 gm PO DAILY 08/06/18 cholecalciferol (vitamin D3) 50 mcg (2,000 unit) capsule 50 mcg PO DAILY 08/03/20 carvedilol 12.5 mg tablet 12.5 mg PO BID #180 tab 10/11/20 clopidogrel 75 mg tablet 75 mg PO DAILY #90 tab 11/11/20 metformin 500 mg tablet 500 mg PO BID 11/11/20 potassium gluconate 600 mg (99 mg) tablet 600 mg PO DAILY 11/11/20 cranberry 4,200 mg PO QWEEK 02/19/21 estradiol [Estrace] 1 appful VAGINAL SUWEFR 02/19/21 phytosterol combination no.1 1,000 mg PO DAILY 02/19/21 red yeast rice 1,200 mg PO DAILY 02/19/21 vitamin B complex 1 cap PO DAILY 02/19/21 vitamin E 400 unit PO MOWEFR 02/19/21 zinc 50 mg PO TUTHSA 02/19/21
[2021-05-23 11:54] VITALS: BP 135/54; PULSE 106; RESP 16; TEMP 36.6; O2SAT 96
--- NOTE | 2021-05-25 13:26 | CASEMGMT ---
CHERELLE ROSARIO Discharge Follow-up Phone Call: SAMANTHA: Gume Strata: 4 Call Date: 05/25/21 Discharge Date: 05/23/21 Time of Call: 1320 Admitting Diagnosis: NSTEMI This CHERELLE ROSARIO contacted pt for discharge follow-up. Pt states she has been doing well since discharge. States her groin site has been without bleeding or swelling. Pt denies any chest pain or palpitations. States she removed the dressing this morning and took a shower without difficulty. Pt noted to continue her home medications as prior. Pt aware of her follow-up appointments. Pt relayed her understanding of her DM condition and states she checks her sugar once a week. Pt also explained in detail her inability to take statins, and her research regarding alternatives. Pt denies any questions or concerns regarding her discharge instructions or health conditions at this time. Shant Dee RN CM
== END 2021-05-23 12:12 | disposition home or self-care (01) | DRG 247 ==
LOC: ED 19:59 → PCU 20:02
PROVIDERS: Internal Medicine; Specialist; Admitting Provider Hospitalist; Emergency Provider Emergency Medicine; PCP Family Medicine; Visit Provider Internal Medicine
DX: I21.4 Non-ST elevation (NSTEMI) myocardial infarction (principal); I25.110 Atherosclerotic heart disease of native coronary artery with unstable angina pectoris; I10 Essential (primary) hypertension; E11.65 Type 2 diabetes mellitus with hyperglycemia; E11.40 Type 2 diabetes mellitus with diabetic neuropathy, unspecified; E11.51 Type 2 diabetes mellitus with diabetic peripheral angiopathy without gangrene; E78.5 Hyperlipidemia, unspecified; E55.9 Vitamin D deficiency, unspecified; I25.2 Old myocardial infarction; Z95.5 Presence of coronary angioplasty implant and graft; Z79.82 Long term (current) use of aspirin; Z79.02 Long term (current) use of antithrombotics/antiplatelets; Z79.84 Long term (current) use of oral hypoglycemic drugs; Z79.899 Other long term (current) drug therapy; Z86.718 Personal history of other venous thrombosis and embolism
CPT/HCPCS: 36415; 71045; 80048; 80053; 80061; 82962; 83036; 84484; 85025; 85027; 85610; 85730; 87426; 92928; 93005; 93306; 93458; 97802; 99285; C1874; J7030; J7040; Q9967; A4216; C1725; C1760; C1769; C1887; C9600

== ENCOUNTER → 2021-06-27 15:04 | Outpatient (CLI) | payer MEDICARE, BC, SELFPAY ==
--- NOTE | 2021-06-27 15:06 | BI_ITS ---
MAMMOGRAPHY - BILATERAL SCREENING REASON FOR EXAM: Female, 70 years old. Routine annual screening examination. PERTINENT HISTORY: Non-contributory. TECHNIQUE: Digital bilateral breast sol (3D mammographic acquisition) in the CC and MLO projections. 2-D mediolateral oblique (MLO) and craniocaudad (CC) views of both breasts were obtained. CAD: Full Field Digital Mammography with Computer Added Detection was performed. COMPARISON: Comparison is made with prior examination dated 06/23/2028 and 06/08/2019. FINDINGS: Breast Composition: There are scattered areas of fibroglandular density. There are no dominant masses or suspicious calcifications. No other significant abnormalities are identified. There has been no significant change since the prior study. BI/SCRN MAMM (CAD)W/SOL BILAT IMPRESSION: Stable bilateral screening mammogram. Yearly follow-up mammogram recommended. (A) ASSESSMENT CATEGORY: BIRADS Category 1: Negative. A letter regarding these results will be sent to the patient by the facility within 30 days. Approximately 10% of breast cancers are not detected by mammography. A normal mammogram should not delay biopsy of a clinically suspicious abnormality. [id number] Electronically Signed: Josr Phillips MD at 15:45 EDT , Service support ,
== END ==
PROVIDERS: PCP Family Medicine; Referring Provider Obstetrics & Gynecology; Visit Provider Obstetrics & Gynecology
DX: Z12.31 Encounter for screening mammogram for malignant neoplasm of breast (principal)
CPT/HCPCS: 77063; 77067

== ENCOUNTER 2021-09-27 09:42 | Outpatient (CLI) | payer MEDICARE, BC, SELFPAY ==
[2021-09-27 19:37] LABS: M R Staph aureus DNA By PCR Negative (Negative); Probe Check PASS; Specimen Processing Control PASS; Staph aureus DNA By PCR NEGATIVE (Negative)
== END 2021-09-27 23:59 | disposition short-term general hospital (02) ==
PROVIDERS: PCP Family Medicine; Visit Provider Podiatrist
DX: L03.032 Cellulitis of left toe (principal)
CPT/HCPCS: 87070; 87075; 87186; 87205; 87640

== ENCOUNTER → 2022-01-01 | Outpatient (CLI) | payer MEDICARE, BC, SELFPAY ==
--- NOTE | 2022-01-01 13:45 | ART_ITS ---
Reason For Study: PVD Procedure A bilateral lower extremity continuous wave Doppler with analog waveform analysis,segmental pressures,and ankle brachial indexes with exercise. Left Segmental Pressures Left brachial= 170mmHg. Left thigh = 187mmHg. Left calf = 167mmHg. Left posterior tibial artery = 126mmHg. Left dorsalis pedis artery = 151mmHg. Left digit = 47 mmHg. The left dorsalis pedis waveforms are biphasic. The left posterior tibial artery waveforms are biphasic. Right Segmental Pressures Right thigh = 159mmHg. Right calf = 143mmHg. Right posterior tibial artery = 120mmHg. Right dorsalis pedis artery = 123mmHg. Right digit = 58 mmHg. The right dorsalis pedis waveforms are biphasic. The right posterior tibial artery waveforms are biphasic. Indices The right ankle brachial index by the dorsalis pedis is .72. The right ankle brachial index by the posterior tibial artery is .71. The right digital-brachial index is .34. The right post exercise ankle brachial index is .79. The left ankle brachial index by the dorsalis pedis is .89. The left ankle brachial index by the posterior tibial artery is .74. The left digital-brachial index is .28. The left post exercise ankle brachial index is .84. VL/Lower Ext Art Exam w/ Exercise Interpretation Summary Biphasic Doppler waveforms are noted at ankle level bilaterally. Pulse-volume r ecordings appear satisfactory at all levels bilaterally. The resting right ankle-brachial index is moderately diminished. The resting left ankle-brachial index is mildly diminished. Digital -brachial indices are moderately to severely diminished bilaterally. The patient ambulated at a moder ate pace, following which ankle pressures augmented bilaterally, a normal physiological response. There is evidence of moderate arterial occlusive disease at ankle level on the right. There is evidence of mild arterial occlusive disease at ankle level on the left. There i s evidence of sbwqmigu-ro-[id number] arterial occlusive disease at digital level bilaterally. Ordering Physician: Jono Harrison Performed By: Tommy Anderson RVKerry
== END | disposition home or self-care (01) ==
LOC: CVS 13:37
PROVIDERS: PCP Family Medicine; Referring Provider Podiatrist; Visit Provider Podiatrist
DX: I73.9 Peripheral vascular disease, unspecified (principal)
CPT/HCPCS: 93924

== ENCOUNTER 2022-03-03 04:27 | Emergency (ER) | payer MEDICARE, BC, SELFPAY ==
[2022-03-03 04:28] VITALS: BP 194/73; PULSE 78; RESP 16; TEMP 36.7; O2SAT 98; BMI 27.6
--- NOTE | 2022-03-03 04:51 | EDS_ITS ---
HPI History of Present Illness Chief Complaint: Ear Problem Narrative Narrative: Patient is a 71-year-old female with past medical history of hypertension hyperlipidemia and non-STEMI. She states her dog gets up to go out to the bathroom multiple times in the evening. She states she was out with him on the leash when an insect flew and struck her in the left ear. She states that she was unsure if her went into her ear or simply struck her in the head. She states she placed water in her ear for about 10 minutes and then drained it out and did not notice any insect. 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 Diabetes Diabetes Essential hypertension GERD (gastroesophageal reflux disease) HLD (hyperlipidemia) Hyperlipidemia Hypertension Hypertension Myocardial infarct Neuropathy Non-ST elevation (NSTEMI) myocardial infarction Prediabetes Presence of stent in coronary artery (~05/22/21) Home Medications L.acidophilus-L.plantarum-B.animalis-B.longum 2 billion cell capsule 1 ea PO DAILY SUPPLEMENT 05/27/14 [History Last Taken 05/18/21] omega 3-dha 60 mg-epa 90 mg-fish oil 500 mg capsule, delayed release 1,000 mg PO DAILY SUPPLEMENT 05/27/14 [History Last Taken 05/19/21] aspirin 81 mg tablet,delayed release (Adult Low Dose Aspirin) 81 mg PO DAILY HEART HEALTH 04/30/18 [History Last Taken 05/18/21] lutein 20 mg capsule 20 mg PO DAILY EYE VITAMIN 08/06/18 [History Last Taken 05/19/21] polyethylene glycol 3350 17 gram oral powder packet 17 g PO DAILY constipation 08/06/18 [History Last Taken 05/19/21] metformin 500 mg tablet 500 mg PO BID diabetes 11/11/20 [History Last Taken 05/19/21 08:00] potassium gluconate 600 mg (99 mg) tablet 600 mg PO DAILY supplement 11/11/20 [History Last Taken 05/18/21] cranberry 1,000 mg capsule 4,200 mg PO QWEEK supplement 02/19/21 [History Last Taken 05/14/21] estradiol (Estrace) 1 appful vaginal SUWEFR hormone 02/19/21 [History Last Taken 05/17/21] vitamin B complex 1 cap PO DAILY vitamin 02/19/21 [History Last Taken 05/18/21] vitamin E 400 unit tablet 400 unit PO MOWEFR vitamin 02/19/21 [History Last Taken 05/19/21] zinc 50 mg capsule 50 mg PO TUTHSA supplement 02/19/21 [History Last Taken 05/18/21] phytosterol combination no.1 500 mg capsule 1,000 mg PO BID cholesterol 06/07/21 [History Last Taken Unknown] carvedilol 12.5 mg tablet 12.5 mg PO BID #180 tabs 10/30/21 [Rx Last Taken Unknown] clopidogrel 75 mg tablet 75 mg PO DAILY #90 tabs 10/30/21 [Rx Last Taken Unknown] cholecalciferol (vitamin D3) 50 mcg (2,000 unit) capsule 50 mcg PO MOWEFR vitamin 12/20/21 [History Last Taken Unknown] red yeast rice 600 mg tablet 600 mg PO BID supplement 12/20/21 [History Last Taken Unknown] Allergy/AdvReac Type Severity Reaction Status Date / Time Iodinated Contrast Media Allergy Other Verified 12/20/21 13:06 [Iodinated Contrast Media - IV Dye] amlodipine AdvReac Headache, Verified 12/20/21 13:06 nausea, dizziness, fatigue, flushing, GERD lisinopril AdvReac fatigue, Verified 12/20/21 13:06 difficulty walking morphine AdvReac SEVER Verified 12/20/21 13:06 HEADACHE rosuvastatin [From Crestor] AdvReac Other Verified 12/20/21 13:06 FLU SHOT AdvReac Other Uncoded 12/20/21 13:06 Family History Other COPD (chronic obstructive pulmonary disease) Diabetes Embolism Hyperlipidemia Peripheral artery disease Surgical History H/O: hysterectomy History of appendectomy History of bladder suspension procedure History of heart artery stent Presence of coronary angioplasty implant and graft (~02/20/21) S/P appendectomy S/P bladder repair S/P PTCA (percutaneous transluminal coronary angioplasty) S/P tonsillectomy Social History household members: spouse housing: house Smoking Status: Never smoker alcohol intake: current alcohol intake frequency: holidays/special occasions only substance use type: does not use caffeine: Yes Type: coffee Number of servings: 3 and tea Number of servings: 1 ROS ROS ED Constitutional Constitutional ED: Denies chills or fever(s) ENT ENT ED: Reports ear pain; Denies sore throat Cardiovascular Cardiovascular: Denies chest pain Respiratory/Chest Respiratory/Chest: Denies cough or dyspnea Gastrointestinal Gastrointestinal: Denies abdominal pain, diarrhea, nausea or vomiting Genitourinary Genitourinary ED: Denies dysuria Musculoskeletal Musculoskeletal: Denies myalgias Integumentary Denies rash Neurologic Neurologic: Denies headache(s) Hematologic/Lymphatic Hematologic/Lymphatic: Denies easy bleeding or easy bruising EXAM Physical Exam Const Vital Signs: 03/03/22 04:28 Temperature 98.0 F Temperature Source Temporal Pulse Rate 78 Respiratory Rate 16 Blood Pressure 194/73 H Blood Pressure Mean 113 Pulse Ox 98 Oxygen Delivery Method Room Air Positive well nourished and well developed General Appearance ED: well developed HEENT HEENT Narrative: Patient has a small abrasion to the external ear consistent with report of insect flying into it. The ear canal itself however is patent without foreign object/insect or signs of infection. The entire TM can be visualized and it shows mild retraction but otherwise no signs of perforation or signs of infection Eyes PERRL and EOMs intact bilaterally Neck supple Resp normal respiratory effort and clear to auscultation bilaterally Cardio regular rate and regular rhythm Extremity normal to inspection Neuro oriented x3 and CN's II-XII intact bilaterally Sensorium / Orientation: alert Psych mental status grossly normal Skin no rashes or lesions noted MDM MDM MDM Narrative Medical decision making narrative: Patient presented to the ER hypertensive but does have a history of this. Otherwise vitals are stable. On the physical exam she has a superficial abrasion to the outer aspect of the ear consistent with the insect flying into. However when the ear canal and tympanic membrane are visualized there are no signs of foreign object/insect or infectious process or TM perforation. Therefore there is no need for any type of intervention at this time and patient is safe for discharge Discharge Plan Triage Chief Complaint: Ear Problem ED Provider: Artur Palm Dx/Rx/DC Orders Clinical Impression: Otalgia, left ear Instructions: Anatomy of the Ear, ED Earache Without Infection (Adult) Prescriptions: No Action aspirin [Adult Low Dose Aspirin] 81 mg tablet,delayed release (DR/EC) 81 mg PO DAILY cholecalciferol (vitamin D3) 50 mcg (2,000 unit) capsule 50 mcg PO MOWEFR potassium gluconate 600 mg (99 mg) tablet 600 mg (99 mg) tablet 600 mg PO DAILY metformin 500 mg tablet 500 mg PO BID omega 7-bfa-cxz-fish oil 500 MG capsule,delayed release(DR/EC) 1,000 mg PO DAILY Label Comments: suppliment/ lowers cholesterol L.acidoph,plant-B.animal,long 1 EACH capsule 1 ea PO DAILY Label Comments: suppliment polyethylene glycol 3350 17 GM powder in packet 17 g PO DAILY lutein 20 MG capsule 20 mg PO DAILY vitamin E 400 unit Tablet 400 unit PO MOWEFR estradiol [Estrace] 0.01 % (0.1 mg/gram) Cream 1 appful VAGINAL SUWEFR vitamin B complex Capsule 1 cap PO DAILY cranberry 1,000 mg Capsule 4,200 mg PO QWEEK Rx Instructions: Sundays zinc 50 mg Capsule 50 mg PO TUTHSA phytosterol combination no.1 500 mg capsule 1,000 mg PO BID red yeast rice 600 mg tablet 600 mg PO BID carvedilol 12.5 mg tablet 12.5 mg PO BID Qty: 180 3RF clopidogrel 75 mg tablet 75 mg PO DAILY Qty: 90 3RF Primary Care Provider: Gideon Turcios Referrals: Gideon Turcios, [Primary Care Provider] - Activity Restrictions/Additional Instructions: I do not see any signs of an insect/foreign object within your ear canal. Your eardrum has some irritation and pressure to it but no secondary changes to suggest infection Disposition Disposition: Home, Self Care
[2022-03-03 05:28] VITALS: BP 164/78; PULSE 78; RESP 18; O2SAT 96
== END 2022-03-03 05:29 | disposition home or self-care (01) ==
LOC: ED 04:57
PROVIDERS: Emergency Provider Emergency Medicine; PCP Family Medicine; Visit Provider Emergency Medicine
DX: H92.02 Otalgia, left ear (principal); E11.40 Type 2 diabetes mellitus with diabetic neuropathy, unspecified; W22.8XXA Striking against or struck by other objects, initial encounter; I25.10 Atherosclerotic heart disease of native coronary artery without angina pectoris; I10 Essential (primary) hypertension; I25.2 Old myocardial infarction; E78.5 Hyperlipidemia, unspecified; Z95.5 Presence of coronary angioplasty implant and graft; Z79.02 Long term (current) use of antithrombotics/antiplatelets; Z79.82 Long term (current) use of aspirin; Z79.84 Long term (current) use of oral hypoglycemic drugs; Z79.899 Other long term (current) drug therapy
CPT/HCPCS: 99282

== ENCOUNTER 2022-06-24 11:09 | Emergency (ER) | payer MEDICARE, BC, SELFPAY ==
[2022-06-24 11:11] VITALS: BP 178/79; PULSE 91; RESP 16; TEMP 36.6; O2SAT 99; BMI 26.3
[2022-06-24 11:30] VITALS: BP 147/60; PULSE 88; RESP 15; O2SAT 96
--- NOTE | 2022-06-24 11:44 | EKG12_ITS ---
Test Reason : Blood Pressure : / mmHG Vent. Rate : 079 BPM Atrial Rate : 079 BPM P-R Int : 184 ms QRS Dur : 078 ms QT Int : 372 ms P-R-T Axes : 027 053 039 degrees QTc Int : 426 ms Normal sinus rhythm Septal infarct , age undetermined Abnormal ECG Confirmed by ENRIKE GONZALES, EVANS ([id number]), editor trade journal GABRIELA IBARRA ([id number]) on 06/25/2022 9:50:41 AM Referred By: KELLY Confirmed By:EVANS CALVERT MD
--- NOTE | 2022-06-24 11:46 | ED.VIS.GI ---
HPI HPI - GI History of Present Illness Chief Complaint: Chest Other Detail of Chief Complaint: Epigastric abdominal pain with reflux symptoms Informant: patient Abdominal Pain/Flank Pain Onset: Days Context: Gradual Onset Timing: Intermittent Location: Epigastric Current Severity: Mild Maximum Severity: Mild Worsened by: Nothing Relieved by: Nothing Nausea/Vomiting/Emesis GI Symptom: Positive for Nausea; Negative for Vomiting Onset: Today Severity: Mild Diarrhea/Melena/Hematochezia GI Symptom: Negative for Diarrhea, Melena or Hematochezia Associated Symptoms Associated Symptoms: Negative for Dysuria, Frequency, Hematuria or Urgency Narrative Narrative: 69-year-old female history of prior duodenal ulcer for which she takes intermittent tegument. She also has reflux. Also history of diabetes, CAD with 4 cardiac stents. Prior appendectomy and hysterectomy still has her gallbladder. States her last several days and at 3:00 this morning she has been getting epigastric abdominal pain, bloating and burning. Mild nausea no hematemesis or melena. No fever or chills. No weight pain. No exertional chest pain or dyspnea. She thinks this is her reflux and wants to make sure she did not have an ulcer or this is cardiac in etiology. 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 Diabetes Diabetes Essential hypertension GERD (gastroesophageal reflux disease) HLD (hyperlipidemia) Hyperlipidemia Hypertension Hypertension Myocardial infarct Neuropathy Non-ST elevation (NSTEMI) myocardial infarction Prediabetes Presence of stent in coronary artery (~05/22/21) Home Medications L.acidophilus-L.plantarum-B.animalis-B.longum 2 billion cell capsule 1 ea PO DAILY SUPPLEMENT 05/27/14 [History Last Taken 05/18/21] omega 3-dha 60 mg-epa 90 mg-fish oil 500 mg capsule, delayed release 1,000 mg PO DAILY SUPPLEMENT 05/27/14 [History Last Taken 05/19/21] aspirin 81 mg tablet,delayed release (Adult Low Dose Aspirin) 81 mg PO DAILY HEART HEALTH 04/30/18 [History Last Taken 05/18/21] lutein 20 mg capsule 20 mg PO DAILY EYE VITAMIN 08/06/18 [History Last Taken 05/19/21] polyethylene glycol 3350 17 gram oral powder packet 17 g PO DAILY constipation 08/06/18 [History Last Taken 05/19/21] metformin 500 mg tablet 500 mg PO BID diabetes 11/11/20 [History Last Taken 05/19/21 08:00] potassium gluconate 600 mg (99 mg) tablet 600 mg PO DAILY supplement 11/11/20 [History Last Taken 05/18/21] cranberry 1,000 mg capsule 4,200 mg PO QWEEK supplement 02/19/21 [History Last Taken 05/14/21] estradiol 0.01% (0.1 mg/gram) vaginal cream (Estrace) 1 appful vaginal SUWEFR hormone 02/19/21 [History Last Taken 05/17/21] vitamin B complex 1 cap PO DAILY vitamin 02/19/21 [History Last Taken 05/18/21] vitamin E 400 unit tablet 400 unit PO MOWEFR vitamin 02/19/21 [History Last Taken 05/19/21] zinc 50 mg capsule 50 mg PO TUTHSA supplement 02/19/21 [History Last Taken 05/18/21] phytosterol combination no.1 500 mg capsule 1,000 mg PO DAILY cholesterol 06/07/21 [History Last Taken Unknown] carvedilol 12.5 mg tablet 12.5 mg PO BID #180 tabs 10/30/21 [Rx Last Taken Unknown] clopidogrel 75 mg tablet 75 mg PO DAILY #90 tabs 10/30/21 [Rx Last Taken Unknown] cholecalciferol (vitamin D3) 50 mcg (2,000 unit) capsule 50 mcg PO MOWEFR vitamin 12/20/21 [History Last Taken Unknown] red yeast rice 600 mg tablet 600 mg PO BID supplement 12/20/21 [History Last Taken Unknown] pantoprazole 40 mg tablet,delayed release (Protonix) 40 mg PO DAILY #30 tabs 06/24/22 [Rx Last Taken Unknown] Allergy/AdvReac Type Severity Reaction Status Date / Time Iodinated Contrast Media Allergy Other Verified 06/24/22 11:10 [Iodinated Contrast Media - IV Dye] amlodipine AdvReac Headache, Verified 06/24/22 11:10 nausea, dizziness, fatigue, flushing, GERD Influenza Virus Vaccines AdvReac NEEDS Verified 06/24/22 11:10 FOLLOW-UP lisinopril AdvReac fatigue, Verified 06/24/22 11:10 difficulty walking morphine AdvReac SEVER Verified 06/24/22 11:10 HEADACHE rosuvastatin [From Crestor] AdvReac Other Verified 06/24/22 11:10 Family History Other COPD (chronic obstructive pulmonary disease) Diabetes Embolism Hyperlipidemia Peripheral artery disease Surgical History H/O: hysterectomy History of appendectomy History of bladder suspension procedure History of heart artery stent Presence of coronary angioplasty implant and graft (~02/20/21) S/P appendectomy S/P bladder repair S/P PTCA (percutaneous transluminal coronary angioplasty) S/P tonsillectomy Social History household members: spouse housing: house Smoking Status: Never smoker alcohol intake: current alcohol intake frequency: holidays/special occasions only substance use type: does not use caffeine: Yes Type: coffee Number of servings: 3 and tea Number of servings: 1 ROS ROS ED ROS Narrative Epigastric abdominal pain, reflux and nausea. Review of Systems ROS Unobtainable: Denies due to encephalopathy Constitutional Constitutional ED: Denies chills or fever(s) ENT ENT ED: Denies ear pain Cardiovascular Cardiovascular: Denies chest pain Respiratory/Chest Respiratory/Chest: Denies cough or dyspnea Gastrointestinal Gastrointestinal: Reports abdominal pain and nausea; Denies constipation, diarrhea, melena or vomiting Genitourinary Genitourinary ED: Denies dysuria or hematuria Musculoskeletal Musculoskeletal: Denies arthralgias Integumentary Denies abscess Neurologic Neurologic: Denies headache(s) Psychiatric Psychiatric: Denies anxiety Endocrine Endocrinology: Denies polydipsia Hematologic/Lymphatic Hematologic/Lymphatic: Denies easy bleeding Allergic/Immunologic Allergic/Immunologic ED: Denies mouth swelling or tongue swelling EXAM Physical Exam Narrative Exam Narrative: Well-appearing 71-year-old female. Vital signs stable afebrile. Pulse ox 99% room air no hypoxia. H EENT exam unremarkable. Moist [place] members. Neck nontender. Lungs clear to auscultation bilaterally. Heart regular rhythm no murmur. Abdomen soft nondistended normal bowel sounds no peritoneal signs. Right upper and right lower quadrant unremarkable. No pulsatile mass. No hernia or distention. Moving all 4 extremities. Equal symmetrical radial pulses. Calves are nontender without edema. Neurologic exam normal. Const Vital Signs: 06/24/22 11:11 06/24/22 11:16 06/24/22 11:30 Temperature 97.8 F Temperature Source Temporal Pulse Rate 91 88 Respiratory Rate 16 15 Respiratory Effort Normal Non-Labored Respiratory Pattern Normal Blood Pressure 178/79 H 147/60 H Blood Pressure Mean 112 89 Pulse Ox 99 96 Oxygen Delivery Method Room Air Room Air 06/24/22 12:01 Temperature Temperature Source Pulse Rate Respiratory Rate Respiratory Effort Respiratory Pattern Blood Pressure Blood Pressure Mean Pulse Ox 96 Oxygen Delivery Method Room Air Positive well nourished and well developed; Negative for cachectic, contractures or unkempt General Appearance ED: well developed and NAD; Negative for unkempt, cachectic, contractures or pallor Nutritional Appearance: Negative for cachectic HEENT Reports moist mucous membranes normocephalic and atraumatic; Negative for trauma or tenderness Eyes PERRL and EOMs intact bilaterally General Eye ED: Negative for pale conjunctiva or scleral icterus Neck no lymphadenopathy, supple and no JVD General: Negative for tenderness Carotids: Negative for other Lymph Lymphatic: Negative for other Resp normal respiratory effort and clear to auscultation bilaterally Effort and Inspection: Negative for respiratory distress Auscultation: Negative for rales, rhonchi or wheezes Cardio regular rate, regular rhythm, S1 normal heart sound, S2 normal heart sound and no murmurs Rate: Negative for bradycardia Rhythm: Negative for abnormal rhythm GI non-tender, non-distended and no masses Inspection: Negative for abdominal distention Auscultation: normoactive bowel sounds Palpation: soft; Negative for tender, guarding, rigid, hepatomegaly, splenomegaly, hernia, mass, pulsatile mass or rebound tenderness present Back/Spine no CVA tenderness General Back: Negative for CVA tenderness Cervical Spine: Negative for cervical spine tenderness Thoracic Spine / Upper Back: Negative for thoracic spinal tenderness Lumbar Spine / Lower Back: Negative for lumbar spinal tenderness Extremity full ROM General Extremety ED: Negative for edema or tenderness General Extremity: Negative for edema Neuro CN's II-XII intact bilaterally and moves all extremities Sensorium / Orientation: alert, oriented to person, oriented to place and oriented to time; Negative for orientation impaired, confused, lethargic or stuporous Motor Exam: strength 5/5 throughout Psych mental status grossly normal and thought process normal Appearance: Negative for unkempt Attitude: No agitated Mood & Affect: Negative for depressed, anxious or tearful Skin no wounds General Skin Exam: Negative for jaundice or pallor Lesions: no lesions Rashes: no rashes Trauma: Negative for abrasion Nails: Negative for discolored MDM MDM MDM Narrative Medical decision making narrative: 71-year-old female history of CAD with stents and prior duodenal ulcer. She is having epigastric abdominal pain. Exam is benign. Cardiac work-up with a GI cocktail and p.o. Protonix. Lipase and liver enzymes are also be checked. PD exam at 12:58 PM patient is doing well. Feels better after the Protonix and GI cocktail. Pain is resolved. Repeat abdominal exam is benign and nontender. She and I went over all of her lab test. She will be discharged home. Outpatient prescription for Protonix. Follow-up with her primary care physician. Lab Data Attestation: I reviewed the patient's lab results. Lab results narrative: CBC normal. White count of 7. H&H 14 and 39. Platelets 238. Electrolytes unremarkable gap 11. Normal BUN and creatinine. Glucose 214. Troponin is 4. Lipase is normal at 219. Liver enzymes are normal. Labs: Laboratory Results - last 24 hr 06/24/22 06/24/22 06/24/22 11:31 11:31 11:31 WBC 7.5 RBC 4.29 Hgb 14.5 Hct 39.7 MCV 92.5 MCH 33.8 H MCHC 36.5 H RDW Std Deviation 43.2 RDW Coeff of [place]el 12.8 Plt Count 238 MPV 10.2 Immature Gran % (Auto) 0.800 Neut % (Auto) 61.7 Lymph % (Auto) 25.5 [place] % (Auto) 10.0 Eos % (Auto) 1.5 Baso % (Auto) 0.5 Absolute Neuts (auto) 4.7 Absolute Lymphs (auto) 1.92 Nucleated RBC % 0 Sodium 138 Potassium 4.0 Chloride 102 Carbon Dioxide 25.0 Anion Gap 11 BUN 16 Creatinine 0.91 Estim Creat Clear Calc 56.37 Est GFR (MDRD) Af Amer 78 Est GFR (MDRD) Non-Af 64 BUN/Creatinine Ratio 17.6 Glucose 214 H Calcium 9.5 Total Bilirubin 1.00 Direct Bilirubin 0.26 AST 23 ALT 45 Alkaline Phosphatase 68 Troponin I High Sens 4 Total Protein 6.9 Albumin 3.8 Globulin 3.1 Lipase 219 Rhythm Strip Rhythm Strip: Sinus Rhythm Rate: 79 Ectopy: None EKG Initial EKG: Attestation: I personally reviewed and interpreted this EKG as follows: Interpretation: Sinus Rhythm and No Acute Injury Pattern Comments: NSR rate of 79 Prior EKG tracings: available for review Prior: Unchanged Discharge Plan Triage Chief Complaint: Chest Other ED Provider: Tip Ortiz Dx/Rx/DC Orders Clinical Impression: Gastritis, Chronic gastroesophageal reflux disease, History of coronary artery disease, History of diabetes mellitus Instructions: ED Gastritis (Adult) Prescriptions: New pantoprazole [Protonix] 40 mg tablet,delayed release (DR/EC) 40 mg PO DAILY Qty: 30 1RF No Action aspirin [Adult Low Dose Aspirin] 81 mg tablet,delayed release (DR/EC) 81 mg PO DAILY cholecalciferol (vitamin D3) 50 mcg (2,000 unit) capsule 50 mcg PO MOWEFR potassium gluconate 600 mg (99 mg) tablet 600 mg (99 mg) tablet 600 mg PO DAILY metformin 500 mg tablet 500 mg PO BID omega 4-mem-qyw-fish oil 500 MG capsule,delayed release(DR/EC) 1,000 mg PO DAILY Label Comments: suppliment/ lowers cholesterol L.acidoph,plant-B.animal,long 1 EACH capsule 1 ea PO DAILY Label Comments: suppliment polyethylene glycol 3350 17 GM powder in packet 17 g PO DAILY lutein 20 MG capsule 20 mg PO DAILY vitamin E 400 unit Tablet 400 unit PO MOWEFR estradiol [Estrace] 0.01 % (0.1 mg/gram) Cream 1 appful VAGINAL SUWEFR vitamin B complex Capsule 1 cap PO DAILY cranberry 1,000 mg Capsule 4,200 mg PO QWEEK Rx Instructions: Sundays zinc 50 mg Capsule 50 mg PO TUTHSA phytosterol combination no.1 500 mg capsule 1,000 mg PO DAILY red yeast rice 600 mg tablet 600 mg PO BID carvedilol 12.5 mg tablet 12.5 mg PO BID Qty: 180 3RF clopidogrel 75 mg tablet 75 mg PO DAILY Qty: 90 3RF Primary Care Provider: Gideon Turcios Referrals: Gideon Turcios DO [Primary Care Provider] - As Needed Activity Restrictions/Additional Instructions: This appears to be secondary to gastritis. Protonix daily as needed or your tagamet. Not both. Follow up with your Dr. as needed Disposition Disposition: Home, Self Care
[2022-06-24 12:01] VITALS: O2SAT 96
[2022-06-24] MEDS: Pantoprazole Sodium 40 MG Tablet PO (12:01)
[2022-06-24] MEDS: Mag Hydrox/Al Hydrox/Simeth 30 ML UDC PO (12:03)
[2022-06-24 12:13] LABS: Anion Gap 11 (5-15); BUN 16 mg/dL (7-18); BUN/Creat Ratio 17.6 RATIO (10-20); Calcium,Total 9.5 mg/dL (8.5-10.1); Chloride 102 mmol/L (98-107); Creatinine, Serum 0.91 mg/dL (0.55-1.02); EST Glomerular Filtration Rate 64 mL/min (>60); Est Glom Filt Rate - Afr Amer 78 mL/min (>60); Estimated Creatinine Clearance 56.37 ml/min; Glucose 214 mg/dL (74-106); Lipase 219 U/L (73-393); Sodium Level 138 mmol/L (136-145); Troponin-I HS 4 pg/mL (3.0-54.0)
[2022-06-24 12:29] LABS: AST(SGOT) 23 U/L (15-37); Alanine Aminotransfer ALT/SGPT 45 U/L (13-56); Albumin, Serum 3.8 g/dL (3.2-5.0); Alkaline Phosphatase 68 U/L (45-117); Bilirubin, Direct 0.26 mg/dL (0.00-0.30); Globulin 3.1 g/dL (2.2-4.2); Protein, Total 6.9 g/dL (6.4-8.2)
[2022-06-24 12:36] LABS: Absolute Lymphocyte Count 1.92 X10^3/uL (0.83-4.51); Absolute Neutrophil Count 4.7 X10^3/uL (2.0-7.7); Basophil# 0.04 X10^3/uL; Basophil% 0.5 % (0-1); Eosinophil# 0.11 X10^3/uL; Eosinophils% 1.5 % (0-5); Hematocrit 39.7 % (37-47); Hemoglobin 14.5 g/dL (12.0-15.0); Lymphocyte # 1.92 X10^3/ul (0.83-4.51); Lymphocyte % 25.5 % (19-41); Mean Corp Hgb Conc 36.5 g/dL (32-36); Mean Corpuscular Hgb 33.8 pg (27.0-32.0); Mean Corpuscular Volume 92.5 fL (81-99); Mean Platelet Vol. 10.2 fl (6.2-12.0); Monocyte# 0.75 X10^3/uL; NRBC Flagged by Analyzer 0 % (0-5); Neutrophil # 4.65 X10^3/uL (2.7-7.7); Neutrophil % 61.7 % (47-70); Platelet Count 238 K/mm3 (150-450); RBC Distribution Width CV 12.8 % (11.6-14.6); RBC Distribution Width SD 43.2 fl (35.1-43.9); Red Blood Count 4.29 M/mm3 (4.2-5.4); White Blood Count 7.5 K/mm3 (4.4-11.0)
[2022-06-24 13:11] VITALS: BP 139/70
== END 2022-06-24 13:12 | disposition home or self-care (01) ==
PROVIDERS: Emergency Provider Emergency Medicine; PCP Family Medicine; Visit Provider Emergency Medicine
DX: K29.70 Gastritis, unspecified, without bleeding (principal); E11.40 Type 2 diabetes mellitus with diabetic neuropathy, unspecified; K21.9 Gastro-esophageal reflux disease without esophagitis; I25.10 Atherosclerotic heart disease of native coronary artery without angina pectoris; I10 Essential (primary) hypertension; I25.2 Old myocardial infarction; E78.5 Hyperlipidemia, unspecified; Z95.5 Presence of coronary angioplasty implant and graft; Z79.02 Long term (current) use of antithrombotics/antiplatelets; Z79.82 Long term (current) use of aspirin; Z79.84 Long term (current) use of oral hypoglycemic drugs; Z79.899 Other long term (current) drug therapy
CPT/HCPCS: 80048; 80076; 83690; 84484; 85025; 93005; 99285; A4216

== ENCOUNTER 2022-06-25 18:52 | Emergency (ER) | payer MEDICARE, BC, SELFPAY ==
[2022-06-25 18:53] VITALS: PULSE 86; RESP 16; TEMP 36.4; O2SAT 98; BMI 25.4
[2022-06-25 19:06] VITALS: BP 155/67; BMI 25.4
--- NOTE | 2022-06-25 19:24 | EKG12_ITS ---
Test Reason : Neuro symptoms Blood Pressure : / mmHG Vent. Rate : 080 BPM Atrial Rate : 080 BPM P-R Int : 190 ms QRS Dur : 080 ms QT Int : 370 ms P-R-T Axes : 021 035 033 degrees QTc Int : 426 ms Normal sinus rhythm Septal infarct , age undetermined Abnormal ECG Confirmed by HOLLI GONZALES, ALLYSSA ([id number]), editor magazine GABRIELA IBARRA ([id number]) on 06/27/2022 11:01:10 AM Referred By: Confirmed By:ALLYSSA DE LA GARZA MD
--- NOTE | 2022-06-25 19:25 | CT_ITS ---
We are attempting to reach an attending provider to discuss findings. An addendum with communication details will be sent when the communication is complete. INDICATION: Neuro deficit, acute, stroke suspected-additional history: N/T TO LEFT CHEEK, B/L FINGERS RESOLVED NOW, HX DIAB, HTN, HEART STENTS EXAMINATION: CTA HEAD - CTA Head and Neck W/ Contrast Injection (and W/O Contrast Images if performed) TECHNIQUE: [place] [facility] [place]/head CT angiogram protocol was performed following IV contrast. 3D reconstructions were reviewed. A radiation dose optimization technique was used for this scan. CTA examination of the cervical vasculature also obtained following administration of contrast and additional planar and three-dimensional reconstructions. Precontrast imaging also obtained. IV Contrast dosage and agent: 100 mL Isovue-370 Radiation Dose (provided by facility) CTDIvol (29.42 ) mGy, DLP ( 1496.28) mGy-cm COMPARISON: None. FINDINGS: CTA [place] [facility] [place]: PETROUS AND CAVERNOUS CAROTID ARTERIES: Diffuse vascular calcifications involving the cavernous carotid vessels. There is mild to moderate stenosis, approximately 50% involving the RIGHT cavernous carotid moderate irregular soft plaque is noted throughout the RIGHT cavernous carotid. No stenosis occlusion or intraluminal filling defects. SUPRACLINOID CAROTID ARTERIES: Normal appearance the supraclinoid carotid vessels bilaterally, the visualized ophthalmic arteries have normal appearance. ANTERIOR CEREBRAL AND A- COMM: Normal appearance the distal segments of the anterior cerebral circulation bilaterally. There is a dominant LEFT A1 segment. RIGHT A1 appears to be developmentally absent, however small distal remnant is present measuring approximately 2.8 mm in length (series 4: Image 419). This may alternatively represent a small infundibulum. Aneurysm is felt less likely. MIDDLE CEREBRAL ARTERIES: RIGHT MCA: Normal appearance the proximal and distal segments of the middle cerebral circulation. Normal appearance of the M4 cortical distribution. LEFT MCA: Proximal LEFT M1 segment is widely patent, however there is a short segment high-grade stenosis of the LEFT M1 segment. No johnie intraluminal filling defects. Distal LEFT M1, bifurcation and M2-M4 segments show normal contrast opacification. No intraluminal filling defects noted. INTRACRANIAL VERTEBRAL ARTERIES AND BASILAR ARTERY: Normal appearance of the intracranial course of the vertebral arteries bilaterally, normal appearance of basilar artery to the level of the bifurcation. POSTERIOR CEREBRAL ARTERIES: Normal appearance proximal distal segments of posterior cerebral circulation bilaterally. There is origin LEFT posterior cerebral artery. DURAL SINUSES: Normal, no filling defects noted CT HEAD: The cerebral parenchyma, ventricular system and gyral pattern have normal configuration. Normal sommer-white differentiation, there is moderate chronic microvascular deep white matter disease. No mass, hemorrhage, or acute territorial infarct. The cerebellum, brainstem, basilar and suprasellar cisterns have normal appearance. CTA Neck: TECHNIQUE: CTA examination of the neck obtained with standard protocol including axial postcontrast imaging with additional planar and three-dimensional reconstructions. Aortic arch: [Normal appearance of the aortic arch and origin the great vessels.] Scattered calcification is are present. Right carotid system: Normal appearance RIGHT common carotid artery to the level of the bifurcation. Soft and calcified plaque at the bifurcation extending into the carotid bulb with findings consistent with a moderate (50-69%-and closer to 50%) stenosis. No filling defects noted. Remaining RIGHT ICA has normal appearance. Left carotid system: LEFT common carotid artery has normal configuration. There is significant soft tissue calcified plaque at the level of the LEFT carotid bulb with findings consistent with a mild (less than 50%) stenosis. No filling defects noted. Vertebral arteries: There is a mildly dominant RIGHT vertebral artery. No evidence focal stenosis on the RIGHT. There is mild narrowing proximal LEFT vertebral (V1 segment) without occlusion. Mild luminal irregularity involving the V2 segments without occlusion. Airway and soft tissues of the neck: There is normal appearance of the musculofascial planes of suprahyoid and infrahyoid neck. Normal appearance of the visualized airway. Normal appearance the visualized thyroid without masses or nodules noted. Cervical spine: Normal appearance of bony elements of the cervical spine. No focal stenosis or occlusion involving the cervical spinal canal. CT/STROKE CTA Head AND Neck W/Con IMPRESSION: 1. Moderate intracranial atherosclerotic disease most notable involving the RIGHT cavernous carotid with findings consistent with a approximately 50% RIGHT cavernous carotid narrowing. No occlusion. 2. There is a dominant LEFT A1 segment with developmentally atretic RIGHT A1 segment. Small remnant of the RIGHT A1 arises at the level of the anterior communicating artery which is patent. This may represent a small infundibulum, alternatively a small 2.8 mm aneurysm is a consideration. 3. Focal short segment high-grade stenosis of the LEFT M1 segment. Distal M1 and remaining branches of the LEFT MCA show normal contrast opacification and patency. No intraluminal filling defects, however high-grade greater than 70% stenosis is suspected at. 4. Diffuse bilateral atherosclerotic disease involving the carotid bulbs bilaterally greater on the RIGHT than LEFT. Moderate stenosis on the RIGHT (however close to 50%), and mild stenosis on the LEFT (less than 50%.) 5. Dominant RIGHT vertebral artery. There is a focal area of stenosis without johnie occlusion involving the V1 segment of the LEFT vertebral artery. 6. Noncontrast CT examination documents diffuse chronic deep white matter disease, mild involutional change, no evidence of intraparenchymal mass, hemorrhage, or acute territorial infarct. NSC (nonstandard communication) notification was initiated at 8:24 PM CDT Electronically Signed: Edy Art MD at 21:34 EDT ,
--- NOTE | 2022-06-25 19:31 | ED.VIS.STROK ---
HPI <Dr. Aaron Kothari MD - Last Filed: 06/25/22 23:13> History of Present Illness Chief Complaint: Neuro S/Sx Informant: patient Narrative Narrative: Patient had transient tingling and sense of numbness to her left lower jaw, tips of left finger tips and anterior portion of her lower faria and ankle on the left. This occurred when she was looking straight up in the air at a group of birds. She felt fine prior to this. When she looked down the symptoms really went almost completely away within 10 seconds. She states there is just a tiny bit of numbness at the tip of the fingertips. She then developed some numbness to the tip of her right fingertips. It is all now improving more. She never had a headache. No neck pain. No balance or other problems. She has never had stroke issues but she does have history of heart disease with stents. Of note, she has an allergy to iodinated contrast. This only happened a single time after CAT scan of her shoulder. After the test was done and she was going home she just felt flushed and ill and just did not feel well. No rash no hives no trouble breathing no chest pain. She has had multiple stents with IV contrast. She states they always give her some medicine prior to it and it is no problem at all. [facility] <Dr. 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 Diabetes Diabetes Essential hypertension GERD (gastroesophageal reflux disease) HLD (hyperlipidemia) Hyperlipidemia Hypertension Hypertension Myocardial infarct Neuropathy Non-ST elevation (NSTEMI) myocardial infarction Prediabetes Presence of stent in coronary artery (~05/22/21) Home Medications L.acidophilus-L.plantarum-B.animalis-B.longum 2 billion cell capsule 1 ea PO DAILY SUPPLEMENT 05/27/14 [History Last Taken 05/18/21] omega 3-dha 60 mg-epa 90 mg-fish oil 500 mg capsule, delayed release 1,000 mg PO DAILY SUPPLEMENT 05/27/14 [History Last Taken 05/19/21] aspirin 81 mg tablet,delayed release (Adult Low Dose Aspirin) 81 mg PO DAILY HEART HEALTH 04/30/18 [History Last Taken 05/18/21] lutein 20 mg capsule 20 mg PO DAILY EYE VITAMIN 08/06/18 [History Last Taken 05/19/21] metformin 500 mg tablet 500 mg PO BID diabetes 11/11/20 [History Last Taken 05/19/21 08:00] potassium gluconate 600 mg (99 mg) tablet 600 mg PO DAILY supplement 11/11/20 [History Last Taken 05/18/21] cranberry 1,000 mg capsule 4,200 mg PO QWEEK supplement 02/19/21 [History Last Taken 05/14/21] estradiol 0.01% (0.1 mg/gram) vaginal cream (Estrace) 1 appful vaginal SUWEFR hormone 02/19/21 [History Last Taken 05/17/21] vitamin B complex 1 cap PO DAILY vitamin 02/19/21 [History Last Taken 05/18/21] zinc 50 mg capsule 50 mg PO TUTHSA supplement 02/19/21 [History Last Taken 05/18/21] carvedilol 12.5 mg tablet 12.5 mg PO BID #180 tabs 10/30/21 [Rx Last Taken Unknown] clopidogrel 75 mg tablet 75 mg PO DAILY #90 tabs 10/30/21 [Rx Last Taken Unknown] cholecalciferol (vitamin D3) 50 mcg (2,000 unit) capsule 50 mcg PO MOWEFR vitamin 12/20/21 [History Last Taken Unknown] pantoprazole 40 mg tablet,delayed release (Protonix) 40 mg PO DAILY #30 tabs 06/24/22 [Rx Last Taken Unknown] Allergy/AdvReac Type Severity Reaction Status Date / Time Iodinated Contrast Media Allergy Other Verified 06/25/22 19:03 [Iodinated Contrast Media - IV Dye] amlodipine AdvReac Headache, Verified 06/25/22 19:03 nausea, dizziness, fatigue, flushing, GERD Influenza Virus Vaccines AdvReac NEEDS Verified 06/25/22 19:03 FOLLOW-UP lisinopril AdvReac fatigue, Verified 06/25/22 19:03 difficulty walking morphine AdvReac SEVER Verified 06/25/22 19:03 HEADACHE rosuvastatin [From Crestor] AdvReac Other Verified 06/25/22 19:03 Family History Other COPD (chronic obstructive pulmonary disease) Diabetes Embolism Hyperlipidemia Peripheral artery disease Surgical History H/O: hysterectomy History of appendectomy History of bladder suspension procedure History of heart artery stent Presence of coronary angioplasty implant and graft (~02/20/21) S/P appendectomy S/P bladder repair S/P PTCA (percutaneous transluminal coronary angioplasty) S/P tonsillectomy Social History household members: spouse housing: house Smoking Status: Never smoker alcohol intake: current alcohol intake frequency: holidays/special occasions only substance use type: does not use caffeine: Yes Type: coffee Number of servings: 3 and tea Number of servings: 1 ROS <Dr. Aaron Kothari MD - Last Filed: 06/25/22 23:13> ROS ED Constitutional Constitutional ED: Denies fever(s) Eyes Eyes: Denies blurry vision, change in vision or diplopia ENT ENT ED: Denies sore throat Cardiovascular Cardiovascular: Denies chest pain, palpitations or racing heartbeat Respiratory/Chest Respiratory/Chest: Denies cough Gastrointestinal Gastrointestinal: Denies nausea or vomiting Musculoskeletal Musculoskeletal: Denies back pain or neck pain Integumentary Denies rash Neurologic Neurologic: Reports paresthesias; Denies headache(s) or weakness Endocrine Endocrinology: Denies polydipsia or polyuria Hematologic/Lymphatic Hematologic/Lymphatic: Reports easy bleeding, easy bruising and other Details: Patient is on Plavix and aspirin and is taking them. Allergic/Immunologic Allergic/Immunologic ED: Denies urticaria EXAM <Dr. Aaron Kothari MD - Last Filed: 06/25/22 23:13> Physical Exam Const Vital Signs: 06/25/22 18:53 06/25/22 19:06 06/25/22 19:35 Temperature 97.6 F L Temperature Source Oral Pulse Rate 86 Respiratory Rate 16 Blood Pressure 155/67 H Blood Pressure Mean 96 Pulse Ox 98 97 Oxygen Delivery Method Room Air Room Air 06/25/22 21:00 Temperature Temperature Source Pulse Rate 77 Respiratory Rate 16 Blood Pressure 148/86 H Blood Pressure Mean 106 Pulse Ox 94 Oxygen Delivery Method Room Air Positive well nourished and well developed General Appearance ED: well developed and NAD HEENT Reports TM's clear and moist mucous membranes Nose: other Other Details: No facial droop. With palpation of the face she said it feels just a little different in the left lower jaw but her sensation is still intact. No ptosis. No rashes Tympanic Membrane ED: Yes TM's clear Eyes General Eye ED: Negative for pale conjunctiva or scleral icterus Neck no JVD Neck Narrative: Do not hear carotid bruit on either side. Resp normal respiratory effort Cardio no murmurs Rate: regular rate Rhythm: Negative for abnormal rhythm GI normal to inspection, nondistended, normoactive bowel sounds and no masses Back/Spine no CVA tenderness Extremity normal to inspection Neuro oriented x3 Psych mental status grossly normal Skin no wounds <Dr. Tip Ortiz MD - Last Filed: 06/26/22 01:09> Physical Exam Const Vital Signs: 06/25/22 18:53 06/25/22 19:06 06/25/22 19:35 Temperature 97.6 F L Temperature Source Oral Pulse Rate 86 Respiratory Rate 16 Blood Pressure 155/67 H Blood Pressure Mean 96 Pulse Ox 98 97 Oxygen Delivery Method Room Air Room Air 06/25/22 21:00 Temperature Temperature Source Pulse Rate 77 Respiratory Rate 16 Blood Pressure 148/86 H Blood Pressure Mean 106 Pulse Ox 94 Oxygen Delivery Method Room Air MDM <Dr. Aaron Kothari MD - Last Filed: 06/25/22 23:13> [facility] Narrative Medical decision making narrative: Patient's CT showed significant vascular changes but no definitive acute process. CBC showed minimal elevation of white count which is nonspecific finding. COVID are negative. Electrolytes are overall unremarkable with minimal elevation of glucose at 130. Patient's recheck. She is remained asymptomatic. We are getting teleneurology to see her but they have not yet seen her. This patient had transient symptoms when she looked significantly up in the air. She states she held onto a fence and looked very high up in the air so there is a very significant extension of her neck. Her primary symptoms lasted for about 10 seconds. She was left with some slight numbness in her fingertips but tingling is what occurred when she looked up. All of the symptoms are now gone. She does have high risk for vascular disease. But she is also already on dual platelet therapy of aspirin and Plavix. The issue is that she would warrant further investigation or maintaining her on dual platelet therapy with close follow-up. We are awaiting the teleneurology eval and or calling them again. Lab Data Attestation: I reviewed the patient's lab results. Labs: Laboratory Results - last 24 hr 06/25/22 06/25/22 06/25/22 19:10 19:28 19:28 WBC 12.6 H RBC 4.31 Hgb 14.9 Hct 39.7 MCV 92.1 MCH 34.6 H MCHC 37.5 H RDW Std Deviation 42.5 RDW Coeff of Annel 12.5 Plt Count 269 MPV 10.3 Immature Gran % (Auto) 0.600 Neut % (Auto) 63.7 Lymph % (Auto) 25.4 [place] % (Auto) 8.6 Eos % (Auto) 1.2 Baso % (Auto) 0.5 Absolute Neuts (auto) 8.1 H Absolute Lymphs (auto) 3.21 Nucleated RBC % 0 PT 13.2 INR 1.0 APTT 28.1 Sodium Potassium Chloride Carbon Dioxide Anion Gap BUN Creatinine Estim Creat Clear Calc Est GFR (MDRD) Af Amer Est GFR (MDRD) Non-Af BUN/Creatinine Ratio Glucose Calcium Troponin I High Sens POC Glucose 115 H 06/25/22 19:28 WBC RBC Hgb Hct MCV MCH MCHC RDW Std Deviation RDW Coeff of Annel Plt Count MPV Immature Gran % (Auto) Neut % (Auto) Lymph % (Auto) [place] % (Auto) Eos % (Auto) Baso % (Auto) Absolute Neuts (auto) Absolute Lymphs (auto) Nucleated RBC % PT INR APTT Sodium 137 Potassium 3.9 Chloride 102 Carbon Dioxide 25.0 Anion Gap 10 BUN 14 Creatinine 0.77 Estim Creat Clear Calc 51.30 Est GFR (MDRD) Af Amer 95 Est GFR (MDRD) Non-Af 78 BUN/Creatinine Ratio 18.2 Glucose 130 H Calcium 8.9 Troponin I High Sens 3 POC Glucose Radiography Diagnostic Testing: Clinical Impression(s) from Imaging Studies Head/Neck CTA 06/25/22 19:25 IMPRESSION: 1. Moderate intracranial atherosclerotic disease most notable involving the RIGHT cavernous carotid with findings consistent with a approximately 50% RIGHT cavernous carotid narrowing. No occlusion. 2. There is a dominant LEFT A1 segment with developmentally atretic RIGHT A1 segment. Small remnant of the RIGHT A1 arises at the level of the anterior communicating artery which is patent. This may represent a small infundibulum, alternatively a small 2.8 mm aneurysm is a consideration. 3. Focal short segment high-grade stenosis of the LEFT M1 segment. Distal M1 and remaining branches of the LEFT MCA show normal contrast opacification and patency. No intraluminal filling defects, however high-grade greater than 70% stenosis is suspected at. 4. Diffuse bilateral atherosclerotic disease involving the carotid bulbs bilaterally greater on the RIGHT than LEFT. Moderate stenosis on the RIGHT (however close to 50%), and mild stenosis on the LEFT (less than 50%.) 5. Dominant RIGHT vertebral artery. There is a focal area of stenosis without johnie occlusion involving the V1 segment of the LEFT vertebral artery. 6. Noncontrast CT examination documents diffuse chronic deep white matter disease, mild involutional change, no evidence of intraparenchymal mass, hemorrhage, or acute territorial infarct. [facility] (nonstandard communication) notification was initiated at 8:24 PM CDT Electronically Signed: Edy Art MD at 21:34 EDT , ADDENDUM: 06/25/222140 IMPRESSION: 1. Moderate intracranial atherosclerotic disease most notable involving the RIGHT cavernous carotid with findings consistent with a approximately 50% RIGHT cavernous carotid narrowing. No occlusion. 2. There is a dominant LEFT A1 segment with developmentally atretic RIGHT A1 segment. Small remnant of the RIGHT A1 arises at the level of the anterior communicating artery which is patent. This may represent a small infundibulum, alternatively a small 2.8 mm aneurysm is a consideration. 3. Focal short segment high-grade stenosis of the LEFT M1 segment. Distal M1 and remaining branches of the LEFT MCA show normal contrast opacification and patency. No intraluminal filling defects, however high-grade greater than 70% stenosis is suspected at. 4. Diffuse bilateral atherosclerotic disease involving the carotid bulbs bilaterally greater on the RIGHT than LEFT. Moderate stenosis on the RIGHT (however close to 50%), and mild stenosis on the LEFT (less than 50%.) 5. Dominant RIGHT vertebral artery. There is a focal area of stenosis without johnie occlusion involving the V1 segment of the LEFT vertebral artery. 6. Noncontrast CT examination documents diffuse chronic deep white matter disease, mild involutional change, no evidence of intraparenchymal mass, hemorrhage, or acute territorial infarct. [facility] (nonstandard communication) notification was initiated at 8:24 PM CDT N.B. : The above Results were Read Back by Edy Art MD to Dr. Saniya MD, and understanding confirmed on 06/25/2022 21:34:40 (ET). Electronically Signed: Edy Art MD at 21:34 EDT , Chest X-Ray 06/25/22 20:04 IMPRESSION: 1. No evidence of acute cardiopulmonary process Electronically Signed: Edy Art MD at 20:53 EDT , CT scan showed no no acute intracranial process or mass bleed or acute territorial infarct. But her CTA showed new multiple vascular abnormalities involving both right and left sides. There was no sign of dissection when I talked to the radiologist. EKG Initial EKG: Comments: EKG done for stroke symptoms looking for rhythm abnormalities. EKG read by me as a normal sinus rhythm with overall rate of 80. No ectopy. No acute ST elevation or depression. Mild baseline artifact. LA interval, QRS duration and QTc normal <Dr. Tip Ortiz MD - Last Filed: 06/26/22 01:09> [facility] Narrative Medical decision making narrative: Patient's CT showed significant vascular changes but no definitive acute process. CBC showed minimal elevation of white count which is nonspecific finding. COVID are negative. Electrolytes are overall unremarkable with minimal elevation of glucose at 130. Patient's recheck. She is remained asymptomatic. We are getting teleneurology to see her but they have not yet seen her. This patient had transient symptoms when she looked significantly up in the air. She states she held onto a fence and looked very high up in the air so there is a very significant extension of her neck. Her primary symptoms lasted for about 10 seconds. She was left with some slight numbness in her fingertips but tingling is what occurred when she looked up. All of the symptoms are now gone. She does have high risk for vascular disease. But she is also already on dual platelet therapy of aspirin and Plavix. The issue is that she would warrant further investigation or maintaining her on dual platelet therapy with close follow-up. We are awaiting the teleneurology eval and or calling them again. Patient was turned over to me by Dr. Negrete. Repeat exam is normal. Her symptoms have resolved. Her neurologic exam is normal. She has normal motor strength and sensation of both the left and the right sides. Previously the left side was unaffected. It did not last very long. She had a normal ALT work-up with chronic changes on her CAT scan. The [facility] neurologist called me he said she had significant risk factors he would lean towards admitting her for further MRI and evaluation. I discussed all that with the patient and she does not want to stay. She has a at home that is ill and she needs to take care of him. She also states that she cannot do an MRI because of her claustrophobia. She is already on Plavix and aspirin. She understands the risks and accepts them and will go home. She has an upcoming appointment with her physician next week and they can do outpatient further work-up. Lab Data Labs: Laboratory Results - last 24 hr 06/25/22 06/25/22 06/25/22 19:10 19:28 19:28 WBC 12.6 H RBC 4.31 Hgb 14.9 Hct 39.7 MCV 92.1 MCH 34.6 H MCHC 37.5 H RDW Std Deviation 42.5 RDW Coeff of Annel 12.5 Plt Count 269 MPV 10.3 Immature Gran % (Auto) 0.600 Neut % (Auto) 63.7 Lymph % (Auto) 25.4 [place] % (Auto) 8.6 Eos % (Auto) 1.2 Baso % (Auto) 0.5 Absolute Neuts (auto) 8.1 H Absolute Lymphs (auto) 3.21 Nucleated RBC % 0 PT 13.2 INR 1.0 APTT 28.1 Sodium Potassium Chloride Carbon Dioxide Anion Gap BUN Creatinine Estim Creat Clear Calc Est GFR (MDRD) Af Amer Est GFR (MDRD) Non-Af BUN/Creatinine Ratio Glucose Calcium Troponin I High Sens POC Glucose 115 H 06/25/22 19:28 WBC RBC Hgb Hct MCV MCH MCHC RDW Std Deviation RDW Coeff of Annel Plt Count MPV Immature Gran % (Auto) Neut % (Auto) Lymph % (Auto) [place] % (Auto) Eos % (Auto) Baso % (Auto) Absolute Neuts (auto) Absolute Lymphs (auto) Nucleated RBC % PT INR APTT Sodium 137 Potassium 3.9 Chloride 102 Carbon Dioxide 25.0 Anion Gap 10 BUN 14 Creatinine 0.77 Estim Creat Clear Calc 51.30 Est GFR (MDRD) Af Amer 95 Est GFR (MDRD) Non-Af 78 BUN/Creatinine Ratio 18.2 Glucose 130 H Calcium 8.9 Troponin I High Sens 3 POC Glucose Radiography Diagnostic Testing: Clinical Impression(s) from Imaging Studies Head/Neck CTA 06/25/22 19:25 IMPRESSION: 1. Moderate intracranial atherosclerotic disease most notable involving the RIGHT cavernous carotid with findings consistent with a approximately 50% RIGHT cavernous carotid narrowing. No occlusion. 2. There is a dominant LEFT A1 segment with developmentally atretic RIGHT A1 segment. Small remnant of the RIGHT A1 arises at the level of the anterior communicating artery which is patent. This may represent a small infundibulum, alternatively a small 2.8 mm aneurysm is a consideration. 3. Focal short segment high-grade stenosis of the LEFT M1 segment. Distal M1 and remaining branches of the LEFT MCA show normal contrast opacification and patency. No intraluminal filling defects, however high-grade greater than 70% stenosis is suspected at. 4. Diffuse bilateral atherosclerotic disease involving the carotid bulbs bilaterally greater on the RIGHT than LEFT. Moderate stenosis on the RIGHT (however close to 50%), and mild stenosis on the LEFT (less than 50%.) 5. Dominant RIGHT vertebral artery. There is a focal area of stenosis without johnie occlusion involving the V1 segment of the LEFT vertebral artery. 6. Noncontrast CT examination documents diffuse chronic deep white matter disease, mild involutional change, no evidence of intraparenchymal mass, hemorrhage, or acute territorial infarct. [facility] (nonstandard communication) notification was initiated at 8:24 PM CDT Electronically Signed: Edy Art MD at 21:34 EDT , ADDENDUM: 06/25/22 2141 IMPRESSION: 1. Moderate intracranial atherosclerotic disease most notable involving the RIGHT cavernous carotid with findings consistent with a approximately 50% RIGHT cavernous carotid narrowing. No occlusion. 2. There is a dominant LEFT A1 segment with developmentally atretic RIGHT A1 segment. Small remnant of the RIGHT A1 arises at the level of the anterior communicating artery which is patent. This may represent a small infundibulum, alternatively a small 2.8 mm aneurysm is a consideration. 3. Focal short segment high-grade stenosis of the LEFT M1 segment. Distal M1 and remaining branches of the LEFT MCA show normal contrast opacification and patency. No intraluminal filling defects, however high-grade greater than 70% stenosis is suspected at. 4. Diffuse bilateral atherosclerotic disease involving the carotid bulbs bilaterally greater on the RIGHT than LEFT. Moderate stenosis on the RIGHT (however close to 50%), and mild stenosis on the LEFT (less than 50%.) 5. Dominant RIGHT vertebral artery. There is a focal area of stenosis without johnie occlusion involving the V1 segment of the LEFT vertebral artery. 6. Noncontrast CT examination documents diffuse chronic deep white matter disease, mild involutional change, no evidence of intraparenchymal mass, hemorrhage, or acute territorial infarct. [facility] (nonstandard communication) notification was initiated at 8:24 PM CDT N.B. : The above Results were Read Back by Edy Art MD to Dr. Saniya MD, and understanding confirmed on 06/25/2022 21:34:40 (ET). Electronically Signed: Edy Art MD at 21:34 EDT , Chest X-Ray 06/25/22 20:04 IMPRESSION: 1. No evidence of acute cardiopulmonary process Electronically Signed: Edy Art MD at 20:53 EDT , Discharge Plan Triage Chief Complaint: Neuro S/Sx ED Provider: Aaron Kothari Dx/Rx/DC Orders Clinical Impression: Numbness and tingling of left upper and lower extremity, Numbness and tingling of left side of face Instructions: ED Paraesthesias Prescriptions: No Action aspirin [Adult Low Dose Aspirin] 81 mg tablet,delayed release (DR/EC) 81 mg PO DAILY cholecalciferol (vitamin D3) 50 mcg (2,000 unit) capsule 50 mcg PO MOWEFR potassium gluconate 600 mg (99 mg) tablet 600 mg (99 mg) tablet 600 mg PO DAILY metformin 500 mg tablet 500 mg PO BID omega 0-oab-qgy-fish oil 500 MG capsule,delayed release(DR/EC) 1,000 mg PO DAILY Label Comments: suppliment/ lowers cholesterol L.acidoph,plant-B.animal,long 1 EACH capsule 1 ea PO DAILY Label Comments: suppliment lutein 20 MG capsule 20 mg PO DAILY estradiol [Estrace] 0.01 % (0.1 mg/gram) Cream 1 appful VAGINAL SUWEFR vitamin B complex Capsule 1 cap PO DAILY cranberry 1,000 mg Capsule 4,200 mg PO QWEEK Rx Instructions: Sundays zinc 50 mg Capsule 50 mg PO TUTHS pantoprazole [Protonix] 40 mg tablet,delayed release (DR/EC) 40 mg PO DAILY Qty: 30 1RF carvedilol 12.5 mg tablet 12.5 mg PO BID Qty: 180 3RF clopidogrel 75 mg tablet 75 mg PO DAILY Qty: 90 3RF Primary Care Provider: Gideon Turcios Referrals: Gideon Turcios, [Primary Care Provider] - Keep [facility] appointment Activity Restrictions/Additional Instructions: Continue your current medications. Follow-up with your doctor at your scheduled appointment. Discussed with him further evaluation of your left-sided symptoms of numbness and tingling. If you get worse return. Try not to hyper flex or extend your neck which may have helped cause the symptoms. Disposition Disposition: Home, Self Care
[2022-06-25 19:35] VITALS: O2SAT 97
[2022-06-25 19:36] LABS: Bedside Glucose 115 mg/dL (74-106)
[2022-06-25] MEDS: DiphenhydrAMINE 50 MG/ML Syringe 25 MG IV (19:41)
[2022-06-25] MEDS: MethylPREDNISolone 125 MG/2 ML Vial 60 MG IV (19:41)
[2022-06-25 19:45] LABS: Partial Thromboplast Time 28.1 Seconds (24.1-36.2); Prothrombin Time (Protime)PT. 13.2 SECONDS (11.7-14.9)
[2022-06-25 19:53] LABS: Anion Gap 10 (5-15); BUN 14 mg/dL (7-18); BUN/Creat Ratio 18.2 RATIO (10-20); Calcium,Total 8.9 mg/dL (8.5-10.1); Chloride 102 mmol/L (98-107); Creatinine, Serum 0.77 mg/dL (0.55-1.02); EST Glomerular Filtration Rate 78 mL/min (>60); Est Glom Filt Rate - Afr Amer 95 mL/min (>60); Glucose 130 mg/dL (74-106); Potassium 3.9 mmol/L (3.5-5.1); Sodium Level 137 mmol/L (136-145); Troponin-I HS 3 pg/mL (3.0-54.0)
--- NOTE | 2022-06-25 20:04 | RAD_ITS ---
INDICATION: Neuro deficit, acute, stroke suspected EXAMINATION/TECHNIQUE: X-RAY - XR Chest 1 View COMPARISON: 05/19/2021 FINDINGS: LIFE-SUPPORT AND LINES: 1. None HEART AND VESSELS: The cardiac silhouette, pulmonary vasculature have normal appearance. No evidence of congestive failure. LUNGS AND PLEURAL SPACES: Lungs are clear. No focal infiltrate, consolidation or effusions. No evidence of pneumothorax. No pulmonary mass is noted. MEDIASTINUM AND HILAR REGIONS: No masses adenopathy noted. No areas of calcification. Visualized upper airway is normal in position. BONY ELEMENTS: No acute bony changes noted. RAD/Chest 1 View IMPRESSION: 1. No evidence of acute cardiopulmonary process Electronically Signed: Edy Art MD at 20:53 EDT ,
[2022-06-25 20:20] LABS: Absolute Lymphocyte Count 3.21 X10^3/uL (0.83-4.51); Absolute Neutrophil Count 8.1 X10^3/uL (2.0-7.7); Basophil# 0.06 X10^3/uL; Basophil% 0.5 % (0-1); Eosinophil# 0.15 X10^3/uL; Eosinophils% 1.2 % (0-5); Hematocrit 39.7 % (37-47); Hemoglobin 14.9 g/dL (12.0-15.0); Lymphocyte # 3.21 X10^3/ul (0.83-4.51); Lymphocyte % 25.4 % (19-41); Mean Corp Hgb Conc 37.5 g/dL (32-36); Mean Corpuscular Hgb 34.6 pg (27.0-32.0); Mean Corpuscular Volume 92.1 fL (81-99); Mean Platelet Vol. 10.3 fl (6.2-12.0); Monocyte# 1.09 X10^3/uL; Monocyte% 8.6 % (0-10); NRBC Flagged by Analyzer 0 % (0-5); Neutrophil # 8.05 X10^3/uL (2.7-7.7); Neutrophil % 63.7 % (47-70); Platelet Count 269 K/mm3 (150-450); RBC Distribution Width CV 12.5 % (11.6-14.6); RBC Distribution Width SD 42.5 fl (35.1-43.9); Red Blood Count 4.31 M/mm3 (4.2-5.4); White Blood Count 12.6 K/mm3 (4.4-11.0)
[2022-06-25 21:00] VITALS: BP 148/86; PULSE 77; RESP 16; O2SAT 94
--- NOTE | 2022-06-25 23:07 | NURSING ---
calling [facility] since we are still waiting on them to beam in. WIll await neuro consult for patient.
--- NOTE | 2022-06-26 00:54 | ED.RN ---
[facility] evaluated patient and will talke to dr paulino jean patient. she states she cannot do a mri, even with medication.
[2022-06-26 01:20] VITALS: BP 170/67; PULSE 74; RESP 16; O2SAT 97
== END 2022-06-26 01:23 | disposition home or self-care (01) ==
PROVIDERS: Emergency Provider Emergency Medicine; PCP Family Medicine; Visit Provider Emergency Medicine
DX: R20.2 Paresthesia of skin (principal); E11.65 Type 2 diabetes mellitus with hyperglycemia; E11.40 Type 2 diabetes mellitus with diabetic neuropathy, unspecified; R20.0 Anesthesia of skin; I10 Essential (primary) hypertension; E78.5 Hyperlipidemia, unspecified; I25.10 Atherosclerotic heart disease of native coronary artery without angina pectoris; I25.2 Old myocardial infarction; Z95.1 Presence of aortocoronary bypass graft; Z95.5 Presence of coronary angioplasty implant and graft; Z79.02 Long term (current) use of antithrombotics/antiplatelets; Z79.82 Long term (current) use of aspirin; Z79.84 Long term (current) use of oral hypoglycemic drugs; Z79.899 Other long term (current) drug therapy
CPT/HCPCS: 70496; 70498; 71045; 80048; 82962; 84484; 85025; 85610; 85730; 93005; 96374; 96375; 99284; Q9967; A4216

== ENCOUNTER → 2022-06-29 | Outpatient (CLI) | payer MEDICARE, BC, SELFPAY ==
--- NOTE | 2022-06-29 12:02 | BI_ITS ---
MAMMOGRAPHY - BILATERAL SCREENING REASON FOR EXAM: Female, 71 years old. Routine annual screening examination. PERTINENT HISTORY: Non-contributory. TECHNIQUE: Digital bilateral breast sol (3D mammographic acquisition) in the CC and MLO projections. 2-D mediolateral oblique (MLO) and craniocaudad (CC) views of both breasts were obtained. CAD: Full Field Digital Mammography with Computer Added Detection was performed. COMPARISON: Comparison is made with prior study dated 06/27/2021 and 06/23/2020. FINDINGS: Breast Composition: There are scattered areas of fibroglandular density. There are no dominant masses or suspicious calcifications. No other significant abnormalities are identified. There has been no significant change since the prior study. BI/SCRN MAMM (CAD)W/SOL BILAT IMPRESSION: Stable bilateral screening mammogram. Yearly follow-up mammogram recommended. (A) ASSESSMENT CATEGORY: BIRADS Category 1: Negative. A letter regarding these results will be sent to the patient by the facility within 30 days. Approximately 10% of breast cancers are not detected by mammography. A normal mammogram should not delay biopsy of a clinically suspicious abnormality. [id number] Electronically Signed: Josr Phillips MD at 13:09 EDT ,
== END | disposition home or self-care (01) ==
LOC: OPBI 12:00
PROVIDERS: PCP Family Medicine; Referring Provider Family Medicine; Visit Provider Family Medicine
DX: Z12.31 Encounter for screening mammogram for malignant neoplasm of breast (principal)
CPT/HCPCS: 77063; 77067

== ENCOUNTER 2023-03-16 17:43 | Emergency (ER) | payer MEDICARE, BC, SELFPAY ==
[2023-03-16 17:44] VITALS: BP 155/105; PULSE 98; RESP 16; TEMP 36.9; O2SAT 100; BMI 26.2
--- NOTE | 2023-03-16 17:59 | EDS_ITS ---
HPI History of Present Illness
--- NOTE | 2023-03-16 17:59 | ED.VIS.LOWEX ---
HPI History of Present Illness Chief Complaint: Wound Informant: patient Narrative Narrative: Patient presents with redness and blister to the right middle toe. Patient states she was doing some washing with hose about 6 days ago. She wore a different pair of boots. She did not get the feet wet. She had a little irritation of the right middle toe afterwards but no blister formation. This was last Saturday and Saturday. On Saturday she already had an appointment with her anaesthesiologist to have her nails trimmed. Prior to going in, she trims some callus that chronically builds up on the underside of her third toe on the right. Because she has neuropathy she did not feel that she cut too deep. She had a little bit of bleeding. But it scabbed over and was not bleeding when she went to see her anaesthesiologist. She has been watching it closely since. She then wrapped the toe with some gauze and Coban. But it looks like the Coban caused blister formation. She went to clean it today and she notes that there was a blister. She peeled that skin away. No purulent drainage is just fluid. But she notices that there is a little bit of erythema on the dorsum of the foot that is new. She has no fevers chills sweats nausea and vomiting and she does not feel systemically ill. Patient is on metformin. 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 She has an complaint investigator rise in her blood sugars normally. But her A1c's are always good. She has not had prior infectious complications. She states she had neuropathy years before she was ever diagnosed with jason phenomenon. 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 Diabetes Diabetes Essential hypertension GERD (gastroesophageal reflux disease) HLD (hyperlipidemia) Hyperlipidemia Hypertension Hypertension Myocardial infarct Neuropathy Non-ST elevation (NSTEMI) myocardial infarction Prediabetes Presence of stent in coronary artery (~05/22/21) Home Medications L.acidophilus-L.plantarum-B.animalis-B.longum 2 billion cell capsule 1 ea PO DAILY SUPPLEMENT 05/27/14 [History Last Taken 05/18/21] omega 3-dha 60 mg-epa 90 mg-fish oil 500 mg capsule, delayed release 1,000 mg PO DAILY SUPPLEMENT 05/27/14 [History Last Taken 05/19/21] aspirin 81 mg tablet,delayed release (Adult Low Dose Aspirin) 81 mg PO DAILY HEART HEALTH 04/30/18 [History Last Taken 05/18/21] lutein 20 mg capsule 20 mg PO DAILY EYE VITAMIN 08/06/18 [History Last Taken 05/19/21] potassium gluconate 600 mg (99 mg) tablet 600 mg PO DAILY supplement 11/11/20 [History Last Taken 05/18/21] cranberry 1,000 mg capsule 4,200 mg PO QWEEK supplement 02/19/21 [History Last Taken 05/14/21] estradiol 0.01% (0.1 mg/gram) vaginal cream (Estrace) 1 appful vaginal SUWEFR hormone 02/19/21 [History Last Taken 05/17/21] vitamin B complex 1 cap PO DAILY vitamin 02/19/21 [History Last Taken 05/18/21] zinc 50 mg capsule 50 mg PO TUTHSA supplement 02/19/21 [History Last Taken 05/18/21] cholecalciferol (vitamin D3) 50 mcg (2,000 unit) capsule 50 mcg PO MOWEFR vitamin 12/20/21 [History Last Taken Unknown] cimetidine 200 mg tablet (Tagamet HB) 400 mg PO BID 07/04/22 [History Last Taken Unknown] metformin 500 mg tablet,extended release 24 hr 500 mg PO BID 07/04/22 [History Last Taken Unknown] carvedilol 12.5 mg tablet 12.5 mg PO BID #180 tabs 11/20/22 [Rx Last Taken Unknown] clopidogrel 75 mg tablet 75 mg PO DAILY #90 tabs 11/20/22 [Rx Last Taken Unknown] amoxicillin 875 mg-potassium clavulanate 125 mg tablet 1 tab PO BID #20 tabs 03/16/23 [Rx Last Taken Unknown] Allergy/AdvReac Type Severity Reaction Status Date / Time Iodinated Contrast Media Allergy Other Verified 03/16/23 17:46 [Iodinated Contrast Media - IV Dye] amlodipine AdvReac Headache, Verified 03/16/23 17:46 nausea, dizziness, fatigue, flushing, GERD Influenza Virus Vaccines AdvReac NEEDS Verified 03/16/23 17:46 FOLLOW-UP lisinopril AdvReac fatigue, Verified 03/16/23 17:46 difficulty walking morphine AdvReac SEVER Verified 03/16/23 17:46 HEADACHE rosuvastatin [From Crestor] AdvReac Other Verified 03/16/23 17:46 Family History Other COPD (chronic obstructive pulmonary disease) Diabetes Embolism Hyperlipidemia Peripheral artery disease Surgical History H/O: hysterectomy History of appendectomy History of bladder suspension procedure History of heart artery stent Presence of coronary angioplasty implant and graft (~02/20/21) S/P appendectomy S/P bladder repair S/P PTCA (percutaneous transluminal coronary angioplasty) S/P tonsillectomy Social History household members: spouse housing: house Smoking Status: Never smoker alcohol intake: current alcohol intake frequency: holidays/special occasions only substance use type: does not use caffeine: Yes Type: coffee Number of servings: 3 and tea Number of servings: 1 ROS ROS ED ROS Narrative A complete review of systems was performed and is negative except as documented in the history of present illness. Some specific details below. Constitutional: No recent fevers or chills. EYE: No blurring of vision. ENT: No difficulty swallowing. CV: No chest pain or palpitations. Respiratory: No dyspnea. No hemoptysis. No difficulty taking breaths. GI: No nausea vomiting. She is eating and drinking normally. : No frequency. Musculoskeletal: See history of present illness Skin: See history of present illness. Neuro: No weakness or numbness. Endocrine: No polyuria or polydipsia. EXAM Physical Exam Narrative Exam Narrative: CONSTITUTIONAL: Patient is nontoxic in appearance. The patient looks comfortable. Work of breathing looks normal. HEENT: No notable trauma. Mucous membranes moist. EYES: No conjunctival injection. NECK:No JVD. No stridor. CARDIOVASCULAR: Regular rate. Regular rhythm. No notable murmur. No JVD. RESPIRATORY: No respiratory distress. Breathing is unlabored. Clear bilaterally. GASTROINTESTINAL: Not distended. Bowel sounds are normal. No tenderness. GENITOURINARY: No tenderness over the bladder. No CVA tenderness. MUSCULOSKELETAL: Patient has exposed area of skin on mostly the distal and lateral aspect of the middle toe of her right foot. It does look consistent with a blister covering that was just removed at home. There is no odor. There is no notable swelling. No purulent drainage. However, about 3 inches proximal to this there is some erythema of the dorsum of the foot. It does not go all the way up to the ankle. There is no involvement of the calf. It is not tender but she also has decreased sensation. It is slightly warm. NEUROLOGICAL: Patient is alert and appropriate. No focal deficit noted other than decreased sensation peripherally consistent with her chronic neuropathy. SKIN: See above. PSYCHIATRIC: Patient is calm. Mood is appropriate. Const Vital Signs: 03/16/23 17:44 Temperature 98.4 F Temperature Source Temporal Pulse Rate 98 Respiratory Rate 16 Blood Pressure 155/105 H Blood Pressure Mean 121 Pulse Ox 100 Oxygen Delivery Method Room Air MDM MDM MDM Narrative Medical decision making narrative: CBC is normal which shows no elevation of the white count or abnormal differential. Patient's electrolytes are normal other than mild elevation of glucose at 144. But this level should not affect significantly her ability to fight infections. Three-view x-ray of the right foot looked at by me shows no gas or bony involvement. Similar reading by radiology. They do note some swelling into the fifth toe although clinically this toe is not involved nor swollen. We discussed options with the patient. She feels well. She would like to try outpatient therapy which I think is reasonable. I explained that if she is not getting better or if she has fevers chills vomiting more swelling drainage or pain she needs to come back. She does have a higher chance of needing admission due to her history of jason phenomenon/diabetes. But we will try her on outpatient antibiotics. We are giving an IV dose of vancomycin here as initial therapy. Lab Data Attestation: I reviewed the patient's lab results. Labs: Laboratory Results - last 24 hr 03/16/23 18:05 WBC 9.1 RBC 3.91 L Hgb 13.5 Hct 36.3 L MCV 92.8 MCH 34.5 H MCHC 37.2 H RDW Std Deviation 43.5 RDW Coeff of Annel 12.8 Plt Count 241 MPV 10.3 Immature Gran % (Auto) 0.400 Neut % (Auto) 60.8 Lymph % (Auto) 27.0 Glenn % (Auto) 9.9 Eos % (Auto) 1.3 Baso % (Auto) 0.6 Absolute Neuts (auto) 5.5 Absolute Lymphs (auto) 2.45 Nucleated RBC % 0 Sodium 138 Potassium 3.6 Chloride 104 Carbon Dioxide 26.0 Anion Gap 8 BUN 18 Creatinine 0.72 Estim Creat Clear Calc 48.72 Est GFR (MDRD) Af Amer 102 Est GFR (MDRD) Non-Af 85 BUN/Creatinine Ratio 25.1 H Glucose 144 H Calcium 9.1 Radiography Diagnostic Testing: Clinical Impression(s) from Imaging Studies Foot X-Ray 03/16/23 18:25 IMPRESSION: No destructive bony process. Lateral forefoot soft tissue swelling extending into the fifth toe. Electronically Signed: Danielito Schaefer (Brooks), at 18:44 EDT Reading Location ID and State: [facility] / [place] , Service support , Discharge Plan Triage Chief Complaint: Wound ED Provider: Aaron Kothari Dx/Rx/DC Orders Clinical Impression: History of diabetes mellitus, type II, Cellulitis of foot, right Instructions: ED Cellulitis Prescriptions: New amoxicillin-pot clavulanate 875-125 mg tablet 1 tab PO BID Qty: 20 0RF No Action aspirin [Adult Low Dose Aspirin] 81 mg tablet,delayed release (DR/EC) 81 mg PO DAILY cholecalciferol (vitamin D3) 50 mcg (2,000 unit) capsule 50 mcg PO MOWEFR potassium gluconate 600 mg (99 mg) tablet 600 mg (99 mg) tablet 600 mg PO DAILY metformin 500 mg tablet extended release 24 hr 500 mg PO BID cimetidine [Tagamet HB] 200 mg tablet 400 mg PO BID omega 3-ham-aoy-fish oil 500 MG capsule,delayed release(DR/EC) 1,000 mg PO DAILY Patient Comments: suppliment/ lowers cholesterol L.acidoph,plant-B.animal,long 1 EACH capsule 1 ea PO DAILY Patient Comments: suppliment lutein 20 MG capsule 20 mg PO DAILY estradiol [Estrace] 0.01 % (0.1 mg/gram) Cream 1 appful VAGINAL SUWEFR vitamin B complex Capsule 1 cap PO DAILY cranberry 1,000 mg Capsule 4,200 mg PO QWEEK Rx Instructions: Sundays zinc 50 mg Capsule 50 mg PO TUTHSA carvedilol 12.5 mg tablet 12.5 mg PO BID Qty: 180 4RF clopidogrel 75 mg tablet 75 mg PO DAILY Qty: 90 4RF Primary Care Provider: Gideon Turcios Referrals: Gideon Turcios DO [Primary Care Provider] - 3-5 Days Disposition Disposition: Home, Self Care
--- NOTE | 2023-03-16 18:25 | RAD_ITS ---
STUDY: X-RAY - RIGHT FOOT CLINICAL: Female, 72 years old. redness, infection DM TECHNIQUE: 3 view(s) of the foot. COMPARISON: None. FINDINGS: There is a plantar calcaneal spur. Normal visualized subtalar, talonavicular, calcaneocuboid, tarsal and tarsometatarsal articulations. Normal metatarsi. Normal metatarsophalangeal joint of the great toe. Normal tibial and fibular sesamoid bones. Normal interphalangeal joint of the great toe. Normal phalanges of the great toe. Normal second through fifth metatarsophalangeal joints. Old fifth proximal phalanx fracture. Soft tissue swelling of the distal forefoot involving the base of the fifth toe. RAD/Foot min 3 Views IMPRESSION: No destructive bony process. Lateral forefoot soft tissue swelling extending into the fifth toe. Electronically Signed: Danielito Schaefer ([place]), at 18:44 EDT Reading Location ID and State: [facility] / [place] , Service support ,
[2023-03-16 18:32] LABS: Absolute Lymphocyte Count 2.45 X10^3/uL (0.83-4.51); Absolute Neutrophil Count 5.5 X10^3/uL (2.0-7.7); Basophil# 0.05 X10^3/uL; Basophil% 0.6 % (0-1); Eosinophil# 0.12 X10^3/uL; Eosinophils% 1.3 % (0-5); Hematocrit 36.3 % (37-47); Hemoglobin 13.5 g/dL (12.0-15.0); Lymphocyte # 2.45 X10^3/ul (0.83-4.51); Mean Corp Hgb Conc 37.2 g/dL (32-36); Mean Corpuscular Hgb 34.5 pg (27.0-32.0); Mean Corpuscular Volume 92.8 fL (81-99); Mean Platelet Vol. 10.3 fl (6.2-12.0); Monocyte% 9.9 % (0-10); NRBC Flagged by Analyzer 0 % (0-5); Neutrophil # 5.53 X10^3/uL (2.7-7.7); Neutrophil % 60.8 % (47-70); Platelet Count 241 K/mm3 (150-450); RBC Distribution Width CV 12.8 % (11.6-14.6); RBC Distribution Width SD 43.5 fl (35.1-43.9); Red Blood Count 3.91 M/mm3 (4.2-5.4); White Blood Count 9.1 K/mm3 (4.4-11.0)
[2023-03-16 18:51] LABS: Anion Gap 8 (5-15); BUN 18 mg/dL (7-18); BUN/Creat Ratio 25.1 RATIO (10-20); Calcium,Total 9.1 mg/dL (8.5-10.1); Chloride 104 mmol/L (98-107); Creatinine, Serum 0.72 mg/dL (0.55-1.02); EST Glomerular Filtration Rate 85 mL/min (>60); Est Glom Filt Rate - Afr Amer 102 mL/min (>60); Estimated Creatinine Clearance 48.72 ml/min; Glucose 144 mg/dL (74-106); Potassium 3.6 mmol/L (3.5-5.1); Sodium Level 138 mmol/L (136-145)
[2023-03-16 20:35] VITALS: RESP 17
[2023-03-16 22:19] VITALS: PULSE 86; RESP 17; O2SAT 98
== END 2023-03-16 22:21 | disposition home or self-care (01) ==
PROVIDERS: Emergency Provider Emergency Medicine; PCP Family Medicine; Visit Provider Emergency Medicine
DX: L03.115 Cellulitis of right lower limb (principal); I25.10 Atherosclerotic heart disease of native coronary artery without angina pectoris; I25.2 Old myocardial infarction; Z86.718 Personal history of other venous thrombosis and embolism; Z95.5 Presence of coronary angioplasty implant and graft
CPT/HCPCS: 73630; 80048; 85025; 99283; J7050; A4216

== ENCOUNTER 2023-05-15 12:59 | Outpatient (RCR) | payer MEDICARE, BC, SELFPAY ==
[2023-05-15 13:12] VITALS: BP 183/67; PULSE 79; RESP 16; TEMP 35.9; BMI 25.4
--- NOTE | 2023-05-15 13:38 | WC ---
difficult to complete initial assessment. 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 hard to redirect.
--- NOTE | 2023-05-15 14:10 | BONBX_PTH ---
PATIENT: USMAN NICKERSON LOC: U#:[id number] AGE/SX: 72/F ROOM: RE05/15/[address]: Dr. Milton Buckley DPM : 1950 BED: DIS: 05/17/2023 SPEC #: [id number] RECD: 05/15/23 14:33 STATUS: ROME RESruthi #: [id number] AMY: 05/15/23 14:[address]: Milton Buckley DEPT: SURGICAL PATHOLOGY RECD BY: Shantal Pro ENTERED: 05/16/23 09:04 SP TYPE: Bone OTHR DR: MD Dr. Gideon Berger, Tissues: Bone of foot, NOS Procedures: Decalcification bone/plaque Surgery Specimen Level V HEADER OPERATION: Bone excision right third toe PRE-OP DIAGNOSIS: Nonhealing ulcer TISSUE SUBMITTED: Bone biopsy right third toe MICROSCOPIC DIAGNOSIS Right third toe bone, biopsy: A piece of bone with reactive changes, negative for acute osteomyelitis. KANDICE:hi 05/17/2023 MICROSCOPIC DESCRIPTION Slides are reviewed. GROSS DESCRIPTION Received in fixative is one container labeled with the patient's name and designated right third toe bone. The specimen consists of a piece of bone measuring 0.5 x 0.6 x 0.6 cm. The specimen is bisected and submitted entirely in one cassette after decalcification. / KANDICE:hi 05/16/2023 TC:5 [facility]: [id number], [id number]
--- NOTE | 2023-05-15 16:18 | PCM.WC.HP ---
History of Present Illness Date of Service: 05/15/23 Chief Complaint: Right third digit wound and osteomyelitis History of Wound: Mrs. Dozier is a 72-year-old diabetic female presenting to wound care center today with a chief complaint of full-thickness wound and possible Ivester myelitis of the right third digit. Patient was seen in the emergency department on 03/16/2023 with a complaint of redness and blister to the right middle toe. Patient was discharged from the emergency department during that time and placed on Augmentin 875/125 mg for 10 days. After patient was discharged she was seen by her primary doctor/nurse practitioner for evaluation of her right toe wound. She was told there was a small wound with no exposed bone. Today the patient presents after referral from her nurse practitioner for evaluation and treatment at the wound care center. Patient is a diabetic with peripheral neuropathy. She admits to no trauma. She denies constitutional symptoms. No other pedal complaints at this time. 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 Diabetes Diabetes Essential hypertension GERD (gastroesophageal reflux disease) HLD (hyperlipidemia) Hyperlipidemia Hypertension Hypertension Myocardial infarct Neuropathy Non-ST elevation (NSTEMI) myocardial infarction Prediabetes Presence of stent in coronary artery (~05/22/21) Home Medications L.acidophilus-L.plantarum-B.animalis-B.longum 2 billion cell capsule 1 ea PO DAILY SUPPLEMENT 05/27/14 [History Last Taken 05/18/21] omega 3-dha 60 mg-epa 90 mg-fish oil 500 mg capsule, delayed release 1,000 mg PO DAILY SUPPLEMENT 05/27/14 [History Last Taken 05/19/21] aspirin 81 mg tablet,delayed release (Adult Low Dose Aspirin) 81 mg PO DAILY HEART HEALTH 04/30/18 [History Last Taken 05/18/21] lutein 20 mg capsule 20 mg PO DAILY EYE VITAMIN 08/06/18 [History Last Taken 05/19/21] potassium gluconate 600 mg (99 mg) tablet 600 mg PO DAILY supplement 11/11/20 [History Last Taken 05/18/21] cranberry 1,000 mg capsule 4,200 mg PO QWEEK supplement 02/19/21 [History Last Taken 05/14/21] estradiol 0.01% (0.1 mg/gram) vaginal cream (Estrace) 1 appful vaginal SUWEFR hormone 02/19/21 [History Last Taken 05/17/21] vitamin B complex 1 cap PO DAILY vitamin 02/19/21 [History Last Taken 05/18/21] zinc 50 mg capsule 50 mg PO TUTHSA supplement 02/19/21 [History Last Taken 05/18/21] cholecalciferol (vitamin D3) 50 mcg (2,000 unit) capsule 50 mcg PO MOWEFR vitamin 12/20/21 [History Last Taken Unknown] metformin 500 mg tablet,extended release 24 hr 500 mg PO BID 07/04/22 [History Last Taken Unknown] carvedilol 12.5 mg tablet 12.5 mg PO BID #180 tabs 11/20/22 [Rx Last Taken Unknown] clopidogrel 75 mg tablet 75 mg PO DAILY #90 tabs 11/20/22 [Rx Last Taken Unknown] phytosterol 500 mg capsule 1,000 mg PO BID 05/15/23 [History Last Taken Unknown] polyethylene glycol 3350 17 gram/dose oral powder (ClearLax) 17 g PO DAILY 05/15/23 [History Last Taken Unknown] red yeast rice 600 mg capsule 600 mg PO BID 05/15/23 [History Last Taken Unknown] super beets PO 2XD 05/15/23 [History Last Taken Unknown] Allergy/AdvReac Type Severity Reaction Status Date / Time Iodinated Contrast Media Allergy Other Verified 05/15/23 13:28 [Iodinated Contrast Media - IV Dye] amlodipine AdvReac Headache, Verified 05/15/23 13:28 nausea, dizziness, fatigue, flushing, GERD Influenza Virus Vaccines AdvReac NEEDS Verified 05/15/23 13:28 FOLLOW-UP lisinopril AdvReac fatigue, Verified 03/16/23 17:46 difficulty walking morphine AdvReac SEVER Verified 05/15/23 13:28 HEADACHE rosuvastatin [From Crestor] AdvReac Other Verified 05/15/23 13:28 Family History Other COPD (chronic obstructive pulmonary disease) Diabetes Embolism Hyperlipidemia Peripheral artery disease Surgical History H/O: hysterectomy History of appendectomy History of bladder suspension procedure History of heart artery stent Presence of coronary angioplasty implant and graft (~02/20/21) S/P appendectomy S/P bladder repair S/P PTCA (percutaneous transluminal coronary angioplasty) S/P tonsillectomy Social History household members: spouse housing: house Smoking Status: Never smoker alcohol intake: current alcohol intake frequency: holidays/special occasions only substance use type: does not use caffeine: Yes Type: coffee Number of servings: 3 and tea Number of servings: 1 Vital Signs Vital Signs Vital Signs: 05/15/23 13:12 Temperature 96.6 F L Temperature Source Temporal Pulse Rate 79 Respiratory Rate 16 Blood Pressure 183/67 H Blood Pressure Mean 105 Blood Pressure Source Monitor Blood Pressure Position Sitting Blood Pressure Location Left Arm Oxygen Delivery Method Room Air Weight Weight: 75.75 kg Body Mass Index (BMI) 25.4 Physical Exam Narrative Vascular: DP and PT pulses are palpable. CFT brisk. Blanchable erythema appreciated to the right third digit. Nonpitting edema appreciated to the right foot. Neurological: Light touch diminished. Protective sensation is absent. Epicritic sensation is absent. Patient does not respond to painful stimuli. Dermatological: Full-thickness ulceration with granular tissue to the plantar aspect of the right third digit with exposed bone, head of the proximal phalanx is exposed as well as the intermediate phalanx of the third digit. No active drainage. Concern for osteomyelitis. Musculoskeletal: Muscle strength is 5 out of 5 in all quadrants. No pain on palpation to the ulcer of the plantar aspect of the third digit. No pain with calf compression. Const alert, oriented x3 and no apparent distress Debridement Note Debridement Note Debridement Free Text: Patient was educated on her current condition regarding exposed bone/osteomyelitis to the right third digit. Chart review and consent signed for incision of bone cortex and advancement flap of the right third digit. Attention was directed to the plantar aspect of the right third digit where using a sterile bone cutter, the head of the proximal phalanx was excised and removed and passed the back table to be sent off for microbiology. Further dissection was carried through with sterile pickups and a 15 blade where the intermediate phalanx as well as the distal phalanx of the third digit was excised and removed to be sent to microbiology for culture and sensitivity. The full-thickness ulcer/incision was flushed with copious nataliia of normal saline. An advancement flap from dorsal to plantar was achieved with undermining additional skin for advancement. After undermining adjacent skin, complete closure of the ulceration was achieved. Using 3-0 Prolene, the advancement flap was close from dorsal to plantar with simple interrupted suture technique. No drainage was noted after advancement flap closure. The right lower extremities were cleaned and patted dry. The patient tolerated the procedure well and the flap showed evidence of excellent capillary refill time after the procedure. The flap/incision was dressed with Betadine soaked Adaptic, dry sterile dressing and a single layer Byers compression bandage was donned to the right foot. Patient was dispensed a surgical shoe and instructed to be partial weightbearing to the heel only until follow-up on Saturday at the office of Dr. Buckley. She will be placed on doxycycline and ciprofloxacin for the next 14 days to be taken twice daily as written. Patient was dispensed postoperative instructions and was told to call the office of Dr. Buckley with any questions or concerns. Post-Debridement Measurements and Additional Note: Post-Debridement Measurements/Treatment - Nurse 1 - General Ulcer Assessment Start: 05/15/23 13:12 Freq: Status: Active Protocol: JUAN Activity Type Activity Date Activity User E-sign Co-sign Detail Recorded Client Recorded Date Recorded By Document 05/15/23 13:12 [facility] [id number] 05/15/23 13:23 [facility] 05/15/23 13:12 - Today's Visit Information Type of service Initial Visit Arrival Mode Ambulatory Transfer Assistance None Patient Identification Verified (Name & Yes ) Patient Requires Transmission-Based No Precautions Height and Weight Height 5 ft 8 in Weight 75.75 kg Weight in Pounds 167.0 lbs Weight Measurement Method Stated by Patient Body Mass Index (BMI) 25.4 BMI Classification Overweight BSA - Candi 1.89 Vital Signs Temperature (97.8 F-99.1 F) 96.6 F L Temperature Source Temporal Pulse Rate (60-100) 79 Pulse Location Monitor Respiratory Rate (12-18) 16 Respiratory rate source Observation Oxygen Delivery Method Room Air Blood Pressure (90/60-120/80) 183/67 H Blood Pressure Mean 105 Source Monitor Position Sitting Blood Pressure Location Left Arm History Since Last Visit- (Skip if this is Patient's initial visit) Left Footwear Regular Shoe Right Footwear Regular Shoe Pain Scale: 0-10 Numeric Is Patient Pain Free? Yes Lower Extremity Assessment/ Foot Assessment/ Toe Nail Assessment Right -Posterior Tibial Doppler Monophasic -Dorsalis Pedis Doppler Monophasic -Extremity Color Hyperpigmented -Hair Growth on Legs No -Hair Growth on Toes No -Thick No -Discolored No -Deformed No -Improper Length & Hygeine No Left -Posterior Tibial Doppler Monophasic -Dorsalis Pedis Doppler Monophasic -Extremity Color Hyperpigmented -Hair Growth on Legs No -Hair Growth on Toes No -Thick No -Discolored No -Deformed No -Improper Length & Hygeine No Neuropathy Assessment Feet - Top Side and Bottom <Entered> (a) Communication Assessment Preferred language German Assistant Site Manager Required No Able to Read Yes Able to Write Yes Communication Tools None Right Hearing Abillity Normal Left Hearing Abillity Normal Visual Assistive Devices Glasses Teaching Assessment Preferences Verbal,Written, Audio/Visual, Demonstration Barriers to Learning None Readiness To Learn Excellent Willingness to Engage in Self Management High Activies Readiness to Engage in Self Management High Activities Anxiety Level Calm Cooperation Cooperative Perception Coherent Interest in Health Problem Asks Questions Education Importance Acknowledges Need Does Patient Smoke tobacco or other No substances Smoking Status Never smoker Is Patient Diabetic Yes Functional Assessment Recent Decline in Ability to Perform Denies Any Declines Culture/Advent/Recruiting Associate Cultural/Advent Needs that may affect No Treatment Plan Teaching: Wound Center *Welcome to the Wound Center -Person Taught Patient -Teaching Method Discussion -Response to teaching Verbalize understanding Welcome to the Wound Care Center German (a) 1 - - WC - Nurse 1 - General Ulcer Measurement Start: 05/15/23 13:12 Freq: Status: Active Protocol: Activity Type Activity Date Activity User E-sign Co-sign Detail Recorded Client Recorded Date Recorded By Document 05/15/23 13:12 [facility] [id number] 05/15/23 13:23 [facility] 05/15/23 13:12 Wound Center Nurse 1 #1- R 3RD TOE PLANTAR -Combined with other wound No -Current Size (cm) - Length 2.1 -Current Size (cm) - Width 1.0 -Current Size (cm) - Depth 0.1 -Total Square Cm 2.10 -Date of Last Picture (Recall this 05/15/23 field) -Photo Taken Yes -Epithelialization None Present -Tunneling No -Undermining/Tunneling No -Circular Undermining No -Exudate Amt Medium -Exudate Type Serosanguineous -Wound Margin Distinct, Outline Attached -Granulation Amt Large (67-100%) -Granulation Quality Red -Slough/Fibrin Yes -Necrosis Amt Small (1-33%) -Necrotic Tissue Type Adherent Slough -Texture ([place]-wound Skin Appearance) Assessed, Localized Edema ,Scarring -Moisture ([place]-wound Skin Appearance) Assessed -Color ([place]-wound Skin Appearance) Ecchymosis -Temperature ([place]-wound Skin No Abnormality Appearance) (Pt Warm) -Tenderness on Palpation ([place]-wound No Skin Appearance) -Ulcer Cleansing Rinsed/ Irrigated with Saline -Foul Odor after Cleansing No -Anesthetic Used 5% Lidocaine Gel Right Calf (cm) 39 Right Ankle (cm) 24.2 Left Calf (cm) 39.5 Left Ankle (cm) 24.1 WC - Nurse 2 - General Ulcer CM Notes Start: 05/15/23 13:12 Freq: Status: Active Protocol: Activity Type Activity Date Activity User E-sign Co-sign Detail Recorded Client Recorded Date Recorded By Document 05/15/23 13:50 [id number] 05/15/23 14:18 [facility] 05/15/23 13:50 Wound Center Nurse 2 #1- R 3RD TOE PLANTAR -Time 13:53 -Correct Patient Yes -Correct Side, Site, Position Yes -Correct Procedure Yes -Procedure Performed Yes -Type of Procedure Debridement -Clinical Debridement Bone -Tissue Removed Non-viable tissue -Post Debridement (cm) - Length 0.1 -Post Debridement (cm) - Width 0.1 -Post Debridement (cm) - Depth 0.1 -Total Square (Post) (cm) 0.01 -Area of Debridement (cm) - Length 0.1 -Area of Debridement (cm) - Width 0.1 -Total Square (Area) (cm) 0.01 -Tunneling No -Undermining/Tunneling No -Circular Undermining No -Wound/Ulcer Outcome Healed- Flap -Ulcer Cleansing Rinsed/ Irrigated with Saline -Foul Odor after Cleansing No -Bioengineered Tissue No -Bleeding Controlled with Pressure -Treatment Response Procedure Tolerated Well -Offloading Yes -Type of Offloading Surgical Shoe -Debridement - Bone, 1st 20sq cm Yes Pain Scale: 0-10 Numeric Is Patient Pain Free? Yes - Nurse 3 - General Ulcer D/C NN Start: 05/15/23 13:12 Freq: Status: Active Protocol: Activity Type Activity Date Activity User E-sign Co-sign Detail Recorded Client Recorded Date Recorded By Document 05/15/23 14:33 RB [id number] 05/15/23 14:37 RB Edit Result 05/15/23 14:33 RB (1) [id number] 05/15/23 14:39 RB (1) Dressing Your Wound - Person Taught => Patient,Family - Teaching Method => Discussion, => Demonstration - Response to teaching => Verbalize => understanding *Welcome to the Wound Center - Person Taught => Patient - Teaching Method => Discussion, => Demonstration - Response to teaching => Verbalize => understanding Discharge Condition => Stable Ambulatory Status => Ambulatory Transportation => Private Auto Medication Reconcilliation completed & => No provided to patient/care provider Clinical Summary of Care Provided => Yes Notes: => surgical shoe to right foot, pt instructed to not change dressing until she see Dr Buckley at his office 05/15/23 14:33 Wound Care Center Nurse 3 #1- R 3RD TOE PLANTAR -Ulcer Cleansing betadine to incision -Primary Dressing Applied NonAdherent Contact Layer -Primary Dressing Covered/Secured with Dry Gauze & Roll Gauze, Secured with Tape Right -Other pedro Treatment Response Procedure Tolerated Well Pain Scale: 0-10 Numeric Is Patient Pain Free? Yes Teaching: Wound Center Dressing Your Wound -Person Taught Patient,Family -Teaching Method Discussion, Demonstration -Response to teaching Verbalize understanding *Welcome to the Wound Center -Person Taught Patient -Teaching Method Discussion, Demonstration -Response to teaching Verbalize understanding WC - Visit Discharge Discharge Condition Stable Ambulatory Status Ambulatory Transportation Private Auto Medication Reconcilliation completed & No provided to patient/care provider Clinical Summary of Care Provided Yes Notes: surgical shoe to right foot, pt instructed to not change dressing until she see Dr Buckley at his office Assessment/Plan Assessment/Plan (1) Osteomyelitis of third toe of right foot: CODE(S): M86.9 - Osteomyelitis, unspecified PLAN: Patient was examined evaluated. All findings were discussed with the patient. All questions were answered to the patient satisfaction. Educated the patient regarding her current condition of the right third digit where there is concern for osteomyelitis secondary to exposed intermediate and distal phalanx as well as head to the proximal phalanx. Educated the patient that she will need a amputation which the patient was understanding of secondary to having the distal phalanx exposed to the level of the nailbed at time of interview today. It was a medical necessity at this time to prep the right third digit for incision of bone cortex and advancement flap of the third digit. Chart review and consent was signed. All risk and benefits were discussed with the patient. Please see debridement note for procedure details. The patient will be placed on doxycycline and ciprofloxacin for the next 14 days and will follow up with Dr. Buckley Saturday in his private clinic. Patient was grateful for her care and will follow up as an outpatient. (2) Diabetes mellitus with peripheral autonomic neuropathy: CODE(S): E11.43 - Type 2 diabetes mellitus with diabetic autonomic (poly)neuropathy QUALIFIERS: Diabetes mellitus type: type 2 Diabetes mellitus mcfp insulin use: with long term care phlebotomist use Qualified Code(s): E11.43 - Type 2 diabetes mellitus with diabetic autonomic (poly)neuropathy; Z79.4 - snf (current) use of insulin PLAN: Patient educated to keep her diabetes/blood sugar well under control and to have her blood sugar levels be from 100 to 150 mg/dL daily to ensure that her procedure/flap heals well. (3) Ulcer of right foot due to type 2 diabetes mellitus: CODE(S): E11.621 - Type 2 diabetes mellitus with foot ulcer; L97.519 - Non-pressure chronic ulcer of other part of right foot with unspecified severity
== END 2023-05-17 07:34 | disposition home or self-care (01) ==
LOC: WC 12:59
PROVIDERS: PCP Family Medicine; Referring Provider Family Medicine; Visit Provider Podiatrist Foot & Ankle Surgery
DX: E11.621 Type 2 diabetes mellitus with foot ulcer (principal); L97.519 Non-pressure chronic ulcer of other part of right foot with unspecified severity; M86.8X7 Other osteomyelitis, ankle and foot; E11.69 Type 2 diabetes mellitus with other specified complication; E11.42 Type 2 diabetes mellitus with diabetic polyneuropathy; E11.43 Type 2 diabetes mellitus with diabetic autonomic (poly)neuropathy; Z79.4 Long term (current) use of insulin; R60.0 Localized edema; I25.10 Atherosclerotic heart disease of native coronary artery without angina pectoris; I10 Essential (primary) hypertension; Z79.84 Long term (current) use of oral hypoglycemic drugs; Z79.82 Long term (current) use of aspirin
CPT/HCPCS: 11044; 87070; 87075; 87077; 87186; 87205; 88307; 88311; 99214; G0463

== ENCOUNTER → 2023-07-02 | Outpatient (CLI) | payer MEDICARE, BC, SELFPAY ==
--- NOTE | 2023-07-02 13:16 | BI_ITS ---
MAMMOGRAPHY - BILATERAL SCREENING REASON FOR EXAM: Female, 72 years old. Routine annual screening examination. PERTINENT HISTORY: Non-contributory. TECHNIQUE: Digital bilateral breast sol (3D mammographic acquisition) in the CC and MLO projections. 2-D mediolateral oblique (MLO) and craniocaudad (CC) views of both breasts were obtained. CAD: Full Field Digital Mammography with Computer Added Detection was performed. COMPARISON: Comparison is made with prior study dated June 29, 2022 and June 27, 2021. FINDINGS: Breast Composition: There are scattered areas of fibroglandular density. There are no dominant masses or suspicious calcifications. No other significant abnormalities are identified. There has been no significant change since the prior study. BI/SCRN MAMM (CAD)W/SOL BILAT IMPRESSION: Stable bilateral screening mammogram. Yearly follow-up mammogram recommended. (A) ASSESSMENT CATEGORY: BIRADS Category 1: Negative. A letter regarding these results will be sent to the patient by the facility within 30 days. Approximately 10% of breast cancers are not detected by mammography. A normal mammogram should not delay biopsy of a clinically suspicious abnormality. [id number] Electronically Signed: Josr Phillips MD at 13:55 EDT ,
== END | disposition home or self-care (01) ==
LOC: OPBI 13:14
PROVIDERS: PCP Family Medicine; Referring Provider Family Medicine; Visit Provider Family Medicine
DX: Z12.31 Encounter for screening mammogram for malignant neoplasm of breast (principal)
CPT/HCPCS: 77063; 77067

== ENCOUNTER 2023-07-19 17:50 | Emergency (ER) | payer MEDICARE, BC, SELFPAY ==
[2023-07-19] VITALS (9 sets, daily range): BP systolic 103–203; BP diastolic 62–90; PULSE 67–85; RESP 12–18; TEMP 36.6; O2SAT 95–98; BMI 25.1
--- NOTE | 2023-07-19 17:56 | EKG12_ITS ---
Test Reason : PAIN Blood Pressure : / mmHG Vent. Rate : 080 BPM Atrial Rate : 080 BPM P-R Int : 190 ms QRS Dur : 078 ms QT Int : 380 ms P-R-T Axes : 041 025 037 degrees QTc Int : 438 ms Normal sinus rhythm Septal infarct , age undetermined Abnormal ECG Confirmed by ENRIKE GONZALES, EVANS ([id number]), newspaper editor GABRIELA IBARRA ([id number]) on 07/24/2023 12:28:43 PM Referred By: Confirmed By:EVANS CALVERT MD
--- NOTE | 2023-07-19 18:40 | EDS_ITS ---
HPI History of Present Illness Chief Complaint: Chest Pain Informant: patient Narrative Narrative: Patient presents today that she has not felt well for the past couple days. She feels more fatigued than normal. She has some slight chest pressure in her left lateral chest near her axilla and tonight noted some pain in her jaw. She reports having similar symptoms in the past when she had OH. She does have 4 cardiac stents. [facility] Medical History (Updated 07/19/23 @ 22:[address] 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 Diabetes Essential hypertension GERD (gastroesophageal reflux disease) Hyperlipidemia Hypertension Myocardial infarct Neuropathy Non-ST elevation (NSTEMI) myocardial infarction Prediabetes Presence of stent in coronary artery (~05/22/21) Home Medications L.acidophilus-L.plantarum-B.animalis-B.longum 2 billion cell capsule 1 ea PO DAILY SUPPLEMENT 05/27/14 [History Last Taken 05/18/21] omega 3-dha 60 mg-epa 90 mg-fish oil 500 mg capsule, delayed release 1,000 mg PO DAILY SUPPLEMENT 05/27/14 [History Last Taken 05/19/21] aspirin 81 mg tablet,delayed release (Adult Low Dose Aspirin) 81 mg PO DAILY HEART HEALTH 04/30/18 [History Last Taken 05/18/21] lutein 20 mg capsule 20 mg PO DAILY EYE VITAMIN 08/06/18 [History Last Taken 05/19/21] potassium gluconate 600 mg (99 mg) tablet 600 mg PO DAILY supplement 11/11/20 [History Last Taken 05/18/21] cranberry 1,000 mg capsule 4,200 mg PO QWEEK supplement 02/19/21 [History Last Taken 05/14/21] estradiol 0.01% (0.1 mg/gram) vaginal cream (Estrace) 1 appful vaginal SUWEFR hormone 02/19/21 [History Last Taken 05/17/21] vitamin B complex 1 cap PO DAILY vitamin 02/19/21 [History Last Taken 05/18/21] zinc 50 mg capsule 50 mg PO TUTHSA supplement 02/19/21 [History Last Taken ] cholecalciferol (vitamin D3) 50 mcg (2,000 unit) capsule 50 mcg PO MOWEFR vitamin 04/20/22 [History Last Taken Unknown] metformin 500 mg tablet,extended release 24 hr 500 mg PO BID 07/04/22 [History Last Taken Unknown] carvedilol 12.5 mg tablet 12.5 mg PO BID #180 tabs 11/20/22 [Rx Last Taken Unknown] clopidogrel 75 mg tablet 75 mg PO DAILY #90 tabs 11/20/22 [Rx Last Taken Unknown] phytosterol 500 mg capsule 1,000 mg PO BID 05/15/23 [History Last Taken Unknown] polyethylene glycol 3350 17 gram/dose oral powder (ClearLax) 17 g PO DAILY 05/15/23 [History Last Taken Unknown] red yeast rice 600 mg capsule 600 mg PO BID 05/15/23 [History Last Taken Unknown] super beets PO 2XD 05/15/23 [History Last Taken Unknown] ezetimibe 10 mg tablet 10 mg PO DAILY #90 tabs 06/11/23 [Rx Last Taken Unknown] Allergy/AdvReac Type Severity Reaction Status Date / Time Iodinated Contrast Media Allergy Other Verified 07/19/23 17:51 [Iodinated Contrast Media - IV Dye] amlodipine AdvReac Headache, Verified 07/19/23 17:51 nausea, dizziness, fatigue, flushing, GERD Influenza Virus Vaccines AdvReac NEEDS Verified 07/19/23 17:51 FOLLOW-UP lisinopril AdvReac fatigue, Verified 07/19/23 17:51 difficulty walking morphine AdvReac SEVER Verified 07/19/23 17:51 HEADACHE rosuvastatin [From Crestor] AdvReac Other Verified 07/19/23 17:51 Family History Other COPD (chronic obstructive pulmonary disease) Diabetes Embolism Hyperlipidemia Peripheral artery disease Surgical History H/O: hysterectomy History of appendectomy History of bladder suspension procedure History of heart artery stent Presence of coronary angioplasty implant and graft (~02/20/21) S/P appendectomy S/P bladder repair S/P PTCA (percutaneous transluminal coronary angioplasty) S/P tonsillectomy Social History household members: spouse housing: house Smoking Status: Never smoker alcohol intake: current alcohol intake frequency: holidays/special occasions only substance use type: does not use caffeine: Yes Type: coffee Number of servings: 3 and tea Number of servings: 1 ROS ROS ED Constitutional Constitutional ED: Denies chills or fever(s) Eyes Eyes: Denies change in vision or discharge from eye(s) ENT ENT ED: Denies discharge from eye(s), rhinorrhea or sore throat Cardiovascular Cardiovascular: Reports chest pain; Denies palpitations Respiratory/Chest Respiratory/Chest: Denies cough or dyspnea Gastrointestinal Gastrointestinal: Denies abdominal pain, nausea or vomiting Genitourinary Genitourinary ED: Denies dysuria Musculoskeletal Musculoskeletal: Denies back pain or extremity pain Integumentary Denies Abrasions or rash Neurologic Neurologic: Reports weakness; Denies headache(s) Psychiatric Psychiatric: Denies anxiety or depression Allergic/Immunologic Allergic/Immunologic ED: Denies lip swelling or urticaria EXAM Physical Exam Const Vital Signs: 07/19/23 17:51 07/19/23 17:56 07/19/23 18:30 Temperature 97.8 F Temperature Source Temporal Pulse Rate 85 Respiratory Rate 18 Respiratory Effort Short of Breath Blood Pressure 177/73 H Blood Pressure Mean 107 Pulse Ox 98 95 Oxygen Delivery Method Room Air Room Air 07/19/23 18:50 07/19/23 19:00 07/19/23 20:00 Temperature Temperature Source Pulse Rate 82 82 67 Respiratory Rate 16 16 12 Respiratory Effort Blood Pressure 103/62 103/62 166/66 H Blood Pressure Mean 75 75 99 Pulse Ox 96 98 97 Oxygen Delivery Method Room Air Room Air Room Air 07/19/23 21:00 07/19/23 22:00 07/19/23 22:22 Temperature Temperature Source Pulse Rate 74 Respiratory Rate 12 Respiratory Effort Blood Pressure 181/78 H 203/87 H 194/90 H Blood Pressure Mean 112 125 124 Pulse Ox 97 Oxygen Delivery Method Room Air Positive well nourished and well developed General Appearance ED: well developed HEENT Reports moist mucous membranes Eyes EOMs intact bilaterally Chest Wall inspection of chest normal and palpation of chest normal Resp normal respiratory effort and clear to auscultation bilaterally Cardio regular rate and regular rhythm GI soft to palpation and non-tender Extremity normal to inspection Neuro oriented x3 and no sensory deficits noted Motor Exam: strength 5/5 throughout Psych mental status grossly normal Skin no rashes or lesions noted Heart Score History: Moderately Suspicious ECG: Normal Age: >/= 65 years Risk Factors: >/= 3 Risk Factors or History of CAD Troponin: </= Normal Limit Score: 5 MDM MDM MDM Narrative Medical decision making narrative: Patient placed on director of cardiac rehabilitation. IV line initiated. Patient took 2 baby aspirin prior to arrival and is given 2 more here. EKG obtained to evaluate for cardiac arrhythmia/ischemia. Chest x-ray obtained to evaluate for acute lung pathology, cardiac size, or mediastinal abnormality. Labwork obtained to ev aluate for leukocytosis, anemia, and electrolyte derangement. History & Record Review Discussion w/independent historian: Patient Additional record(s) reviewed:: Prior outpatient record, Prior ED visit and Prior labs Lab Data Attestation: I reviewed the patient's lab results. Labs: Laboratory Results - last 24 hr 07/19/23 07/19/23 18:58 20:55 WBC 7.9 RBC 4.20 Hgb 14.3 Hct 38.7 MCV 92.1 MCH 34.0 H MCHC 37.0 H RDW Std Deviation 44.0 H RDW Coeff of [place] 13.2 Plt Count 233 MPV 9.7 Immature Gran % (Auto) 0.600 Neut % (Auto) 55.7 Lymph % (Auto) 32.7 [place] % (Auto) 8.2 Eos % (Auto) 2.2 Baso % (Auto) 0.6 Absolute Neuts (auto) 4.4 Absolute Lymphs (auto) 2.58 Nucleated RBC % 0 Sodium 139 Potassium 3.8 Chloride 105 Carbon Dioxide 24.0 Anion Gap 10 BUN 15 Creatinine 0.83 Estim Creat Clear Calc 60.90 Est GFR (MDRD) Af Amer 86 Est GFR (MDRD) Non-Af 71 BUN/Creatinine Ratio 18.1 Glucose 126 H Calcium 9.1 Troponin I High Sens 5 4 Radiography Chest X-Ray - ED: 1 View, Read by ED Physician, Normal, Heart, Lungs and Mediastinum Diagnostic Testing: Clinical Impression(s) from Imaging Studies Chest X-Ray 07/19/23 19:08 IMPRESSION: No acute radiographic abnormalities. Electronically Signed: Jaylon Soriano MD at 19:49 EST , EKG Initial EKG: Attestation: I personally reviewed and interpreted this EKG as follows: Interpretation: Sinus Rhythm (Sinus at 80 with no acute ischemia.) Treatment and Re-Evaluation :: CBC was normal white count 7.9 with a hemoglobin of 14.3. Chemistry studies unremarkable. Initial troponin is 5 with 2-hour repeat of 4. Portable chest x- ray per my interpretation shows no acute abnormalities. Radiology interpretation reviewed and agrees. EKG is sinus rhythm with no evidence of ischemia. Patient has been rechecked multiple times and has no chest pain or jaw pain. She was able to give and ambulate to the restroom and back without difficulty and had no exertional symptoms. She will be discharged to home with close follow-up. Return instructions are given. Prior to discharge patient's blood pressure is noted to be elevated. She is due for her evening dose of carvedilol and this is given to her prior to discharge. Discharge Plan Triage Chief Complaint: Chest Pain ED Provider: Veronica Carrasquillo Dx/Rx/DC Orders Clinical Impression: Chest pain Instructions: ED Chest Pain, Uncertain Cause Prescriptions: No Action aspirin [Adult Low Dose Aspirin] 81 mg tablet,delayed release (DR/EC) 81 mg PO DAILY cholecalciferol (vitamin D3) 50 mcg (2,000 unit) capsule 50 mcg PO MOWEFR potassium gluconate 600 mg (99 mg) tablet 600 mg (99 mg) tablet 600 mg PO DAILY metformin 500 mg tablet extended release 24 hr 500 mg PO BID omega 3-zxe-bhq-fish oil 500 MG capsule,delayed release(DR/EC) 1,000 mg PO DAILY Patient Comments: suppliment/ lowers cholesterol L.acidoph,plant-B.animal,long 1 EACH capsule 1 ea PO DAILY Patient Comments: suppliment lutein 20 MG capsule 20 mg PO DAILY estradiol [Estrace] 0.01 % (0.1 mg/gram) Cream 1 appful VAGINAL SUWEFR vitamin B complex Capsule 1 cap PO DAILY cranberry 1,000 mg Capsule 4,200 mg PO QWEEK Rx Instructions: Sundays zinc 50 mg Capsule 50 mg PO TUTHSA red yeast rice 600 mg capsule 600 mg PO BID Rx Instructions: give with meal/snack polyethylene glycol 3350 [ClearLax] 17 gram/dose powder 17 g PO DAILY phytosterol 500 mg capsule 1,000 mg PO BID super beets PO 2XD carvedilol 12.5 mg tablet 12.5 mg PO BID Qty: 180 4RF clopidogrel 75 mg tablet 75 mg PO DAILY Qty: 90 4RF ezetimibe 10 mg tablet 10 mg PO DAILY Qty: 90 3RF Primary Care Provider: Gideon Turcios Referrals: Beltran Dominguez MD [Med Staff - Active Staff] - 1 Week if not improving Gideon Turcios DO [Primary Care Provider] - Disposition Disposition: Home, Self Care
[2023-07-19] MEDS: Aspirin 81 MG TAB.CHEW 162 MG PO (19:07)
--- NOTE | 2023-07-19 19:08 | RAD_ITS ---
INDICATION: chest pain EXAMINATION/TECHNIQUE: X-RAY - XR Chest 1 View COMPARISON: 06/25/2022. FINDINGS: The lungs are clear. Left basilar atelectasis. Tortuous and calcified thoracic aorta. The heart is not enlarged. No pleural effusion or pneumothorax. Degenerative changes of the thoracic spine. RAD/Chest 1 View (Portable) IMPRESSION: No acute radiographic abnormalities. Electronically Signed: Jaylon Soriano MD at 19:49 EST ,
[2023-07-19 19:17] LABS: Absolute Lymphocyte Count 2.58 X10^3/uL (0.83-4.51); Absolute Neutrophil Count 4.4 X10^3/uL (2.0-7.7); Basophil# 0.05 X10^3/uL; Basophil% 0.6 % (0-1); Eosinophil# 0.17 X10^3/uL; Eosinophils% 2.2 % (0-5); Hematocrit 38.7 % (37-47); Hemoglobin 14.3 g/dL (12.0-15.0); Lymphocyte # 2.58 X10^3/ul (0.83-4.51); Lymphocyte % 32.7 % (19-41); Mean Corpuscular Volume 92.1 fL (81-99); Mean Platelet Vol. 9.7 fl (6.2-12.0); Monocyte# 0.65 X10^3/uL; Monocyte% 8.2 % (0-10); NRBC Flagged by Analyzer 0 % (0-5); Neutrophil % 55.7 % (47-70); Platelet Count 233 K/mm3 (150-450); RBC Distribution Width CV 13.2 % (11.6-14.6); White Blood Count 7.9 K/mm3 (4.4-11.0)
[2023-07-19 19:24] LABS: Anion Gap 10 (5-15); BUN 15 mg/dL (7-18); BUN/Creat Ratio 18.1 RATIO (10-20); Calcium,Total 9.1 mg/dL (8.5-10.1); Chloride 105 mmol/L (98-107); Creatinine, Serum 0.83 mg/dL (0.55-1.02); EST Glomerular Filtration Rate 71 mL/min (>60); Est Glom Filt Rate - Afr Amer 86 mL/min (>60); Glucose 126 mg/dL (74-106); Potassium 3.8 mmol/L (3.5-5.1); Sodium Level 139 mmol/L (136-145); Troponin-I HS (w/2H Reflex) 5 pg/mL (3.0-54.0)
[2023-07-19 21:02] LABS: Reflex Troponin-HS? (from REC) Y
[2023-07-19 21:28] LABS: Troponin-I HS 4 pg/mL (3.0-54.0)
[2023-07-19] MEDS: Carvedilol 12.5 MG Tablet PO (22:36)
== END 2023-07-19 23:13 | disposition home or self-care (01) ==
PROVIDERS: Emergency Provider Emergency Medicine; PCP Family Medicine; Visit Provider Emergency Medicine
DX: R07.9 Chest pain, unspecified (principal); E11.40 Type 2 diabetes mellitus with diabetic neuropathy, unspecified; I25.10 Atherosclerotic heart disease of native coronary artery without angina pectoris; I25.2 Old myocardial infarction; Z86.718 Personal history of other venous thrombosis and embolism; Z95.5 Presence of coronary angioplasty implant and graft
CPT/HCPCS: 71045; 80048; 84484; 85025; 93005; 99285; A4216

== ENCOUNTER → 2023-07-31 | Outpatient (CLI) | payer MEDICARE, BC, SELFPAY | END | disposition home or self-care (01) | LOC: BFHLAB 10:43 → LABSPEC 10:44 | PROVIDERS: PCP Family Medicine; Visit Provider Family Medicine | DX: N39.0 Urinary tract infection, site not specified (principal) | CPT/HCPCS: 87077; 87086; 87088; 87186 ==

== ENCOUNTER → 2023-08-02 | Outpatient (CLI) | payer MEDICARE, BC, SELFPAY ==
--- NOTE | 2023-08-02 15:45 | STRESSREP ---
Stress Test Report Pharmacologic myocardial perfusion stress test. 72-year-old lady with a history of non-ST elevation myocardial infarction Resting EKG demonstrates sinus rhythm with a rate of 82 bpm. Resting blood pressure is 152/90 mmHg. 0.4 mg of regadenoson was infused per usual protocol followed by rapid intravenous saline flush injection. Continuous EKG monitoring was performed. The maximum heart rate was 106 bpm which was 72% of max impacted heart rate the maximum workload was 1 metabolic equivalent. At rest there were no ST or T wave changes noted to suggest ischemia and at peak infusion nonspecific ST changes were noted which did not meet the criteria for ischemia. No clinical angina is noted. The final blood pressure was 162/92 mmHg. Myocardial perfusion protocol. 11.8 mCi of technetium 99m sestamibi was injected at rest. 0.4 mg of regadenoson was infused per usual protocol. At peak infusion 34.1 mCi of technetium 99m sestamibi was injected stress images were obtained stress and rest images were reconstructed and compared in the short axis vertical long and horizontal long axis. Gated images were also obtained. Perfusion SPECT analysis: Review of the stress images demonstrate normal uptake of tracer noted in all areas of the myocardium. The resting images similar demonstrated normal uptake of tracer noted in all areas of the myocardium. No areas of reversibility are noted to suggest ischemia and no previous infarct is noted. Gated SPECT analysis: The gated ejection fraction is 84%. Conclusion: Normal pharmacologic myocardial perfusion stress test. Preserved ejection fraction.
== END | disposition home or self-care (01) ==
LOC: CVS 06:57
PROVIDERS: PCP Family Medicine; Referring Provider Internal Medicine Cardiovascular Disease; Visit Provider Internal Medicine Cardiovascular Disease
DX: I21.4 Non-ST elevation (NSTEMI) myocardial infarction (principal); I25.10 Atherosclerotic heart disease of native coronary artery without angina pectoris
CPT/HCPCS: 78452; 93017; A9500; A4216; J2785

== ENCOUNTER → 2023-08-12 | Outpatient (CLI) | payer MEDICARE, BC, SELFPAY ==
[2023-08-12 10:46] LABS: Hemoglobin A1c 5.5 % (3.8-5.6)
[2023-08-12 11:15] LABS: AST(SGOT) 16 U/L (15-37); Alanine Aminotransfer ALT/SGPT 41 U/L (13-56); Albumin, Serum 4.4 g/dL (3.2-5.0); Alkaline Phosphatase 72 U/L (45-117); Bilirubin, Direct 0.22 mg/dL (0.00-0.30); Cholesterol 236 mg/dL (200); Globulin 3.4 g/dL (2.2-4.2); High Density Lipoprotein 49 mg/dL; Protein, Total 7.8 g/dL (6.4-8.2); Triglycerides 163 mg/dL; Very Low Density Lipoprotein 33 mg/dL (5-40)
== END | disposition home or self-care (01) ==
LOC: LAB 09:36
PROVIDERS: Internal Medicine Cardiovascular Disease; PCP Family Medicine; Referring Provider Family Medicine; Visit Provider Family Medicine
DX: E11.9 Type 2 diabetes mellitus without complications (principal); E78.5 Hyperlipidemia, unspecified
CPT/HCPCS: 36415; 80061; 80076; 83036

== ENCOUNTER 2023-09-23 21:32 | Inpatient (IN) | payer MEDICARE, BC, SELFPAY ==
[2023-09-23 21:33] VITALS: BP 184/88; PULSE 112; RESP 20; TEMP 36.8; O2SAT 95; BMI 26.0
--- NOTE | 2023-09-23 21:41 | EDS_ITS ---
HPI <Dr. Arturo Milner MD - Last Filed: 09/24/23 08:10> History of Present Illness Chief Complaint: Chest Pain Detail of Chief Complaint: Bilateral anterior chest pain with radiation to both upper extremities Informant: patient Onset/Context/Timing Onset: Today and Hours (Onset 2100) Activity at onset: sudden Timing: Continuous Quality: Positive for Pain Location: Right Parasternal and Left Parasternal Current Severity: Moderate Maximum Severity: Severe Worsened By: Nothing Relieved By: NTG (Decreased from a 9 to a 7); Not Relieved By Rest, Remaining Still or Antacids Associated Symptoms: Positive for Dyspnea; Negative for Nausea, Vomiting, Diaphoresis, Cough, Fever, Lightheadedness, Acid Reflux or Palpitations Narrative Narrative: Patient is a 73-year-old woman with history of hypertension, type 2 diabetes, hyperlipidemia, non-ST elevation with placement of 4 stents. Most recent cardiac catheterization was May 2021. Patient had a stress test August 2023 which revealed an ejection fraction of 84%. The stress test was interpreted by Dr. Beltran Dominguez as normal. This was obtained because she had not had any testing for 2 years and complained of some intermittent chest discomfort with activity. She states she has had no chest discomfort since she was placed on isosorbide. Patient was sitting in her chair watching the pet shoulder when this started. She did report shortness of breath. She states the pain was upper right and left anterior chest with radiation into the shoulders and upper extremities with tingling in her fingers bilaterally. She states this is different than her reflux pain. Patient was recently placed on amoxicillin for upper respiratory infection. She was told that she had chest pain due to the inflammation. She denies black or maroon-colored stool. As previously mentioned this pain is different than her reflux pain. Prior Similar Symptoms: No Recent Illness/Hospitalization: No CVD Risk Factors: Positive for Hypertension, Diabetes, Hypercholesterolemia and Smoking (Former) PE Risk Factors: Negative for Recent Travel/Surgery, Recent Immobilization, Prior DVT or PE, Cancer or OCP + Smoking + >/=35 TAD Risk Factors: Positive for Hypertension; Negative for Marfan's Syndrome or Family History [facility] <Dr. 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 Diabetes Essential hypertension GERD (gastroesophageal reflux disease) Hyperlipidemia Hypertension Myocardial infarct Neuropathy Non-ST elevation (NSTEMI) myocardial infarction Prediabetes Presence of stent in coronary artery (~05/22/21) Home Medications L.acidophilus-L.plantarum-B.animalis-B.longum 2 billion cell capsule 1 ea PO DAILY SUPPLEMENT 05/27/14 [History Last Taken 05/18/21] omega 3-dha 60 mg-epa 90 mg-fish oil 500 mg capsule, delayed release 1,000 mg PO BID SUPPLEMENT 05/27/14 [History Last Taken 05/19/21] aspirin 81 mg tablet,delayed release (Adult Low Dose Aspirin) 81 mg PO DAILY HEART HEALTH 04/30/18 [History Last Taken 05/18/21] lutein 20 mg capsule 20 mg PO DAILY EYE VITAMIN 08/06/18 [History Last Taken 05/19/21] potassium gluconate 600 mg (99 mg) tablet 600 mg PO DAILY supplement 11/11/20 [History Last Taken 05/18/21] cranberry 1,000 mg capsule 4,200 mg PO QWEEK supplement 02/19/21 [History Last Taken 05/14/21] estradiol 0.01% (0.1 mg/gram) vaginal cream (Estrace) 1 appful vaginal SUWEFR hormone 02/19/21 [History Last Taken 05/17/21] vitamin B complex 1 cap PO DAILY vitamin 02/19/21 [History Last Taken 05/18/21] zinc 50 mg capsule 50 mg PO TUTHSA supplement 02/19/21 [History Last Taken 05/18/21] cholecalciferol (vitamin D3) 50 mcg (2,000 unit) capsule 50 mcg PO MOWEFR vitamin 12/20/21 [History Last Taken Unknown] metformin 500 mg tablet,extended release 24 hr 500 mg PO BID 07/04/22 [History Last Taken Unknown] carvedilol 12.5 mg tablet 12.5 mg PO BID #180 tabs 11/20/22 [Rx Last Taken Unknown] clopidogrel 75 mg tablet 75 mg PO DAILY #90 tabs 11/20/22 [Rx Last Taken Unknown] phytosterol 500 mg capsule 1,000 mg PO DAILY 05/15/23 [History Last Taken U nknown] polyethylene glycol 3350 17 gram/dose oral powder (ClearLax) 17 g PO DAILY 05/15/23 [History Last Taken Unknown] red yeast rice 600 mg capsule 600 mg PO BID 05/15/23 [History Last Taken Unknow n] super beets 1 tab PO 2XD 05/15/23 [History Last Taken Unknown] triamcinolone acetonide 55 mcg nasal spray aerosol (24 Hour Nasal Allergy) 1 spray intranasal DAILY 09/23/23 [History Last Taken Unknown] vitamin E 268 mg (400 unit) capsule 268 mg PO TUTHSA 09/23/23 [History Last Taken Unknown] Allergy/AdvReac Type Severity Reaction Status Date / Time Iodinated Contrast Media Allergy Other Verified 09/23/23 21:33 [Iodinated Contrast Media - IV Dye] isosorbide AdvReac Intermediate Lightheaded, Verified 09/23/23 21:33 dizzy, numb and tingling hands amlodipine AdvReac Headache, Verified 09/23/23 21:33 nausea, dizziness, fatigue, flushing, GERD Influenza Virus Vaccines AdvReac NEEDS Verified 09/23/23 21:33 FOLLOW-UP lisinopril AdvReac fatigue, Verified 09/23/23 21:33 difficulty walking morphine AdvReac SEVER Verified 09/23/23 21:33 HEADACHE rosuvastatin [From Crestor] AdvReac Other Verified 09/23/23 21:33 Family History Other COPD (chronic obstructive pulmonary disease) Diabetes Embolism Hyperlipidemia Peripheral artery disease Surgical History H/O: hysterectomy History of appendectomy History of bladder suspension procedure History of heart artery stent Presence of coronary angioplasty implant and graft (~02/20/21) S/P appendectomy S/P bladder repair S/P PTCA (percutaneous transluminal coronary angioplasty) S/P tonsillectomy Social History household members: spouse housing: house Smoking Status: Never smoker alcohol intake: current alcohol intake frequency: holidays/special occasions only substance use type: does not use caffeine: Yes Type: coffee Number of servings: 3 and tea Number of servings: 1 ROS <Dr. Arturo Milner MD - Last Filed: 09/24/23 08:10> ROS ED Constitutional Constitutional ED: Denies chills, fever(s), subjective, sweats or weight loss Eyes Eyes: Reports none ENT ENT ED: Denies ear pain or rhinorrhea Cardiovascular Cardiovascular: Reports as per HPI; Denies orthopnea or paroxysmal nocturnal dyspnea Respiratory/Chest Respiratory/Chest: Denies cough, dyspnea, dyspnea on exertion, orthopnea, paroxysmal nocturnal dyspnea or sputum Gastrointestinal Gastrointestinal: Denies abdominal pain, nausea or vomiting Genitourinary Genitourinary ED: Denies dysuria, hematuria or urinary frequency Integumentary Denies rash Neurologic Neurologic: Denies headache(s), paresthesias or weakness Psychiatric Psychiatric: Denies anxiety Endocrine Endocrinology: Denies cold intolerance or heat intolerance Hematologic/Lymphatic Hematologic/Lymphatic: Denies easy bleeding or easy bruising EXAM <Dr. Arturo Milner MD - Last Filed: 09/24/23 08:10> Physical Exam Const Vital Signs: 09/23/23 21:33 09/23/23 21:42 09/23/23 21:55 Temperature 98.3 F Temperature Source Oral Pulse Rate 112 H 105 H Respiratory Rate 20 H Blood Pressure 184/88 H 177/75 H Blood Pressure Mean 120 Pulse Ox 95 Oxygen Delivery Method Room Air 09/23/23 22:00 09/23/23 22:05 09/24/23 00:38 Temperature Temperature Source Pulse Rate 99 100 97 Respiratory Rate 18 Blood Pressure 161/70 H 140/77 H 136/55 H Blood Pressure Mean 82 Pulse Ox 97 Oxygen Delivery Method Room Air 09/24/23 00:45 09/24/23 00:59 Temperature 97.9 F Temperature Source Pulse Rate 94 92 Respiratory Rate 18 Blood Pressure 170/79 H 168/78 H Blood Pressure Mean 108 Pulse Ox 96 Oxygen Delivery Method Positive well nourished, well developed and obese General Appearance ED: well developed and NAD; Negative for pallor Nutritional Appearance: obese HEENT Reports TM's clear and moist mucous membranes normocephalic and atraumatic Tympanic Membrane ED: Yes TM's clear Eyes PERRL and EOMs intact bilaterally General Eye ED: Negative for pale conjunctiva or scleral icterus Neck no lymphadenopathy, supple and no JVD Chest Wall inspection of chest normal and palpation of chest normal Resp normal respiratory effort and clear to auscultation bilaterally Cardio regular rhythm, S1 normal heart sound, S2 normal heart sound and no murmurs Rate: tachycardic Peripheral Pulses: pulses 2+ throughout GI normal to inspection, nondistended, normoactive bowel sounds, soft to palpation, non-tender, non-distended and no masses; Negative for hepatosplenomegaly Back/Spine no CVA tenderness and no thoracic nor lumbar tenderness Extremity normal to inspection General Extremety ED: Negative for edema, pulses abnormal or tenderness General Extremity: Negative for edema or pulses abnormal Neuro oriented x3, CN's II-XII intact bilaterally, no sensory deficits noted and gait normal Sensorium / Orientation: awake Psych mental status grossly normal Skin no rashes or lesions noted and no wounds General Skin Exam: Negative for jaundice or pallor <Dr. Artur Palm DO - Last Filed: 09/24/23 01:17> Physical Exam Const Vital Signs: 09/23/23 21:33 09/23/23 21:42 09/23/23 21:55 Temperature 98.3 F Temperature Source Oral Pulse Rate 112 H 105 H Respiratory Rate 20 H Blood Pressure 184/88 H 177/75 H Blood Pressure Mean 120 Pulse Ox 95 Oxygen Delivery Method Room Air 09/23/23 22:00 09/23/23 22:05 09/24/23 00:38 Temperature Temperature Source Pulse Rate 99 100 97 Respiratory Rate 18 Blood Pressure 161/70 H 140/77 H 136/55 H Blood Pressure Mean 82 Pulse Ox 97 Oxygen Delivery Method Room Air 09/24/23 00:45 09/24/23 00:59 Temperature 97.9 F Temperature Source Pulse Rate 94 92 Respiratory Rate 18 Blood Pressure 170/79 H 168/78 H Blood Pressure Mean 108 Pulse Ox 96 Oxygen Delivery Method <Dr. Arturo Milner MD - Last Filed: 09/24/23 08:10> Heart Score History: Moderately Suspicious ECG: Nonspecific Repolarization Age: >/= 65 years Risk Factors: >/= 3 Risk Factors or History of CAD Score: 6 <Dr. Artur Palm DO - Last Filed: 09/24/23 01:17> Heart Score Score: 6 MDM <Dr. Arturo Milner MD - Last Filed: 09/24/23 08:10> MDM MDM Narrative Medical decision making narrative: Patient presents with chest pain with radiation to both upper extremities odds ratio is 91 that this represents cardiac disease. Patient has multiple risk factors as well as known coronary disease with 4 stents. Plan is nitro since she did have improvement with nitro given by paramedics. She did receive aspirin per squad. Will obtain EKG, chest x-ray and appropriate workup including 2-hour troponin. Will discuss case with cardiology since she does have a concrete form setter and finisher, Dr. Beltran Dominguez. History & Record Review Additional record(s) reviewed:: Prior inpatient record Lab Data Attestation: I reviewed the patient's lab results. Labs: Laboratory Results - last 24 hr 09/23/23 09/23/23 09/24/23 21:39 23:14 00:50 WBC 8.0 RBC 4.01 L Hgb 13.7 Hct 36.9 L MCV 92.0 MCH 34.2 H MCHC 37.1 H RDW Std Deviation 43.8 RDW Coeff of Annel 13.0 Plt Count 264 MPV 9.9 Immature Gran % (Auto) 0.500 Neut % (Auto) 49.9 Lymph % (Auto) 38.7 Jay % (Auto) 8.6 Eos % (Auto) 1.5 Baso % (Auto) 0.8 Absolute Neuts (auto) 4.0 Absolute Lymphs (auto) 3.09 Nucleated RBC % 0 PT 14.8 INR 1.2 APTT 124.1 H* Sodium 140 Potassium 3.8 Chloride 104 Carbon Dioxide 23.0 Anion Gap 13 BUN 14 Creatinine 1.08 H Estim Creat Clear Calc 50.11 Est GFR (MDRD) Af Amer 64 Est GFR (MDRD) Non-Af 53 L BUN/Creatinine Ratio 13.0 Glucose 271 H Calcium 9.0 Troponin I High Sens 12 130 H* Radiography Chest X-Ray - ED: 1 View and Read by ED Physician (CBC is unremarkable. Single view portable chest x-ray was independently interpreted by me at 2207 as negative. Cardiac silhouette and size normal. Lung parenchyma normal. There is no effusion. Perihilar region is normal. Osseous structures are unremarkable.) Diagnostic Testing: Clinical Impression(s) from Imaging Studies Chest X-Ray 09/23/23 22:00 IMPRESSION: No evidence of active intrathoracic disease. Electronically Signed: Shalini Dumont MD at 22:20 EST Reading Location ID and State: [address] [place] [address] Tel , Service support , EKG Initial EKG: Attestation: I personally reviewed and interpreted this EKG as follows: Interpretation: Sinus Tachycardia (Rate 109. Decreased anterior force. CA interval 186 ms QRS duration 82 ms. QT duration 3 to 36 ms. [place] is normal.) Treatment and Re-Evaluation :: Case was turned over to the night physician to make disposition. <Dr. Artur Palm, DO - Last Filed: 09/24/23 01:17> [facility] History & Record Review Discussion w/independent historian: Patient Lab Data Labs: Laboratory Results - last 24 hr 09/23/23 09/23/23 09/24/23 21:39 23:14 00:50 WBC 8.0 RBC 4.01 L Hgb 13.7 Hct 36.9 L MCV 92.0 MCH 34.2 H MCHC 37.1 H RDW Std Deviation 43.8 RDW Coeff of Annel 13.0 Plt Count 264 MPV 9.9 Immature Gran % (Auto) 0.500 Neut % (Auto) 49.9 Lymph % (Auto) 38.7 Jay % (Auto) 8.6 Eos % (Auto) 1.5 Baso % (Auto) 0.8 Absolute Neuts (auto) 4.0 Absolute Lymphs (auto) 3.09 Nucleated RBC % 0 PT 14.8 INR 1.2 APTT 124.1 H* Sodium 140 Potassium 3.8 Chloride 104 Carbon Dioxide 23.0 Anion Gap 13 BUN 14 Creatinine 1.08 H Estim Creat Clear Calc 50.11 Est GFR (MDRD) Af Amer 64 Est GFR (MDRD) Non-Af 53 L BUN/Creatinine Ratio 13.0 Glucose 271 H Calcium 9.0 Troponin I High Sens 12 130 H* Radiography Diagnostic Testing: Clinical Impression(s) from Imaging Studies Chest X-Ray 09/23/23 22:00 IMPRESSION: No evidence of active intrathoracic disease. Electronically Signed: Shalini Dumont MD at 22:20 EST Reading Location ID and State: [address] [place] [address] Tel , Service support , Chest x-ray as interpreted by the emergency medicine physician reveals no acute infiltrate pneumothorax or widening of the mediastinum Treatment and Re-Evaluation Comments:: Patient was signed out to me while awaiting laboratory testing mainly her delta troponin. The initial troponin was normal at 12 with a delta increas ed to 130 indicating non-STEMI. The case was discussed with concrete form setter and finisher on- call Dr. Lowry. He recommends as the patient's had a normal stress test in August 2023 that she be admitted for potential cardiac cath. As she has had mild discomfort he recommends Nitropaste and heparin drip. These medications were started and the medicine physician was contacted and agrees to accept the patient for admission at this time for continued workup. <Dr. Arturo Milner MD - Last Filed: 09/24/23 08:10> Critical Care Time Critical care time (excluding procedures): 30-74 minutes (31) <Dr. Artur Palm DO - Last Filed: 09/24/23 01:17> Critical Care Time Critical Care Time: Yes Critical care time (excluding procedures): Discussing w/Patient &/or Family/[employer], Discussing w/Consultants and - (Please note critical care time of 33 minutes) Discharge Plan Dx/Rx/DC Orders Clinical Impression: Essential hypertension, HLD (hyperlipidemia), Non-ST elevation (NSTEMI) myocardial infarction, History of coronary artery disease Disposition Disposition: Acute Care Hospital [facility] Discharge Date/Time: 09/24/23 01:51
[2023-09-23 21:52] LABS: Absolute Lymphocyte Count 3.09 X10^3/uL (0.83-4.51); Basophil# 0.06 X10^3/uL; Basophil% 0.8 % (0-1); Eosinophil# 0.12 X10^3/uL; Eosinophils% 1.5 % (0-5); Hematocrit 36.9 % (37-47); Hemoglobin 13.7 g/dL (12.0-15.0); Lymphocyte # 3.09 X10^3/ul (0.83-4.51); Lymphocyte % 38.7 % (19-41); Mean Corp Hgb Conc 37.1 g/dL (32-36); Mean Corpuscular Hgb 34.2 pg (27.0-32.0); Mean Platelet Vol. 9.9 fl (6.2-12.0); Monocyte# 0.69 X10^3/uL; Monocyte% 8.6 % (0-10); NRBC Flagged by Analyzer 0 % (0-5); Neutrophil # 3.98 X10^3/uL (2.7-7.7); Neutrophil % 49.9 % (47-70); Platelet Count 264 K/mm3 (150-450); RBC Distribution Width SD 43.8 fl (35.1-43.9); Red Blood Count 4.01 M/mm3 (4.2-5.4)
[2023-09-23 21:55] VITALS: BP 177/75; PULSE 105
[2023-09-23] MEDS: Nitroglycerin SL (ED/IMG/CATH) 0.4 MG TABLET 0.400000000000000022 MG SL ×3 (21:55→22:05)
[2023-09-23 22:00] VITALS: BP 161/70; PULSE 99
--- NOTE | 2023-09-23 22:00 | RAD_ITS ---
INDICATION: chest pain EXAMINATION/TECHNIQUE: X-RAY - XR Chest 1 View AP portable. 10:00 PM COMPARISON: 07/19/2023 FINDINGS: LINES/DEVICES: None. LUNGS: No consolidation. No pneumothorax. MEDIASTINUM: Unremarkable. CARDIAC SILHOUETTE: Not enlarged. BONES AND SOFT TISSUES: No acute abnormalities. RAD/Chest 1 View (Portable) IMPRESSION: No evidence of active intrathoracic disease. Electronically Signed: Shalini Dumont MD at 22:20 EST ,
[2023-09-23 22:05] VITALS: BP 140/77; PULSE 100
[2023-09-23 22:07] LABS: Anion Gap 13 (5-15); BUN 14 mg/dL (7-18); Chloride 104 mmol/L (98-107); Creatinine, Serum 1.08 mg/dL (0.55-1.02); EST Glomerular Filtration Rate 53 mL/min (>60); Est Glom Filt Rate - Afr Amer 64 mL/min (>60); Estimated Creatinine Clearance 50.11 ml/min; Glucose 271 mg/dL (74-106); Potassium 3.8 mmol/L (3.5-5.1); Sodium Level 140 mmol/L (136-145); Troponin-I HS (w/2H Reflex) 12 pg/mL (3.0-54.0)
--- OUTSIDE RECORDS SUMMARY | 2023-09-23 22:16 | XMS RPT_ITS | CCD ---
Author Name Unknown Address [address] [place] [address] Organization [facility] Care Team Providers Care Senior Sas Developer Name Role Phone Vipin HEATH, Areli Bains Unavailable Tanya Barron MD Unavailable [phone] Tanya Barron MD Unavailable [phone] Michele Turcios Primary Care Provider AAYUSH BHATIA Referring Unavailable MICHELE TURCIOS Primary Care Unavailable MICHELE TURCIOS Referring Unavailable MICHELE TURCIOS Attending Unavailable MICHELE TURCIOS Primary Care Unavailable Allergies Allergy Classification Reported Allergen(s) Allergy Type Date of Onset Reaction(s) Facility (6 sources) ciprofloxacin drug allergy 05-23-20 17 ChillsAdverse skin reactionPatient states that her bones and joints kept popping [facility] (8 sources) CATSCAN DYE drug allergy 06-14-20 15 Sick to stomach, almost passed out, hot and sweaty [facility] (1 source) Iodinated Contrast Media Propensity to adverse reactions 11-14-19 23 Nausea Only [facility] Medications Current Medications Medication Drug Class(es) Dates Sig (Normalized) Sig (Original) B Complex Vitamins (vitamin-B complex) split tablet (1 source) Start: 09-02-2020 B Complex Vitamins (vitamin-B complex) split tablet cholecalciferol 0.05 mg oral capsule (1 source) Vitamin D Start: 09-02-2013 cholecalciferol (Vitamin D-3) 50 MCG (1999) capsule cimetidine 200 mg oral tablet (1 source) Histamine-2 Receptor Antagonist Start: 07-04-2022 take 2 tablets by mouth in the morning cimetidine (Tagamet) 200 MG tablet Take 2 tablets by mouth in the morning and 2 tablets in the evening. 0 07/04/2022 Active clopidogrel 75 mg oral tablet (1 source) P2Y12 Platelet Inhibitor Start: 05-23-2021 clopidogrel (Plavix) 75 MG tablet Cranberry-Cholecalcife rol 4200-500 MG-UNIT capsule (1 source) Start: 09-02-2013 Cranberry-Cholecalci ferol 4200-500 MG-UNIT capsule docosahexaenoic acid 120 mg / eicosapentaenoic acid 180 mg oral capsule (1 source) Start: 09-02-2013 take 1 capsule by mouth once daily omega-3 (Fish Oil) 1000 MG capsule Take 1,000 mg by mouth daily. 0 09/02/2013 Active estradiol 0.1 mg/ml vaginal cream (20 sources) Estrogen Start: 09-02-1997 estradiol (Estrace) 0.1 MG/GM vaginal cream Twice a Week. 0 09/02/1997 Active Completed/Discontinued Medications Medication Drug Class(es) Dates Sig (Normalized) Sig (Original) AMOXICILLIN-POT CLAVULANATE (16 sources) Penicillin-class Antibacterial Start: 04-06-2010 AUGMENTIN 875-125 MG TABS one tab twice a day AMOXICILLIN-POT CLAVULANATE [id number] Jovani Hall MD Problems Active Problems Problem Classification Problem Date Documented Da te Episodic/Chronic Coronary atherosclerosis and other heart disease (1 source) Coronary atherosclerosis; Translations: [Atherosclerotic heart disease of [place] coronary artery without angina pectoris] Onset: 05-30-2016 06-16-2022 Chronic Disorders of lipid metabolism (8 sources) Hyperlipidemia; Translations: [Hyperlipidemia, unspecified] Onset: 06-14-2015 06-14-2015 Chronic Essential hypertension (9 sources) Hypertensive disorder; Translations: [Essential (primary) hypertension] Onset: 06-14-2015 06-14-2015 Chronic Menopausal disorders (3 sources) Atrophic vaginitis; Translations: [Postmenopausal atrophic vaginitis] Onset: 05-29-2017 05-29-2017 Chronic Occlusion or stenosis of precerebral arteries (6 sources) Occlusion and stenosis of basilar artery; Translations: [Occlusion and stenosis of unspecified vertebral artery] Onset: 11-13-2022 Chronic Other and ill-defined heart disease (1 source) Chronic systolic dysfunction of left ventricle; Translations: [Heart disease, unspecified] Onset: 05-30-2016 06-16-2022 Chronic Other nervous system disorders (8 sources) Cervical radiculopathy; Translations: [Radiculopathy, cervical region] Onset: 08-16-2011 08-16-2011 Chronic Prolapse of female genital organs (8 sources) Midline cystocele; Translations: [Cystocele, midline] Onset: 04-30-2017 04-30-2017 Chronic Unclassified (7 sources) Gynecologic examination ; Translations: [Encounter for gynecological examination (general) (routine) without abnormal findings] Onset: 04-30-2017 04-30-2017 Unclassified (7 sources) Screening mammography ; Translations: [Encounter for screening mammogram for malignant neoplasm of breast] Onset: 04-30-2017 04-30-2017 Past or Other Problems Problem Classification Problem Date Documented Da te Episodic/Chronic Diabetes mellitus without complication (8 sources) Impaired glucose tolerance; Translations: [Other abnormal glucose] Onset: 06-14-2015 06-14-2015 Episodic Other circulatory disease (8 sources) Double coronary vessel disease; Translations: [Atherosclerotic heart disease of [place] coronary artery without angina pectoris] Onset: 06-14-2015 06-14-2015 Episodic Other connective tissue disease (20 sources) Ganglion of wrist; Translations: [Muscle strain] Onset: 07-19-2011 Resolved: 08-16-2011 12-13-2015 Episodic Other connective tissue disease (1 source) Impingement syndrome of shoulder region; Translations: [Impingement syndrome of right shoulder] 11-15-2011 Episodic Other injuries and conditions due to external causes (16 sources) Injury of radial nerve; Translations: [Injury of radial nerve at forearm level, unspecified arm] Onset: 07-19-2011 Resolved: 08-02-2011 08-02-2011 Episodic Other injuries and conditions due to external causes (2 sources) Muscle strain; Translations: [Other injury of unspecified body region] Onset: 07-19-2011 Resolved: 08-16-2011 07-19-2011 Episodic Other non-traumatic joint disorders (20 sources) Pain in unspecified shoulder; Translations: [Impingement syndrome of shoulder region] Resolved: 06-14-2015 02-19-2012 Episodic Phlebitis; thrombophlebitis and thromboembolism (8 sources) Deep venous thrombosis; Translations: [Acute embolism and thrombosis of unspecified vein] 01-15-2012 Episodic Sprains and strains (16 sources) Sprains and strains of unspecified site of shoulder and upper arm; Translations: [Sprain of unspecified site of shoulder and upper arm] Onset: 09-29-2012 Resolved: 06-14-2015 09-29-2012 Episodic Unclassified (8 sources) Asymptomatic menopausal state; Translations: [Asymptomatic menopausal state] Onset: 04-30-2017 04-30-2017 Episodic Unclassified (16 sources) Unspecified open wound of nose; Translations: [Unspecified open wound of nose] Onset: 04-13-2010 Resolved: 06-14-2015 06-14-2015 Unclassified (7 sources) Influenza vaccination ; Translations: [Encounter for immunization] Onset: 06-14-2015 Resolved: 06-16-2015 06-14-2015 Unclassified (20 sources) Unspecified open wound of lip; Translations: [Unspecified open wound of lip] Onset: 04-13-2010 Resolved: 06-14-2015 06-14-2015 Unclassified (16 sources) Bitten by dog; Translations: [Bitten by dog] Onset: 04-13-2010 Resolved: 06-14-2015 06-14-2015 Unclassified (7 sources) Pneumococcal vaccination ; Translations: [Encounter for immunization] Onset: 06-14-2015 Resolved: 06-16-2015 06-14-2015 Urinary tract infections (8 sources) Urinary tract infectious disease; Translations: [Urinary tract infection, site not specified] Onset: 04-30-2017 04-30-2017 Episodic Results Test Name Value Interpretation Reference Range Facil ity Vital Signs Date Time Vital Sign Value Performing Clinician Facility 05-29-2017 13:54-0400 BMI (Body Mass Index) 28.03 kg/m2 Areli Lew NP [facility] 05-29-2017 13:54-0400 Body Temperature 98.5 [degF] Areli Lew NP [facility] 05-29-2017 13:54-0400 Body Temperature 98.49 [degF] Areli Lew NP [facility] 05-29-2017 13:54-0400 BP Diastolic 70 mm[Hg] Areli Lew NP [facility] 05-29-2017 13:54-0400 BP Systolic 132 mm[Hg] Areli Lew NP [facility] 05-29-2017 13:54-0400 Height 172.72 cm Areli Vipin B[employer]EFITS SALES CONSULTANT [facility] 05-29-2017 13:54-0400 Pulse (Heart Rate) 93 /min Areli Vipin BENEFITS SALES CONSULTANT [facility] 05-29-2017 13:54-0400 Respiratory Rate 16 /min Areli Vipin BENEFITS SALES CONSULTANT [facility] 05-29-2017 13:54-0400 Weight 83.64 kg Areli Vanderbilt BENEFITS SALES CONSULTANT [facility] 04-30-2017 12:41-0400 BMI (Body Mass Index) 27.91 kg/m2 Areli Vanderbilt BENEFITS SALES CONSULTANT [facility] 04-30-2017 12:41-0400 Body Temperature 97.2 [degF] Areli Vanderbilt BENEFITS SALES CONSULTANT [facility] 04-30-2017 12:41-0400 BP Diastolic 81 mm[Hg] Areli Lew BENEFITS SALES CONSULTANT [facility] 04-30-2017 12:41-0400 BP Systolic 152 mm[Hg] Areli Vanderbilt BENEFITS SALES CONSULTANT [facility] 04-30-2017 12:41-0400 Height 172.72 cm Areli Vipin BENEFITS SALES CONSULTANT [facility] 04-30-2017 12:41-0400 Pulse (Heart Rate) 82 /min Areli Vanderbilt BENEFITS SALES CONSULTANT [facility] 04-30-2017 12:41-0400 Respiratory Rate 16 /min Areli Lew BENEFITS SALES CONSULTANT [facility] 04-30-2017 12:41-0400 Weight 83.28 kg Areli Vanderbilt BENEFITS SALES CONSULTANT [facility] 12-13-2015 14:11-0400 BSA (Body Surface Area) 1.96 m2 Areli Lew BENEFITS SALES CONSULTANT [facility] Encounters Encounter Date Encounter Type Care Provider Facility Start: 11-13-2022 End: 11-14-[address] [facility] Start: 11-13-2022 End: 11-13-2022 Subsequent hospital visit by physician [facility] Non-Invasive [facility] Procedures Date Procedure Procedure Detail Performing Clinician Start: 11-13-2022 Ecg routine ecg w/least 12 lds trcg only w/o i&r Aayush Staffordblum DO Work Phone: Start: 06-29-2022 Mammography [facility] Start: 05-29-2017 End: 05-29-2017 No Charge Areli Nara Vipin [employer]EFITS SALES CONSULTANT Work Phone: Start: 05-24-2017 End: 05-24-2017 Urinalysis Tanya Saldivar Start: 04-30-2017 Gynecologic examination Routine gynecological examination Tanya Barron MD Start: 04-30-2017 End: 04-30-2017 Pelvic & Breast Exam (Medicare) Areli Lew B[employer]EFITS SALES CONSULTANT Work Phone: Start: 04-30-2017 Screening mammography Mammogram yearly screening Tanya Barron MD Start: 06-14-2015 End: 06-16-2015 Pneumococcal vaccination Vaccine against streptococcus pneumoniae Tanya Barron MD Plan of Treatment Date Care Activity Detail Author Start: 06-29-2023 Screening for malignant neoplasm of breast Mammogram [facility] Start: 05-03-2022 Influenza vaccination Influenza Vaccine (#1) [facility] Start: 05-29-2017 End: 05-29-2017 Appointment Appointment [facility] Start: 05-24-2017 End: 05-24-2017 Urine culture, bacteria *CUUR - Culture, Urine (Beacon Count) [facility] Start: 04-30-2017 End: 04-30-2017 Appointment Appointment [facility] Start: 04-30-2017 End: 05-24-2017 *CUUID - Urine ALFRED Culture - Identificatn *CUUID - Urine ALFRED Culture - Identificatn [facility] Start: 04-30-2017 End: 04-30-2017 DEXA scan DEXA scan [facility] Start: 04-30-2017 End: 04-30-2017 Mammogram, screening Mammogram, Screening, both breasts [facility] Start: 06-14-2016 Pneumococcal Vaccine: 65+ Years (2 - PCV) Pneumococcal Vaccine: 65+ Years (2 - PCV) [facility] Start: 1999 Zoster Vaccines (1 of 2) Zoster Vaccines (1 of 2) [facility] Start: 1968 DTaP/Tdap/Td Vaccines (1 - Tdap) DTaP/Tdap/Td Vaccines (1 - Tdap) [facility] Start: 1968 Urine screening for protein Diabetes: Urine Protein Screening [facility] Start: 1967 Hepatitis C screening Hepatitis C Screening [facility] Start: 1959 Diabetic foot examination Diabetes: Foot Exam [facility] Start: 1959 Glaucoma screening Diabetes: Retinopathy Screening [facility] Start: 1959 Preventive dental service Diabetes: Dental Exam [facility] Start: 03-01-1950 COVID-19 Vaccine (#1) COVID-19 Vaccine (#1) [facility] Start: 1949 Hemoglobin A1c measurement Diabetes: Hemoglobin A1C [facility] Start: 1949 Hepatitis B Vaccines (1 of 3 - 3-dose series) Hepatitis B Vaccines (1 of 3 - 3-dose series) [facility] Start: 1949 Lipid panel Lipid Panel [facility] Start: 1950 Medicare Annual Wellness (AWV) Medicare Annual Wellness (AWV) [facility] Start: 1950 Screening for malignant neoplasm of colon [facility] Start: 1949 Screening for osteoporosis Bone Density Scan [facility] ECG 12 lead ECG 12 lead CV E CG STAT 11/13/2022 9:44 AM EDT [facility] Work Phone: Immunizations Immunization Date Immunization Notes Care Provider Neha hodges 06-14-2015 influenza virus vacc ine, unspecified formulation [facility] Payers Date Payer Category Payer Unknown [employer] MEDICARE SUPPLEMENT [id number] 2019-Present [address] [place] [address] Supplement [id number] 2019 Unknown [id number] 2014 Medicare MEDICARE MEDICAR E PART A AND B [id number] 2014-Present [address] [place] [address] Medicare [id number] 2014 Medicare [id number] Social History Date Type Detail Facility Tobacco smoking status NHIS Never smoked tobacco [facility] Start: 11-13-2022 Alcohol intake Current drinke r of alcohol (finding) [facility] Start: 11-13-2022 Alcohol intake [facility] Start: 1950 Sex Assigned At Not on file S [facility] Start: 11-03-2022 End: 11-13-2022 Exposure to SARS-CoV-2 (event) Not sure [facility] Medical Equipment Procedure Code Equipment Code Equipment Origin al Text Equipment Identifier Dates LANCETS ONETOUCH LANCETS MISC [id number] Start: 03-22-2016 End: 04-30-2017 Clinical Note 11-13-2022 Note Date & Type Note Facility 11-13-2022 Note Patient: Mariela mancilla Procedure Summary Date: 11/13/22 Room / Location: [facility] MRI Anesthesia Start: 1125 Anesthesia Stop: 1231 Procedures: MR HEAD ANGIO WO IV CONTRAST MR NECK ANGIO W AND WO IV CONTRAST Diagnosis: Occlusion and stenosis of basilar artery Occlusion and stenosis of unspecified vertebral artery Occlusion and stenosis of bilateral carotid arteries Scheduled Providers: Responsible Provider: Steven Lay MD Anesthesia Type: MAC, TIVA ASA Status: 2 Anesthesia Type: MAC, TIVA Vitals Value Taken Time BP 150/66 11/13/22 1235 Temp 36.6 ?C (97.9 ?F) 11/13/22 1235 Pulse 79 11/13/22 1235 Resp 16 11/13/22 1235 SpO2 97 % 11/13/22 1235 Anesthesia Post Evaluation Patient location during evaluation: PACU Patient participation: complete - patient participated Level of consciousness: awake and alert Pain score: 0 Pain management: satisfactory to patient Multimodal analgesia pain management approach Airway patency: patent Two or more strategies used to mitigate risk of obstructive sleep apnea Cardiovascular status: acceptable and hemodynamically stable Respiratory status: acceptable Hydration status: acceptable No notable events documented. MIPS #430 PONV Patient did not receive an inhalational anesthetic ([id number] MIPS # 424 Perioperative Temperature Management Anesthesia time was less than 60 minutes (4256F) MIPS #477 Multimodal Pain Management Not emergent case Patient was not administered multimodal pain management Patient reports no pain in PACU MIPS #404 Anesthesiology Smoking Abstinence The patient is not a current smoker (e.g. cigarette, cigar, pipe, e-cigarette/vaping/marijuana) If no stop here (XX404) I completed my handoff to the receiving clinician during which we: 1. Identified the patient 2. Identified the responsible provider 3. Reviewed the pertinent medical history 4. Discussed the surgical course 5. Reviewed intra-op anesthesia management and issues during anesthesia 6. Set expectations for post-procedure period 7. Allowed opportunity for questions and acknowledgement of understanding. [facility] Clinical Note 11-13-2022 Note Date & Type Note Facility 11-13-2022 Note Patient: Mariela mancilla Procedure Summary Date: 11/13/22 Room / Location: [facility] MRI Anesthesia Start: 1125 Anesthesia Stop: 1231 Procedures: MR HEAD ANGIO WO IV CONTRAST MR NECK ANGIO W AND WO IV CONTRAST Diagnosis: Occlusion and stenosis of basilar artery Occlusion and stenosis of unspecified vertebral artery Occlusion and stenosis of bilateral carotid arteries Scheduled Providers: Responsible Provider: Steven Lay MD Anesthesia Type: MAC, TIVA ASA Status: 2 Anesthesia Type: MAC, TIVA Vitals Value Taken Time BP 150/66 11/13/22 1235 Temp 36.6 ?C (97.9 ?F) 11/13/22 1235 Pulse 79 11/13/22 1235 Resp 16 11/13/22 1235 SpO2 97 % 11/13/22 1235 Anesthesia Post Evaluation Patient location during evaluation: PACU Patient participation: complete - patient participated Level of consciousness: awake and alert Pain management: satisfactory to patient Airway patency: patent Dental Injury: no Cardiovascular status: acceptable, blood pressure returned to baseline and hemodynamically stable Respiratory status: acceptable and spontaneous ventilation Hydration status: euvolemic Nausea/Vomiting: controlled No notable events documented. Patient can be discharged once all PACU criteria has been met. [facility] Clinical Note 11-13-2022 Note Date & Type Note Facility 11-13-2022 Note [facility] PreProcedure History and Physical Name: Mariela Nickerson : 1950 (Age-72 y.o.) Date of Service: Pt seen/examined on 11/13/2022 Chief Complaint: 72 y.o. female who we are asked to see/evaluate Mariela Nickerson for pre-procedure evaluation prior to MRA NECK W. History Of Present Illness: HPI: This pleasant 72 y.o. patient presents for MRA NECK W under MAC. Severity: Moderate Duration: >one month Review of systems negative except for items below: Past Medical History: Diagnosis Date CAD (coronary artery disease) Diabetes (HCC) don phenomenom GERD (gastroesophageal reflux disease) Heart murmur History of prolapse of bladder Macular degeneration [place] (myocardial infarction) 05/2014 Vaginal prolapse Patient Active Problem List Diagnosis Date Noted Coronary artery disease involving [place] coronary artery of [place] heart without angina pectoris 05/30/2016 HTN (hypertension) 05/30/2016 Chronic systolic dysfunction of left ventricle 05/30/2016 Past Surgical History: Procedure Laterality Date APPENDECTOMY BLADDER SURGERY rectocelle repair CORONARY ANGIOPLASTY WITH STENT PLACEMENT 05/2014 JOSÉ LUIS- prox LAD CYST REMOVAL ganglion cyst from fingers HYSTERECTOMY OTHER SURGICAL HISTORY Right bypass right arm PLANTAR'S WART EXCISION TONSILLECTOMY Family History Problem Relation Name Age of Onset Heart disease Father Heart disease Mother Diabetes Father Medications: @DIAGMEDLIST@ Social history and Laboratory Data: Lab Results Component Value Date NA 138 11/13/2022 K 4.5 11/13/2022 BUN 13 11/13/2022 CREATININE 0.67 11/13/2022 GLUCOSE 175 (H) 11/13/2022 Social History Tobacco Use Smoking Status Never Smokeless Tobacco Never Social History Substance and Sexual Activity Alcohol Use Yes Alcohol/week: 1.0 standard drink Social History Substance and Sexual Activity Drug Use No EKG: Reviewed Recent Labs 11/13/22 0948 GLUCOSE 175* No results found for this or any previous visit. BP (!) 171/66 Pulse 93 Temp 35.9 ?C (96.7 ?F) (Temporal) Resp 20 Ht 1.727 m (5' 8 ) Wt 75.8 kg (167 lb) SpO2 97% BMI 25.39 kg/m? Physical Examination: onstitutional: No apparent distress, well nourished, and in stable condition. Pt wearing a mask and I wore a mask. Performed a no touch examination due to Covid considerations. Cardiac: Regular rate and rhythm Per PT Abdomen: Soft and nonacute Per Pt Pulmonary: Clear bilaterally and no wheezing Per pt Neuro: Moves extremities X4 with no tremors HEENT: No gross cranial nerve defects and anicteric sclera Skin: Skin warm and dry with no visible rashes Vascular: Adequate perfusion of extremities with no cyanosis Psych: Alert and oriented x3 with appropriate affect Lymphatics: No swelling of arms/hands with no pedal edema Neck: FROM with no JVD Additional Notes:None After review of the medical history and physical assessment, medications, allergies, patient's current medical condition, and labs, this patient is at acceptable risk for the planned procedure at this facility. Electronically signed by: Jovani Bates MD, MD Date: 11/13/2022 at 10:28 AM [facility] Clinical Note 11-13-2022 Note Date & Type Note Facility 11-13-2022 Note Patient: Mariela mancilla Procedure Information Date/Time: 11/13/22 1130 Procedures: MR NECK ANGIO W IV CONTRAST MR HEAD ANGIO WO IV CONTRAST Location: [facility] MRI Relevant Problems Cardio (+) Coronary artery disease involving [place] coronary artery of [place] heart without angina pectoris (+) HTN (hypertension) Past Medical History: Past Medical History: No date: CAD (coronary artery disease) No date: GERD (gastroesophageal reflux disease) No date: History of prolapse of bladder No date: Macular degeneration 05/2014: [place] (myocardial infarction) No date: Vaginal prolapse Past Surgical History: Past Surgical History: No date: APPENDECTOMY No date: BLADDER SURGERY Comment: rectocelle repair 05/2014: CORONARY ANGIOPLASTY WITH STENT PLACEMENT Comment: JOSÉ LUIS- prox LAD No date: CYST REMOVAL Comment: ganglion cyst from fingers No date: HYSTERECTOMY No date: OTHER SURGICAL HISTORY; Right Comment: bypass right arm No date: PLANTAR'S WART EXCISION No date: TONSILLECTOMY Social History: TOBACCO: reports that she has never smoked. She has never used smokeless tobacco. ETOH: reports current alcohol use of about 1.0 standard drink per week. Social History Substance and Sexual Activity Drug Use No Family History: Family History Problem Relation Name Age of Onset ? Heart disease Father ? Heart disease Mother ? Diabetes Father Screening: Hysterectomy Clinical information reviewed: Tobacco Allergies Meds Med Hx Surg Hx OB Status Fam Hx Soc Hx Physical Exam Airway Mallampati: II TM distance: <3 FB Neck ROM: limited Mouth Open: limited Cardiovascular Dental Pulmonary Abdominal Anesthesia Plan ASA 2 MAC and TIVA The patient is not a current smoker. Anesthetic plan and risks discussed with patient and legal guardian. patient is NPO BENITA Screening Labs: No results found for: WBC, HGB, HCT, MCV, PLT No results found for: NA, K, CL, CO2, BUN, CREATININE, GLUCOSE, CALCIUM, PROT, BILIRUBINFL, ALKPHOS, AST, ALT, EGFR, GLOB No echocardiogram results found for the past 14 days 11/13/22 ECG 12-LEAD (Preliminary) This result has not been signed. Information might be incomplete. Impression Sinus rhythm Low voltage, precordial leads Consider anteroseptal infarct [facility] Clinical Note 11-12-2022 Note Date & Type Note Facility 11-12-2022 Note Spoke with patient. Reviewed instructions for procedure. Aware of arrival time at 9:30 am to Same Day Surgery (SDS) on 11-13-22, nothing to eat after midnight, it is ok to take your blood pressure and heart medications, and may drink water or black coffee up until 2 hours prior to the procedure. Will need a responsible person to drive you home after the procedure is completed. May not use public transportation unless accompanied by a responsible adult family member or friend. Questions answered. Verbalized understanding. Directions given for Same Day Surgery. Follow signs around the hospital to Main Entrance which is located at [address] onto [address] [facility] [address] [facility]. You may use Religious Educator Parking. Each patient to receive one validation ticket for Religious Educator Parking. It is also possible to park in the Main Parking Garage. Proceed to bridge into hospital and check in with Same Day Surgery. [facility] Summary Purpose Family History No Family History Records Found Advance Directives No Advanced Directives Records Found Additional Source Comments Care Teams (unrecognized sec tion and content) INFORMATION SOURCE (unrecogn ized section and content) FOR RECORDS PERTAINING TO PATIENTS WHO ARE OR HAVE BEEN ENROLLED IN A CHEMICAL DEPENDENCY/SUBSTANCEABUSE PROGRAM, SOME INFORMATION MAY BE OMITTED. This clinical summary was aggregated from multiple sources. Caution should be exercised in using it in the provision of clinical care. This summary normalizes information from multiple sources, and as a consequence, information in this document may materially change the coding, format and clinical context of patient data. In addition, data may be omitted in some cases. CLINICAL DECISIONS SHOULD BE BASED ON THE PRIMARY CLINICAL RECORDS. [employer] provides no warranty or guarantee of the accuracy or completeness of information in this document.
[2023-09-23 23:46] LABS: Reflex Troponin-HS? (from REC) Y
[2023-09-24] VITALS (17 sets, daily range): BP systolic 120–170; BP diastolic 55–93; PULSE 87–98; RESP 14–18; TEMP 36.1–36.8; O2SAT 91–98; BMI 24.7
[2023-09-24 00:17] LABS: Troponin-I HS 130 pg/mL (3.0-54.0)
[2023-09-24] MEDS: Nitroglycerin Oint 1 INCH PACKET TD (00:45)
[2023-09-24] MEDS: Heparin Injection (Vial) 5,000 UNIT/ML VIAL 4000 UNIT IV (00:51)
[2023-09-24] MEDS: HEPARIN/D5w 25,000 UNITS 25,000 UNITS/250 ML IV.SOLN. 9 UNITS CONT INF (00:52)
[2023-09-24 01:09] LABS: International Normalized Ratio 1.2; Prothrombin Time (Protime)PT. 14.8 SECONDS (11.7-14.9)
[2023-09-24 01:15] LABS: Partial Thromboplast Time 124.1 Seconds (24.1-36.2)
--- NOTE | 2023-09-24 01:16 | PCM.HP.STD ---
[facility] - General General Date of Admission: 09/24/23 Date of Service: 09/24/23 Chief Complaint: Chest pain HPI Narrative USMAN NICKERSON, is a 73 F who presents to the emergency room with chief complaint of chest pain. Patient has significant past medical history of coronary artery disease with her for stent in 2013 and has had 3 subsequent procedures since that time her last one was approximately 2 years ago. She states she had substernal chest pain that radiated to both sides of her chest earlier this evening. Her initial troponin was negative, however, subsequent troponin turn positive. There are no ST elevations on her EKG at this time but she does continue to have a burning sensation in mid chest after receiving initial treatment in the emergency room. She has been placed on a heparin drip and given Nitropaste and dynamometer tuner notified. Patient will be made n.p.o. with anticipated heart catheterization tomorrow. 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 Diabetes Essential hypertension GERD (gastroesophageal reflux disease) Hyperlipidemia Hypertension Myocardial infarct Neuropathy Non-ST elevation (NSTEMI) myocardial infarction Prediabetes Presence of stent in coronary artery (~05/22/21) Home Medications L.acidophilus-L.plantarum-B.animalis-B.longum 2 billion cell capsule 1 ea PO DAILY SUPPLEMENT 05/27/14 [History Last Taken 05/18/21] omega 3-dha 60 mg-epa 90 mg-fish oil 500 mg capsule, delayed release 1,000 mg PO BID SUPPLEMENT 05/27/14 [History Last Taken 05/19/21] aspirin 81 mg tablet,delayed release (Adult Low Dose Aspirin) 81 mg PO DAILY HEART HEALTH 04/30/18 [History Last Taken 05/18/21] lutein 20 mg capsule 20 mg PO DAILY EYE VITAMIN 08/06/18 [History Last Taken 05/19/21] potassium gluconate 600 mg (99 mg) tablet 600 mg PO DAILY supplement 11/11/20 [History Last Taken 05/18/21] cranberry 1,000 mg capsule 4,200 mg PO QWEEK supplement 02/19/21 [History Last Taken 05/14/21] estradiol 0.01% (0.1 mg/gram) vaginal cream (Estrace) 1 appful vaginal SUWEFR hormone 02/19/21 [History Last Taken 05/17/21] vitamin B complex 1 cap PO DAILY vitamin 02/19/21 [History Last Taken 05/18/21] zinc 50 mg capsule 50 mg PO TUTHSA supplement 02/19/21 [History Last Taken 05/18/21] cholecalciferol (vitamin D3) 50 mcg (2,000 unit) capsule 50 mcg PO MOWEFR vitamin 12/20/21 [History Last Taken Unknown] metformin 500 mg tablet,extended release 24 hr 500 mg PO BID 07/04/22 [History Last Taken Unknown] carvedilol 12.5 mg tablet 12.5 mg PO BID #180 tabs 11/20/22 [Rx Last Taken Unknown] clopidogrel 75 mg tablet 75 mg PO DAILY #90 tabs 11/20/22 [Rx Last Taken Unknown] phytosterol 500 mg capsule 1,000 mg PO DAILY 05/15/23 [History Last Taken Unknown] polyethylene glycol 3350 17 gram/dose oral powder (ClearLax) 17 g PO DAILY 05/15/23 [History Last Taken Unknown] red yeast rice 600 mg capsule 600 mg PO BID 05/15/23 [History Last Taken Unknown] super beets 1 tab PO 2XD 05/15/23 [History Last Taken Unknown] triamcinolone acetonide 55 mcg nasal spray aerosol (24 Hour Nasal Allergy) 1 spray intranasal DAILY 09/23/23 [History Last Taken Unknown] vitamin E 268 mg (400 unit) capsule 268 mg PO TUTHSA 09/23/23 [History Last Taken Unknown] Allergy/AdvReac Type Severity Reaction Status Date / Time Iodinated Contrast Media Allergy Other Verified 09/23/23 21:33 [Iodinated Contrast Media - IV Dye] isosorbide AdvReac Intermediate Lightheaded, Verified 09/23/23 21:33 dizzy, numb and tingling hands amlodipine AdvReac Headache, Verified 09/23/23 21:33 nausea, dizziness, fatigue, flushing, GERD Influenza Virus Vaccines AdvReac NEEDS Verified 09/23/23 21:33 FOLLOW-UP lisinopril AdvReac fatigue, Verified 09/23/23 21:33 difficulty walking morphine AdvReac SEVER Verified 09/23/23 21:33 HEADACHE rosuvastatin [From Crestor] AdvReac Other Verified 09/23/23 21:33 Family History Other COPD (chronic obstructive pulmonary disease) Diabetes Embolism Hyperlipidemia Peripheral artery disease Surgical History H/O: hysterectomy History of appendectomy History of bladder suspension procedure History of heart artery stent Presence of coronary angioplasty implant and graft (~02/20/21) S/P appendectomy S/P bladder repair S/P PTCA (percutaneous transluminal coronary angioplasty) S/P tonsillectomy Social History household members: spouse housing: house Smoking Status: Never smoker alcohol intake: current alcohol intake frequency: holidays/special occasions only substance use type: does not use caffeine: Yes Type: coffee Number of servings: 3 and tea Number of servings: 1 ROS Constitutional Constitutional: Denies chills or fever(s) Eyes Eyes: Denies blurry vision ENT HEENT: Denies abnormal hearing Cardiovascular Cardiovascular: Reports chest pain Respiratory/Chest Respiratory/Chest: Denies cough Gastrointestinal Gastrointestinal: Denies abdominal pain Genitourinary Genitourinary: Denies dysuria Musculoskeletal Musculoskeletal: Denies back pain Integumentary Integumentary: Denies dry skin Neurologic Neurologic: Denies confusion Psychiatric Psychiatric: Denies anxiety Vital Signs Vital Signs Vital Signs: 09/23/23 21:33 09/23/23 21:42 09/23/23 21:55 Temperature 98.3 F Temperature Source Oral Pulse Rate 112 H 105 H Respiratory Rate 20 H Blood Pressure 184/88 H 177/75 H Blood Pressure Mean 120 Pulse Ox 95 Oxygen Delivery Method Room Air 09/23/23 22:00 09/23/23 22:05 09/24/23 00:38 Temperature Temperature Source Pulse Rate 99 100 97 Respiratory Rate 18 Blood Pressure 161/70 H 140/77 H 136/55 H Blood Pressure Mean 82 Pulse Ox 97 Oxygen Delivery Method Room Air 09/24/23 00:45 09/24/23 00:59 Temperature 97.9 F Temperature Source Pulse Rate 94 92 Respiratory Rate 18 Blood Pressure 170/79 H 168/78 H Blood Pressure Mean 108 Pulse Ox 96 Oxygen Delivery Method Weight Weight: 171 lb 8.314 oz Body Mass Index (BMI) 26.0 Physical Exam Const oriented x3 General Appearance: cooperative and well developed HEENT normocephalic and head/scalp atraumatic Eyes PERRL Neck no lymphadenopathy Lymph Lymphatic: no lymphadenopathy noted Resp normal respiratory effort, normal air movement and clear to auscultation bilaterally Cardio regular rate, regular rhythm, S1 normal heart sound, S2 normal heart sound and no murmurs GI normal to inspection, nondistended, normoactive bowel sounds Extremity normal capillary refill Skin General Skin Exam: no breakdown Neuro no focal motor deficits and no sensory deficits noted Results Lab / Micro Data 09/23/23 21:39 09/23/23 21:39 Labs: Laboratory Results - last 24 hr 09/23/23 21:39: WBC 8.0, RBC 4.01 L, Hgb 13.7, Hct 36.9 L, MCV 92.0, MCH 34.2 H, MCHC 37.1 H, RDW Std Deviation 43.8, RDW Coeff of Annel 13.0, Plt Count 264, MPV 9.9, Immature Gran % (Auto) 0.500, Neut % (Auto) 49.9, Lymph % (Auto) 38.7, [place] % (Auto) 8.6, Eos % (Auto) 1.5, Baso % (Auto) 0.8, Absolute Neuts (auto) 4.0, Absolute Lymphs (auto) 3.09, Nucleated RBC % 0, Sodium 140, Potassium 3.8, Chloride 104, Carbon Dioxide 23.0, Anion Gap 13, BUN 14, Creatinine 1.08 H, Estim Creat Clear Calc 50.11, Est GFR (MDRD) Af Amer 64, Est GFR (MDRD) Non-Af 53 L, BUN/Creatinine Ratio 13.0, Glucose 271 H, Calcium 9.0, Troponin I High Sens 12 09/23/23 23:14: Troponin I High Sens 130 H* 09/24/23 00:50: PT 14.8, INR 1.2, APTT 124.1 H* Imagaing Radiology Impression Chest X-Ray 09/23/23 22:00 IMPRESSION: No evidence of active intrathoracic disease. 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 Consult Dr. Dominguez. Will add coag panel, CBC BMP for the a.m. 2. Hypertension?monitor will add as needed if necessary 3. Hyperlipidemia?will resume statin after heart catheterization 4. Diabetes?will place patient on sliding scale insulin while n.p.o. 5. DVT prophylaxis?patient is on heparin drip Charges/Coding Visit Charges Inpatient E&M: 52269 Init Hosp L2
--- NOTE | 2023-09-24 01:23 | ED.RN ---
0050 lab notified this nurse that the blue tube for the PT/PTT was not filled enough,redrawn after heparin bolus of 4000 given. Line was flushed and a waste prior to specimen being obtained. PT reported back at 124.1. made aware of issues. States ok.
--- OUTSIDE RECORDS SUMMARY | 2023-09-24 01:35 | XMS RPT_ITS | CCD ---
Author Name Unknown Address [address] [place] [address] Organization [facility] Care Team Providers Care Radiator Cleaner Name Role Phone Vipin HEATH, Areli Bains [...] that her bones and joints kept popping [facility] (8 sources) CATSCAN DYE drug allergy 06-14-20 15 Sick to stomach, almost passed out, hot and sweaty [facility] (1 source) Iodinated Contrast Media Propensity to adverse reactions 11-14-19 23 Nausea Only [facility] Medications Current Medications Medication Drug Class(es) [...] one tab twice a day AMOXICILLIN-POT CLAVULANATE [id number] Jovani Hall MD Problems Active Problems Problem Classification Problem Date Documented Da te Episodic/Chronic Coronary atherosclerosis and other heart disease (1 source) Coronary atherosclerosis; Translations: [Atherosclerotic heart disease of osage coronary artery without angina pectoris] Onset: 05-30-2016 [...] vessel disease; Translations: [Atherosclerotic heart disease of os[place] coronary artery without angina pectoris] Onset: 06-14-2015 [...] Mass Index) 28.03 kg/m2 Areli Lew NP [facility] 05-29-2017 13:54-0400 Body Temperature 98.5 [degF] Areli Lew NP [facility] 05-29-2017 13:54-0400 Body Temperature 98.49 [degF] Areli Lew NP [facility] 05-29-2017 13:54-0400 BP Diastolic 70 mm[Hg] Areli eLw NP [facility] 05-29-2017 13:54-0400 BP Systolic 132 mm[Hg] Areli Lew NP [facility] 05-29-2017 13:54-0400 Height 172.72 cm Areli Vipin RURAL SERVICE ENGINEER [facility] 05-29-2017 13:54-0400 Pulse (Heart Rate) 93 /min Areli Vipin RURAL SERVICE ENGINEER [facility] 05-29-2017 13:54-0400 Respiratory Rate 16 /min Areli Vipin RURAL SERVICE ENGINEER [facility] 05-29-2017 13:54-0400 Weight 83.64 kg Areli Dayton RURAL SERVICE ENGINEER [facility] 04-30-2017 12:41-0400 BMI (Body Mass Index) 27.91 kg/m2 Areli Dayton RURAL SERVICE ENGINEER [facility] 04-30-2017 12:41-0400 Body Temperature 97.2 [degF] Areli Dayton RURAL SERVICE ENGINEER [facility] 04-30-2017 12:41-0400 BP Diastolic 81 mm[Hg] Areli Lew RURAL SERVICE ENGINEER [facility] 04-30-2017 12:41-0400 BP Systolic 152 mm[Hg] Areli Dayton RURAL SERVICE ENGINEER [facility] 04-30-2017 12:41-0400 Height 172.72 cm Areli Vipin RURAL SERVICE ENGINEER [facility] 04-30-2017 12:41-0400 Pulse (Heart Rate) 82 /min Areli Dayton RURAL SERVICE ENGINEER [facility] 04-30-2017 12:41-0400 Respiratory Rate 16 /min Areli Lew RURAL SERVICE ENGINEER [facility] 04-30-2017 12:41-0400 Weight 83.28 kg Areli Dayton RURAL SERVICE ENGINEER [facility] 12-13-2015 14:11-0400 BSA (Body Surface Area) 1.96 m2 Areli Lew RURAL SERVICE ENGINEER [facility] Encounters Encounter Date Encounter Type Care Provider Facility Start: 11-13-2022 End: 11-14-2022 [facility] Start: 11-13-2022 End: 11-13-2022 Subsequent hospital visit by physician [facility] Non-Invasive Cardiology Procedures Date Procedure Procedure Detail Performing Clinician Start: 11-13-2022 Ecg routine ecg w/least 12 lds trcg only w/o i&r Aayush Staffordblum DO Work Phone: Start: 06-29-2022 Mammography [facility] Start: 05-29-2017 End: 05-29-2017 No Charge Areli Nara Vipin RURAL SERVICE ENGINEER Work Phone: Start: 05-24-2017 End: 05-24-2017 Urinalysis Tanya Saldivar Start: 04-30-2017 Gynecologic examination Routine gynecological examination Tanya Barron MD Start: 04-30-2017 End: 04-30-2017 Pelvic & Breast Exam (Medicare) Areli Lew RURAL SERVICE ENGINEER Work Phone: Start: 04-30-2017 Screening mammography Mammogram yearly screening Tanya Barron MD Start: 06-14-2015 End: 06-16-2015 Pneumococcal vaccination Vaccine against streptococcus pneumoniae Tanya Barron MD Plan of Treatment Date Care Activity Detail Author Start: 06-29-2023 Screening for malignant neoplasm of breast Mammogram [facility] Start: 05-03-2022 Influenza vaccination Influenza Vaccine (#1) [facility] Start: 05-29-2017 End: 05-29-[address] [facility] Start: 05-24-2017 End: 05-24-2017 Urine culture, bacteria *CUUR - Culture, Urine (Welda Count) [facility] Start: 04-30-2017 End: 04-30-[address] [facility] Start: 04-30-2017 End: 05-24-2017 *CUUID - Urine ALFRED Culture - Identificatn *CUUID - Urine ALFRED Culture - Identificatn [facility] Start: 04-30-2017 End: 04-30-2017 DEXA scan DEXA scan [facility] Start: 04-30-2017 End: 04-30-2017 Mammogram, screening Mammogram, Screening, both breasts [facility] Start: 06-14-2016 Pneumococcal Vaccine: 65+ Years (2 - PCV) Pneumococcal Vaccine: 65+ Years (2 - PCV) [facility] Start: 1999 Zoster Vaccines (1 of 2) Zoster Vaccines (1 of 2) [facility] Start: 1968 DTaP/Tdap/Td Vaccines (1 - Tdap) DTaP/Tdap/Td Vaccines (1 - Tdap) [facility] Start: 1968 Urine screening for protein Diabetes: Urine Protein Screening [facility] Start: 1967 Hepatitis C screening Hepatitis C Screening [facility] Start: 1959 Diabetic foot examination Diabetes: Foot Exam [facility] Start: 1959 Glaucoma screening Diabetes: Retinopathy Screening [facility] Start: 1959 Preventive dental service Diabetes: Dental Exam [facility] Start: 03-01-1950 COVID-19 Vaccine (#1) COVID-19 Vaccine (#1) [facility] Start: 1949 Hemoglobin A1c measurement Diabetes: Hemoglobin A1C [facility] Start: 1949 Hepatitis B Vaccines (1 of 3 - 3-dose series) Hepatitis B Vaccines (1 of 3 - 3-dose series) [facility] Start: 1949 Lipid panel Lipid Panel [facility] Start: 1949 Medicare Annual Wellness (AWV) Medicare Annual Wellness (AWV) [facility] Start: 1949 Screening for malignant neoplasm of colon [facility] Start: 1949 Screening for osteoporosis Bone Density Scan [facility] ECG 12 lead ECG 12 lead CV E CG STAT 11/13/2022 9:44 AM EDT [facility] Work Phone: Immunizations Immunization Date Immunization Notes Care Provider Neha hodges 06-14-2015 influenza virus vacc ine, unspecified formulation [facility] Payers Date Payer Category Payer Unknown [employer]ERE [employer] MEDICARE SUPPLEMENT [id number] 2019-Present [address] [place] [address] Supplement [id number] 2019 Unknown [id number] 2014 Medicare MEDICARE MEDICAR E PART A AND B [id number] 2014-Present [address] [place] [address] Medicare [id number] 2014 Medicare [id number] Social History Date Type Detail Facility Tobacco smoking status NHIS Never smoked tobacco [facility] Start: 11-13-2022 Alcohol intake Current drinke r of alcohol (finding) [facility] Start: 11-13-2022 Alcohol intake [facility] Start: 1950 Sex Assigned At Not on file [facility] Start: 11-03-2022 End: 11-13-2022 Exposure to SARS-CoV-2 (event) Not sure [facility] Medical Equipment Procedure Code Equipment Code Equipment Origin al Text Equipment Identifier Dates LANCETS ONETOUCH LANCETS MISC [id number] Start: 03-22-2016 End: 04-30-2017 Clinical Note 11-13-2022 Note Date & Type Note Facility 11-13-2022 Note Patient: Mariela mancilla Procedure Summary Date: 11/13/22 Room / Location: [facility] MRI Anesthesia Start: 1125 Anesthesia Stop: [...] opportunity for questions and acknowledgement of understanding. [facility] Clinical Note 11-13-2022 Note Date & Type Note Facility 11-13-2022 Note Patient: Mariela mancilla Procedure Summary Date: 11/13/22 Room / Location: [facility] MRI Anesthesia Start: 1125 Anesthesia Stop: [...] once all PACU criteria has been met. [facility] Clinical Note 11-13-2022 Note Date & Type Note Facility 11-13-2022 Note [facility] PreProcedure History and Physical Name: Mariela [...] of prolapse of bladder Macular degeneration [place] (myocardial infarction) 05/2014 Vaginal prolapse Patient Active Problem List Diagnosis Date Noted Coronary artery disease involving osage coronary artery of osage heart without angina pectoris 05/30/2016 HTN (hypertension) [...] MD, MD Date: 11/13/2022 at 10:28 AM [facility] Clinical Note 11-13-2022 Note Date & Type Note Facility 11-13-2022 Note Patient: Mariela mancilla Procedure Information Date/Time: 11/13/22 1130 Procedures: MR NECK ANGIO W IV CONTRAST MR HEAD ANGIO WO IV CONTRAST Location: [facility] MRI Relevant Problems Cardio (+) Coronary artery disease involving osage coronary artery of osage heart without angina pectoris (+) HTN (hypertension) Past Medical History: Past Medical History: No date: CAD (coronary artery disease) No date: GERD (gastroesophageal reflux disease) No date: History of prolapse of bladder No date: Macular degeneration 05/2014: [place] (myocardial infarction) No date: Vaginal prolapse Past [...] Low voltage, precordial leads Consider anteroseptal infarct [facility] Clinical Note 11-12-2022 Note Date & [...] Entrance which is located at [address] onto [address] from [facility]. You may use Government Affairs Manager Parking. Each patient to receive one validation ticket for Government Affairs Manager Parking. It is also possible to park in the Main Parking Garage. Proceed to bridge into hospital and check in with Same Day Surgery. [facility] Summary Purpose Family History No Family [...] BE BASED ON THE PRIMARY CLINICAL RECORDS. [employer] provides no warranty or guarantee of the accuracy or completeness of information in this document.
[2023-09-24] MEDS: 0.9% Normal Saline (1000mL) 1,000 ML 15 ML IV (02:11)
[2023-09-24 04:48] LABS: Anion Gap 6 (5-15); BUN 13 mg/dL (7-18); BUN/Creat Ratio 17.7 RATIO (10-20); Calcium,Total 9.2 mg/dL (8.5-10.1); Chloride 107 mmol/L (98-107); Creatinine, Serum 0.73 mg/dL (0.55-1.02); EST Glomerular Filtration Rate 82 mL/min (>60); Est Glom Filt Rate - Afr Amer 100 mL/min (>60); Estimated Creatinine Clearance 62.24 ml/min; Glucose 132 mg/dL (74-106); Potassium 3.8 mmol/L (3.5-5.1); Sodium Level 140 mmol/L (136-145)
[2023-09-24 04:57] LABS: International Normalized Ratio 1.1; Prothrombin Time (Protime)PT. 14.6 SECONDS (11.7-14.9)
[2023-09-24] MEDS: Nitroglycerin Oint 1 INCH PACKET 0.5 INCH TD (05:18)
[2023-09-24] MEDS: Acetaminophen 325 MG Tablet 650 MG PO (05:30)
[2023-09-24 06:21] LABS: Absolute Lymphocyte Count 3.02 X10^3/uL (0.83-4.51); Absolute Neutrophil Count 3.7 X10^3/uL (2.0-7.7); Basophil# 0.05 X10^3/uL; Basophil% 0.6 % (0-1); Eosinophil# 0.12 X10^3/uL; Eosinophils% 1.6 % (0-5); Hematocrit 35.2 % (37-47); Lymphocyte # 3.02 X10^3/ul (0.83-4.51); Lymphocyte % 39.2 % (19-41); Mean Corp Hgb Conc 36.9 g/dL (32-36); Mean Corpuscular Hgb 33.9 pg (27.0-32.0); Mean Corpuscular Volume 91.9 fL (81-99); Monocyte# 0.78 X10^3/uL; Monocyte% 10.1 % (0-10); NRBC Flagged by Analyzer 0 % (0-5); Platelet Count 214 K/mm3 (150-450); RBC Distribution Width SD 42.9 fl (35.1-43.9); Red Blood Count 3.83 M/mm3 (4.2-5.4); White Blood Count 7.7 K/mm3 (4.4-11.0)
[2023-09-24 06:46] LABS: Partial Thromboplast Time 49.9 Seconds (24.1-36.2)
--- NOTE | 2023-09-24 07:38 | PCM.CONS.C ---
Assessment & Plan Assessment/Plan (1) Acute coronary syndrome: PLAN: Patient presents with positive troponins and symptoms consistent with accelerating angina pectoris. The patient has known coronary artery disease status post multiple stenting procedures the latest of which was in 2019. The patient undergo a left heart catheterization by Dr. Beltran Dominguez this morning. The procedure risk/benefits and alternatives were explained to the patient who voiced understanding and agrees to proceed. We will not use her right radial Approach due to her previous surgical intervention on her right brachial artery. Cath revealed severe mid LAD lesion just distal to prior stented segment. this was successfully treated with another stent. (2) History of coronary artery disease: PLAN: Stents to the proximal LAD mid right coronary artery only and branch of the circumflex. She is on secondary risk factor modification. (3) Essential hypertension: PLAN: Blood pressure initially elevated in the emergency department has come down with reinstitution of her home medical therapy. (4) Presence of stent in coronary artery: PLAN: Stenting as noted above. HPI Consult Data Date of Consult: 09/24/23 HPI Narrative Reason for Consultation: Chest Pain NSTEMI HPI Narrative: USMAN NICKERSON, is a 73 F who presents with approximately 1 month history of recurrent chest symptoms. These are similar but not identical to her previous anginal symptoms. The patient reports that when she goes out in cold air and breathing and she gets a discomfort in her chest that has resolved with rest and drinking warm tea. She had a stress test done in early August 2023 when these initially started which showed no evidence of ischemia. She was treated for sternal inflammation and the symptoms have continued. The patient reports that last evening she let her dog out and rushed to help get him back in the house and developed some chest discomfort that was more intense than she had had in the past. She presented to the emergency room and her delta troponin returned positive. Her EKG showed nonspecific ST and T wave changes. The patient carries a history of stenting of the proximal left anterior descending and mid right coronary arteries in 2013. After that she had an in-stent restenosis treated with another stent. And her last intervention was in 2019 where the obtuse marginal branch of the circumflex was stented. The patient's symptoms are resolved with Nitropaste and IV heparin. She has remained pain-free overnight. The patient denies any PND orthopnea denies any signs or symptoms of congestive failure. The patient has a history of a left trickle ejection fraction of 60% by echo. She has no significant valvular heart disease. Her initial stents were done by Dr. Eric Rodriguez at [facility]. Dr. Dominguez did her last cath here at [facility]. The patient carries a history of traumatic injury to her right brachial artery. This required a venous graft by Dr. Couch several years ago. 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 Diabetes Essential hypertension GERD (gastroesophageal reflux disease) Hyperlipidemia Hypertension Myocardial infarct Neuropathy Non-ST elevation (NSTEMI) myocardial infarction Prediabetes Presence of stent in coronary artery (~05/22/21) Home Medications L.acidophilus-L.plantarum-B.animalis-B.longum 2 billion cell capsule 1 ea PO DAILY SUPPLEMENT 05/27/14 [History Last Taken 05/18/21] omega 3-dha 60 mg-epa 90 mg-fish oil 500 mg capsule, delayed release 1,000 mg PO BID SUPPLEMENT 05/27/14 [History Last Taken 05/19/21] aspirin 81 mg tablet,delayed release (Adult Low Dose Aspirin) 81 mg PO DAILY HEART HEALTH 04/30/18 [History Last Taken 05/18/21] lutein 20 mg capsule 20 mg PO DAILY EYE VITAMIN 08/06/18 [History Last Taken 05/19/21] potassium gluconate 600 mg (99 mg) tablet 600 mg PO DAILY supplement 11/11/20 [History Last Taken 05/18/21] cranberry 1,000 mg capsule 4,200 mg PO QWEEK supplement 02/19/21 [History Last Taken 05/14/21] estradiol 0.01% (0.1 mg/gram) vaginal cream (Estrace) 1 appful vaginal SUWEFR hormone 02/19/21 [History Last Taken 05/17/21] vitamin B complex 1 cap PO DAILY vitamin 02/19/21 [History Last Taken 05/18/21] zinc 50 mg capsule 50 mg PO TUTHSA supplement 02/19/21 [History Last Taken 05/18/21] cholecalciferol (vitamin D3) 50 mcg (2,000 unit) capsule 50 mcg PO MOWEFR vitamin 12/20/21 [History Last Taken Unknown] metformin 500 mg tablet,extended release 24 hr 500 mg PO BID 07/04/22 [History Last Taken Unknown] carvedilol 12.5 mg tablet 12.5 mg PO BID #180 tabs 11/20/22 [Rx Last Taken Unknown] clopidogrel 75 mg tablet 75 mg PO DAILY #90 tabs 11/20/22 [Rx Last Taken Unknown] phytosterol 500 mg capsule 1,000 mg PO DAILY 05/15/23 [History Last Taken Unknown] polyethylene glycol 3350 17 gram/dose oral powder (ClearLax) 17 g PO DAILY 05/15/23 [History Last Taken Unknown] red yeast rice 600 mg capsule 600 mg PO BID 05/15/23 [History Last Taken Unknown] super beets 1 tab PO 2XD 05/15/23 [History Last Taken Unknown] triamcinolone acetonide 55 mcg nasal spray aerosol (24 Hour Nasal Allergy) 1 spray intranasal DAILY 09/23/23 [History Last Taken Unknown] vitamin E 268 mg (400 unit) capsule 268 mg PO TUTHSA 09/23/23 [History Last Taken Unknown] Allergy/AdvReac Type Severity Reaction Status Date / Time Iodinated Contrast Media Allergy Other Verified 09/23/23 21:33 [Iodinated Contrast Media - IV Dye] isosorbide AdvReac Intermediate Lightheaded, Verified 09/23/23 21:33 dizzy, numb and tingling hands amlodipine AdvReac Headache, Verified 09/23/23 21:33 nausea, dizziness, fatigue, flushing, GERD Influenza Virus Vaccines AdvReac NEEDS Verified 09/23/23 21:33 FOLLOW-UP lisinopril AdvReac fatigue, Verified 09/23/23 21:33 difficulty walking morphine AdvReac SEVER Verified 09/23/23 21:33 HEADACHE rosuvastatin [From Crestor] AdvReac Other Verified 09/23/23 21:33 Family History Other COPD (chronic obstructive pulmonary disease) Diabetes Embolism Hyperlipidemia Peripheral artery disease Surgical History H/O: hysterectomy History of appendectomy History of bladder suspension procedure History of heart artery stent Presence of coronary angioplasty implant and graft (~02/20/21) S/P appendectomy S/P bladder repair S/P PTCA (percutaneous transluminal coronary angioplasty) S/P tonsillectomy Social History household members: spouse housing: house Smoking Status: Never smoker alcohol intake: current alcohol intake frequency: holidays/special occasions only substance use type: does not use caffeine: Yes Type: coffee Number of servings: 3 and tea Number of servings: 1 ROS Constitutional Constitutional: Reports as per HPI Eyes Eyes: Reports none ENT HEENT: Reports none Cardiovascular Cardiovascular: Reports systems reviewed and no addt'l complaints, except as documented and as per HPI Respiratory/Chest Respiratory/Chest: Reports systems reviewed and no addt'l complaints, except as documented Gastrointestinal Gastrointestinal: Reports none Genitourinary Genitourinary: Reports none Musculoskeletal Musculoskeletal: Reports none Integumentary Integumentary: Reports none Neurologic Neurologic: Reports none Psychiatric Psychiatric: Reports none Hematologic/Lymphatic Hematologic/Lymphatic: Reports none Physical Exam Const oriented x3 HEENT normocephalic Eyes EOMs intact bilaterally Neck no JVD and no carotid bruits Chest inspection of chest normal Resp Auscultation: crackles bilateral Cardio regular rate, regular rhythm, S1 normal heart sound, S2 normal heart sound, no murmurs, no rub and no gallops Peripheral Pulses: radial pulses present bilateral (2+) and femoral pulses present bilateral (2+ no bruits) GI soft to palpation and non-tender Extremity Extremity Narrative: Thick bilateral ankles no definitive pitting edema. General Extremity: Negative for edema Skin Skin Narrative: Multiple tattoos Psych mental status grossly normal Risk Stratification Risk Stratification Applicable: Yes Age >/= 65: Yes >/= 3 CAD Risk Factors (HTN, HLD, DM, family hx of CAD, or current smoker): Yes Aspirin Use in the Past 7 Days: Yes Severe Angina (>/= episodes in 24 hours): Yes EKG ST Changes >/= 0.5mm: No Positive Cardiac Marker: Yes RYANN Risk Stratification Score: 5 RYANN % Risk: 25% Risk Charges/Coding Visit Charges Inpatient E&M: 76223 Init Hosp L3 Objective Data Vital Signs: Vital Signs Temp Pulse Resp BP Pulse Ox O2 Del Method 98 F 93 16 120/93 H 98 Room Air 09/24/23 02:10 09/24/23 05:18 09/24/23 02:10 09/24/23 05:18 09/24/23 02:10 09/24/23 02:10 Oxygen Delivery Method Room Air Weight: 163 lb Body Mass Index (BMI) 24.7 Intake & Output: Intake and Output for Last 24 Hours 09/22/23 09/23/23 09/24/23 23:59 23:59 23:59 Intake Total 133.4 / 133.4 Balance 133.4 / 133.4 Lab / Micro Data 09/24/23 04:10 09/24/23 04:10 Labs: Laboratory Results - last 24 hr 09/23/23 21:39: WBC 8.0, RBC 4.01 L, Hgb 13.7, Hct 36.9 L, MCV 92.0, MCH 34.2 H, MCHC 37.1 H, RDW Std Deviation 43.8, RDW Coeff of Annel 13.0, Plt Count 264, MPV 9.9, Immature Gran % (Auto) 0.500, Neut % (Auto) 49.9, Lymph % (Auto) 38.7, [place] % (Auto) 8.6, Eos % (Auto) 1.5, Baso % (Auto) 0.8, Absolute Neuts (auto) 4.0, Absolute Lymphs (auto) 3.09, Nucleated RBC % 0, Sodium 140, Potassium 3.8, Chloride 104, Carbon Dioxide 23.0, Anion Gap 13, BUN 14, Creatinine 1.08 H, Estim Creat Clear Calc 50.11, Est GFR (MDRD) Af Amer 64, Est GFR (MDRD) Non-Af 53 L, BUN/Creatinine Ratio 13.0, Glucose 271 H, Calcium 9.0, Troponin I High Sens 12 09/23/23 23:14: Troponin I High Sens 130 H* 09/24/23 00:50: PT 14.8, INR 1.2, APTT 124.1 H* 09/24/23 04:10: WBC 7.7, RBC 3.83 L, Hgb 13.0, Hct 35.2 L, MCV 91.9, MCH 33.9 H, MCHC 36.9 H, RDW Std Deviation 42.9, RDW Coeff of Annel 13.0, Plt Count 214, MPV 10.0, Immature Gran % (Auto) 0.500, Neut % (Auto) 48.0, Lymph % (Auto) 39.2, [place] % (Auto) 10.1 H, Eos % (Auto) 1.6, Baso % (Auto) 0.6, Absolute Neuts (auto) 3.7, Absolute Lymphs (auto) 3.02, Nucleated RBC % 0, PT 14.6, INR 1.1, Sodium 140, Potassium 3.8, Chloride 107, Carbon Dioxide 27.0, Anion Gap 6, BUN 13, Creatinine 0.73, Estim Creat Clear Calc 62.24, Est GFR (MDRD) Af Amer 100, Est GFR (MDRD) Non-Af 82, BUN/Creatinine Ratio 17.7, Glucose 132 H, Calcium 9.2 09/24/23 05:55: APTT 49.9 H Cardiology Labs/Tests 09/23/23 21:39: WBC 8.0, RBC 4.01 L, Hgb 13.7, Hct 36.9 L, MCV 92.0, MCH 34.2 H, MCHC 37.1 H, Plt Count 264, MPV 9.9, Immature Gran % (Auto) 0.500, Neut % (Auto) 49.9, Lymph % (Auto) 38.7, [place] % (Auto) 8.6, Eos % (Auto) 1.5, Baso % (Auto) 0.8, Absolute Neuts (auto) 4.0, Nucleated RBC % 0, Sodium 140, Potassium 3.8, Chloride 104, Carbon Dioxide 23.0, Anion Gap 13, BUN 14, Creatinine 1.08 H, Est GFR (MDRD) Af Amer 64, Est GFR (MDRD) Non-Af 53 L, BUN/Creatinine Ratio 13.0, Glucose 271 H, Calcium 9.0 09/24/23 00:50: PT 14.8, INR 1.2, APTT 124.1 H* 09/24/23 04:10: WBC 7.7, RBC 3.83 L, Hgb 13.0, Hct 35.2 L, MCV 91.9, MCH 33.9 H, MCHC 36.9 H, Plt Count 214, MPV 10.0, Immature Gran % (Auto) 0.500, Neut % (Auto) 48.0, Lymph % (Auto) 39.2, [place] % (Auto) 10.1 H, Eos % (Auto) 1.6, Baso % (Auto) 0.6, Absolute Neuts (auto) 3.7, Nucleated RBC % 0, PT 14.6, INR 1.1, Sodium 140, Potassium 3.8, Chloride 107, Carbon Dioxide 27.0, Anion Gap 6, BUN 13, Creatinine 0.73, Est GFR (MDRD) Af Amer 100, Est GFR (MDRD) Non-Af 82, BUN/Creatinine Ratio 17.7, Glucose 132 H, Calcium 9.2 09/24/23 05:55: APTT 49.9 H Rhythm: EKG: ECHO: Stress Test: Cardiac Cath: PCI: CT Surgery: Holter monitor: EPS: PPM: CXR: Chest CT Scan: Radiography Diagnostic Testing: Radiology Impression Chest X-Ray 09/23/23 22:00 IMPRESSION: No evidence of active intrathoracic disease. Electronically Signed: Shalini Dumont MD at 22:20 EST ,
--- NOTE | 2023-09-24 08:41 | PN.HOSP_ITS ---
Reason for Visit Reason for Visit: Diagnoses Type 2 diabetes mellitus with diabetic autonomic (poly)neuropathy (09/24/23) Hyperlipidemia, unspecified (09/24/23) Essential (primary) hypertension (09/24/23) Non-ST elevation (NSTEMI) myocardial infarction (09/24/23) long-term (current) use of insulin (09/24/23) Personal history of other diseases of the circulatory system (09/24/23) Presence of coronary angioplasty implant and graft (09/24/23) Objective Data Objective Data Vital Signs: Vital Signs Temp Pulse Resp BP Pulse Ox O2 Del Method 98.2 F 90 16 151/70 H 95 Room Air 09/24/23 07:50 09/24/23 07:50 09/24/23 07:50 09/24/23 07:50 09/24/23 07:50 09/24/23 07:55 Oxygen Delivery Method Room Air Weight: 163 lb Body Mass Index (BMI) 24.7 Intake & Output: Intake and Output for Last 24 Hours 09/22/23 09/23/23 09/24/23 23:59 23:59 23:59 Intake Total 142.4 / 142.4 Balance 142.4 / 142.4 Lab / Micro Data 09/24/23 04:10 09/24/23 04:10 Labs: Laboratory Results - last 24 hr 09/23/23 21:39: WBC 8.0, RBC 4.01 L, Hgb 13.7, Hct 36.9 L, MCV 92.0, MCH 34.2 H, MCHC 37.1 H, RDW Std Deviation 43.8, RDW Coeff of Annel 13.0, Plt Count 264, MPV 9.9, Immature Gran % (Auto) 0.500, Neut % (Auto) 49.9, Lymph % (Auto) 38.7, [place] % (Auto) 8.6, Eos % (Auto) 1.5, Baso % (Auto) 0.8, Absolute Neuts (auto) 4.0, Absolute Lymphs (auto) 3.09, Nucleated RBC % 0, Sodium 140, Potassium 3.8, Chloride 104, Carbon Dioxide 23.0, Anion Gap 13, BUN 14, Creatinine 1.08 H, Estim Creat Clear Calc 50.11, Est GFR (MDRD) Af Amer 64, Est GFR (MDRD) Non-Af 53 L, BUN/Creatinine Ratio 13.0, Glucose 271 H, Calcium 9.0, Troponin I High Sens 12 09/23/23 23:14: Troponin I High Sens 130 H* 09/24/23 00:50: PT 14.8, INR 1.2, APTT 124.1 H* 09/24/23 04:10: WBC 7.7, RBC 3.83 L, Hgb 13.0, Hct 35.2 L, MCV 91.9, MCH 33.9 H, MCHC 36.9 H, RDW Std Deviation 42.9, RDW Coeff of Annel 13.0, Plt Count 214, MPV 10.0, Immature Gran % (Auto) 0.500, Neut % (Auto) 48.0, Lymph % (Auto) 39.2, [place] % (Auto) 10.1 H, Eos % (Auto) 1.6, Baso % (Auto) 0.6, Absolute Neuts (auto) 3.7, Absolute Lymphs (auto) 3.02, Nucleated RBC % 0, PT 14.6, INR 1.1, Sodium 140, Potassium 3.8, Chloride 107, Carbon Dioxide 27.0, Anion Gap 6, BUN 13, Creatinine 0.73, Estim Creat Clear Calc 62.24, Est GFR (MDRD) Af Amer 100, Est GFR (MDRD) Non-Af 82, BUN/Creatinine Ratio 17.7, Glucose 132 H, Calcium 9.2 09/24/23 05:55: APTT 49.9 H Radiography Diagnostic Testing: Radiology Impression Chest X-Ray 09/23/23 22:00 IMPRESSION: No evidence of active intrathoracic disease. Electronically Signed: Shalini Dumont MD at 22:20 EST Reading Location ID and State: [facility] in [place] / [place] Tel , Service support , Physical Exam Narrative Seen and examined. Patient went to cath in the morning. Return after PCI procedure. Had PCI/JOSÉ LUIS on proximal LAD. General: Alert, Oriented x3, Cooperative HEENT: Atraumatic, PERRLA, EOMI, Normocephalic Oral: No Gingival or Mucosal Lesions/ Ulcerations Neck: Supple, No JVD, Negative Carotid Bruits Lungs: Air entry diminished in bilateral lung bases. No crepitation/rhonchi Cardiovascular: Regular rate, Regular Rhythm, Normal S1, Normal S2, No murmurs Abdomen: Bowel Sounds Present, Soft, Non Tender, Non-Distended : No renal angle tenderness. No suprapubic tenderness. Extremities: No edema, Capillary Refill Less than 3 Seconds Skin: Cardiac cath access site on the right groin. Musculoskeletal: No Tenderness to Palpation of Joints or Extremities Neurological: Cranial nerves II-XII grossly intact, DTR 2+/4. No acute focal neurological deficit. Psych/Mental Status: Normal Affect, Appropriate. Assessment & Plan Assessment/Plan (1) History of coronary artery disease: (2) Diabetes mellitus with peripheral autonomic neuropathy: QUALIFIERS: Diabetes mellitus tank terminal gauger insulin use: with fci use Diabetes mellitus type: type 2 Qualified Code(s): E11.43 - Type 2 diabetes mellitus with diabetic autonomic (poly)neuropathy; Z79.4 - long-term (current) use of insulin (3) Non-ST elevation (NSTEMI) myocardial infarction: (4) HLD (hyperlipidemia): QUALIFIERS: Hyperlipidemia type: unspecified Qualified Code(s): E78.5 - Hyperlipidemia, unspecified (5) Essential hypertension: (6) Presence of stent in coronary artery: PLAN: Plan 73-year-old female was admitted with 1 month history of recurrent chest pains/pressure similar to the previous anginal symptoms. Earlier stress test in August 2023 did not show evidence of ischemia. 1. non-STEMI?patient is being admitted in PCU. Troponin is high. Patient has history of coronary artery disease with multiple stents in the past, last 1 in 2018 clinical history and evaluation and labs consistent with non-STEMI. Twelve-lead EKG shows sinus tachycardia 109 bpm. Chronic T wave inversion in V1 and V2. No ST elevation/significant ST deviation on the EKG. Patient was evaluated by head filter press tender and taken to the Youth Care Worker. Patient was found to have 90% proximal LAD complex chronic occlusion. Dilation and stent was placed. EF 60% with no significant valvular heart disease. Denies PND or dyspnea on ex ertion. admit patient to progressive care unit?make patient n.p.o., continue Nitropaste and heparin drip initiated in the emergency room. Consult Dr. Dominguez. Will add coag panel, CBC BMP for the a.m. 2. Hypertension?more than 10 titrate the antihypertensive medication. 3. Hyperlipidemia?resume statin after heart catheterization 4. Diabetes melitis type II?Accu-Chek AC_insulin sliding scale 5. DVT prophylaxis?patient is on heparin drip Laboratory Results 09/23/23 21:39: WBC 8.0, RBC 4.01 L, Hgb 13.7, Hct 36.9 L, MCV 92.0, MCH 34.2 H, MCHC 37.1 H, RDW Std Deviation 43.8, RDW Coeff of Annel 13.0, Plt Count 264, MPV 9.9, Immature Gran % (Auto) 0.500, Neut % (Auto) 49.9, Lymph % (Auto) 38.7, [place] % (Auto) 8.6, Eos % (Auto) 1.5, Baso % (Auto) 0.8, Absolute Neuts (auto) 4.0, Absolute Lymphs (auto) 3.09, Nucleated RBC % 0, Sodium 140, Potassium 3.8, Chloride 104, Carbon Dioxide 23.0, Anion Gap 13, BUN 14, Creatinine 1.08 H, Estim Creat Clear Calc 50.11, Est GFR (MDRD) Af Amer 64, Est GFR (MDRD) Non-Af 53 L, BUN/Creatinine Ratio 13.0, Glucose 271 H, Calcium 9.0, Troponin I High Sen s 12 09/23/23 23:14: Troponin I High Sens 130 H* 09/24/23 00:50: PT 14.8, INR 1.2, APTT 124.1 H* 09/24/23 04:10: WBC 7.7, RBC 3.83 L, Hgb 13.0, Hct 35.2 L, MCV 91.9, MCH 33.9 H, MCHC 36.9 H, RDW Std Deviation 42.9, RDW Coeff of Annel 13.0, Plt Count 214, MPV 10.0, Immature Gran % (Auto) 0.500, Neut % (Auto) 48.0, Lymph % (Auto) 39.2, Mon o % (Auto) 10.1 H, Eos % (Auto) 1.6, Baso % (Auto) 0.6, Absolute Neuts (auto) 3.7, Absolute Lymphs (auto) 3.02, Nucleated RBC % 0, PT 14.6, INR 1.1, Sodium 140, Potassium 3.8, Chloride 107, Carbon Dioxide 27.0, Anion Gap 6, BUN 13, Creatinine 0.73, Estim Creat Clear Calc 62.24, Est GFR (MDRD) Af Amer 100, Est GFR (MDRD) Non-Af 82, BUN/Creatinine Ratio 17.7, Glucose 132 H, Calcium 9.2, Phosphorus 3.6, Magnesium 2.4, Triglycerides 479 H, Cholesterol 227 H, LDL Cholesterol TNP, VLDL Cholesterol TNP, HDL Cholesterol 39 L 09/24/23 05:55: APTT 49.9 H 09/24/23 10:30: Activated Clotting Time 239 H 09/24/23 11:56: Activated Clotting Time 185 H Charges/Coding Visit Charges Inpatient E&M: 83929 Subs Hosp L2
--- NOTE | 2023-09-24 08:41 | NURSING ---
0837-Report called to Graeme VILLARREAL laboratory machinist
[2023-09-24 09:35] LABS: Cholesterol 227 mg/dL (200); High Density Lipoprotein 39 mg/dL; Magnesium 2.4 mg/dL (1.6-2.6); Phosphorus 3.6 mg/dL (2.5-4.9); Triglycerides 479 mg/dL
--- NOTE | 2023-09-24 10:09 | CL.D_ITS ---
Patient Name: USMAN NICKERSON Study Date: 09/24/2023 Performing: Beltran Dominguez MD Ht: 68 inches 172.72 cm : 1950 Wt: 163.01 lbs 73.94 kg Age: 73 Gender: female BSA: 1.87 PROCEDURE(S) PERFORMED DC01-(49584)LHC/COR/LV CLINICAL PROFILE AND INDICATIONS Indications: Worsening Angina Heart Failure: None Stress/Imaging Stress/Image Study Performed: No Angina Classification Anginal Classification w/in 2 Weeks: CCS III CAD Presentations: Unstable angina. CONCLUSIONS Severe coronary artery disease involving the proximal left anterior descending artery and the post stent area and previously placed stent in the right coronary artery and circumflex artery which are patent and left ventricular systolic dysfunction involving the anterior wall apex and inferoapical wall. RECOMMENDATIONS Referred for immediate PCI DESCRIPTION OF PROCEDURE The patient arrived to the procedure lab. The risks and benefits of the procedure as well as a full description of our services here and current unavailability of surgical backup were fully explained to the patient and/or their significant other prior to the catheterization. The Timeout was completed, verifying the correct patient and procedure. The patient's procedural site was prepped and draped in the usual fashion. Local anesthetic was given subcutaneously to right groin region with Lidocaine 2%. Using a modified Seldinger technique, arterial access was obtained via the right femoral artery, a 5Fr sheath was inserted. Left Coronary Artery selective angiography was performed in multiple views using a 5 Fr. JL4 catheter. Right Coronary Artery selective angiography was then performed in multiple views using a 5 Fr. 3DRC (Steve) catheter. Left Ventriculography was performed in AMARO projection using a 5 Fr. Pigtail catheter. LV to AO pullback pressures were then recorded. CORONARY ANGIOGRAPHY DOMINANCE: Right Dominant LEFT HEART ASSESSMENT Left Ventricular Ejection Fraction: by LV Gram 40 % Anterior Hypokinesis - Moderate. Apical Hypokinesis - Moderate. Inferior Apical Hypokinesis - Moderate Depressed Left Ventricular systolic function LEFT MAIN: Ostial 20% stenosis LEFT ANTERIOR DESCENDING ARTERY: Proximal LAD with previously placed stent which is patent and immediately afterwards with her first diagonal with mild ostial stenosis in the midsegment with mild stenosis. Immediately distal to the previously placed stent is a high-grade 90% stenotic lesion. The distal LAD also has a tapering 80% lesion CIRCUMFLEX ARTERY: First tiny obtuse marginal branch with no high-grade stenosis, mid circumflex artery previously stented with patent stent and mild distal disease RIGHT CORONARY ARTERY: Large dominant right coronary artery with previously placed stent in the proximal and mid segments noted to be patent with minimal in-stent stenosis in the posterolateral vessel with 50% luminal irregularities in the posterior descending artery with 30 to 40% mid segment luminal irregularities. COMPLICATIONS PROCEDURE MEDICATIONS Versed 2 mg IV Oxygen: 2 L/min via nasal cannula Benadryl 50 mg IV 09/24/2023 09:05:18 Baby Aspirin (81mg) 1 Tabs PO @ 09/24/2023 09:05:25 Heparin 6000 unit(s) IV 09/24/2023 10:05:17 Plavix 75 mg PO 09/24/2023 09:05:35 Solu-medrol 125 mg IV 09/24/2023 09:05:11 SUMMARY OF HEMODYNAMIC DATA Time AIR REST ECG 09:05:48 RFA 194/85 (131) 09:41:39 AO 192/97 (139) SA 09:52:51 LV 178/14, 29 09:58:21 LV 174/12, 25 09:58:29 LV 180/13, 27 09:59:05 LVp 179/13, 29 09:59:13 AOp 179/86 (129) 09:59:20 Signed By Beltran Dominguez MD On 09/24/2023 10:08:54 Beltran Dominguez MD
--- NOTE | 2023-09-24 11:14 | CL.I_ITS ---
Patient Name: USMAN NICKERSON Study Date: 09/24/2023 Performing: Dinesh Nunez MD Ht: 68 inches 172.72 cm : 1950 Wt: 163.01 lbs 73.94 kg Age: 73 Gender: female BSA: 1.87 PROCEDURE(S) PERFORMED IC12-(93960/C9600)JOSÉ LUIS W/WO PTCA, SINGLE CORONARY ARTERY CLINICAL PROFILE AND CO-MORBIDITIES Indications: Worsening Angina Heart Failure: None Stress/Imaging Stress/Image Study Performed: No Angina Classification Anginal Classification w/in 2 Weeks: CCS III CAD Presentations: Unstable angina. CONCLUSIONS Successful JOSÉ LUIS to pLAD RECOMMENDATIONS DESCRIPTION OF PROCEDURE The patient arrived to the procedure lab. The risks and benefits of the procedure as well as a full description of our services here and current unavailability of surgical backup were fully explained to the patient and/or their significant other prior to the catheterization. The Timeout was completed, verifying the correct patient and procedure. The patient's procedural site was prepped and draped in the usual fashion. Local anesthetic was given subcutaneously to right groin region with Lidocaine 2% Using a modified Seldinger technique,arterial access was obtained via the right femoral artery, a 5Fr sheath was inserted. Left Coronary Artery selective angiography was performed in multiple views using a 5 Fr. JL4 catheter. Right Coronary Artery selective angiography was then performed in multiple views using a 5 Fr. 3DRC (Steve) catheter. Left Ventriculography was performed in AMARO projection using a 5 Fr. Pigtail catheter. LV to AO pullback pressures were then recorded.The images were reviewed and options discussed. A decision was then made to proceed with an Intervention, IVUS or other adjunct procedure. Arterial sheath was exchanged for a 6 Fr Sheath. XB 3.5 Guide catheter was inserted and engaged into the LCA. XB 3.5 Guide catheter was exchanged for a XB 3.0 BMW Guide wire was advanced to the LAD. 2.50X12 EMERGE Balloon catheter was inserted. Balloon catheter was advanced across lesion in the LAD, proximal. PTCA balloon inflated at 6 atms for 6 secs. PTCA balloon inflated at 8 atms for 20 secs. 2.75X18 JOSHUA FRONTIER Drug Eluting stent was inserted. Drug Eluting stent was advanced across the lesion in the LAD, proximal. Angiogram performed post stent deployment. The arterial sheath was left in to be pulled in the holding area after ACT is lower INTERVENTION INFORMATION LESION SITE: LAD (Proximal) Lesion Complexity: High/C, chronic total occlusion: No, lesion at bifurcation: Yes, thrombus present: No, lesion length: 15 mm, culprit lesion: Yes, Previously treated lesion: No Pre Stenosis: 95 % Pre intervention RYANN flow: 3 PROCEDURE: Drug Eluting Stent with pre and post dilatation Post Stenosis: 0 % Post intervention RYANN flow: 3 Lesion Devices: Snowden .014 190cm BMW Callaway Straight Cordis 6 Fr XB3.5 100cm Guide Catheter Cordis 6 Fr XB3.0 100cm Guide Catheter Jesu Sci EMERGE MR 2.50x12 BALLOON Medtronic 2.75 x 18 JOSHUA FRONTIER JOSÉ LUIS COMPLICATIONS No Complications PROCEDURE MEDICATIONS Versed 2 mg IV Oxygen: 2 L/min via nasal cannula Benadryl 50 mg IV 09/24/2023 09:05:18 Baby Aspirin (81mg) 1 Tabs PO @ 09/24/2023 09:05:25 Heparin 6000 unit(s) IV 09/24/2023 10:05:17 Metoprolol 5 mg 09/24/2023 09:05:11 Plavix 75 mg PO 09/24/2023 09:05:35 Solu-medrol 125 mg IV 09/24/2023 09:05:11 SUMMARY OF HEMODYNAMIC DATA Time AIR REST ECG 09:05:48 RFA 194/85 (131) 09:41:39 AO 192/97 (139) SA 09:52:51 LV 178/14, 29 09:58:21 LV 174/12, 25 09:58:29 LV 180/13, 27 09:59:05 LVp 179/13, 29 09:59:13 AOp 179/86 (129) 09:59:20 AIR REST 11:08:02 Signed By Dinesh Nunez MD On 09/24/2023 11:14:17 Dinesh Nunez MD
--- NOTE | 2023-09-24 13:30 | CASEMGMT ---
RN CM Face to Face with patient for initial transition planning/care coordination assessment. RN CM introduced self and role at [facility]. Patient lying in bed, alert and oriented. Patient willing to participate in assessment and is able to answer all questions appropriately. Care providers, pharmacy, and demographics verified. Patient wishes to discharge home, denies need for home health at this time. Patient states she has no further needs or concerns at this time. CM to follow for discharge planning needs that may arise. PCP: Tam Specialists: Angelica, cardiologsit; Basali, pain Preferred Pharmacy: [facility] Insurance: [facility] [employer] Prescription Benefit: yes Living Will/HPOA: living will only LNOK: Living Arrangements: Patient lives with in a single story home with 1 step to enter. Patient is independent at home. Transportation: self, friends DME/HHC: Patient has grab bars at home. No previous HHC or SNF. Disposition Plan: Patient to discharge home with family support and follow up plans in place. Rosina GUAN, RN, CM
[2023-09-24 14:32] LABS: ACT Activated Clotting Time 239 sec (74-137)
--- NOTE | 2023-09-24 14:59 | CRPHASE1 ---
Patient Communication Patient Information Former Patient:: Phase I and Phase II PHII Cardiac Rehab Discussed with Patient:: Yes Guide to Cardiac Rehab Given to Patient:: Yes Cardiac Rehab Facility Choice List Given to Patient:: Yes Communication to Cardiac Rehab Choice Program [facility] CR PHII:: Communication Given to CR Distance Learning Coordinator:: Lorraine Nunez Refer Phase II Cardiac Rehab:: Yes Sessions:: 36 sessions - 3 days/wk, 12 weeks Cardiac Rehabilitation Info Program Information Cardiac Rehabilitation Program Information: Cardiac Rehab The cardiac rehab team at [facility] consists of highly skilled exercise physiologists, nurses, respiratory therapists and physicians working together with you. Our purpose is to help you have a full recovery and achieve the goals you set for yourself. Over the years many of our patients have returned to activities they assumed they would never do again! We can help restore your confidence and motivation to make lifestyle changes that can have a significant impact on your health and quality of life! We can help answer questions and concerns you may have about exercise, lifestyle, medications, diet, stress and anxiety which are common following a hospitalization. WE monitor ECG and vital signs during exercise and discuss your progress with you and report to your physician(s). Cardiac Rehab is proven to help reduce readmissions, improve functional capacity and lower recurrence of problems with your heart. Our Cardiac Rehab program is Certified by the [place] [employer] Pulmonary [employer] (AACVPR) and Accredited by the [place] [employer] through our [facility]. You can contact us at . We invite you to call us with your questions or to get started in our program. If you have other questions or concerns be sure to ask your physician/provider during your follow-up visit. WE look forward to seeing you!
--- NOTE | 2023-09-24 15:02 | CRPH1.INSTRU ---
General Education Discussed with Patient CAD and cardiac anatomy and function:: Patient communicates acknowledgment Explanation of diagnoses and procedures:: Patient communicates acknowledgment Sign/Symptoms of MN:: Patient communicates acknowledgment Antiplatelet therapy: Patient communicates acknowledgment Proper use of NTG-SL: Patient communicates acknowledgment Emergency procedures and activation of EMS: Patient communicates acknowledgment Compliance of all prescribed medications: Patient communicates acknowledgment Smoking Risk Factors Patient Nicotine/Smoking Risk Factors Are:: Never smoked Dyslipidemia Recommendations Recommendations Include:: Lipid profile not available and Therapeutic Lifestyle Change dietary guidelines Response Code Dyslipidemia Response Code:: Patient communicates acknowledgment Overweight/Obesity Risk Factors Patient Overweight/Obesity Risk Factors Are:: BMI Normal [18-25 & < 65 years old] Recommendations Recommendations Include:: Weight loss of 5-10%, Reduced calorie diet and Exercise 5-7 times/week Response Code Overweight/Obesity:: Patient communicates acknowledgment and Patient returns demonstration Hypertension Recommendations Recommendations Include:: BP <130/80 if diabetic and Decrease/maintain normal body weight Response Code Hypertension:: Patient communicates acknowledgment Heart Disease Risk Factors Patient Heart Disease Risk Factors Are:: Previous cardiac event Recommendations Recommendations Include:: Educated family members of their risk and Educated family members of importance of prevention of heart disease Response Code Heart Disease Response Code:: Patient communicates acknowledgment Diabetes Risk Factors Patient Diabetes Risk Factors Are:: Elevated blood sugars Recommendations Recommendations Include:: Maintain fasting blood sugars 70-110 md/dL, Maintain HgbA1c of 6% or less, Monitor blood sugar as prescribed, Diabetic dietary guidelines and Decrease/maintain body weight Response Code Diabetes:: Patient communicates acknowledgment Sedentary Risk Factors Patient Sedentary Risk Factors Are:: Lack of regular exercise Recommendations Recommendations Include:: Aerobic exercise 5-7 times/week for 20-30 minutes continuously, Benefits of regular exercise, Discussed home walking program and Monitored Outpatient Cardiac Rehab Response Code Sedentary Response Code:: Patient communicates acknowledgment Stress Risk Factors Patient Stress Risk Factors Are:: Patient denies stress as a risk factor Recommendations Recommendations Include:: Identification of stressors, and assessment of coping skills and Stress management techniques Response Code Stress Response Code:: Patient communicates acknowledgment
[2023-09-24 16:02] LABS: ACT Activated Clotting Time 185 sec (74-137)
--- NOTE | 2023-09-24 17:39 | NURSING ---
Pt assisted out of bed x1 assist with this RN. Pt ambulated to bathroom and around room. Rt groin cath site remains soft, non-tender, dressing c/d/i.
[2023-09-24] MEDS: Carvedilol 12.5 MG Tablet PO (20:17)
[2023-09-25 03:50] VITALS: BP 134/64; PULSE 88; RESP 16; TEMP 36.6; O2SAT 97
[2023-09-25 03:55] VITALS: PULSE 88
--- NOTE | 2023-09-25 07:55 | PN.CARD_ITS ---
Subjective Subjective Patient reports she is doing very well this morning. She has been up ambulating in the halls since 4 AM. The patient denies any chest discomfort she denies any groin issue. The patient tolerated the stenting procedure without incident. She reports she is ready to be discharged. The patient is appropriately concerned about her legally blind at home. She also had multiple questions about her activity levels. I spent time educating her on secondary risk factor modifications and her activity levels. Objective Data Vital Signs: Vital Signs Temp Pulse Resp BP Pulse Ox O2 Del Method 97.8 F 88 16 134/64 H 97 Room Air 09/25/23 03:50 09/25/23 03:55 09/25/23 03:50 09/25/23 03:50 09/25/23 03:50 09/25/23 03:55 Oxygen Delivery Method Room Air Weight: 163 lb Body Mass Index (BMI) 24.7 Intake & Output: Intake and Output for Last 24 Hours 09/23/23 09/24/23 09/25/23 23:59 23:59 23:59 Intake Total 685.9 / 925.9 480 / 480 Balance 685.9 / 925.9 480 / 480 Lab / Micro Data 09/24/23 04:10 09/24/23 04:10 Labs: Laboratory Results - last 24 hr 09/24/23 04:10: Phosphorus 3.6, Magnesium 2.4, Triglycerides 479 H, Cholesterol 227 H, LDL Cholesterol TNP, VLDL Cholesterol TNP, HDL Cholesterol 39 L 09/24/23 10:30: Activated Clotting Time 239 H 09/24/23 11:56: Activated Clotting Time 185 H Cardiology Labs/Tests 09/24/23 04:10: Phosphorus 3.6, Magnesium 2.4, Triglycerides 479 H, Cholesterol 227 H, LDL Cholesterol TNP, VLDL Cholesterol TNP, HDL Cholesterol 39 L Rhythm: EKG: ECHO: Stress Test: Cardiac Cath: PCI: CT Surgery: Holter monitor: EPS: PPM: CXR: Chest CT Scan: Physical Exam Const oriented x3 HEENT normocephalic Eyes EOMs intact bilaterally Neck no JVD Chest inspection of chest normal Resp normal respiratory effort Auscultation: Negative for crackles, rales, rhonchi or wheezes Cardio regular rate, regular rhythm, S1 normal heart sound, S2 normal heart sound, no rub and no gallops Heart Sounds: murmur systolic I/ soft early left sternal border (Lower sternal border.) Peripheral Pulses: femoral pulses present right (2+ pulses with no femoral bruit. There is no significant ecchymoses at the site.) GI soft to palpation and no masses Extremity no pedal edema General Extremity: Negative for edema Psych mental status grossly normal Assessment & Plan Assessment/Plan (1) Acute coronary syndrome: PLAN: Patient underwent left heart catheterization and percutaneous revascularization of the mid LAD involving the first major diagonal branch. A drug-eluting stent was placed with preservation of flow into the diagonal branch. From a cardiovascular standpoint the patient can be discharged to home. She has been intolerant of Brilinta in the past she should be maintained on Plavix and a baby aspirin long-term. This should not be interrupted for 1 year. The patient's other secondary risk factors will be addressed as well. The patient will follow-up in our office in 2 to [address] Lowry. From a cardiovascular standpoint the patient can return to full activity levels in 1 week with no restrictions. (2) Essential hypertension: PLAN: Her blood pressure is well-controlled on her current medical regiment. The carvedilol will be continued at its current dose. (3) HLD (hyperlipidemia): QUALIFIERS: Hyperlipidemia type: unspecified Qualified Code(s): E78.5 - Hyperlipidemia, unspecified PLAN: The patient has been intolerant of standard statin therapy in the past. She is currently on red yeast rice and taking multiple [id number]-[id number] supplements. I would like to trial her on a very low-dose of rosuvastatin 5 to 10 mg once a week to start with. We will not institute this until she is seen in the office and has a washout period from the red yeast rice. The patient voiced agreement to trial of this as an opportunity to get her on some form of statin therapy. The patient is diabetic state and her recurrent new coronary lesions would warrant an aggressive approach of trying to get her on a more a ggressive statin therapy. PLAN: Plan 1. The patient can be discharged home from a cardiovascular standpoint. 2. The patient will follow-up in Dr. Lowry office in 2 to 4 weeks. 3. The patient should be continue on her current medical regimen. Plavix and aspirin should not be interrupted for 1 year. 4. The patient should follow-up with her primary care physician's office per her previously arranged appointments. 5. The patient can return to full activity levels in 1 week. She is to limit her lifting to 10 pounds for the first week. Charges/Coding Visit Charges Inpatient E&M: 45576 Subs Hosp L3
[2023-09-25 07:59] LABS: Hematocrit 38.3 % (37-47); Mean Corp Hgb Conc 36.6 g/dL (32-36); Mean Corpuscular Hgb 34.1 pg (27.0-32.0); Mean Corpuscular Volume 93.4 fL (81-99); Mean Platelet Vol. 10.4 fl (6.2-12.0); Platelet Count 276 K/mm3 (150-450); RBC Distribution Width CV 13.1 % (11.6-14.6); RBC Distribution Width SD 44.9 fl (35.1-43.9); White Blood Count 12.7 K/mm3 (4.4-11.0)
[2023-09-25 08:00] VITALS: BP 138/56; PULSE 80; RESP 14; TEMP 36.6; O2SAT 98
[2023-09-25] MEDS: Carvedilol 12.5 MG Tablet PO (08:18)
[2023-09-25] MEDS: Clopidogrel Bisulfate 75 MG Tablet PO (08:18)
[2023-09-25] MEDS: Aspirin E.C. 81 MG Tablet PO (08:18)
[2023-09-25 08:24] VITALS: O2SAT 92
[2023-09-25 08:30] LABS: ALB/GLOB Ratio 1.2 RATIO (0.9-2.4); AST(SGOT) 18 U/L (15-37); Alanine Aminotransfer ALT/SGPT 40 U/L (13-56); Albumin, Serum 3.7 g/dL (3.2-5.0); Alkaline Phosphatase 64 U/L (45-117); Anion Gap 8 (5-15); BUN 24 mg/dL (7-18); BUN/Creat Ratio 25.8 RATIO (10-20); Calcium,Total 9.6 mg/dL (8.5-10.1); Chloride 104 mmol/L (98-107); Creatinine, Serum 0.93 mg/dL (0.55-1.02); EST Glomerular Filtration Rate 63 mL/min (>60); Est Glom Filt Rate - Afr Amer 76 mL/min (>60); Estimated Creatinine Clearance 53.54 ml/min; Globulin 3.2 g/dL (2.2-4.2); Glucose 233 mg/dL (74-106); Potassium 3.9 mmol/L (3.5-5.1); Protein, Total 6.9 g/dL (6.4-8.2); Sodium Level 133 mmol/L (136-145)
--- NOTE | 2023-09-25 08:57 | DCINST_ITS ---
Discharge Instructions Diet Discharge Diet: Low fat / Low cholesterol and 2000 mg Sodium Diet Activity Discharge Activity: Return to Normal Activity Weight Bearing Status: Weight bearing as tolerated Dressing / Incision Call your doctor if you observe: Fever of 101 or Higher, Coldness, Increased Pain, Numbness or Tingling, Change in Color, Inability to urinate, Inability to have a bowel movement, Using more than 1 pad per hour, Shortness of breath, Dizziness, Fainting spells, Swelling in the ankles, Chest pain, Prolonged hiccupping, Increased palpitations (irregular heartbeat) and Calf discomfort Follow Up Care When: IN 2 WEEKS Test Results: Test results from this visit will be discussed in further detail at your follow- up appointment, if applicable. Discharge Plan Admission Admit Date/Time: 09/24/23 01:22 Primary Reason for Your Visit: NSTEMI Attending Provider: Alon Cain Primary Care Provider: Gideon Turcios Consulting Providers: Beltran Dominguez; Lisandro Faust Discharge Orders/Prescriptions Prescriptions: Continued aspirin [Adult Low Dose Aspirin] 81 mg tablet,delayed release (DR/EC) 81 mg PO DAILY cholecalciferol (vitamin D3) 50 mcg (2,000 unit) capsule 50 mcg PO MOWEFR potassium gluconate 600 mg (99 mg) tablet 600 mg (99 mg) tablet 600 mg PO DAILY omega 8-xfp-xur-fish oil 500 MG capsule,delayed release(DR/EC) 1,000 mg PO BID Patient Comments: suppliment/ lowers cholesterol L.acidoph,plant-B.animal,long 1 EACH capsule 1 ea PO DAILY Patient Comments: suppliment lutein 20 MG capsule 20 mg PO DAILY estradiol [Estrace] 0.01 % (0.1 mg/gram) Cream 1 appful VAGINAL SUWEFR vitamin B complex Capsule 1 cap PO DAILY cranberry 1,000 mg Capsule 4,200 mg PO QWEEK Rx Instructions: Sundays zinc 50 mg Capsule 50 mg PO TUTHSA vitamin E 268 mg (400 unit) capsule 268 mg PO TUTHSA triamcinolone acetonide [24 Hour Nasal Allergy] 55 mcg aerosol,spray 1 spray intranasal DAILY Rx Instructions: administer into each nostril red yeast rice 600 mg capsule 600 mg PO BID Rx Instructions: give with meal/snack polyethylene glycol 3350 [ClearLax] 17 gram/dose powder 17 g PO DAILY phytosterol 500 mg capsule 1,000 mg PO DAILY super beets 1 tab PO 2XD carvedilol 12.5 mg tablet 12.5 mg PO BID Qty: 180 4RF clopidogrel 75 mg tablet 75 mg PO DAILY Qty: 90 4RF Held metformin 500 mg tablet extended release 24 hr 500 mg PO BID Hold Instructions: Resume from 09/27/2023. Referrals / Follow Up: Zeke Lowry MD [Med Staff - Active Staff] - Within 1 Month Gideon Turcios DO [Primary Care Provider] - Disposition Disposition (needs filled in before D/C Order can be placed): Home, Self Care
[2023-09-25 09:17] VITALS: BP 138/56; PULSE 80; RESP 16; TEMP 36.6; O2SAT 98
--- NOTE | 2023-09-25 09:18 | PCM.DC.SUM ---
Providers Date of Admission: 09/24/23 Date of Discharge: 09/25/23 Primary Care Physician: Dr. Gideon Turcios, Consultations 09/24/23 01:50 Consult: Cardiology Routine Consulting Provider: Beltran Dominguez Reason for Consult: NSTEMI EMERGENT Consult: Yes MD Notified: Yes Date Notified: 09/24/23 Time Notified: 01:25 Method of Notification: ED Physician Initiated Reason For Visit: NSTEMI Diagnosis Discharge Diagnosis (1) Acute coronary syndrome: Status: Acute Code(s): I24.9 - Acute ischemic heart disease, unspecified (2) Essential hypertension: Status: Chronic Code(s): I10 - Essential (primary) hypertension (3) HLD (hyperlipidemia): Status: Chronic Code(s): E78.5 - Hyperlipidemia, unspecified Qualifiers: Hyperlipidemia type: unspecified Qualified Code(s): E78.5 - Hyperlipidemia, unspecified Plan 73-year-old female was admitted with 1 month history of recurrent chest pains/pressure similar to the previous anginal symptoms. Earlier stress test in August 2023 did not show evidence of ischemia. 1. non-STEMI?patient is being admitted in PCU. Troponin is high. Patient has history of coronary artery disease with multiple stents in the past, last 1 in 2018 clinical history and evaluation and labs consistent with non-STEMI. Twelve-lead EKG shows sinus tachycardia 109 bpm. Chronic T wave inversion in V1 and V2. No ST elevation/significant ST deviation on the EKG. Patient was evaluated by drafter geological and taken to the [facility]. Patient was found to have 90% proximal LAD complex chronic occlusion. Dilation and stent was placed. EF 60% with no significant valvular heart disease. Denies PND or dyspnea on exertion. admit patient to progressive care unit?make patient n.p.o., continue Nitropaste and heparin drip initiated in the emergency room. Consult Dr. Dominguez. Will add coag panel, CBC BMP for the a.m. 09/25: Patient was evaluated by drafter geological. Patient has all home medications including aspirin Plavix and carvedilol. Patient could not tolerate statin in the past including Lipitor and rosuvastatin but Dr. Lowry will try when patient goes to see him in the office first once in a week and he will take care of it. Patient does not need any prescription.6 patient on omega-3 fatty acid. 2. Hypertension?patient is allergic to lisinopril. Blood pressure is controlled. 3. Hyperlipidemia?as mentioned above. 4. Diabetes melitis type II?Accu-Chek AC_insulin sliding scale. Patient glucose is elevated 233. Advised to follow with PCP. 5. DVT prophylaxis?heparin drip discontinued. Laboratory Results 09/24/23 04:10: Phosphorus 3.6, Magnesium 2.4, Triglycerides 479 H, Cholesterol 227 H, LDL Cholesterol TNP, VLDL Cholesterol TNP, HDL Cholesterol 39 L 09/24/23 10:30: Activated Clotting Time 239 H 09/24/23 11:56: Activated Clotting Time 185 H 09/25/23 06:50: WBC 12.7 H, RBC 4.10 L, Hgb 14.0, Hct 38.3, MCV 93.4, MCH 34.1 H, MCHC 36.6 H, RDW Std Deviation 44.9 H, RDW Coeff of Annel 13.1, Plt Count 276, MPV 10.4, Sodium 133 L, Potassium 3.9, Chloride 104, Carbon Dioxide 21.0, Anion Gap 8, BUN 24 H, Creatinine 0.93, Estim Creat Clear Calc 53.54, Est GFR (MDRD) Af Amer 76, Est GFR (MDRD) Non-Af 63, BUN/Creatinine Ratio 25.8 H, Glucose 233 H, Calcium 9.6, Total Bilirubin 1.00, AST 18, ALT 40, Alkaline Phosphatase 64, Total Protein 6.9, Albumin 3.7, Globulin 3.2, Albumin/Globulin Ratio 1.2 Medications at Discharge Home Medications L.acidophilus-L.plantarum-B.animalis-B.longum 2 billion cell capsule 1 ea PO DAILY SUPPLEMENT 05/27/14 omega 3-dha 60 mg-epa 90 mg-fish oil 500 mg capsule, delayed release 1,000 mg PO BID SUPPLEMENT 05/27/14 aspirin 81 mg tablet,delayed release (Adult Low Dose Aspirin) 81 mg PO DAILY HEART HEALTH 04/30/18 lutein 20 mg capsule 20 mg PO DAILY EYE VITAMIN 08/06/18 potassium gluconate 600 mg (99 mg) tablet 600 mg PO DAILY supplement 11/11/20 cranberry 1,000 mg capsule 4,200 mg PO QWEEK supplement 02/19/21 estradiol 0.01% (0.1 mg/gram) vaginal cream (Estrace) 1 appful vaginal SUWEFR hormone 02/19/21 vitamin B complex 1 cap PO DAILY vitamin 02/19/21 zinc 50 mg capsule 50 mg PO TUTHSA supplement 02/19/21 cholecalciferol (vitamin D3) 50 mcg (2,000 unit) capsule 50 mcg PO MOWEFR vitamin 12/20/21 metformin 500 mg tablet,extended release 24 hr 500 mg PO BID 07/04/22 carvedilol 12.5 mg tablet 12.5 mg PO BID #180 tabs 11/20/22 clopidogrel 75 mg tablet 75 mg PO DAILY #90 tabs 11/20/22 phytosterol 500 mg capsule 1,000 mg PO DAILY 05/15/23 polyethylene glycol 3350 17 gram/dose oral powder (ClearLax) 17 g PO DAILY 05/15/23 red yeast rice 600 mg capsule 600 mg PO BID 05/15/23 super beets 1 tab PO 2XD 05/15/23 triamcinolone acetonide 55 mcg nasal spray aerosol (24 Hour Nasal Allergy) 1 spray intranasal DAILY 09/23/23 vitamin E 268 mg (400 unit) capsule 268 mg PO TUTHSA 09/23/23 Physical Exam Narrative Seen and examined. No acute issues overnight. compliance monitor shows sinus rhythm. Had PCI/JOSÉ LUIS on proximal LAD. General: Alert, Oriented x3, Cooperative HEENT: Atraumatic, PERRLA, EOMI, Normocephalic Oral: No Gingival or Mucosal Lesions/ Ulcerations Neck: Supple, No JVD, Negative Carotid Bruits Lungs: Air entry diminished in bilateral lung bases. No crepitation/rhonchi Cardiovascular: Regular rate, Regular Rhythm, Normal S1, Normal S2, No murmurs Abdomen: Bowel Sounds Present, Soft, Non Tender, Non-Distended : No renal angle tenderness. No suprapubic tenderness. Extremities: No edema, Capillary Refill Less than 3 Seconds Skin: Cardiac cath access site on the right groin. The dressing is dry. No hematoma or bruise. Musculoskeletal: No Tenderness to Palpation of Joints or Extremities Neurological: Cranial nerves II-XII grossly intact, DTR 2+/4. No acute focal neurological deficit. Psych/Mental Status: Normal Affect, Appropriate. Weight / BMI Weight Weight: 163 lb Body Mass Index (BMI) 24.7 ABG / Lab / Microbiology Data 09/25/23 06:50 09/25/23 06:50 Laboratory: Laboratory Results - last 24 hr 09/24/23 04:10: Phosphorus 3.6, Magnesium 2.4, Triglycerides 479 H, Cholesterol 227 H, LDL Cholesterol TNP, VLDL Cholesterol TNP, HDL Cholesterol 39 L 09/24/23 10:30: Activated Clotting Time 239 H 09/24/23 11:56: Activated Clotting Time 185 H 09/25/23 06:50: WBC 12.7 H, RBC 4.10 L, Hgb 14.0, Hct 38.3, MCV 93.4, MCH 34.1 H, MCHC 36.6 H, RDW Std Deviation 44.9 H, RDW Coeff of Annel 13.1, Plt Count 276, MPV 10.4, Sodium 133 L, Potassium 3.9, Chloride 104, Carbon Dioxide 21.0, Anion Gap 8, BUN 24 H, Creatinine 0.93, Estim Creat Clear Calc 53.54, Est GFR (MDRD) Af Amer 76, Est GFR (MDRD) Non-Af 63, BUN/Creatinine Ratio 25.8 H, Glucose 233 H, Calcium 9.6, Total Bilirubin 1.00, AST 18, ALT 40, Alkaline Phosphatase 64, Total Protein 6.9, Albumin 3.7, Globulin 3.2, Albumin/Globulin Ratio 1.2 D/C Instructions Discharge Diet: Low fat / Low cholesterol and 2000 mg Sodium Diet Weight Bearing Status: Weight bearing as tolerated Call your doctor if you observe: Fever of 101 or Higher, Coldness, Increased Pain, Numbness or Tingling, Change in Color, Inability to urinate, Inability to have a bowel movement, Using more than 1 pad per hour, Shortness of breath, Dizziness, Fainting spells, Swelling in the ankles, Chest pain, Prolonged hiccupping, Increased palpitations (irregular heartbeat) and Calf discomfort When: IN 2 WEEKS Meaningful Use Info Meaningful Use Diagnoses (Choose all that apply): AMI AMI/Post PCI/Angioplasty Aspirin given w/in 24hrs of arrival?: Yes ASA at discharge?: Yes Statins at discharge?: No Reason statins not ordered:: Allergy Bryce/ARB at discharge?: No Reason Bryce/ARB not ordered:: Allergy Beta Natalia at discharge?: Yes Done w/ Acute IA measure.: Yes Discharge Plan Admission Admit Date/Time: 09/24/23 01:22 Primary Reason for Your Visit: NSTEMI Attending Provider: Alon Cain Primary Care Provider: Gideon Turcios Consulting Providers: Beltran Dominguez; Lisandro Faust Discharge Orders/Prescriptions Prescriptions: Continued aspirin [Adult Low Dose Aspirin] 81 mg tablet,delayed release (DR/EC) 81 mg PO DAILY cholecalciferol (vitamin D3) 50 mcg (2,000 unit) capsule 50 mcg PO MOWEFR potassium gluconate 600 mg (99 mg) tablet 600 mg (99 mg) tablet 600 mg PO DAILY omega 6-bop-hao-fish oil 500 MG capsule,delayed release(DR/EC) 1,000 mg PO BID Patient Comments: suppliment/ lowers cholesterol L.acidoph,plant-B.animal,long 1 EACH capsule 1 ea PO DAILY Patient Comments: suppliment lutein 20 MG capsule 20 mg PO DAILY estradiol [Estrace] 0.01 % (0.1 mg/gram) Cream 1 appful VAGINAL SUWEFR vitamin B complex Capsule 1 cap PO DAILY cranberry 1,000 mg Capsule 4,200 mg PO QWEEK Rx Instructions: Sundays zinc 50 mg Capsule 50 mg PO TUTHSA vitamin E 268 mg (400 unit) capsule 268 mg PO TUTHSA triamcinolone acetonide [24 Hour Nasal Allergy] 55 mcg aerosol,spray 1 spray intranasal DAILY Rx Instructions: administer into each nostril red yeast rice 600 mg capsule 600 mg PO BID Rx Instructions: give with meal/snack polyethylene glycol 3350 [ClearLax] 17 gram/dose powder 17 g PO DAILY phytosterol 500 mg capsule 1,000 mg PO DAILY super beets 1 tab PO 2XD carvedilol 12.5 mg tablet 12.5 mg PO BID Qty: 180 4RF clopidogrel 75 mg tablet 75 mg PO DAILY Qty: 90 4RF Held metformin 500 mg tablet extended release 24 hr 500 mg PO BID Hold Instructions: Resume from 09/27/2023. Referrals / Follow Up: Zeke Lowry MD [Med Staff - Active Staff] - Within 1 Month Gideon Turcios DO [Primary Care Provider] - Disposition Disposition (needs filled in before D/C Order can be placed): Home, Self Care Charges/Coding Visit Charges Inpatient E&M: 08489 Disch Hosp >30min
--- NOTE | 2023-09-25 09:34 | PHA.DC.MR.R ---
Pharmacy CT Med Reconciliation Pharmacy Service has performed discharge medication reconciliation for this patient. The patient's discharge medication list was reviewed for discrepancies and discrepancies were resolved. Medications at Discharge Home Medications L.acidophilus-L.plantarum-B.animalis-B.longum 2 billion cell capsule 1 ea PO DAILY SUPPLEMENT 05/27/14 omega 3-dha 60 mg-epa 90 mg-fish oil 500 mg capsule, delayed release 1,000 mg PO BID SUPPLEMENT 05/27/14 aspirin 81 mg tablet,delayed release (Adult Low Dose Aspirin) 81 mg PO DAILY HEART HEALTH 04/30/18 lutein 20 mg capsule 20 mg PO DAILY EYE VITAMIN 08/06/18 potassium gluconate 600 mg (99 mg) tablet 600 mg PO DAILY supplement 11/11/20 cranberry 1,000 mg capsule 4,200 mg PO QWEEK supplement 02/19/21 estradiol 0.01% (0.1 mg/gram) vaginal cream (Estrace) 1 appful vaginal SUWEFR hormone 02/19/21 vitamin B complex 1 cap PO DAILY vitamin 02/19/21 zinc 50 mg capsule 50 mg PO TUTHSA supplement 02/19/21 cholecalciferol (vitamin D3) 50 mcg (2,000 unit) capsule 50 mcg PO MOWEFR vitamin 12/20/21 metformin 500 mg tablet,extended release 24 hr 500 mg PO BID 07/04/22 carvedilol 12.5 mg tablet 12.5 mg PO BID #180 tabs 11/20/22 clopidogrel 75 mg tablet 75 mg PO DAILY #90 tabs 11/20/22 phytosterol 500 mg capsule 1,000 mg PO DAILY 05/15/23 polyethylene glycol 3350 17 gram/dose oral powder (ClearLax) 17 g PO DAILY 05/15/23 red yeast rice 600 mg capsule 600 mg PO BID 05/15/23 super beets 1 tab PO 2XD 05/15/23 triamcinolone acetonide 55 mcg nasal spray aerosol (24 Hour Nasal Allergy) 1 spray intranasal DAILY 09/23/23 vitamin E 268 mg (400 unit) capsule 268 mg PO TUTHSA 09/23/23
--- NOTE | 2023-09-25 11:00 | CASEMGMT ---
Patient has order for discharge. RN CM in to discuss needs at discharge. Patient denies needs or help at discharge. Patient had no further questions or concerns.
== END 2023-09-25 12:04 | disposition home or self-care (01) | DRG 322 ==
LOC: ED 09-24 01:17 → PCU 09-24 01:33
PROVIDERS: Emergency Medicine; Specialist; Admitting Provider Family Medicine; Emergency Provider Emergency Medicine; PCP Family Medicine; Referring Provider Family Medicine; Visit Provider Internal Medicine
DX: I21.4 Non-ST elevation (NSTEMI) myocardial infarction (principal); E11.42 Type 2 diabetes mellitus with diabetic polyneuropathy; E11.65 Type 2 diabetes mellitus with hyperglycemia; Z79.4 Long term (current) use of insulin; I25.110 Atherosclerotic heart disease of native coronary artery with unstable angina pectoris; I10 Essential (primary) hypertension; E78.5 Hyperlipidemia, unspecified; I25.2 Old myocardial infarction; Z95.5 Presence of coronary angioplasty implant and graft; Z79.02 Long term (current) use of antithrombotics/antiplatelets; Z79.82 Long term (current) use of aspirin; Z79.84 Long term (current) use of oral hypoglycemic drugs; Z79.899 Other long term (current) drug therapy
CPT/HCPCS: 36415; 71045; 80048; 80053; 80061; 83735; 84100; 84484; 85025; 85027; 85347; 85610; 85730; 92928; 93005; 93458; 99152; 99153; 99285; J7030; Q9967; A4216; C1725; C1769; C1874; C1887; C9600

== ENCOUNTER → 2023-11-27 | Outpatient (CLI) | payer MEDICARE, BC, SELFPAY ==
[2023-11-27 17:54] LABS: AST(SGOT) 29 U/L (15-37); Alanine Aminotransfer ALT/SGPT 51 U/L (13-56); Albumin, Serum 3.9 g/dL (3.2-5.0); Alkaline Phosphatase 64 U/L (45-117); Bilirubin, Direct 0.23 mg/dL (0.00-0.30); Cholesterol 192 mg/dL (200); Globulin 3.2 g/dL (2.2-4.2); High Density Lipoprotein 41 mg/dL; Protein, Total 7.1 g/dL (6.4-8.2); Triglycerides 416 mg/dL
== END | disposition home or self-care (01) ==
LOC: LAB 16:08
PROVIDERS: PCP Family Medicine; Visit Provider Internal Medicine Cardiovascular Disease
DX: E78.5 Hyperlipidemia, unspecified (principal)
CPT/HCPCS: 36415; 80061; 80076

== ENCOUNTER 2024-03-09 21:54 | Emergency (ER) | payer MEDICARE, BC, SELFPAY ==
[2024-03-09 21:54] VITALS: BP 195/83; PULSE 101; RESP 18; TEMP 36.6; O2SAT 100; BMI 25.7
--- NOTE | 2024-03-09 22:02 | EKG12_ITS ---
Test Reason : CP Blood Pressure : / mmHG Vent. Rate : 091 BPM Atrial Rate : 091 BPM P-R Int : 204 ms QRS Dur : 066 ms QT Int : 350 ms P-R-T Axes : 058 052 055 degrees QTc Int : 430 ms Normal sinus rhythm Low voltage QRS Cannot rule out Septal infarct , age undetermined Abnormal ECG Confirmed by Zeke Lowry ([id number]), supervising film or videotape editor GABRIELA IBARRA ([id number]) on 03/10/2024 12:58:16 PM Referred By: KATHERIN Confirmed By:Zeke Lowry
--- NOTE | 2024-03-09 22:10 | RAD_ITS ---
INDICATION: chest pain EXAMINATION/TECHNIQUE: X-RAY - XR Chest 1 View COMPARISON: Prior study dated: 09/23/2023 FINDINGS: LINES/DEVICES: None. LUNGS: The lungs are well expanded. No consolidation, edema or effusion. No pneumothorax. MEDIASTINUM AND CARDIOVASCULAR STRUCTURES: Cardiac silhouette not enlarged. Central airways and mediastinal contour are unremarkable. BONES AND SOFT TISSUES: No acute abnormality. RAD/Chest 1 View (Portable) IMPRESSION: No acute pulmonary finding. Electronically Signed: Babak Omalley MD at 22:34 EDT ,
[2024-03-09 22:24] LABS: Absolute Lymphocyte Count 2.88 X10^3/uL (0.83-4.51); Absolute Neutrophil Count 3.3 X10^3/uL (2.0-7.7); Basophil# 0.06 X10^3/uL; Basophil% 0.8 % (0-1); Eosinophil# 0.23 X10^3/uL; Eosinophils% 3.2 % (0-5); Hematocrit 34.8 % (37-47); Hemoglobin 12.8 g/dL (12.0-15.0); Lymphocyte # 2.88 X10^3/ul (0.83-4.51); Lymphocyte % 39.5 % (19-41); Mean Corp Hgb Conc 36.8 g/dL (32-36); Mean Corpuscular Hgb 33.6 pg (27.0-32.0); Mean Corpuscular Volume 91.3 fL (81-99); Mean Platelet Vol. 10.1 fl (6.2-12.0); NRBC Flagged by Analyzer 0 % (0-5); Neutrophil % 45.2 % (47-70); Platelet Count 249 K/mm3 (150-450); RBC Distribution Width CV 12.7 % (11.6-14.6); RBC Distribution Width SD 41.7 fl (35.1-43.9); Red Blood Count 3.81 M/mm3 (4.2-5.4); White Blood Count 7.3 K/mm3 (4.4-11.0)
[2024-03-09 22:49] LABS: International Normalized Ratio 1.1; Prothrombin Time (Protime)PT. 14.4 SECONDS (11.7-14.9)
[2024-03-09 22:54] VITALS: BP 147/73; PULSE 86; RESP 17; O2SAT 98
[2024-03-09 23:00] VITALS: BP 165/78; PULSE 79; RESP 17; O2SAT 99
[2024-03-09 23:14] LABS: Anion Gap 9 (5-15); BUN 16 mg/dL (7-18); BUN/Creat Ratio 15.5 RATIO (10-20); Calcium,Total 9.2 mg/dL (8.5-10.1); Chloride 105 mmol/L (98-107); Creatinine, Serum 1.03 mg/dL (0.55-1.02); EST Glomerular Filtration Rate 56 mL/min (>60); Est Glom Filt Rate - Afr Amer 67 mL/min (>60); Estimated Creatinine Clearance 52.29 ml/min; Glucose 230 mg/dL (74-106); Potassium 4.1 mmol/L (3.5-5.1); Sodium Level 138 mmol/L (136-145); Troponin-I HS (w/2H Reflex) 3 pg/mL (3.0-54.0)
[2024-03-09] MEDS: Lidocaine 2% Viscous15 ML UDC 15 ML PO (23:40)
[2024-03-09] MEDS: Mag Hydrox/Al Hydrox/Simeth 30 ML UDC PO (23:40)
[2024-03-09] MEDS: Sucralfate 1 GM Tablet PO (23:40)
[2024-03-10] VITALS: BP 154/60; PULSE 83; RESP 14; O2SAT 95
[2024-03-10 00:16] LABS: Reflex Troponin-HS? (from REC) Y
[2024-03-10 00:47] LABS: Troponin-I HS 4 pg/mL (3.0-54.0)
--- NOTE | 2024-03-10 00:54 | EDS_ITS ---
HPI History of Present Illness Chief Complaint: Chest Pain Informant: patient Narrative Narrative: Patient is a 73-year-old female with past medical history of GERD hypertension hyperlipidemia and CAD with previous stents placed. Patient states for the past few days she has been feeling more of a mid upper abdominal discomfort which is burning and radiating up into her chest. She states this feels similar to her acid reflux but she has increased her acid reflux medication but there is been no significant change to her symptoms. She states that this evening she was concerned that as the increase in medication has not resulted in improvement of symptoms that this might be cardiac instead of GERD and therefore comes in for evaluation [facility] Medical History Non-ST elevation (NSTEMI) myocardial infarction Anxiety Diabetes GERD (gastroesophageal reflux disease) Myocardial infarct Essential hypertension Presence of stent in coronary artery (09/24/23) Atherosclerotic heart disease of [place] coronary artery without angina pectoris Prediabetes Chest pain CAD (coronary artery disease) Hypertension Congenital heart defect Neuropathy Hyperlipidemia Deep vein thrombosis (DVT) of brachial vein Home Medications ?Medication ?Instructions ?Recorded ?Last Taken ?Type L.acidophilus-L.plantarum-B.animalis-B.longum 1 ea PO DAILY SUPPLEMENT 05/27/14 05/18/21 History 2 billion cell capsule aspirin 81 mg tablet,delayed 81 mg PO DAILY HEART HEALTH 04/30/18 05/18/21 History release (Adult Low Dose Aspirin) lutein 20 mg capsule 20 mg PO DAILY EYE VITAMIN 08/06/18 05/19/21 History potassium gluconate 600 mg (99 mg) 600 mg PO DAILY supplement 11/11/20 05/18/21 History tablet cranberry 1,000 mg capsule 4,200 mg PO QWEEK supplement 02/19/21 05/14/21 History estradiol 0.01% (0.1 mg/gram) 1 appful vaginal SUWEFR hormone 02/19/21 05/17/21 History vaginal cream (Estrace) vitamin B complex 1 cap PO DAILY vitamin 02/19/21 05/18/21 History zinc 50 mg capsule 50 mg PO TUTHSA supplement 02/19/21 05/18/21 History cholecalciferol (vitamin D3) 50 50 mcg PO MOWEFR vitamin 12/20/21 Unknown History mcg (2,000 unit) capsule metformin 500 mg tablet,extended 500 mg PO BID 07/04/22 Unknown History release 24 hr phytosterol 500 mg capsule 1,000 mg PO DAILY 05/15/23 Unknown History polyethylene glycol 3350 17 17 g PO DAILY 05/15/23 Unknown History gram/dose oral powder (ClearLax) super beets 2 tab PO DAILY 05/15/23 Unknown History triamcinolone acetonide 55 mcg 1 spray intranasal DAILY 09/23/23 Unknown History nasal spray aerosol (24 Hour Nasal Allergy) vitamin E 268 mg (400 unit) capsule 268 mg PO TUTHSA 09/23/23 Unknown History Physio [place] 2,400 mg PO BID fish oil for 12/02/23 Unknown History triglycerides coenzyme Q10 100 mg capsule 100 mg PO DAILY 12/02/23 Unknown History carvedilol 12.5 mg tablet 12.5 mg PO BID #180 tabs 01/28/24 Unknown Rx clopidogrel 75 mg tablet 75 mg PO DAILY #90 tabs 01/28/24 Unknown Rx ascorbic acid (vitamin C) 250 mg 250 mg PO BID 03/09/24 Unknown History chewable tablet sucralfate 1 gram tablet (Carafate) 1 g PO TID 30 days #90 tabs 03/10/24 Unknown Rx Allergy/AdvReac Type Severity Reaction Status Date / Time Iodinated Contrast Media Allergy Other Verified 03/09/24 21:57 (Iodinated Contrast Media - IV Dye) isosorbide AdvReac Intermediate Lightheaded, Verified 03/09/24 21:57 dizzy, numb and tingling hands amlodipine AdvReac Headache, Verified 03/09/24 21:57 nausea, dizziness, fatigue, flushing, GERD Influenza Virus Vaccines AdvReac NEEDS Verified 03/09/24 21:57 FOLLOW-UP lisinopril AdvReac fatigue, Verified 03/09/24 21:57 difficulty walking morphine AdvReac SEVER Verified 03/09/24 21:57 HEADACHE rosuvastatin (From Crestor) AdvReac myalgias,neuropathy, Verified 03/09/24 21:57 elevated glucose Family History Other COPD (chronic obstructive pulmonary disease) Diabetes Embolism Hyperlipidemia Peripheral artery disease Surgical History H/O: hysterectomy History of appendectomy Presence of coronary angioplasty implant and graft (~02/20/21) S/P PTCA (percutaneous transluminal coronary angioplasty) History of heart artery stent History of bladder suspension procedure S/P bladder repair S/P tonsillectomy S/P appendectomy Social History household members: spouse housing: house Smoking Status: Never smoker alcohol intake: current alcohol intake frequency: holidays/special occasions only substance use type: does not use caffeine: Yes Type: coffee Number of servings: 3 and tea Number of servings: 1 ROS ROS ED Constitutional Constitutional ED: Denies chills or fever(s) Eyes Eyes: Denies blurry vision or change in vision ENT ENT ED: Denies sore throat Cardiovascular Cardiovascular: Reports chest pain; Denies palpitations or racing heartbeat Respiratory/Chest Respiratory/Chest: Denies cough or dyspnea Gastrointestinal Gastrointestinal: Reports abdominal pain; Denies diarrhea, nausea or vomiting Genitourinary Genitourinary ED: Denies dysuria Musculoskeletal Musculoskeletal: Denies back pain Integumentary Denies rash Neurologic Neurologic: Denies headache(s) Hematologic/Lymphatic Hematologic/Lymphatic: Reports easy bleeding and easy bruising EXAM Physical Exam Const Vital Signs: 03/09/24 21:54 03/09/24 22:11 03/09/24 22:38 Temperature 97.8 F Temperature Source Temporal Pulse Rate 101 H Respiratory Rate 18 Respiratory Effort Normal Blood Pressure 195/83 H Blood Pressure Mean 120 Pulse Ox 100 Oxygen Delivery Method Room Air Room Air 03/09/24 22:54 03/09/24 23:00 03/10/24 00:00 Temperature Temperature Source Pulse Rate 86 79 83 Respiratory Rate 17 17 14 Respiratory Effort Blood Pressure 147/73 H 165/78 H 154/60 H Blood Pressure Mean 97 107 91 Pulse Ox 98 99 95 Oxygen Delivery Method Room Air Room Air Room Air 03/10/24 01:08 03/10/24 01:17 Temperature 97.9 F 97.9 F Temperature Source Oral Pulse Rate 70 78 Respiratory Rate 19 H 16 Respiratory Effort Blood Pressure 174/68 H 174/68 H Blood Pressure Mean 103 103 Pulse Ox 98 97 Oxygen Delivery Method Positive well nourished and well developed General Appearance ED: well developed; Negative for pallor HEENT HEENT Narrative: Normocephalic atraumatic Eyes PERRL and EOMs intact bilaterally General Eye ED: Negative for scleral icterus Neck supple and no JVD Chest Wall palpation of chest normal Resp normal respiratory effort and clear to auscultation bilaterally Cardio regular rate and regular rhythm Rate: other Other Details: Radial and carotid pulses are equal and symmetric GI normal to inspection, nondistended, normoactive bowel sounds, non-tender, non- distended and no masses GI Narrative: No voluntary guarding or rigidity or pulsatile mass Auscultation: normoactive bowel sounds Palpation: soft Extremity normal to inspection Extremity Narrative: No asymmetric edema no pitting edema negative Homans' sign bilaterally Neuro oriented x3, CN's II-XII intact bilaterally and no sensory deficits noted Sensorium / Orientation: alert Motor Exam: strength 5/5 throughout Psych mental status grossly normal Skin no rashes or lesions noted General Skin Exam: Negative for jaundice or pallor MDM MDM MDM Narrative Medical decision making narrative: Patient arrived to the ER hypertensive otherwise with stable vitals. She reported symptoms most consistent with gastritis/GERD but as she does have a significant history of CAD there is concern this could be acute coronary syndrome. There is potential for pneumonia versus pneumothorax or perforated ulcer as well. Secondary to his basic labs and a chest x-ray were obtained. X- ray revealed no acute lung pathology and labs showed initial troponin of 3 and a delta which increased by a value of 1 to 4. This is not a clinically significant elevation and goes against acute coronary syndrome. She was on the monitor and there was no cardiac dysrhythmia noted and lab work shows no signs of acute loss anemia severe electrolyte abnormality or acute kidney injury. After receiving a GI cocktail as well as Carafate patient did have moderate improvement of her symptoms. Therefore at this time as cardiac workup is negative and she has had improvement of symptoms with treating gastritis I feel this is most like abdominal in nature and not cardiac and she is otherwise safe for discharge History & Record Review Discussion w/independent historian: Patient Lab Data Attestation: I reviewed the patient's lab results. Labs: Laboratory Results - last 24 hr 03/09/24 03/10/24 22:13 00:16 WBC 7.3 RBC 3.81 L Hgb 12.8 Hct 34.8 L MCV 91.3 MCH 33.6 H MCHC 36.8 H RDW Std Deviation 41.7 RDW Coeff of [place] 12.7 Plt Count 249 MPV 10.1 Immature Gran % (Auto) 0.300 Neut % (Auto) 45.2 L Lymph % (Auto) 39.5 [place] % (Auto) 11.0 H Eos % (Auto) 3.2 Baso % (Auto) 0.8 Absolute Neuts (auto) 3.3 Absolute Lymphs (auto) 2.88 Nucleated RBC % 0 PT 14.4 INR 1.1 Sodium 138 Potassium 4.1 Chloride 105 Carbon Dioxide 24.0 Anion Gap 9 BUN 16 Creatinine 1.03 H Estim Creat Clear Calc 52.29 Est GFR (MDRD) Af Amer 67 Est GFR (MDRD) Non-Af 56 L BUN/Creatinine Ratio 15.5 Glucose 230 H Calcium 9.2 Troponin I High Sens 3 4 Radiography Diagnostic Testing: Clinical Impression(s) from Imaging Studies Chest X-Ray 03/09/24 22:10 IMPRESSION: No acute pulmonary finding. Electronically Signed: Babak Omalley MD at 22:34 EDT Reading Location ID and State: [address] [place] [address] Tel , Service support , Chest x-ray as interpreted by the emergency medicine physician reveals no acute infiltrate pneumothorax or pleural effusion Discharge Plan Triage Chief Complaint: Chest Pain ED Provider: Artur Palm Dx/Rx/DC Orders Clinical Impression: GERD (gastroesophageal reflux disease), Essential hypertension, HLD (hyperlipidemia), History of coronary artery disease Instructions: ED GERD (Adult) Prescriptions: New sucralfate [Carafate] 1 gram tablet 1 g PO TID 30 Days Qty: 90 0RF No Action aspirin [Adult Low Dose Aspirin] 81 mg tablet,delayed release (DR/EC) 81 mg PO DAILY cholecalciferol (vitamin D3) 50 mcg (2,000 unit) capsule 50 mcg PO MOWEFR potassium gluconate 600 mg (99 mg) tablet 600 mg PO DAILY metformin 500 mg tablet extended release 24 hr 500 mg PO BID L.acidoph,plant-B.animal,long 1 EACH capsule 1 ea PO DAILY Patient Comments: suppliment lutein 20 MG capsule 20 mg PO DAILY estradiol [Estrace] 0.01 % (0.1 mg/gram) Cream 1 appful VAGINAL SUWEFR vitamin B complex Capsule 1 cap PO DAILY cranberry 1,000 mg Capsule 4,200 mg PO QWEEK Rx Instructions: Sundays zinc 50 mg Capsule 50 mg PO TUTHSA vitamin E 268 mg (400 unit) capsule 268 mg PO TUTHSA triamcinolone acetonide [24 Hour Nasal Allergy] 55 mcg aerosol,spray 1 spray intranasal DAILY Rx Instructions: administer into each nostril polyethylene glycol 3350 [ClearLax] 17 gram/dose powder 17 g PO DAILY phytosterol 500 mg capsule 1,000 mg PO DAILY super beets 2 tab PO DAILY ascorbic acid (vitamin C) 250 mg tablet,chewable 250 mg PO BID coenzyme Q10 100 mg capsule 100 mg PO DAILY Physio [place] 2,400 mg capsule 2,400 mg PO BID carvedilol 12.5 mg tablet 12.5 mg PO BID Qty: 180 4RF clopidogrel 75 mg tablet 75 mg PO DAILY Qty: 90 4RF Primary Care Provider: Gideon Turcios Referrals: Gideon Turcios, [Primary Care Provider] - Activity Restrictions/Additional Instructions: Please add the Carafate to your GERD regimen to see if this helps control your symptoms. Your troponin/blood test for the heart were normal today going against cardiac event. Follow-up with your family doctor for repeat evaluation and return to the ER should you have any further concerns Print Language: [place] Disposition Disposition: Home, Self Care Discharge Date/Time: 03/10/24 01:18
[2024-03-10 01:08] VITALS: BP 174/68; PULSE 70; RESP 19; TEMP 36.6; O2SAT 98
[2024-03-10 01:17] VITALS: BP 174/68; PULSE 78; RESP 16; TEMP 36.6; O2SAT 97
== END 2024-03-10 01:18 | disposition home or self-care (01) ==
PROVIDERS: Emergency Provider Emergency Medicine; PCP Family Medicine; Visit Provider Emergency Medicine
DX: K21.9 Gastro-esophageal reflux disease without esophagitis (principal); E11.9 Type 2 diabetes mellitus without complications; E78.5 Hyperlipidemia, unspecified; I10 Essential (primary) hypertension; I25.10 Atherosclerotic heart disease of native coronary artery without angina pectoris; Z95.5 Presence of coronary angioplasty implant and graft; I25.2 Old myocardial infarction; Z79.82 Long term (current) use of aspirin; Z79.899 Other long term (current) drug therapy; Z79.84 Long term (current) use of oral hypoglycemic drugs; Z79.02 Long term (current) use of antithrombotics/antiplatelets; Z90.710 Acquired absence of both cervix and uterus; Z90.49 Acquired absence of other specified parts of digestive tract
CPT/HCPCS: 71045; 80048; 84484; 85025; 85610; 93005; 99283; A4216

== ENCOUNTER 2024-06-22 18:05 | Emergency (ER) | payer MEDICARE, BC, SELFPAY ==
[2024-06-22 18:05] VITALS: BP 194/78; PULSE 91; RESP 16; TEMP 36.6; O2SAT 98; BMI 25.3
--- NOTE | 2024-06-22 18:11 | EKG12_ITS ---
Test Reason : CP Blood Pressure : / mmHG Vent. Rate : 088 BPM Atrial Rate : 088 BPM P-R Int : 190 ms QRS Dur : 082 ms QT Int : 342 ms P-R-T Axes : 053 039 046 degrees QTc Int : 413 ms Normal sinus rhythm Low voltage QRS Septal infarct (cited on or before 24-JUN-2022) Abnormal ECG Confirmed by ENRIKE GONZALES, EVANS ([id number]), videotape editor LENO RENDON ([id number]) on 06/24/2024 10:05:04 AM Referred By: AV/SHELBY Confirmed By:EVANS CALVERT MD
--- NOTE | 2024-06-22 18:39 | ED.VIS.CHEST ---
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 Home Medications ?Medication ?Instructions ?Recorded ?Last Taken ?Type aspirin 81 mg tablet,delayed 81 mg PO DAILY HEART HEALTH 04/30/18 05/18/21 History release (Adult Low Dose Aspirin) lutein 20 mg capsule 20 mg PO DAILY EYE VITAMIN 08/06/18 05/19/21 History potassium gluconate 600 mg (99 mg) 600 mg PO DAILY supplement 11/11/20 05/18/21 History tablet cranberry 1,000 mg capsule 4,200 mg PO QWEEK supplement 02/19/21 05/14/21 History estradiol 0.01% (0.1 mg/gram) 1 appful vaginal SUWEFR hormone 02/19/21 05/17/21 History vaginal cream (Estrace) vitamin B complex 1 cap PO DAILY vitamin 02/19/21 05/18/21 History zinc 50 mg capsule 50 mg PO TUTHSA supplement 02/19/21 05/18/21 History cholecalciferol (vitamin D3) 50 50 mcg PO MOWEFR vitamin 12/20/21 Unknown History mcg (2,000 unit) capsule metformin 500 mg tablet,extended 500 mg PO BID 07/04/22 Unknown History release 24 hr phytosterol 500 mg capsule 1,000 mg PO DAILY 05/15/23 Unknown History polyethylene glycol 3350 17 17 g PO DAILY 05/15/23 Unknown History gram/dose oral powder (ClearLax) super beets 2 tab PO DAILY 05/15/23 Unknown History triamcinolone acetonide 55 mcg 1 spray intranasal DAILY 09/23/23 Unknown History nasal spray aerosol (24 Hour Nasal Allergy) vitamin E 268 mg (400 unit) capsule 268 mg PO TUTHSA 09/23/23 Unknown History Physio [place] 2,400 mg PO BID fish oil for 12/02/23 Unknown History triglycerides coenzyme Q10 100 mg capsule 100 mg PO DAILY 12/02/23 Unknown History carvedilol 12.5 mg tablet 12.5 mg PO BID #180 tabs 01/28/24 Unknown Rx clopidogrel 75 mg tablet 75 mg PO DAILY #90 tabs 01/28/24 Unknown Rx ascorbic acid (vitamin C) 250 mg 250 mg PO BID 03/09/24 Unknown History chewable tablet sucralfate 1 gram tablet (Carafate) 1 g PO TID 30 days #90 tabs 03/10/24 Unknown Rx Allergy/AdvReac Type Severity Reaction Status Date / Time Iodinated Contrast Media Allergy Other Verified 06/22/24 18:05 (Iodinated Contrast Media - IV Dye) isosorbide AdvReac Intermediate Lightheaded, Verified 06/22/24 18:05 dizzy, numb and tingling hands amlodipine AdvReac Headache, Verified 06/22/24 18:05 nausea, dizziness, fatigue, flushing, GERD Influenza Virus Vaccines AdvReac NEEDS Verified 06/22/24 18:05 FOLLOW-UP lisinopril AdvReac fatigue, Verified 06/22/24 18:05 difficulty walking morphine AdvReac SEVER Verified 06/22/24 18:05 HEADACHE rosuvastatin (From Crestor) AdvReac myalgias,neuropathy, Verified 06/22/24 18:05 elevated glucose Family History Other COPD (chronic obstructive pulmonary disease) Diabetes Embolism Hyperlipidemia Peripheral artery disease Surgical History H/O: hysterectomy History of appendectomy Presence of coronary angioplasty implant and graft (~02/20/21) S/P PTCA (percutaneous transluminal coronary angioplasty) History of heart artery stent History of bladder suspension procedure S/P bladder repair S/P tonsillectomy S/P appendectomy Social History household members: spouse housing: house Smoking Status: Never smoker alcohol intake: current alcohol intake frequency: holidays/special occasions only substance use type: does not use caffeine: Yes Type: coffee Number of servings: 3 and tea Number of servings: 1 EXAM Physical Exam Const Vital Signs: 06/22/24 18:05 06/22/24 18:30 06/22/24 19:12 Temperature 97.8 F Temperature Source Oral Pulse Rate 91 81 Respiratory Rate 16 22 H Blood Pressure 194/78 H Blood Pressure Mean 116 Pulse Ox 98 Oxygen Delivery Method Room Air Room Air 06/22/24 20:00 06/22/24 21:00 06/22/24 22:00 Temperature Temperature Source Pulse Rate 82 81 79 Respiratory Rate 16 19 H 19 H Blood Pressure 158/74 H 164/64 H 144/71 H Blood Pressure Mean 99 92 93 Pulse Ox Oxygen Delivery Method [facility] [place] N[place] Medical decision making narrative: HISTORY OF PRESENT ILLNESS: 73-year-old female history of CAD status post stents, hypertension, hyperlipidemia presents with intermittent burning chest pain and start this morning approximately 4 AM. Notes radiates to right shoulder back jaw and both hands. Notes pain feels like prior issues with reflux. She states There is no associated shortness of breath. No recent illnesses. No leg swelling. No syncope. The patient denies recent surgery in the last 4 weeks or immobilization in the last 3 days, denies previous diagnosis of DVT or PE, hemoptysis, unilateral leg swelling or malignancy with treatment the last 6 months or palliative. No estrogen use noted. Patient denies sudden onset of pain, no tearing sensation, no migratory symptoms, no new numbness, weakness or loss of sensation. Patient denies family history or personal history of Connective tissue disorders (Marfan's Syndrome, Re Danlos etc) REVIEW OF SYSTEMS: Pertinent positives: Chest pain Pertinent negatives: Shortness of breath, leg swelling, cough, fever PHYSICAL EXAM: Nursing triage notes reviewed, Vital signs reviewed Constitutional: please see mdm HENT: MMM Eyes: Pupils equal round and reactive to light, Extraocular muscles intact Neck: No stridor, no JVD, full neck ROM Lungs: Clear to auscultation, No wheezing or rales. No increased work of breathing, no conversational dyspnea, no accessory muscle use, no nasal flaring. No respiratory distress noted Heart: Regular rate and rhythm, No murmurs, No rubs and No gallops, 2+ distal pulses (radial, femoral, posterior tibial) in all extremities Abdomen: Soft, there is no tenderness, rigidity, rebound or guarding, no obvious peritoneal signs, no palpable pulsatile abdominal masses, no auscultated abdominal bruit : No CVAT Extremities: No edema Neuro: No focal neurological deficits, cranial nerves II through XII intact, 5/5 strength in all extremities. Intact sensation to light touch in all extremities, 2+ reflexes bilateral patella tendons. Normal gait. No ataxia. Skin: No rash or lesions noted MEDICAL DECISION MAKING: Chief Complaint: Chest pain External records reviewed: Reviewed cardiac catheterization from September of 2023 Factors affecting care: As per HPI Social determinants of health: none History obtained from others: none Consults: none [facility] Narrative: Patient was initially hemodynamically stable, afebrile and nontoxic-appearing. Exam without stigmata of VTE or dissection. history most consistent with likely GI etiology. I considered the following differential diagnosis: ACS, aortic dissection, PE, pneumonia, pneumothorax, anemia, electrolyte disturbance Protocol orders were placed secondary to high volume and high acuity. Protocol orders included BMP, PT/INR, troponin, CBC, chest x-ray, EKG ALL IMAGES (IF OBTAINED) HAVE BEEN PERSONALLY REVIEWED AND INTERPRETED BY MYSELF. EKG with normal sinus rhythm, rate of 88, normal axis, normal intervals, no obvious STEMI, no signs of peritonitis, Brugada syndrome, ARVD or WPW PT/INR within norm limits, no coagulopathy High-sensitivity troponin is negative, no evidence of myocardial ischemia CMP without evidence of acute kidney injury, significant electrolyte abnormality, anion gap to suggest end organ hypo-perfusion, no evidence of metabolic acidosis with a normal bicarbonate, no evidence of hepatobiliary obstructive pathology. High-sensitivity troponin is negative, no evidence of myocardial ischemia I have personally reviewed the patient's chest x-ray. Chest x-ray is unremarkable for pulmonary edema, pneumothorax, pneumonia or focal cardiopulmonary abnormality. Upon reassessment patient's blood pressure improved from 194/78 to 144/71. Chest pain-free. The synthesis of the patient's history, physical exam, labs images suggest no acute life and radiology specifically low suspicion for acute ACS given delta troponins being negative. Patient's history is more consistent with GI etiology. Symptoms improved after Pepcid. She is appropriate for close outpatient follow-up for confirmatory testing. Strict return precautions were discussed The patient and/or family, caregivers express understanding. The patient and/or family, caregivers agrees with the plan. Shared decision making: I will have a discussion with the patient and or visitors regarding risk/benefits of further testing or admission. They will be made aware of of the risk/benefits inherent in this decision they will be given the opportunity to voice understanding. Total critical care time today provided was at least 0 minutes. This excludes separately billable procedures. Critical care time (if documented) is secondary to the patient having high probability of clinically significant/life threatening deterioration in the patient's condition which required my urgent intervention. Impression: 1. Chest pain 2. History of CAD Dispo: Discharge home This note was generated with treadalong dictation software. It may contain incorrect words, spelling, and punctuation that were not noted in review of the chart prior to signing. Lab Data Labs: Laboratory Results - last 24 hr 06/22/24 06/22/24 18:30 20:40 WBC 6.9 RBC 4.21 Hgb 14.2 Hct 38.4 MCV 91.2 MCH 33.7 H MCHC 37.0 H RDW Std Deviation 41.8 RDW Coeff of Annel 12.8 Plt Count 261 MPV 10.5 Immature Gran % (Auto) 0.300 Neut % (Auto) 55.0 Lymph % (Auto) 32.7 Castro % (Auto) 9.4 Eos % (Auto) 1.9 Baso % (Auto) 0.7 Absolute Neuts (auto) 3.8 Absolute Lymphs (auto) 2.27 Nucleated RBC % 0 PT 13.9 INR 1.1 Sodium 138 Potassium 4.0 Chloride 103 Carbon Dioxide 27.0 Anion Gap 8 BUN 15 Creatinine 0.85 Estim Creat Clear Calc 58.57 Est GFR (MDRD) Af Amer 84 Est GFR (MDRD) Non-Af 70 BUN/Creatinine Ratio 17.7 Glucose 157 H Calcium 11.0 H Troponin I High Sens 3 4 Radiography Diagnostic Testing: Clinical Impression(s) from Imaging Studies Chest X-Ray 06/22/24 19:04 IMPRESSION: 1. No evidence of acute cardiopulmonary process Electronically Signed: Edy Art MD at 20:05 EDT , Discharge Plan Triage Chief Complaint: Chest Pain ED Provider: Domenico Bhat Dx/Rx/DC Orders Instructions: ED Chest Pain, Uncertain Cause Prescriptions: No Action aspirin [Adult Low Dose Aspirin] 81 mg tablet,delayed release (DR/EC) 81 mg PO DAILY cholecalciferol (vitamin D3) 50 mcg (2,000 unit) capsule 50 mcg PO MOWEFR potassium gluconate 600 mg (99 mg) tablet 600 mg PO DAILY metformin 500 mg tablet extended release 24 hr 500 mg PO BID lutein 20 MG capsule 20 mg PO DAILY estradiol [Estrace] 0.01 % (0.1 mg/gram) Cream 1 appful VAGINAL SUWEFR vitamin B complex Capsule 1 cap PO DAILY cranberry 1,000 mg Capsule 4,200 mg PO QWEEK Rx Instructions: Sundays zinc 50 mg Capsule 50 mg PO TUTHSA vitamin E 268 mg (400 unit) capsule 268 mg PO TUTHSA triamcinolone acetonide [24 Hour Nasal Allergy] 55 mcg aerosol,spray 1 spray intranasal DAILY Rx Instructions: administer into each nostril polyethylene glycol 3350 [ClearLax] 17 gram/dose powder 17 g PO DAILY phytosterol 500 mg capsule 1,000 mg PO DAILY super beets 2 tab PO DAILY ascorbic acid (vitamin C) 250 mg tablet,chewable 250 mg PO BID sucralfate [Carafate] 1 gram tablet 1 g PO TID 30 Days Qty: 90 0RF coenzyme Q10 100 mg capsule 100 mg PO DAILY Physio [place] 2,400 mg capsule 2,400 mg PO BID carvedilol 12.5 mg tablet 12.5 mg PO BID Qty: 180 4RF clopidogrel 75 mg tablet 75 mg PO DAILY Qty: 90 4RF Primary Care Provider: Gideon Turcios Referrals: Gideon Turcios DO [Primary Care Provider] - Activity Restrictions/Additional Instructions: Thank you for trusting us with your care today! Please take Tylenol (2 pills, 650 mg), ibuprofen (2 pills, 400 mg) every 6 hours as needed for pain and fever control. Please return to the emergency department if your symptoms change or worsen. Please follow with your primary care physician for further outpatient evaluation and management. Print Language: Mohawk Disposition Disposition: Home, Self Care
[2024-06-22 19:01] LABS: International Normalized Ratio 1.1; Prothrombin Time (Protime)PT. 13.9 SECONDS (11.7-14.9)
--- NOTE | 2024-06-22 19:04 | RAD_ITS ---
INDICATION: chest pain EXAMINATION/TECHNIQUE: X-RAY - XR Chest 1 View COMPARISON: 03/09/2024 FINDINGS: LIFE-SUPPORT AND LINES: 1. None HEART AND VESSELS: The cardiac silhouette, pulmonary vasculature have normal appearance. No evidence of congestive failure. LUNGS AND PLEURAL SPACES: Lungs are clear. No focal infiltrate, consolidation or effusions. No evidence of pneumothorax. No pulmonary mass is noted. MEDIASTINUM AND HILAR REGIONS: No masses adenopathy noted. No areas of calcification. Visualized upper airway is normal in position. BONY ELEMENTS: No acute bony changes noted. RAD/Chest 1 View (Portable) IMPRESSION: 1. No evidence of acute cardiopulmonary process Electronically Signed: Edy Art MD at 20:05 EDT ,
[2024-06-22 19:06] LABS: Anion Gap 8 (5-15); BUN 15 mg/dL (7-18); BUN/Creat Ratio 17.7 RATIO (10-20); Chloride 103 mmol/L (98-107); Creatinine, Serum 0.85 mg/dL (0.55-1.02); EST Glomerular Filtration Rate 70 mL/min (>60); Est Glom Filt Rate - Afr Amer 84 mL/min (>60); Estimated Creatinine Clearance 58.57 ml/min; Glucose 157 mg/dL (74-106); Sodium Level 138 mmol/L (136-145); Troponin-I HS (w/2H Reflex) 3 pg/mL (3.0-54.0)
[2024-06-22 19:12] VITALS: PULSE 81; RESP 22
[2024-06-22] MEDS: Famotidine 200 MG/20 ML MDV 20 MG in 0.9% Normal Saline (Pres. free 8 ML 300 MG IV (19:52)
[2024-06-22 19:53] LABS: Absolute Lymphocyte Count 2.27 X10^3/uL (0.83-4.51); Absolute Neutrophil Count 3.8 X10^3/uL (2.0-7.7); Basophil# 0.05 X10^3/uL; Basophil% 0.7 % (0-1); Eosinophil# 0.13 X10^3/uL; Eosinophils% 1.9 % (0-5); Hematocrit 38.4 % (37-47); Hemoglobin 14.2 g/dL (12.0-15.0); Lymphocyte # 2.27 X10^3/ul (0.83-4.51); Lymphocyte % 32.7 % (19-41); Mean Corpuscular Hgb 33.7 pg (27.0-32.0); Mean Corpuscular Volume 91.2 fL (81-99); Mean Platelet Vol. 10.5 fl (6.2-12.0); Monocyte# 0.65 X10^3/uL; Monocyte% 9.4 % (0-10); NRBC Flagged by Analyzer 0 % (0-5); Neutrophil # 3.82 X10^3/uL (2.7-7.7); Platelet Count 261 K/mm3 (150-450); RBC Distribution Width CV 12.8 % (11.6-14.6); RBC Distribution Width SD 41.8 fl (35.1-43.9); Red Blood Count 4.21 M/mm3 (4.2-5.4); White Blood Count 6.9 K/mm3 (4.4-11.0)
[2024-06-22 20:00] VITALS: BP 158/74; PULSE 82; RESP 16
[2024-06-22 20:37] LABS: Reflex Troponin-HS? (from REC) Y
[2024-06-22 21:00] VITALS: BP 164/64; PULSE 81; RESP 19
[2024-06-22 21:22] LABS: Troponin-I HS 4 pg/mL (3.0-54.0)
[2024-06-22 22:00] VITALS: BP 144/71; PULSE 79; RESP 19
[2024-06-22 22:25] VITALS: BP 144/71; PULSE 80; RESP 23; TEMP 36.6; O2SAT 97
== END 2024-06-22 22:26 | disposition home or self-care (01) ==
PROVIDERS: Emergency Medicine; Emergency Provider Emergency Medicine; PCP Family Medicine; Visit Provider Emergency Medicine
DX: R07.9 Chest pain, unspecified (principal); E11.40 Type 2 diabetes mellitus with diabetic neuropathy, unspecified; I25.10 Atherosclerotic heart disease of native coronary artery without angina pectoris; I25.2 Old myocardial infarction; I10 Essential (primary) hypertension; Z95.5 Presence of coronary angioplasty implant and graft; Z79.02 Long term (current) use of antithrombotics/antiplatelets; Z79.82 Long term (current) use of aspirin; Z79.84 Long term (current) use of oral hypoglycemic drugs; Z79.899 Other long term (current) drug therapy
CPT/HCPCS: 71045; 80048; 84484; 85025; 85610; 93005; 96365; 99284; A4216; J3490

== ENCOUNTER → 2024-07-03 | Outpatient (CLI) | payer MEDICARE, BC, SELFPAY ==
--- NOTE | 2024-07-03 13:04 | BI_ITS ---
MAMMOGRAPHY - BILATERAL SCREENING REASON FOR EXAM: Female, 73 years old. Routine annual screening examination. PERTINENT HISTORY: Sister with breast cancer. TECHNIQUE: Digital bilateral breast sol (3D mammographic acquisition) in the CC and MLO projections. 2-D mediolateral oblique (MLO) and craniocaudad (CC) views of both breasts were obtained. CAD: Full Field Digital Mammography with Computer Added Detection was performed. COMPARISON: Comparison is made with prior study dated July 02, 2023 and June 29, 2022. FINDINGS: Breast Composition: There are scattered areas of fibroglandular density. There are no dominant masses or suspicious calcifications. No other significant abnormalities are identified. There has been no significant change since the prior study. BI/SCRN MAMM (CAD)W/SOL BILAT IMPRESSION: Stable bilateral screening mammogram. Yearly follow-up mammogram recommended. (A) ASSESSMENT CATEGORY: BIRADS Category 1: Negative. A letter regarding these results will be sent to the patient by the facility within 30 days. Approximately 10% of breast cancers are not detected by mammography. A normal mammogram should not delay biopsy of a clinically suspicious abnormality. [id number] Electronically Signed: Josr Phillips MD at 14:11 EDT ,
== END | disposition home or self-care (01) ==
LOC: OPBI 13:01
PROVIDERS: PCP Family Medicine; Referring Provider Family Medicine; Visit Provider Family Medicine
DX: Z12.31 Encounter for screening mammogram for malignant neoplasm of breast (principal)
CPT/HCPCS: 77063; 77067

== ENCOUNTER 2024-07-09 09:24 | Emergency (ER) | payer MEDICARE, BC, SELFPAY ==
[2024-07-09] VITALS (7 sets, daily range): BP systolic 161–196; BP diastolic 53–87; PULSE 67–84; RESP 15–21; TEMP 36.5–36.7; O2SAT 95–99; BMI 30.7
[2024-07-09 10:03] LABS: Absolute Lymphocyte Count 2.61 X10^3/uL (0.83-4.51); Absolute Neutrophil Count 2.9 X10^3/uL (2.0-7.7); Basophil# 0.07 X10^3/uL; Basophil% 1.1 % (0-1); Eosinophil# 0.13 X10^3/uL; Hematocrit 37.1 % (37-47); Hemoglobin 13.9 g/dL (12.0-15.0); Lymphocyte # 2.61 X10^3/ul (0.83-4.51); Lymphocyte % 40.3 % (19-41); Mean Corp Hgb Conc 37.5 g/dL (32-36); Mean Corpuscular Volume 90.7 fL (81-99); Monocyte# 0.68 X10^3/uL; Monocyte% 10.5 % (0-10); NRBC Flagged by Analyzer 0 % (0-5); Neutrophil # 2.93 X10^3/uL (2.7-7.7); Neutrophil % 45.3 % (47-70); Platelet Count 258 K/mm3 (150-450); RBC Distribution Width CV 12.6 % (11.6-14.6); RBC Distribution Width SD 41.5 fl (35.1-43.9); Red Blood Count 4.09 M/mm3 (4.2-5.4); White Blood Count 6.5 K/mm3 (4.4-11.0)
[2024-07-09] MEDS: Sucralfate 1 GM Tablet PO (10:09)
[2024-07-09] MEDS: Aspirin 81 MG TAB.CHEW 324 MG PO (10:09)
[2024-07-09] MEDS: Ondansetron 4 MG/2 ML Vial IV (10:09)
[2024-07-09] MEDS: Famotidine 200 MG/20 ML MDV 20 MG in 0.9% Normal Saline (Pres. free 8 ML 300 MG IV (10:09)
[2024-07-09 10:20] LABS: AST(SGOT) 23 U/L (15-37); Alanine Aminotransfer ALT/SGPT 51 U/L (13-56); Albumin, Serum 3.9 g/dL (3.2-5.0); Alkaline Phosphatase 73 U/L (45-117); Anion Gap 7 (5-15); BUN 12 mg/dL (7-18); BUN/Creat Ratio 14.2 RATIO (10-20); Bilirubin, Direct 0.21 mg/dL (0.00-0.30); Calcium,Total 9.9 mg/dL (8.5-10.1); Chloride 105 mmol/L (98-107); Creatinine, Serum 0.84 mg/dL (0.55-1.02); EST Glomerular Filtration Rate 70 mL/min (>60); Est Glom Filt Rate - Afr Amer 85 mL/min (>60); Estimated Creatinine Clearance 69.62 ml/min; Globulin 3.2 g/dL (2.2-4.2); Glucose 160 mg/dL (74-106); Lipase 55 U/L (13-75); Potassium 4.1 mmol/L (3.5-5.1); Protein, Total 7.1 g/dL (6.4-8.2); Sodium Level 137 mmol/L (136-145); Troponin-I HS (w/2H Reflex) < 3 pg/mL (3.0-54.0)
[2024-07-09 10:22] LABS: BNP,B-Type NATRIURETIC PEPTIDE 81.7 pg/mL (0-100)
[2024-07-09 10:53] LABS: D-Dimer Quantitative (DVT/PE) 0.27 FEU/ug/m (0.27-0.49)
[2024-07-09 12:00] LABS: Reflex Troponin-HS? (from REC) Y
[2024-07-09 12:32] LABS: Troponin-I HS < 3 pg/mL (3.0-54.0)
== END 2024-07-09 14:54 | disposition home or self-care (01) ==
PROVIDERS: Emergency Provider Emergency Medicine; PCP Family Medicine; Visit Provider Emergency Medicine
DX: R07.9 Chest pain, unspecified (principal); E11.40 Type 2 diabetes mellitus with diabetic neuropathy, unspecified; I25.10 Atherosclerotic heart disease of native coronary artery without angina pectoris; I25.2 Old myocardial infarction; I10 Essential (primary) hypertension; Z95.5 Presence of coronary angioplasty implant and graft; Z79.02 Long term (current) use of antithrombotics/antiplatelets; Z79.82 Long term (current) use of aspirin; Z79.84 Long term (current) use of oral hypoglycemic drugs; Z79.899 Other long term (current) drug therapy
CPT/HCPCS: 71045; 80048; 80076; 83690; 83880; 84484; 85025; 85379; 93005; 96374; 96375; 99284; A4216; J2405; J3490

== ENCOUNTER → 2024-09-22 | Outpatient (CLI) | payer MEDICARE, BC, SELFPAY ==
--- NOTE | 2024-09-22 13:58 | BD_ITS ---
STUDY: DUAL ENERGY X-RAY ABSORPTIOMETRY / DXA REASON FOR EXAM: Female, 74 years old. 733.00OsteoporosisBONE DENSITY REASON FOR EXAM TECHNIQUE: Bone Mineral Density (BMD) measurements of lumbar spine and bilateral hips were obtained. COMPARISON: Comparison is made with prior study dated May 21, 2017. FINDINGS: Lumbar Spine (L1-L4): g/cm2 (1.012) / T-score (-0.3) / Z-score (2.1) Findings are suggestive of normal bone density with a low fracture risk. Left Femur Total: g/cm2 (0.758) / T-score (-1.5) / Z-score (0.3) Left Femoral Neck: g/cm2 (0.713) / T-score (-1.2) / Z-score (0.9) Right Femur Total: g/cm2 (0.893) / T-score (-0.4) / Z-score (1.4) Right Femoral Neck: g/cm2 (0.812) / T-score (-0.3) / Z-score (1.7) The T-Scores on the most recent prior examination were: Lumbar Spine (L1-L4): There has been improvement of bone density since the previous examination. Left Femur Total: which represents a worsening of 10.9%. Right Femur Total: which represents a worsening of 2.6%. BD/Dexa Bone Density Study IMPRESSION: The patient is considered osteopenic as outlined below according to World Les Organization (WHO) criteria with a low fracture risk. There has been worsening of bone density since the previous examination. Reference Information: The T-score is the number of standard deviations above or below the standard which is normal for young adults at their peak bone mineral density. The World Health Organization (WHO) interprets the T-scores as follows: Above -1 Normal bone density Between -1 and -2.5 Osteopenia Equal to / or below -2.5 Osteoporosis As a practical clinical guideline, osteopenia may be graded as follows: Mild -1 through -1.5 Moderate -1.6 through -2.0 Severe -2.1 through -2.4 The Z-score is the number of standard deviations above or below age-matched controls. A Z-score of less than -1.5 would be considered abnormal. References: 1. NIH Osteoporosis and Related Bone Diseases www osteo.org 2. International Society for Clinical Densitometry www iscd.org 3. National Osteoporosis Foundation www nof.org Electronically Signed: Josr Phillips MD at 14:20 EST ,
== END | disposition home or self-care (01) ==
LOC: OPBD 13:47
PROVIDERS: PCP Family Medicine; Referring Provider Family Medicine; Visit Provider Family Medicine
DX: M81.0 Age-related osteoporosis without current pathological fracture (principal)
CPT/HCPCS: 77080

== ENCOUNTER 2024-10-07 08:01 | Day surgery (SDC) | payer MEDICARE, BC, SELFPAY ==
--- NOTE | 2024-10-05 14:58 | PAT.ANE_ITS ---
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 When Was Last Pacemaker Check QUESTION #4 FULL TEXT: You/Your Family Experience fever (hyperthermia) with Anesthesia Last Oral Intake Last Oral intake: Last Oral Intake NPO since Meds taken in AM with sips of water? Meds patient instructed to take am of surgery PONV PONV - senior water resources engineer: PONV - senior water resources engineer Female Yes 10/05/24 13:58 HX of Motion Sickness Yes 10/05/24 13:58 HX of N/V After Surgery No 10/05/24 13:58 Non-Smoker Yes 10/05/24 13:58 Duration of Surgery greater No 10/05/24 13:58 than 60 minutes Number of Risk Factors 3 10/05/24 13:58 PONV Score Moderate Risk 10/05/24 13:58 Height & Weight Height & Weight: Anesthesia: Height & Weight Height 5 ft 8.11 in 07/22/24 15:22 Respiratory Assessment Respiratory Assessment - senior water resources engineer: Respiratory Tract Infection Hx - senior water resources engineer Hx Respiratory Tract Infection No 10/05/24 13:58 STOP Sleep Apnea STOP Sleep Apnea - senior water resources engineer: STOP Sleep Apnea - senior water resources engineer Hx Hypertension Yes: CONTROLLED WITH MED 10/05/24 13:58 Hx Sleep Apnea No 10/05/24 13:58 CPAP BIPAP Do you snore loudly (louder No 10/05/24 13:58 than talking or can be heard Do you often feel tired/ Yes 10/05/24 13:58 fatigued/ sleepy during daytime? Has anyone observed you stop No 10/05/24 13:58 breathing during sleep? STOP Results Positive 10/05/24 13:58 QUESTION #5 FULL TEXT : Do you snore loudly (louder than talking or can be heard through closed doors)? 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 Specify any problems Hx of Preganancy in last 3 No 10/05/24 13:58 Months Nurse Filling Out Transfusion DSCHRIBER 10/05/24 13:58 & Questions: Date: 10/05/24 10/05/24 13:58 Time: 14:03 10/05/24 13:58 Patient unable to answer at this time (ie. confused, unrespo /Reproduction History /Reproductive History - senior water resources engineer: /Reproductive Hx- senior water resources engineer Hx Now No 10/05/24 13:58 Gestational Age (in weeks): EDC: Hx Hx Para Hx Section SAB No 10/05/24 13:58 PFSH Medical History (Updated 10/05/24 @ 14:18 by Alissa Johansen) Wears glasses Post-menopausal Alcohol use Syncope Dietary restriction History of ulceration Non-smoker Shortness of breath on exertion Leg cramps History of edema Non-ST elevation (NSTEMI) myocardial infarction Anxiety Diabetes GERD (gastroesophageal reflux disease) Myocardial infarct Essential hypertension Presence of stent in coronary artery (09/24/23) Atherosclerotic heart disease of [place] coronary artery without angina pectoris CAD (coronary artery disease) Hypertension Congenital heart defect Neuropathy Hyperlipidemia Home Medications ?Medication ?Instructions ?Recorded ?Last Taken ?Type aspirin 81 mg tablet,delayed 81 mg PO DAILY HEART HEAL TH 04/30/18 07/08/24 History release (Adult Low Dose Aspirin) lutein 20 mg capsule 20 mg PO DAILY EYE VITAMIN 1 10/07/17 07/08/24 History cranberry 1,000 mg capsule 4,200 mg PO MOREL SUPPLEMENT 0 02/19/21 07/05/24 History estradiol 0.01% (0.1 mg/gram) 1 appful vaginal SUWEFR HORMONES 02/19/21 07/08/24 History vaginal cream (Estrace) vitamin B complex 1 cap PO DAILY SUPPLEMENT 07/08/24 History metformin 500 mg tablet,extended 500 mg PO BID BLOOD S UGARS 07/04/22 07/09/24 History release 24 hr phytosterol 500 mg capsule 1,000 mg PO DAILY CHOLESTER OL 05/15/23 07/08/24 History triamcinolone acetonide 55 mcg 2 spray intranasal JOSE ALFREDO Y PRN 09/23/23 07/08/24 History nasal spray aerosol (24 Hour Nasal ALLERGIES Allergy) vitamin E 268 mg (400 unit) capsule 268 mg PO TUTHSA S UPPLEMENT 09/23/23 07/07/24 History Physio [place] 2,400 mg PO BID SUPPLEMENT 0 12/02/23 07/08/24 History coenzyme Q10 100 mg capsule 100 mg PO DAILY SUPPLEMENT 12/02/23 07/08/24 History carvedilol 12.5 mg tablet 12.5 mg PO BID HEART #180 t abs 01/28/24 07/09/24 Rx clopidogrel 75 mg tablet 75 mg PO DAILY BLOOD THINNER #90 01/28/24 10/03/24 Rx tabs red yeast rice 600 mg tablet 600 mg PO BID SUPPLEMENT 07/09/24 07/08/24 History cimetidine 400 mg tablet 400 mg PO BID 07/22/24 Unkno wn History cholecalciferol (vitamin D3) 250 250 mcg PO QDAY 08/03 Unknown History mcg (10,000 unit) capsule Allergy/AdvReac Type Severity Reaction Status Date / Time Iodinated Contrast Media Allergy Other Verified 10/05/24 13:55 (Iodinated Contrast Media - IV Dye) isosorbide AdvReac Intermediate Lightheaded, Verified 10/05/24 13:55 dizzy, numb and tingling hands amlodipine AdvReac Headache, Verified 10/05/24 13:55 nausea, dizziness, fatigue, flushing, GERD Influenza Virus Vaccines AdvReac NEEDS Verified 10/05/24 13:55 FOLLOW-UP lisinopril AdvReac fatigue, Verified 10/05/24 13:55 difficulty walking morphine AdvReac SEVER Verified 10/05/24 13:55 HEADACHE rosuvastatin (From Crestor) AdvReac myalgias,neuropathy, Verified 10/05/24 13:55 elevated glucose Family History Other COPD (chronic obstructive pulmonary disease) Diabetes Embolism Hyperlipidemia Peripheral artery disease Surgical History (Updated 10/05/24 @ 14:11 by Alissa Johansen) Hx of toe surgery H/O: hysterectomy History of appendectomy Presence of coronary angioplasty implant and graft (~02/20/21) S/P PTCA (percutaneous transluminal coronary angioplasty) History of heart artery stent S/P bladder repair S/P tonsillectomy Social History household members: spouse housing: house Smoking Status: Never smoker alcohol intake: current alcohol intake frequency: holidays/special occasions only substance use type: does not use caffeine: Yes Type: coffee Number of servings: 3 and tea Number of servings: 1 Audit: Pertinent Findings Pertinent Findings EKG Perinent findings: 07/09/2024 normal sinus rhythm 80 bpm low voltage QRS septal infarct cited on or before June 2022 Stress test pertinent findings: 08/02/2023 normal stress test preserved EF 84% Echo (EF%) pertinent findings: 05/22/2021 normal size function EF 60 Consult pertinent findings: Cardiology 07/22/2024 hypertension chronic coronary artery disease status post stent on Plavix stable Recommendation Anesthesia Recommendation Anesthesia recommendation: OPTIMIZED for anesthesia
[2024-10-07] VITALS (7 sets, daily range): BP systolic 117–147; BP diastolic 49–91; PULSE 77–87; RESP 15–18; TEMP 36.3–36.6; O2SAT 94–98; BMI 26.6
--- NOTE | 2024-10-07 08:46 | HP.PCM_ITS ---
HPI - General General Date of Admission: 10/07/24 Date of Service: 10/07/24 Chief Complaint: Abdominal pain HPI Narrative USMAN NICKERSON, is a 73 F who presents for endoscopic evaluation of abdominal pain. - chest pain/burning, on occasion pain has radiated through to her back - saw in ED who recommended she stop Tagamet and start pantoprazole - she read the s/e for pantoprazole and refuses to take it - reduced coffee from 3 to 2 cups a day - IBU on occasion - ED March (2 weeks PPI), June (1 week PPI) and July (refusing to take pantoprazole) 2023 for chest pain, belching - reports pain was not resolving with Tums - reports symptoms are much worse when she lays down - she drinks peppermint tea and eats peppermints - denies any dysphagia or weight loss - reports she was just seen by Dr. Lowry (cardiology) - cleared per patient - h/o cardiac stents x5 - ASA and Plavix - denies any lung or kidney disease - reports she has never had a colonoscopy and does not want one - reports she will not do a Cologuard because she had 2 friends with false positive - denies any family h/o colon CA - denies any bleeding - she reports if she had a positive cologuard she would not have a colonoscopy - home made yogurt with K2D3 - reports when she was on this without the K2D3 she did not have UGI symptoms [facility] Medical History Wears glasses Post-menopausal Alcohol use Syncope Dietary restriction History of ulceration Non-smoker Shortness of breath on exertion Leg cramps History of edema Non-ST elevation (NSTEMI) myocardial infarction Anxiety Diabetes GERD (gastroesophageal reflux disease) Myocardial infarct Essential hypertension Presence of stent in coronary artery (09/24/23) Atherosclerotic heart disease of [place] coronary artery without angina pectoris CAD (coronary artery disease) Hypertension Congenital heart defect Neuropathy Hyperlipidemia Home Medications ?Medication ?Instructions ?Recorded ?Last Taken ?Type aspirin 81 mg tablet,delayed 81 mg PO DAILY HEART HEAL TH 04/30/18 10/06/24 History release (Adult Low Dose Aspirin) lutein 20 mg capsule 20 mg PO DAILY EYE VITAMIN 1 10/07/17 07/08/24 History cranberry 1,000 mg capsule 4,200 mg PO MOREL SUPPLEMENT 0 02/19/21 07/05/24 History estradiol 0.01% (0.1 mg/gram) 1 appful vaginal SUWEFR HORMONES 02/19/21 07/08/24 History vaginal cream (Estrace) vitamin B complex 1 cap PO DAILY SUPPLEMENT 07/08/24 History metformin 500 mg tablet,extended 500 mg PO BID BLOOD S UGARS 07/04/22 07/09/24 History release 24 hr phytosterol 500 mg capsule 1,000 mg PO DAILY CHOLESTER OL 05/15/23 07/08/24 History triamcinolone acetonide 55 mcg 2 spray intranasal JOSE ALFREDO Y PRN 09/23/23 07/08/24 History nasal spray aerosol (24 Hour Nasal ALLERGIES Allergy) vitamin E 268 mg (400 unit) capsule 268 mg PO TUTHSA S UPPLEMENT 09/23/23 07/07/24 History Physio [place] 2,400 mg PO BID SUPPLEMENT 0 12/02/23 07/08/24 History coenzyme Q10 100 mg capsule 100 mg PO DAILY SUPPLEMENT 12/02/23 07/08/24 History carvedilol 12.5 mg tablet 12.5 mg PO BID HEART #180 t abs 01/28/24 10/07/24 Rx clopidogrel 75 mg tablet 75 mg PO DAILY BLOOD THINNER #90 01/28/24 10/03/24 Rx tabs red yeast rice 600 mg tablet 600 mg PO BID SUPPLEMENT 07/09/24 07/08/24 History cimetidine 400 mg tablet 400 mg PO BID 07/22/2410/07 History cholecalciferol (vitamin D3) 250 250 mcg PO QDAY 08/03 Unknown History mcg (10,000 unit) capsule Allergy/AdvReac Type Severity Reaction Status Date / Time Iodinated Contrast Media Allergy Other Verified 10/07/24 08:28 (Iodinated Contrast Media - IV Dye) isosorbide AdvReac Intermediate Lightheaded, Verified 10/07/24 08:28 dizzy, numb and tingling hands amlodipine AdvReac Headache, Verified 10/07/24 08:28 nausea, dizziness, fatigue, flushing, GERD Influenza Virus Vaccines AdvReac NEEDS Verified 10/07/24 08:28 FOLLOW-UP lisinopril AdvReac fatigue, Verified 10/07/24 08:28 difficulty walking morphine AdvReac SEVER Verified 10/07/24 08:28 HEADACHE rosuvastatin (From Crestor) AdvReac myalgias,neuropathy, Verified 10/07/24 08:28 elevated glucose Family History Other COPD (chronic obstructive pulmonary disease) Diabetes Embolism Hyperlipidemia Peripheral artery disease Surgical History Hx of toe surgery H/O: hysterectomy History of appendectomy Presence of coronary angioplasty implant and graft (~02/20/21) S/P PTCA (percutaneous transluminal coronary angioplasty) History of heart artery stent S/P bladder repair S/P tonsillectomy Social History household members: spouse housing: house Smoking Status: Never smoker alcohol intake: current alcohol intake frequency: holidays/special occasions only substance use type: does not use caffeine: Yes Type: coffee Number of servings: 3 and tea Number of servings: 1 ROS Constitutional Constitutional: Denies fatigue, fever(s), poor appetite, weight gain or weight loss Gastrointestinal Gastrointestinal: Denies belching, bloating, change in bowel habits, change in stool character, chewing difficulty, coffee ground emesis, constipation, cramping, diarrhea, dyspepsia, dysphagia, early satiety, excessive flatus, fecal incontinence, heartburn, hematemesis, hematochezia, hemorrhoids, loose stools, melena, nausea, odynophagia, rectal bleeding, tenesmus, vomiting or weight changes Vital Signs Vital Signs Vital Signs: 10/07/24 08:30 10/07/24 08:30 Temperature 97.8 F Temperature Source Temporal Pulse Rate 87 Respiratory Rate 18 Respiratory Pattern Normal Blood Pressure 147/61 H Blood Pressure Mean 89 Blood Pressure Source Monitor Blood Pressure Position Sitting Blood Pressure Location Left Arm Pulse Ox 98 Oxygen Delivery Method Room Air Weight Weight: 165 lb 5.547 oz Body Mass Index (BMI) 26.6 Physical Exam Const alert, oriented x3, no apparent distress and healthy appearing General Appearance: cooperative GI normal to inspection, nondistended, normoactive bowel sounds, soft to palpation, non-tender and non-distended Percussion: normal to percussion Rectal Exam: deferred Assessment & Plan Assessment/Plan (1) Epigastric pain: PLAN: Assessment and Plan Assessment and Plan (1) Gastroesophageal reflux disease: Qualifiers: Esophagitis presence: esophagitis presence not specified Qualified Code(s): K21.9 - Gastro-esophageal reflux disease without esophagitis (2) Epigastric pain: Status: Acute Plan 73y/o female presents for consultation with complaints of epigastric pain. With PMH of 5 cardiac stents she reports she has presented to ED 3x in the past six months with epigastric/chest pain. She reports cardiac w/u was unremarkable. She takes Tagamet BID and declines to take a PPI. She will schedule EGD. EGD Obtain approval to hold Plavix Plan Details Follow Up: 3 Months
--- NOTE | 2024-10-07 08:49 | PCM.PRE.AN2 ---
ASA Classification* ASA Classification ASA Classification: 3 Assessment & Plan Anesthesia* Anesthesia Assessment Anesthesia Assessment: Discussed sedation and/or anesthesia options, risks, benefits, and alternatives with patient/parents/legal guardian/POA. Questions invited. The patient/parents/legal guardian/POA seems to understand and agrees to proceed with anesthesia plan. Reviewed the physical assessment, medical history, allergy history and patient home medications list prior to surgery/procedure/anesthetic and documented any changes. Performed airway and anesthesia risk assessments. Anesthesia Type Anesthesia Type: MAC Anesthesia Focused Assessment* Temperature: 97.8 F Pulse Rate: 87 Blood Pressure: 147/61 Respiratory Rate: 18 Pulse Ox: 98 Airway Assessment Mouth opens: >3 cm Mallampati Score: II Focused Labs Anesthesia Preop lab: CBC WBC 6.5 K/mm3 (4.4-11.0) 07/09/24 09:38 07/09/24 RBC 4.09 M/mm3 (4.2-5.4) L 07/09/24 09:38 07/09/24 Hgb 13.9 g/dL (12.0-15.0) 07/09/24 09:38 07/09/24 Hct 37.1 % (37-47) 07/09/24 09:38 07/09/24 Plt Count 258 K/mm3 (150-450) 07/09/24 09:38 07/09/24 CHEMISTRY Potassium 4.1 mmol/L (3.5-5.1) 07/09/24 09:38 07/09/24 Sodium 137 mmol/L (136-145) 07/09/24 09:38 07/09/24 Magnesium 2.4 mg/dL (1.6-2.6) 09/24/23 04:10 09/24/23 Phosphorus 3.6 mg/dL (2.5-4.9) 09/24/23 04:10 09/24/23 BUN 12 mg/dL (7-18) 07/09/24 09:38 07/09/24 Creatinine 0.84 mg/dL (0.55-1.02) 07/09/24 09:38 07/09/24 Glucose 160 mg/dL (74-106) H 07/09/24 09:38 07/09/24 POC Glucose 115 mg/dL (74-106) H 06/25/22 19:10 06/25/22 TSH 2.63 uIU/mL (0.358-3.74) 12/18/18 07:53 12/18/18 COAG PT 13.9 SECONDS (11.7-14.9) 06/22/24 18:30 06/22/24 Pre-Assessment Diagnosis/Proposed Procedure Planned Operative Procedure(s): EGD Anesthesia History Anesthesia History - circuitry negative inspector: Anesthesia History - circuitry negative inspector Hx Hospitalization No 10/05/24 13:58 Any Problems With Anesthesia Yes: SLOW TO AWAKEN 10/05/24 13:58 Cholinesterase deficiency No 10/05/24 13:58 You/Your Family Experience No 10/05/24 13:58 fever (hyperthermia) with Relationship Recent Exposure to Contagious No 10/07/24 08:30 Disease Does patient have nerve No 10/05/24 13:58 stimulator Patient instructed to have device shut off --Does patient have Pacemaker No 10/07/24 08:30 or ICD? When Was Last Pacemaker Check QUESTION #4 FULL TEXT: You/Your Family Experience fever (hyperthermia) with Anesthesia Last Oral Intake Last Oral intake: Last Oral Intake NPO since 00:00 10/07/24 08:30 Meds taken in AM with sips of Yes 10/07/24 08:30 water? Meds patient instructed to carvedilol, tagament 10/07/24 08:30 take am of surgery PONV PONV - circuitry negative inspector: PONV - circuitry negative inspector Female Yes 10/05/24 13:58 HX of Motion Sickness Yes 10/05/24 13:58 HX of N/V After Surgery No 10/05/24 13:58 Non-Smoker Yes 10/05/24 13:58 Duration of Surgery greater No 10/05/24 13:58 than 60 minutes Number of Risk Factors 3 10/05/24 13:58 PONV Score Moderate Risk 10/05/24 13:58 Height & Weight Height & Weight: Anesthesia: Height & Weight Height 5 ft 6 in 10/07/24 08:30 Weight: 75 kg 10/07/24 08:30 Body Mass Index (BMI) 26.6 10/07/24 08:30 Respiratory Assessment Respiratory Assessment - circuitry negative inspector: Respiratory Tract Infection Hx - circuitry negative inspector Hx Respiratory Tract Infection No 10/05/24 13:58 STOP Sleep Apnea STOP Sleep Apnea - circuitry negative inspector: STOP Sleep Apnea - circuitry negative inspector Hx Hypertension Yes: CONTROLLED WITH MED 10/05/24 13:58 Hx Sleep Apnea No 10/05/24 13:58 CPAP BIPAP Do you snore loudly (louder No 10/05/24 13:58 than talking or can be heard Do you often feel tired/ Yes 10/05/24 13:58 fatigued/ sleepy during daytime? Has anyone observed you stop No 10/05/24 13:58 breathing during sleep? STOP Results Positive 10/05/24 13:58 QUESTION #5 FULL TEXT : Do you snore loudly (louder than talking or can be heard through closed doors)? 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 Specify any problems Hx of Preganancy in last 3 No 10/05/24 13:58 Months Nurse Filling Out Transfusion DSCHRIBER 10/05/24 13:58 & Questions: Date: 10/05/24 10/05/24 13:58 Time: 14:03 10/05/24 13:58 Patient unable to answer at this time (ie. confused, unrespo /Reproduction History /Reproductive History - circuitry negative inspector: /Reproductive Hx- circuitry negative inspector Hx Now No 10/05/24 13:58 Gestational Age (in weeks): EDC: Hx Hx Para Hx Section SAB No 10/05/24 13:58 PFSH Medical History Wears glasses Post-menopausal Alcohol use Syncope Dietary restriction History of ulceration Non-smoker Shortness of breath on exertion Leg cramps History of edema Non-ST elevation (NSTEMI) myocardial infarction Anxiety Diabetes GERD (gastroesophageal reflux disease) Myocardial infarct Essential hypertension Presence of stent in coronary artery (09/24/23) Atherosclerotic heart disease of [place] coronary artery without angina pectoris CAD (coronary artery disease) Hypertension Congenital heart defect Neuropathy Hyperlipidemia Home Medications ?Medication ?Instructions ?Recorded ?Last Taken ?Type aspirin 81 mg tablet,delayed 81 mg PO DAILY HEART HEALTH 04/30/18 10/06/24 History release (Adult Low Dose Aspirin) lutein 20 mg capsule 20 mg PO DAILY EYE VITAMIN 08/06/18 07/08/24 History cranberry 1,000 mg capsule 4,200 mg PO MOREL SUPPLEMENT 02/19/21 07/05/24 History estradiol 0.01% (0.1 mg/gram) 1 appful vaginal SUWEFR HORMONES 02/19/21 07/08/24 History vaginal cream (Estrace) vitamin B complex 1 cap PO DAILY SUPPLEMENT 02/19/21 07/08/24 History metformin 500 mg tablet,extended 500 mg PO BID BLOOD SUGARS 07/04/22 07/09/24 History release 24 hr phytosterol 500 mg capsule 1,000 mg PO DAILY CHOLESTEROL 05/15/23 07/08/24 History triamcinolone acetonide 55 mcg 2 spray intranasal DAILY PRN 09/23/23 07/08/24 History nasal spray aerosol (24 Hour Nasal ALLERGIES Allergy) vitamin E 268 mg (400 unit) capsule 268 mg PO TUTHSA SUPPLEMENT 09/23/23 07/07/24 History Physio [place] 2,400 mg PO BID SUPPLEMENT 12/02/23 07/08/24 History coenzyme Q10 100 mg capsule 100 mg PO DAILY SUPPLEMENT 12/02/23 07/08/24 History carvedilol 12.5 mg tablet 12.5 mg PO BID HEART #180 tabs 01/28/24 10/07/24 Rx clopidogrel 75 mg tablet 75 mg PO DAILY BLOOD THINNER #90 01/28/24 10/03/24 Rx tabs red yeast rice 600 mg tablet 600 mg PO BID SUPPLEMENT 07/09/24 07/08/24 History cimetidine 400 mg tablet 400 mg PO BID 07/22/24 10/07/24 History cholecalciferol (vitamin D3) 250 250 mcg PO QDAY 08/03/24 Unknown History mcg (10,000 unit) capsule Allergy/AdvReac Type Severity Reaction Status Date / Time Iodinated Contrast Media Allergy Other Verified 10/07/24 08:28 (Iodinated Contrast Media - IV Dye) isosorbide AdvReac Intermediate Lightheaded, Verified 10/07/24 08:28 dizzy, numb and tingling hands amlodipine AdvReac Headache, Verified 10/07/24 08:28 nausea, dizziness, fatigue, flushing, GERD Influenza Virus Vaccines AdvReac NEEDS Verified 10/07/24 08:28 FOLLOW-UP lisinopril AdvReac fatigue, Verified 10/07/24 08:28 difficulty walking morphine AdvReac SEVER Verified 10/07/24 08:28 HEADACHE rosuvastatin (From Crestor) AdvReac myalgias,neuropathy, Verified 10/07/24 08:28 elevated glucose Family History Other COPD (chronic obstructive pulmonary disease) Diabetes Embolism Hyperlipidemia Peripheral artery disease Surgical History Hx of toe surgery H/O: hysterectomy History of appendectomy Presence of coronary angioplasty implant and graft (~02/20/21) S/P PTCA (percutaneous transluminal coronary angioplasty) History of heart artery stent S/P bladder repair S/P tonsillectomy Social History household members: spouse housing: house Smoking Status: Never smoker alcohol intake: current alcohol intake frequency: holidays/special occasions only substance use type: does not use caffeine: Yes Type: coffee Number of servings: 3 and tea Number of servings: 1 Review of Systems (Anesthesia) ROS Narrative System reviewed and no additional complaints, except as documented.
[2024-10-07 08:55] LABS: Bedside Glucose 192 mg/dL (74-106)
--- NOTE | 2024-10-07 09:45 | EGD_PTH ---
PATIENT: USMAN NICKERSON LOC: EN U#:[id number] AGE/SX: 74/F ROOM: RE10/07/[address]: Dr. Gabino Baig DO : 1950 BED: DIS: 10/07/2024 SPEC #: [id number] RECD: 10/07/24 12:29 STATUS: ROME DAVID #: [id number] AMY: 10/07/24 09:[address]: Gabino Baig DEPT: SURGICAL PATHOLOGY RECD BY: Titus Lindsay ENTERED: 10/07/24 13:28 SP TYPE: EGD BIOPSY OT DR: Dr. Gideon Turcios DO Tissues: Esophagus, NOS Procedures: Special Stain Group I Surgery Specimen Level IV Alcian Blue/PAS (control) HEADER OPERATION: EGD with biopsy PRE-OP DIAGNOSIS: Gastroesophageal reflux disease, epigastric pain TISSUE SUBMITTED: Distal esophagus biopsy MICROSCOPIC DIAGNOSIS Distal esophagus, biopsy: Fragments of gastroesophageal mucosa with chronic inflammation. Intestinal metaplasia (goblet cell metaplasia) not identified. See comment. 10/08/2024 COMMENT Alcian blue/PAS stain with matched control is used in the evaluation of the specimen. The specimen predominantly consists of gastric mucosa. MICROSCOPIC DESCRIPTION Slides are reviewed. GROSS DESCRIPTION Received in fixative is one container labeled with the patient's name and designated Distal esophagus biopsy. The specimen consists of multiple irregular fragments of light gooden soft tissue that in aggregate measure 1 x 0.5 x 0.1 cm. The specimen is totally submitted in one cassette. MS/mr 10/07/2024 TC:3 CPT:97955,87339
--- NOTE | 2024-10-07 09:46 | PCM.POST.ANE ---
Anesthesia: Postop Eval I Current Vital Signs Temperature: 97.4 F Pulse Rate: 86 Blood Pressure: 123/83 Respiratory Rate: 16 Pulse Ox: 96 Oxygen Delivery Method: Room Air Assessment Airway patent: Yes Spontaneous unlabored respirations: Yes Mental status: Awake and Calm nausea: No Vomiting: No Anesthesia Complication: No Fluid Hydration Crystalloid volume administer (ml): 10 Total IV fluid infused: 10 Progress Note Anesthesia document: Postop Eval 1 completed: Yes
--- NOTE | 2024-10-07 09:50 | OP.CCLET_ITS ---
10/07/2024 Gideon Turcios [address] [place] [address] Re : Upper GI endoscopy procedure for Mariela Dozier Dear Dr. Turcios This procedure was performed on Monday, October 07, 2024. My impressions and recommendations are as follows: Impressions : - LA Grade B reflux esophagitis with no bleeding. Biopsied. - Medium-sized hiatal hernia. - No gross lesions in the duodenal bulb. Recommendations : - Discharge patient to home. - Resume previous diet. - Continue present medications. My findings are described in the full procedure note, which is enclosed. If I can be of further assistance, please feel free to contact me at . Sincerely, Gabino Baig, 10/07/2024 9:49:46 AM This report has been signed electronically.
--- NOTE | 2024-10-07 09:50 | OP.EGD_ITS ---
Patient Name: Mariela Dozier Procedure Date: 10/07/2024 9:24 AM Date of : 1950 Age: 74 Procedure: Upper GI endoscopy Indications: Suspected esophageal reflux Providers: Gabino Baig DO Medicines: Monitored Anesthesia Care Patient Profile: This is a 74 year old female. Refer to note in patient chart for documentation of history and physical. Patient has symptoms of acute chest pain and acute nausea. Complications: No immediate complications. Procedure: Pre-Anesthesia Assessment: - Prior to the procedure, a History and Physical was performed, and patient medications and allergies were reviewed. The patient is competent. The risks and benefits of the procedure and the sedation options and risks were discussed with the patient. All questions were answered and informed consent was obtained. Patient identification and proposed procedure were verified by the physician in the pre-procedure area. Mental Status Examination: alert and oriented. Airway Examination: normal oropharyngeal airway and neck mobility. Respiratory Examination: clear to auscultation. CV Examination: normal. Prophylactic Antibiotics: The patient does not require prophylactic antibiotics. Prior Anticoagulants: The patient has taken no anticoagulant or antiplatelet agents. ASA Grade Assessment: II - A patient with mild systemic disease. After reviewing the risks and benefits, the patient was deemed in satisfactory condition to undergo the procedure. The anesthesia plan was to use monitored anesthesia care (MAC). Immediately prior to administration of medications, the patient was re-assessed for adequacy to receive sedatives. The heart rate, respiratory rate, oxygen saturations, blood pressure, adequacy of pulmonary ventilation, and response to care were monitored throughout the procedure. The physical status of the patient was re-assessed after the procedure. After obtaining informed consent, the endoscope was passed under direct vision. Throughout the procedure, the patient's blood pressure, pulse, and oxygen saturations were monitored continuously. The gastroscope was introduced through the mouth, and advanced to the second part of duodenum. The upper GI endoscopy was accomplished without difficulty. The patient tolerated the procedure well. Scope In: 9:37:07 AM Scope Out: 9:40:17 AM Total Procedure Duration Time 0 hours 3 minutes 10 seconds Findings: LA Grade B (one or more mucosal breaks greater than 5 mm, not extending between the tops of two mucosal folds) esophagitis with no bleeding was found 35 to 38 cm from the incisors. Biopsies were taken with a cold forceps for histology. Verification of patient identification for the specimen was done. Estimated blood loss was minimal. A medium-sized hiatal hernia was present. No other significant abnormalities were identified in a careful examination of the stomach. No gross lesions were noted in the duodenal bulb. Impression: - LA Grade B reflux esophagitis with no bleeding. Biopsied. - Medium-sized hiatal hernia. - No gross lesions in the duodenal bulb. Recommendation: - Discharge patient to home. - Resume previous diet. - Continue present medications. Procedure Code(s): --- Professional --- 43527, Esophagogastroduodenoscopy, flexible, transoral; with biopsy, single or multiple CPT copyright 2021 [employer]. All rights reserved. The codes documented in this report are preliminary and upon instructor substitute cosmetology review may be revised to meet current compliance requirements. Gabino Baig DO 10/07/2024 9:49:46 AM This report has been signed electronically. Number of Addenda: 0 Note Initiated On: 10/07/2024 9:24 AM
== END 2024-10-07 10:25 | disposition home or self-care (01) ==
LOC: EN 08:02 → AC 08:07
PROVIDERS: PCP Family Medicine; Referring Provider Family Medicine; Visit Provider Internal Medicine Gastroenterology
PROC: 0DJ08ZZ Inspection of Upper Intestinal Tract, Via Natural or Artificial Opening Endoscopic (ICD-10-PCS; CPT 43235; principal; 2024-10-07 09:40)
DX: K21.00 Gastro-esophageal reflux disease with esophagitis, without bleeding (principal); E11.40 Type 2 diabetes mellitus with diabetic neuropathy, unspecified; I25.10 Atherosclerotic heart disease of native coronary artery without angina pectoris; I25.2 Old myocardial infarction; K44.9 Diaphragmatic hernia without obstruction or gangrene; I10 Essential (primary) hypertension; Z95.5 Presence of coronary angioplasty implant and graft; Z79.02 Long term (current) use of antithrombotics/antiplatelets; Z79.82 Long term (current) use of aspirin; Z79.84 Long term (current) use of oral hypoglycemic drugs; Z79.899 Other long term (current) drug therapy
CPT/HCPCS: 43239; 82962; 88305; 88312; A4216

== ENCOUNTER → 2025-07-09 | Outpatient (CLI) | payer MEDICARE, BC, SELFPAY ==
--- NOTE | 2025-07-09 13:22 | BI_ITS ---
EXAM: BI/SCRN MAMM (CAD)W/SOL BILAT
== END | disposition home or self-care (01) ==
LOC: OPBI 13:21
PROVIDERS: PCP Family Medicine; Referring Provider Family Medicine; Visit Provider Family Medicine
DX: Z12.31 Encounter for screening mammogram for malignant neoplasm of breast (principal)
CPT/HCPCS: 77063; 77067

== ENCOUNTER → 2025-08-03 | Outpatient (CLI) | payer MEDICARE, BC, SELFPAY | END | disposition home or self-care (01) | PROVIDERS: PCP Family Medicine; Referring Provider Podiatrist Foot & Ankle Surgery; Visit Provider Podiatrist Foot & Ankle Surgery | DX: S91.102A Unspecified open wound of left great toe without damage to nail, initial encounter (principal); X58.XXXA Exposure to other specified factors, initial encounter | CPT/HCPCS: 87070; 87075; 87077; 87186; 87205 ==

== ENCOUNTER → 2025-08-05 | Outpatient (CLI) | payer MEDICARE, BC, SELFPAY ==
[2025-08-05 12:34] LABS: Hematocrit 37.1 % (37-47); Hemoglobin 13.2 g/dL (12.0-15.0); Immature Granulocytes Count 0.030 X10^3/uL (0.0-0.0); Mean Corp Hgb Conc 35.6 g/dL (32-36); Mean Corpuscular Volume 94.2 fL (81-99); Mean Platelet Vol. 10.3 fl (6.2-12.0); NRBC Flagged by Analyzer 0 % (0-5); Platelet Count 382 K/mm3 (150-450); RBC Distribution Width CV 13.7 % (11.6-14.6); RBC Distribution Width SD 47.5 fl (35.1-43.9); Red Blood Count 3.94 M/mm3 (4.2-5.4); White Blood Count 6.5 K/mm3 (4.4-11.0)
[2025-08-05 12:55] LABS: AST(SGOT) 23 U/L (<=31); Alanine Aminotransfer ALT/SGPT 24 U/L (<=34); Albumin, Serum 4.2 g/dL (3.4-4.8); Alkaline Phosphatase 77 U/L (35-104); Anion Gap 15 (5-15); BUN 9 mg/dL (4-19); BUN/Creat Ratio 10.9 RATIO (10-20); Calcium,Total 9.7 mg/dL (7.6-11.0); Carbon Dioxide 21.5 mmol/L (21.0-32.0); Chloride 102 mmol/L (98-108); Cholesterol 227 mg/dL (<=200); Globulin 3.3 g/dL (2.2-4.2); Glucose 181 mg/dL (70-99); Low Density Lipoprotein Calc. 142 mg/dL; Potassium 4.2 mmol/L (3.3-5.1); Triglycerides 205 mg/dL; Very Low Density Lipoprotein 41 mg/dL (5-40); cholesterol:hdl ratio screen 4.69
[2025-08-05 13:02] LABS: Creatinine, Urine (random) 382.00 mg/dL (28.00-217.00); Microalbumin,Random Urine 15.8 mg/L (<20 mg/L)
== END | disposition home or self-care (01) ==
LOC: BFHLAB 09:06
PROVIDERS: PCP Family Medicine; Visit Provider Family Medicine
DX: I25.10 Atherosclerotic heart disease of native coronary artery without angina pectoris (principal); E11.9 Type 2 diabetes mellitus without complications
CPT/HCPCS: 36415; 80053; 80061; 82043; 82570; 83036; 85025

== ENCOUNTER → 2025-08-12 | Outpatient (CLI) | payer MEDICARE, BC, SELFPAY | END | disposition home or self-care (01) | LOC: BFHLAB 15:26 | PROVIDERS: PCP Family Medicine; Visit Provider Family Medicine | DX: E11.9 Type 2 diabetes mellitus without complications (principal) | CPT/HCPCS: 36415; 82985 ==